=== PATIENT | male | born 1955 | race Caucasian/White ===

== ENCOUNTER 2018-04-10 13:08 | Inpatient (IN) | payer OTHER ==
[2018-04-10] MEDS ORDERED: ACETAMINOPHEN 500 MG TABLET (FP) PO ONE (13:11)
--- NOTE | 2018-04-10 13:11 | PDOC ---
Rapid Medical Evaluation Time Seen by Provider: 04/10/18 13:09 Medical Evaluation: Allergies Allergy/AdvReac Type Severity Reaction Status Date / Time No Known Allergies Allergy Verified 02/27/18 10:21 04/10/18 13:10 I have performed a brief in-person evaluation of this patient. The patient presents with a chief complaint of: sent by ID for fever Pertinent physical exam findings:NAD I have ordered the following:Septic w/u and tylenol The patient will proceed to the ED for further evaluation. 04/10/18 13:11 Discharge Disposition - Diagnosis Fever - Referrals - Patient Instructions - Post Discharge Activity
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
--- NOTE | 2018-04-10 13:46 | PDOC ---
Attending Attestation - Resident Resident Name: Aiyana Valdovinos - ED Attending Attestation I have performed the following: I have examined & evaluated the patient, The case was reviewed & discussed with the resident, I agree w/resident's findings & plan - HPI HPI: 04/10/18 15:25 The patient is a 62 year old male, with a significant past medical history of chronic blt LE ulcers and chronic venous HTN, who presents to the emergency department with, fever and chills. Patient was seen by Dr. Daniels and Dr. Alcantar prior to his arrival, who advised him to report to the ED for further evaluation. He denies any recent headache or dizziness. He denies any recent nausea, vomit, diarrhea or constipation. He denies any recent chest pain or shortness of breath. He denies any recent dysuria, frequency, urgency or hematuria. Allergies: NKDA Wound Care: Dr. Tra Alcantar ID: Dr. Daniels - Physicial Exam PE: 04/10/18 15:25 EXTREMITIES: RLE: 6x3cm chronic ulcerated wound with purulent discharge, erythema and dry, flaky skin extending upward 3x2cm LLE: 2.5x2.5 cm chronic ulcerated wound with purulent discharge to the foot 2.5x1 cm chronic ulcerated wound with purulent discharge to the left 3rd toe. <Evangelist Meza - Last Filed: 04/10/18 15:25> - Medical Decision Making 04/10/18 18:10 Pt presents to the ED complaining of worsening of his chronic lower extremity ulcers, fever and chills. Sent in by Dr. Daniels for concern for cellulitis. Labs demonstrate an elevated WBC count. Will start IV antibotics, check xrays to evaluate for osteomyelitis and admit to medicine. 04/10/18 18:13 04/10/18 18:19 <Miranda Marie - Last Filed: 04/10/18 18:19> Attestations - Attestations 04/10/18 15:29 Documentation prepared by Evangelist Meza, acting as medical staff assistant for Miranda Marie MD. <Evangelist Meza - Last Filed: 04/10/18 15:25>
[2018-04-10] MEDS ORDERED: BACITRACIN 15 GM TUBE TOPICAL OINTMENT TP ONE (14:30)
[2018-04-10] MEDS ORDERED: VANCOMYCIN 1,000 MG in DEXTROSE 5%-WATER - 250 ML IVPB ONE (14:34)
[2018-04-10] MEDS ORDERED: PIPERACILLIN/TAZOB 4.5 GM 4.5 GM in DEXTROSE 5%-WATER 100 ML IVPB ONE (14:34)
[2018-04-10] MEDS ORDERED: BACITRACIN 0.9 GM PACKET ONE (14:42)
[2018-04-10] MEDS ORDERED: PIPERACILLIN/TAZOB 4.5 GM 4.5 GM/100 ML BAG IVPB ONE (14:43)
[2018-04-10] MEDS ORDERED: VANCOMYCIN 1 GRAM (PRE-DOCKED) 1,000 MG/250 ML BAG IVPB ONE (14:43)
[2018-04-10] MEDS ORDERED: HYDROmorphone HCL 2 MG TABLET PO ONE (15:18)
[2018-04-10 15:34] LABS: BASO % 0.1 % (0-2.0); EOS % 0.7 % (0-4.5); HEMATOCRIT 39.1 % (35.4-49); HEMOGLOBIN 13.4 GM/dL (11.7-16.9); MCH 31.9 pg (25.7-33.7); MCHC 34.3 g/dl (32.0-35.9); MEAN CELL VOLUME 93.1 fl (80-96); MONO % 4.3 % (3.8-10.2); NEUT % 75.9 % (42.8-82.8); PLATELET COUNT 215 K/MM3 (134-434); RDW 13.3 % (11.9-15.9)
[2018-04-10 15:38] LABS: URINE APPEARANCE CLEAR; URINE BILIRUBIN NEGATIVE (<2.0 mg/dL); URINE COLOR STRAW; URINE GLUCOSE (UA) NEGATIVE (NEGATIVE); URINE KETONE NEGATIVE (NEGATIVE); URINE LEUK ESTERASE NEGATIVE (NEGATIVE); URINE NITRITE NEGATIVE (NEGATIVE); URINE PROTEIN NEGATIVE (NEGATIVE)
[2018-04-10 15:46] LABS: INR 1.11 (0.83-1.09); PROTHROMBIN TIME (PATIENT) 13.1 SEC (9.7-13.0)
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
[2018-04-10 15:48] LABS: ACTIVATED PTT 30.9 SECONDS (25.2-36.5)
[2018-04-10 16:01] LABS: ALBUMIN 3.2 g/dl (3.4-5.0); ALK PHOS 133 U/L (45-117); ANION GAP 6 MMOL/L (8-16); BILIRUBIN,TOTAL 0.5 mg/dL (0.2-1); BLOOD UREA NITROGEN 16 mg/dL (7-18); CALCIUM 9.2 mg/dL (8.5-10.1); CHLORIDE 102 mmol/L (98-107); CO2 30 mmol/L (21-32); CREATININE 1.1 mg/dL (0.55-1.3); GLUCOSE,RANDOM 105 mg/dL (74-106); POTASSIUM 4.3 mmol/L (3.5-5.1); SGOT/AST 29 U/L (15-37); SGPT/ALT 38 U/L (13-61); SODIUM 138 mmol/L (136-145); TOT PROT 7.6 g/dl (6.4-8.2)
[2018-04-10] MEDS ORDERED: HYDROmorphone HCL 2 MG TABLET ONE (16:13)
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
[2018-04-10 20:45] VITALS: BMI 27.3
[2018-04-10] MEDS: ZOLPIDEM TARTRATE 5 MG TABLET PO PRN (21:27)
[2018-04-10] MEDS: CARBIDOPA/LEVODOPA 25/100 TABLET (FP) PO SCH (21:27)
[2018-04-10] MEDS: PENTOXIFYLLINE 400 MG TABLET.ER PO SCH (21:27)
[2018-04-10] MEDS: GABAPENTIN 300 MG CAPSULE (FP) PO SCH (21:27)
[2018-04-10] MEDS: HEPARIN NA (PORCINE) 5,000 UNITS/ML 1ML VIAL SQ SCH (21:28)
[2018-04-10] MEDS: oxyCODONE HCL 5 MG TABLET PO PRN (23:36)
[2018-04-11] MEDS: oxyCODONE HCL 5 MG TABLET PO PRN ×3 (06:11→23:21)
[2018-04-11] MEDS: GABAPENTIN 300 MG CAPSULE (FP) PO SCH ×3 (06:13→22:11)
[2018-04-11] MEDS: PENTOXIFYLLINE 400 MG TABLET.ER PO SCH ×3 (06:13→22:12)
[2018-04-11] MEDS: CARBIDOPA/LEVODOPA 25/100 TABLET (FP) PO SCH ×3 (06:14→22:12)
[2018-04-11] MEDS: LEVOTHYROXINE NA 100 MCG TABLET (FP) PO SCH (06:14)
[2018-04-11] MEDS: clonazePAM 0.5 MG TABLET PO SCH (09:32)
[2018-04-11] MEDS: HEPARIN NA (PORCINE) 5,000 UNITS/ML 1ML VIAL SQ SCH ×2 (09:35→22:12)
[2018-04-11] MEDS: FERROUS SO4 325 MG TABLET (FP) PO SCH (09:35)
[2018-04-11] MEDS: ASPIRIN 81 MG CHEWABLE TABLETS PO SCH (09:35)
[2018-04-11 10:26] LABS: BASO % 0.2 % (0-2.0); EOS % 2.2 % (0-4.5); HEMATOCRIT 38.2 % (35.4-49); HEMOGLOBIN 13.1 GM/dL (11.7-16.9); LYMPH % 41.4 % (8-40); MCH 31.9 pg (25.7-33.7); MCHC 34.4 g/dl (32.0-35.9); MEAN CELL VOLUME 92.8 fl (80-96); MONO % 7.5 % (3.8-10.2); NEUT % 48.7 % (42.8-82.8); PLATELET COUNT 176 K/MM3 (134-434); RBC 4.12 M/mm3 (4.00-5.60); WHITE BLOOD COUNT 8.2 K/mm3 (4.0-10.0)
[2018-04-11 10:57] LABS: ALBUMIN 3.2 g/dl (3.4-5.0); ALK PHOS 128 U/L (45-117); ANION GAP 6 MMOL/L (8-16); BILIRUBIN,TOTAL 0.5 mg/dL (0.2-1); BLOOD UREA NITROGEN 16 mg/dL (7-18); CALCIUM 9.7 mg/dL (8.5-10.1); CHLORIDE 107 mmol/L (98-107); CO2 28 mmol/L (21-32); CREATININE 1.1 mg/dL (0.55-1.3); GLUCOSE,RANDOM 140 mg/dL (74-106); POTASSIUM 4.1 mmol/L (3.5-5.1); SGOT/AST 22 U/L (15-37); SGPT/ALT 12 U/L (13-61); SODIUM 142 mmol/L (136-145); TOT PROT 7.5 g/dl (6.4-8.2)
[2018-04-11] MEDS: ACETAMINOPHEN 325 MG TABLET (FP) PO PRN (12:56)
--- NOTE | 2018-04-11 15:02 | PN ---
Progress Note, Physician History of Present Illness: Pt seen and examined, results reviewed. Pt with chronic LE pain, afebrile today. No other specific complaints. - Current Medication List Current Medications: Active Medications Acetaminophen (Tylenol -) 650 mg PO Q6H PRN PRN Reason: FEVER Last Admin: 04/11/18 12:56 Dose: 650 mg Aspirin (Asa -) 81 mg PO DAILY [facility] Last Admin: 04/11/18 09:35 Dose: 81 mg Bupropion HCl (Wellbutrin Xl -) 150 mg PO BID [facility] Last Admin: 04/11/18 09:32 Dose: 150 mg Carbidopa/Levodopa (Sinemet 25/100 -) 1 each PO TID [facility] Last Admin: 04/11/18 14:53 Dose: 1 each Clonazepam (Klonopin -) 1.5 mg PO DAILY [facility] Last Admin: 04/11/18 09:32 Dose: 1.5 mg Ferrous Sulfate (Feosol -) 325 mg PO DAILY [facility] Last Admin: 04/11/18 09:35 Dose: 325 mg Gabapentin (Neurontin -) 600 mg PO TID [facility] Last Admin: 04/11/18 14:53 Dose: 600 mg Heparin Sodium (Porcine) (Heparin -) 5,000 unit SQ BID [facility] Last Admin: 04/11/18 09:35 Dose: 5,000 unit Piperacillin Sod/Tazobactam (Sod 3.375 gm/ Dextrose) 50 mls @ 100 mls/hr IVPB Q8H-IV BRENDA; Protocol Vancomycin HCl (Vancomycin (Pre-Docked)) 1,000 mg in 250 mls @ 166.667 mls/hr IVPB Q12H [facility]; Protocol Levothyroxine Sodium (Synthroid -) 200 mcg PO AM [facility] Last Admin: 04/11/18 06:14 Dose: 200 mcg Oxycodone HCl (Roxicodone -) 5 mg PO Q6H PRN PRN Reason: PAIN SCALE 1-5 Last Admin: 04/11/18 12:55 Dose: 5 mg Pentoxifylline (Trental -) 400 mg PO TID [facility] Last Admin: 04/11/18 14:53 Dose: 400 mg Zolpidem Tartrate (Ambien -) 10 mg PO HS PRN PRN Reason: INSOMNIA Last Admin: 04/10/18 21:27 Dose: 10 mg - Objective Vital Signs: Vital Signs Temperature 98.4 F 04/11/18 06:22 Pulse Rate 78 04/11/18 06:22 Respiratory Rate 18 04/11/18 06:22 Blood Pressure 128/76 04/11/18 06:22 O2 Sat by Pulse Oximetry (%) 94 L 04/10/18 20:50 Constitutional: Yes: No Distress, Calm Cardiovascular: Yes: Regular Rate and Rhythm Respiratory: Yes: Regular Gastrointestinal: Yes: Normal Bowel Sounds, Soft Wound/Incision: Yes: Other (RLE edema/warmth/mild erythema, LE ulcers with oozing) Neurological: Yes: Alert Labs: CBC, BMP 04/11/18 08:30 04/11/18 08:30 INR, PTT INR 1.11 (0.83-1.09) H 04/10/18 13:48 Microbiology 04/10/18 14:41 Wound Wound Culture - Preliminary 04/10/18 03:45 Urine - Urine Clean Catch Urine Culture - Final NO GROWTH OBTAINED Problem List - Problems (1) Cellulitis Code(s): L03.90 - CELLULITIS, UNSPECIFIED (2) Fever Code(s): R50.9 - FEVER, UNSPECIFIED (3) Idiopathic chronic venous hypertension of both lower extremities with ulcer and inflammation Code(s): I87.333 - CHRONIC VENOUS HTN W ULCER AND INFLAM OF BILATERAL LOW EXTRM ; L97.919 - NON-PRS CHRONIC ULC UNSP PRT OF R LOW LEG W UNSP SEVERITY; L97.929 - NON-PRS CHRONIC ULC UNSP PRT OF L LOW LEG W UNSP SEVERITY Assessment/Plan LE cellulitis/ulcers Leukocytosis - resolved Venous HTN -- continue antibiotics -- follow up wound and blood culture results -- continue wound care, monitor vitals -- Vancomycin trough prior to 4th dose
--- NOTE | 2018-04-11 15:31 | PN ---
Progress Note, Physician History of Present Illness: doing well - Current Medication List Current Medications: Active Medications Acetaminophen (Tylenol -) 650 mg PO Q6H PRN PRN Reason: FEVER Last Admin: 04/11/18 12:56 Dose: 650 mg Aspirin (Asa -) 81 mg PO DAILY [facility] Last Admin: 04/11/18 09:35 Dose: 81 mg Bupropion HCl (Wellbutrin Xl -) 150 mg PO BID [facility] Last Admin: 04/11/18 09:32 Dose: 150 mg Carbidopa/Levodopa (Sinemet 25/100 -) 1 each PO TID [facility] Last Admin: 04/11/18 14:53 Dose: 1 each Clonazepam (Klonopin -) 1.5 mg PO DAILY [facility] Last Admin: 04/11/18 09:32 Dose: 1.5 mg Ferrous Sulfate (Feosol -) 325 mg PO DAILY [facility] Last Admin: 04/11/18 09:35 Dose: 325 mg Gabapentin (Neurontin -) 600 mg PO TID [facility] Last Admin: 04/11/18 14:53 Dose: 600 mg Heparin Sodium (Porcine) (Heparin -) 5,000 unit SQ BID [facility] Last Admin: 04/11/18 09:35 Dose: 5,000 unit Piperacillin Sod/Tazobactam (Sod 3.375 gm/ Dextrose) 50 mls @ 100 mls/hr IVPB Q8H-IV [facility]; Protocol Vancomycin HCl (Vancomycin (Pre-Docked)) 1,000 mg in 250 mls @ 166.667 mls/hr IVPB Q12H [facility]; Protocol Levothyroxine Sodium (Synthroid -) 200 mcg PO AM [facility] Last Admin: 04/11/18 06:14 Dose: 200 mcg Oxycodone HCl (Roxicodone -) 10 mg PO Q6H PRN PRN Reason: PAIN LEVEL 4 - 6 Pentoxifylline (Trental -) 400 mg PO TID [facility] Last Admin: 04/11/18 14:53 Dose: 400 mg Zolpidem Tartrate (Ambien -) 10 mg PO HS PRN PRN Reason: INSOMNIA Last Admin: 04/10/18 21:27 Dose: 10 mg - Objective Vital Signs: Vital Signs Temperature 98.4 F 04/11/18 06:22 Pulse Rate 78 04/11/18 06:22 Respiratory Rate 18 04/11/18 06:22 Blood Pressure 128/76 03/02/19 06:22 O2 Sat by Pulse Oximetry (%) 94 L 04/10/18 20:50 Constitutional: Yes: No Distress HENT: Yes: Atraumatic Neck: Yes: Supple Cardiovascular: Yes: Regular Rate and Rhythm Respiratory: Yes: CTA Bilaterally Gastrointestinal: Yes: Normal Bowel Sounds Extremities: Yes: Other (cellulitis b/l rodrick) Edema: No Neurological: Yes: Alert, Oriented Labs: CBC, BMP 04/11/18 08:30 04/11/18 08:30 INR, PTT INR 1.11 (0.83-1.09) H 04/10/18 13:48 Problem List - Problems (1) Cellulitis Assessment/Plan: iv abx dressing change id on board Code(s): L03.90 - CELLULITIS, UNSPECIFIED (2) Fever Assessment/Plan: cxs negative to date on abx prn tylenol Code(s): R50.9 - FEVER, UNSPECIFIED (3) Idiopathic chronic venous hypertension of both lower extremities with ulcer and inflammation Code(s): I87.333 - CHRONIC VENOUS HTN W ULCER AND INFLAM OF BILATERAL LOW EXTRM ; L97.919 - NON-PRS CHRONIC ULC UNSP PRT OF R LOW LEG W UNSP SEVERITY; L97.929 - NON-PRS CHRONIC ULC UNSP PRT OF L LOW LEG W UNSP SEVERITY
[2018-04-11] MEDS ORDERED: DEXTROSE 5%-WATER - 50 ML IVPB ONE (15:40)
[2018-04-11] MEDS ORDERED: PIPERACILLIN/TAZOBACTAM 3.375 GM VIAL IVPB ONE (15:40)
[2018-04-11] MEDS: VANCOMYCIN 1 GRAM (PRE-DOCKED) 1,000 MG/250 ML BAG IVPB SCH (15:50)
[2018-04-11] MEDS: PIPERACILLIN/TAZOB 3.375 GM 3.375 GM in DEXTROSE 5%-WATER - 50 ML IVPB SCH ×2 (15:50→17:25)
[2018-04-11] MEDS: ZOLPIDEM TARTRATE 5 MG TABLET PO PRN (23:21)
[2018-04-12] MEDS ORDERED: PIPERACILLIN/TAZOBACTAM 3.375 GM VIAL IVPB ONE ×3 (01:16→17:02)
[2018-04-12] MEDS ORDERED: DEXTROSE 5%-WATER - 50 ML IVPB ONE ×3 (01:17→17:02)
[2018-04-12] MEDS: PIPERACILLIN/TAZOB 3.375 GM 3.375 GM in DEXTROSE 5%-WATER - 50 ML IVPB SCH ×3 (01:29→17:33)
[2018-04-12] MEDS: VANCOMYCIN 1 GRAM (PRE-DOCKED) 1,000 MG/250 ML BAG IVPB SCH ×2 (02:41→14:29)
[2018-04-12] MEDS: PENTOXIFYLLINE 400 MG TABLET.ER PO SCH ×3 (05:29→21:15)
[2018-04-12] MEDS: oxyCODONE HCL 5 MG TABLET PO PRN (05:29)
[2018-04-12] MEDS: GABAPENTIN 300 MG CAPSULE (FP) PO SCH ×3 (05:30→21:15)
[2018-04-12] MEDS: CARBIDOPA/LEVODOPA 25/100 TABLET (FP) PO SCH ×3 (05:30→21:15)
[2018-04-12] MEDS: LEVOTHYROXINE NA 100 MCG TABLET (FP) PO SCH (06:11)
[2018-04-12] MEDS: ASPIRIN 81 MG CHEWABLE TABLETS PO SCH (10:37)
[2018-04-12] MEDS: HEPARIN NA (PORCINE) 5,000 UNITS/ML 1ML VIAL SQ SCH ×2 (10:37→21:15)
[2018-04-12] MEDS: FERROUS SO4 325 MG TABLET (FP) PO SCH (10:37)
[2018-04-12] MEDS: clonazePAM 0.5 MG TABLET PO SCH (10:38)
--- NOTE | 2018-04-12 15:14 | PN ---
Progress Note, Physician History of Present Illness: Pt afebrile. States pain in LE is controlled but remains edematous. Tolerating antibiotics. - Current Medication List Current Medications: Active Medications Acetaminophen (Tylenol -) 650 mg PO Q6H PRN PRN Reason: FEVER Last Admin: 04/11/18 12:56 Dose: 650 mg Aspirin (Asa -) 81 mg PO DAILY [facility] Last Admin: 04/12/18 10:37 Dose: 81 mg Bupropion HCl (Wellbutrin Xl -) 150 mg PO BID [facility] Last Admin: 04/12/18 10:37 Dose: 150 mg Carbidopa/Levodopa (Sinemet 25/100 -) 1 each PO TID [facility] Last Admin: 04/12/18 14:29 Dose: 1 each Clonazepam (Klonopin -) 1.5 mg PO DAILY [facility] Last Admin: 04/12/18 10:38 Dose: 1.5 mg Ferrous Sulfate (Feosol -) 325 mg PO DAILY [facility] Last Admin: 04/12/18 10:37 Dose: 325 mg Gabapentin (Neurontin -) 600 mg PO TID [facility] Last Admin: 04/12/18 14:29 Dose: 600 mg Heparin Sodium (Porcine) (Heparin -) 5,000 unit SQ BID [facility] Last Admin: 04/12/18 10:37 Dose: 5,000 unit Hydromorphone HCl (Dilaudid -) 4 mg PO Q6H PRN PRN Reason: PAIN SCALE 7-10 Last Admin: 04/12/18 12:09 Dose: 4 mg Piperacillin Sod/Tazobactam (Sod 3.375 gm/ Dextrose) 50 mls @ 100 mls/hr IVPB Q8H-IV [facility]; Protocol Last Admin: 04/12/18 10:38 Dose: 100 mls/hr Vancomycin HCl (Vancomycin (Pre-Docked)) 1,000 mg in 250 mls @ 166.667 mls/hr IVPB Q12H [facility]; Protocol Last Admin: 04/12/18 14:29 Dose: 166.667 mls/hr Levothyroxine Sodium (Synthroid -) 200 mcg PO AM [facility] Last Admin: 04/12/18 06:11 Dose: 200 mcg Oxycodone HCl (Roxicodone -) 10 mg PO Q6H PRN PRN Reason: PAIN LEVEL 4 - 6 Last Admin: 04/12/18 05:29 Dose: 10 mg Pentoxifylline (Trental -) 400 mg PO TID [facility] Last Admin: 04/12/18 14:29 Dose: 400 mg Zolpidem Tartrate (Ambien -) 10 mg PO HS PRN PRN Reason: INSOMNIA Last Admin: 04/11/18 23:21 Dose: 10 mg - Objective Vital Signs: Vital Signs Temperature 98.1 F 04/12/18 06:00 Pulse Rate 64 04/12/18 06:00 Respiratory Rate 18 04/12/18 06:00 Blood Pressure 151/93 04/12/18 06:00 O2 Sat by Pulse Oximetry (%) 95 04/11/18 22:00 Constitutional: Yes: No Distress, Calm Cardiovascular: Yes: Regular Rate and Rhythm Respiratory: Yes: Regular Gastrointestinal: Yes: Normal Bowel Sounds, Soft Extremities: Yes: Erythema Wound/Incision: Yes: Other (RLE edema/erythema/warmth, nonpurulent oozing from ulcers) Psychiatric: Yes: Alert Labs: CBC, BMP 04/11/18 08:30 04/11/18 08:30 INR, PTT INR 1.11 (0.83-1.09) H 04/10/18 13:48 Microbiology 04/10/18 14:41 Wound Gram Stain - Final 04/10/18 14:41 Wound Wound Culture - Preliminary Non Lactose Fermenting Gnb Pending Organism Pending Organism#2 Staphylococcus Coagulase Neg Diphtheroid/Corynebacterium 04/10/18 15:25 Blood - Peripheral Venous Blood Culture - Preliminary NO GROWTH OBTAINED AFTER 24 HOURS, INCUBATION TO CONTINUE FOR 4 DAYS. 04/10/18 15:22 Blood - Peripheral Venous Blood Culture - Preliminary NO GROWTH OBTAINED AFTER 24 HOURS, INCUBATION TO CONTINUE FOR 4 DAYS. 04/10/18 03:45 Urine - Urine Clean Catch Urine Culture - Final NO GROWTH OBTAINED Problem List - Problems (1) Cellulitis Code(s): L03.90 - CELLULITIS, UNSPECIFIED (2) Fever Code(s): R50.9 - FEVER, UNSPECIFIED (3) Idiopathic chronic venous hypertension of both lower extremities with ulcer and inflammation Code(s): I87.333 - CHRONIC VENOUS HTN W ULCER AND INFLAM OF BILATERAL LOW EXTRM ; L97.919 - NON-PRS CHRONIC ULC UNSP PRT OF R LOW LEG W UNSP SEVERITY; L97.929 - NON-PRS CHRONIC ULC UNSP PRT OF L LOW LEG W UNSP SEVERITY Assessment/Plan RLE cellulitis/ulcers - leg remains warm and edematous Leukocytosis - resolved Venous HTN -- Blood cultures neg so far, wound cultures pending -- continue antibiotics -- continue wound care, monitor vitals -- check Vancomycin trough prior to 4th dose, monitor renal function
--- NOTE | 2018-04-12 17:35 | PN ---
Progress Note, Physician History of Present Illness: doing well - Current Medication List Current Medications: Active Medications Acetaminophen (Tylenol -) 650 mg PO Q6H PRN PRN Reason: FEVER Last Admin: 04/11/18 12:56 Dose: 650 mg Aspirin (Asa -) 81 mg PO DAILY [facility] Last Admin: 04/12/18 10:37 Dose: 81 mg Bupropion HCl (Wellbutrin Xl -) 150 mg PO BID [facility] Last Admin: 04/12/18 10:37 Dose: 150 mg Carbidopa/Levodopa (Sinemet 25/100 -) 1 each PO TID [facility] Last Admin: 04/12/18 14:29 Dose: 1 each Clonazepam (Klonopin -) 1.5 mg PO DAILY [facility] Last Admin: 04/12/18 10:38 Dose: 1.5 mg Ferrous Sulfate (Feosol -) 325 mg PO DAILY [facility] Last Admin: 04/12/18 10:37 Dose: 325 mg Gabapentin (Neurontin -) 600 mg PO TID [facility] Last Admin: 04/12/18 14:29 Dose: 600 mg Heparin Sodium (Porcine) (Heparin -) 5,000 unit SQ BID [facility] Last Admin: 04/12/18 10:37 Dose: 5,000 unit Hydromorphone HCl (Dilaudid -) 4 mg PO Q6H PRN PRN Reason: PAIN SCALE 7-10 Last Admin: 04/12/18 17:33 Dose: 4 mg Piperacillin Sod/Tazobactam (Sod 3.375 gm/ Dextrose) 50 mls @ 100 mls/hr IVPB Q8H-IV [facility]; Protocol Last Admin: 04/12/18 17:33 Dose: 100 mls/hr Vancomycin HCl (Vancomycin (Pre-Docked)) 1,000 mg in 250 mls @ 166.667 mls/hr IVPB Q12H [facility]; Protocol Last Admin: 04/12/18 14:29 Dose: 166.667 mls/hr Levothyroxine Sodium (Synthroid -) 200 mcg PO AM [facility] Last Admin: 04/12/18 06:11 Dose: 200 mcg Oxycodone HCl (Roxicodone -) 10 mg PO Q6H PRN PRN Reason: PAIN LEVEL 4 - 6 Last Admin: 04/12/18 05:29 Dose: 10 mg Pentoxifylline (Trental -) 400 mg PO TID [facility] Last Admin: 04/12/18 14:29 Dose: 400 mg Zolpidem Tartrate (Ambien -) 10 mg PO HS PRN PRN Reason: INSOMNIA Last Admin: 04/11/18 23:21 Dose: 10 mg - Objective Vital Signs: Vital Signs Temperature 98.1 F 04/12/18 06:00 Pulse Rate 64 04/12/18 06:00 Respiratory Rate 18 04/12/18 06:00 Blood Pressure 151/93 04/12/18 06:00 O2 Sat by Pulse Oximetry (%) 95 04/11/18 22:00 Constitutional: Yes: No Distress HENT: Yes: Atraumatic Neck: Yes: Supple Cardiovascular: Yes: Regular Rate and Rhythm Respiratory: Yes: CTA Bilaterally Gastrointestinal: Yes: Normal Bowel Sounds Extremities: Yes: Other (b/l rodrick cellulitis) Neurological: Yes: Alert, Oriented Labs: CBC, BMP 04/11/18 08:30 04/11/18 08:30 INR, PTT INR 1.11 (0.83-1.09) H 04/10/18 13:48 Problem List - Problems (1) Cellulitis Assessment/Plan: iv abx dressing change id on board Code(s): L03.90 - CELLULITIS, UNSPECIFIED (2) Fever Assessment/Plan: cxs negative to date on abx prn tylenol Code(s): R50.9 - FEVER, UNSPECIFIED (3) Idiopathic chronic venous hypertension of both lower extremities with ulcer and inflammation Code(s): I87.333 - CHRONIC VENOUS HTN W ULCER AND INFLAM OF BILATERAL LOW EXTRM ; L97.919 - NON-PRS CHRONIC ULC UNSP PRT OF R LOW LEG W UNSP SEVERITY; L97.929 - NON-PRS CHRONIC ULC UNSP PRT OF L LOW LEG W UNSP SEVERITY (4) Chronic pain Assessment/Plan: pt want sto have exact same pain meds as he is taking at home Code(s): G89.29 - OTHER CHRONIC PAIN
[2018-04-12] MEDS: LACTULOSE 20 GM/30 ML UDC (FOR ORAL USE ONLY) PO SCH (17:55)
[2018-04-12] MEDS: LITHIUM CARBONATE 300 MG CAPSULE (FP) PO SCH (21:15)
[2018-04-12] MEDS: oxyCODONE HCL 40 MG SUSTAINED ACTING TABLET PO SCH (21:15)
[2018-04-12] MEDS: BACLOFEN 10 MG TABLET (FP) PO SCH (21:15)
[2018-04-12] MEDS: SENNOSIDES 8.6MG TABLET (FP) PO SCH (21:15)
[2018-04-12] MEDS: COLLAGENASE CLOSTRIDIUM HIST. 30 GRAMS TUBE TP SCH ×2 (21:16→21:18)
[2018-04-12] MEDS: ZOLPIDEM TARTRATE 5 MG TABLET PO PRN (22:07)
[2018-04-13] MEDS ORDERED: DEXTROSE 5%-WATER - 50 ML IVPB ONE ×3 (00:43→17:04)
[2018-04-13] MEDS ORDERED: PIPERACILLIN/TAZOBACTAM 3.375 GM VIAL IVPB ONE ×3 (00:43→17:04)
[2018-04-13] MEDS: PIPERACILLIN/TAZOB 3.375 GM 3.375 GM in DEXTROSE 5%-WATER - 50 ML IVPB SCH ×3 (01:55→17:08)
[2018-04-13] MEDS: VANCOMYCIN 1 GRAM (PRE-DOCKED) 1,000 MG/250 ML BAG IVPB SCH (02:55)
[2018-04-13] MEDS: GABAPENTIN 300 MG CAPSULE (FP) PO SCH ×3 (05:24→22:46)
[2018-04-13] MEDS: PENTOXIFYLLINE 400 MG TABLET.ER PO SCH ×3 (05:24→22:47)
[2018-04-13] MEDS: CARBIDOPA/LEVODOPA 25/100 TABLET (FP) PO SCH ×3 (05:24→22:47)
[2018-04-13] MEDS: LEVOTHYROXINE NA 100 MCG TABLET (FP) PO SCH (06:05)
[2018-04-13 08:46] LABS: BASO % 0.3 % (0-2.0); EOS % 3.5 % (0-4.5); HEMATOCRIT 41.7 % (35.4-49); HEMOGLOBIN 14.3 GM/dL (11.7-16.9); MCH 31.7 pg (25.7-33.7); MCHC 34.3 g/dl (32.0-35.9); MEAN CELL VOLUME 92.6 fl (80-96); MONO % 7.5 % (3.8-10.2); NEUT % 48.7 % (42.8-82.8); PLATELET COUNT 187 K/MM3 (134-434); RDW 13.2 % (11.9-15.9); WHITE BLOOD COUNT 9.1 K/mm3 (4.0-10.0)
[2018-04-13 09:23] LABS: ALBUMIN 3.2 g/dl (3.4-5.0); ALK PHOS 117 U/L (45-117); ANION GAP 8 MMOL/L (8-16); BILIRUBIN,TOTAL 0.5 mg/dL (0.2-1); BLOOD UREA NITROGEN 18 mg/dL (7-18); CHLORIDE 104 mmol/L (98-107); CO2 28 mmol/L (21-32); GLUCOSE,RANDOM 87 mg/dL (74-106); POTASSIUM 4.4 mmol/L (3.5-5.1); SGOT/AST 20 U/L (15-37); SGPT/ALT 7 U/L (13-61); SODIUM 139 mmol/L (136-145); TOT PROT 7.6 g/dl (6.4-8.2)
[2018-04-13] MEDS ORDERED: PT OWN MED DRAWER 7, Y5N ONE ×2 (10:08→22:35)
[2018-04-13] MEDS: HEPARIN NA (PORCINE) 5,000 UNITS/ML 1ML VIAL SQ SCH ×2 (10:13→22:46)
[2018-04-13] MEDS: LACTULOSE 20 GM/30 ML UDC (FOR ORAL USE ONLY) PO SCH (10:13)
[2018-04-13] MEDS: ASPIRIN 81 MG CHEWABLE TABLETS PO SCH (10:14)
[2018-04-13] MEDS: BACLOFEN 10 MG TABLET (FP) PO SCH ×2 (10:14→22:46)
[2018-04-13] MEDS: clonazePAM 0.5 MG TABLET PO SCH (10:14)
[2018-04-13] MEDS: LITHIUM CARBONATE 300 MG CAPSULE (FP) PO SCH ×2 (10:14→22:46)
[2018-04-13] MEDS: PANTOPRAZOLE 40 MG TABLET (FP) PO SCH (10:14)
[2018-04-13] MEDS: FERROUS SO4 325 MG TABLET (FP) PO SCH (10:14)
[2018-04-13] MEDS: oxyCODONE HCL 40 MG SUSTAINED ACTING TABLET PO SCH ×2 (10:15→22:46)
--- NOTE | 2018-04-13 13:54 | PN ---
Progress Note, Physician History of Present Illness: patient feels better legs still not that good according to the patient wound cx result noted - Current Medication List Current Medications: Active Medications Acetaminophen (Tylenol -) 650 mg PO Q6H PRN PRN Reason: FEVER Last Admin: 04/11/18 12:56 Dose: 650 mg Aspirin (Asa -) 81 mg PO DAILY [facility] Last Admin: 04/13/18 10:14 Dose: 81 mg Baclofen (Lioresal -) 10 mg PO BID [facility] Last Admin: 04/13/18 10:14 Dose: 10 mg Bupropion HCl (Wellbutrin Xl -) 150 mg PO BID [facility] Last Admin: 04/13/18 10:14 Dose: 150 mg Carbidopa/Levodopa (Sinemet 25/100 -) 1 each PO TID [facility] Last Admin: 04/13/18 13:29 Dose: 1 each Clonazepam (Klonopin -) 1.5 mg PO DAILY [facility] Last Admin: 04/13/18 10:14 Dose: 1.5 mg Collagenase (Santyl -) 1 applic TP BID [facility]; Protocol Last Admin: 04/12/18 21:18 Dose: Not Given Ferrous Sulfate (Feosol -) 325 mg PO DAILY [facility] Last Admin: 04/13/18 10:14 Dose: 325 mg Gabapentin (Neurontin -) 600 mg PO TID [facility] Last Admin: 04/13/18 13:30 Dose: 600 mg Heparin Sodium (Porcine) (Heparin -) 5,000 unit SQ BID [facility] Last Admin: 04/13/18 10:13 Dose: 5,000 unit Hydromorphone HCl (Dilaudid -) 4 mg PO Q6H PRN PRN Reason: PAIN SCALE 7-10 Last Admin: 04/13/18 05:24 Dose: 4 mg Piperacillin Sod/Tazobactam (Sod 3.375 gm/ Dextrose) 50 mls @ 100 mls/hr IVPB Q8H-IV [facility]; Protocol Last Admin: 04/13/18 10:16 Dose: 100 mls/hr Lactulose (Cephulac (Oral Use)) 20 gm PO DAILY [facility] Last Admin: 04/13/18 10:13 Dose: 20 gm Levothyroxine Sodium (Synthroid -) 200 mcg PO AM [facility] Last Admin: 04/13/18 06:05 Dose: 200 mcg [place] Carbonate (Eskalith -) 300 mg PO BID [facility] Last Admin: 04/13/18 10:14 Dose: 300 mg Oxycodone HCl (Roxicodone -) 10 mg PO Q6H PRN PRN Reason: PAIN LEVEL 4 - 6 Last Admin: 04/12/18 05:29 Dose: 10 mg Oxycodone HCl (Oxycontin -) 80 mg PO BID [facility] Last Admin: 04/13/18 10:15 Dose: 80 mg Pantoprazole Sodium (Protonix -) 40 mg PO DAILY [facility] Last Admin: 04/13/18 10:14 Dose: 40 mg Pentoxifylline (Trental -) 400 mg PO TID [facility] Last Admin: 04/13/18 13:30 Dose: 400 mg Senna (Senna -) 1 tab PO HS [facility] Last Admin: 04/12/18 21:15 Dose: 1 tab Zolpidem Tartrate (Ambien -) 10 mg PO HS PRN PRN Reason: INSOMNIA Last Admin: 04/12/18 22:07 Dose: 10 mg - Objective Vital Signs: Vital Signs Temperature 97.8 F 04/13/18 09:00 Pulse Rate 99 H 04/13/18 09:00 Respiratory Rate 20 04/13/18 09:00 Blood Pressure 119/80 04/13/18 09:00 O2 Sat by Pulse Oximetry (%) 96 04/12/18 22:00 Constitutional: Yes: No Distress, Calm Cardiovascular: Yes: Regular Rate and Rhythm Respiratory: Yes: Regular, CTA Bilaterally Gastrointestinal: Yes: Normal Bowel Sounds, Soft Musculoskeletal: Yes: WNL Extremities: Yes: Other Wound/Incision: Yes: Dressing Dry and Intact Neurological: Yes: Alert, Oriented Psychiatric: Yes: Alert, Oriented Labs: CBC, BMP 04/13/18 08:00 04/13/18 08:00 INR, PTT INR 1.11 (0.83-1.09) H 04/10/18 13:48 Assessment/Plan Problem List - Problems (1) Cellulitis Code(s): L03.90 - CELLULITIS, UNSPECIFIED (2) Fever Code(s): R50.9 - FEVER, UNSPECIFIED (3) Idiopathic chronic venous hypertension of both lower extremities with ulcer and inflammation Code(s): I87.333 - CHRONIC VENOUS HTN W ULCER AND INFLAM OF BILATERAL LOW EXTRM ; L97.919 - NON-PRS CHRONIC ULC UNSP PRT OF R LOW LEG W UNSP SEVERITY; L97.929 - NON-PRS CHRONIC ULC UNSP PRT OF L LOW LEG W UNSP SEVERITY 4 non healing wound of the leg plan will stop vanco continue zosyn wound care rest as per the team
[2018-04-13] MEDS: COLLAGENASE CLOSTRIDIUM HIST. 30 GRAMS TUBE TP SCH ×2 (14:31→22:47)
--- NOTE | 2018-04-13 15:06 | PN ---
Progress Note, Physician History of Present Illness: pain in legs - Current Medication List Current Medications: Active Medications Acetaminophen (Tylenol -) 650 mg PO Q6H PRN PRN Reason: FEVER Last Admin: 04/11/18 12:56 Dose: 650 mg Aspirin (Asa -) 81 mg PO DAILY [facility] Last Admin: 04/13/18 10:14 Dose: 81 mg Baclofen (Lioresal -) 10 mg PO BID [facility] Last Admin: 04/13/18 10:14 Dose: 10 mg Bupropion HCl (Wellbutrin Xl -) 150 mg PO BID [facility] Last Admin: 04/13/18 10:14 Dose: 150 mg Carbidopa/Levodopa (Sinemet 25/100 -) 1 each PO TID [facility] Last Admin: 04/13/18 13:29 Dose: 1 each Clonazepam (Klonopin -) 1.5 mg PO DAILY [facility] Last Admin: 04/13/18 10:14 Dose: 1.5 mg Collagenase (Santyl -) 1 applic TP BID [facility]; Protocol Last Admin: 04/13/18 14:31 Dose: 1 applic Ferrous Sulfate (Feosol -) 325 mg PO DAILY [facility] Last Admin: 04/13/18 10:14 Dose: 325 mg Gabapentin (Neurontin -) 600 mg PO TID [facility] Last Admin: 04/13/18 13:30 Dose: 600 mg Heparin Sodium (Porcine) (Heparin -) 5,000 unit SQ BID [facility] Last Admin: 04/13/18 10:13 Dose: 5,000 unit Hydromorphone HCl (Dilaudid -) 4 mg PO Q6H PRN PRN Reason: PAIN SCALE 7-10 Last Admin: 04/13/18 14:31 Dose: 4 mg Piperacillin Sod/Tazobactam (Sod 3.375 gm/ Dextrose) 50 mls @ 100 mls/hr IVPB Q8H-IV [facility]; Protocol Last Admin: 04/13/18 10:16 Dose: 100 mls/hr Lactulose (Cephulac (Oral Use)) 20 gm PO DAILY [facility] Last Admin: 04/13/18 10:13 Dose: 20 gm Levothyroxine Sodium (Synthroid -) 200 mcg PO AM [facility] Last Admin: 04/13/18 06:05 Dose: 200 mcg [place] Carbonate (Eskalith -) 300 mg PO BID [facility] Last Admin: 04/13/18 10:14 Dose: 300 mg Oxycodone HCl (Roxicodone -) 10 mg PO Q6H PRN PRN Reason: PAIN LEVEL 4 - 6 Last Admin: 04/12/18 05:29 Dose: 10 mg Oxycodone HCl (Oxycontin -) 80 mg PO BID [facility] Last Admin: 04/13/18 10:15 Dose: 80 mg Pantoprazole Sodium (Protonix -) 40 mg PO DAILY [facility] Last Admin: 04/13/18 10:14 Dose: 40 mg Pentoxifylline (Trental -) 400 mg PO TID [facility] Last Admin: 04/13/18 13:30 Dose: 400 mg Senna (Senna -) 1 tab PO HS [facility] Last Admin: 04/12/18 21:15 Dose: 1 tab Zolpidem Tartrate (Ambien -) 10 mg PO HS PRN PRN Reason: INSOMNIA Last Admin: 04/12/18 22:07 Dose: 10 mg - Objective Vital Signs: Vital Signs Temperature 97.8 F 04/13/18 09:00 Pulse Rate 99 H 04/13/18 09:00 Respiratory Rate 20 04/13/18 09:00 Blood Pressure 119/80 04/13/18 09:00 O2 Sat by Pulse Oximetry (%) 96 04/12/18 22:00 Constitutional: Yes: No Distress HENT: Yes: Atraumatic Neck: Yes: Supple Cardiovascular: Yes: Regular Rate and Rhythm Respiratory: Yes: CTA Bilaterally Gastrointestinal: Yes: Normal Bowel Sounds Extremities: Yes: Other (cellulitis b/l rodrick) Neurological: Yes: Alert, Oriented Labs: CBC, BMP 04/13/18 08:00 04/13/18 08:00 INR, PTT INR 1.11 (0.83-1.09) H 04/10/18 13:48 Problem List - Problems (1) Cellulitis Assessment/Plan: iv abx dressing change id on board Code(s): L03.90 - CELLULITIS, UNSPECIFIED (2) Fever Assessment/Plan: cxs negative to date on abx prn tylenol Code(s): R50.9 - FEVER, UNSPECIFIED (3) Idiopathic chronic venous hypertension of both lower extremities with ulcer and inflammation Code(s): I87.333 - CHRONIC VENOUS HTN W ULCER AND INFLAM OF BILATERAL LOW EXTRM ; L97.919 - NON-PRS CHRONIC ULC UNSP PRT OF R LOW LEG W UNSP SEVERITY; L97.929 - NON-PRS CHRONIC ULC UNSP PRT OF L LOW LEG W UNSP SEVERITY (4) Chronic pain Assessment/Plan: pt want sto have exact same pain meds as he is taking at home Code(s): G89.29 - OTHER CHRONIC PAIN
[2018-04-13] MEDS: oxyCODONE HCL 5 MG TABLET PO PRN (17:01)
[2018-04-13] MEDS: ZOLPIDEM TARTRATE 5 MG TABLET PO PRN (22:47)
[2018-04-13] MEDS: SENNOSIDES 8.6MG TABLET (FP) PO SCH (22:47)
[2018-04-14] MEDS ORDERED: PIPERACILLIN/TAZOBACTAM 3.375 GM VIAL IVPB ONE ×2 (02:19→10:33)
[2018-04-14] MEDS ORDERED: DEXTROSE 5%-WATER - 50 ML IVPB ONE ×3 (02:19→13:15)
[2018-04-14] MEDS: PIPERACILLIN/TAZOB 3.375 GM 3.375 GM in DEXTROSE 5%-WATER - 50 ML IVPB SCH ×2 (02:37→10:39)
[2018-04-14] MEDS: oxyCODONE HCL 5 MG TABLET PO PRN ×2 (02:38→11:59)
[2018-04-14] MEDS: GABAPENTIN 300 MG CAPSULE (FP) PO SCH ×3 (06:23→22:00)
[2018-04-14] MEDS: CARBIDOPA/LEVODOPA 25/100 TABLET (FP) PO SCH ×3 (06:24→22:00)
[2018-04-14] MEDS: PENTOXIFYLLINE 400 MG TABLET.ER PO SCH ×3 (06:24→22:01)
[2018-04-14] MEDS: LEVOTHYROXINE NA 100 MCG TABLET (FP) PO SCH (06:24)
[2018-04-14] MEDS ORDERED: PT OWN MED DRAWER 7, Y5N ONE ×3 (10:32→21:26)
[2018-04-14] MEDS: HEPARIN NA (PORCINE) 5,000 UNITS/ML 1ML VIAL SQ SCH ×2 (10:38→22:00)
[2018-04-14] MEDS: LACTULOSE 20 GM/30 ML UDC (FOR ORAL USE ONLY) PO SCH (10:38)
[2018-04-14] MEDS: oxyCODONE HCL 40 MG SUSTAINED ACTING TABLET PO SCH ×2 (10:38→22:00)
[2018-04-14] MEDS: clonazePAM 0.5 MG TABLET PO SCH (10:38)
[2018-04-14] MEDS: FERROUS SO4 325 MG TABLET (FP) PO SCH (10:38)
[2018-04-14] MEDS: BACLOFEN 10 MG TABLET (FP) PO SCH ×2 (10:38→22:00)
[2018-04-14] MEDS: PANTOPRAZOLE 40 MG TABLET (FP) PO SCH (10:39)
[2018-04-14] MEDS: COLLAGENASE CLOSTRIDIUM HIST. 30 GRAMS TUBE TP SCH ×2 (10:39→22:00)
[2018-04-14] MEDS: ASPIRIN 81 MG CHEWABLE TABLETS PO SCH (10:39)
[2018-04-14] MEDS: LITHIUM CARBONATE 300 MG CAPSULE (FP) PO SCH ×2 (10:39→21:59)
--- NOTE | 2018-04-14 12:21 | PN ---
Progress Note, Physician History of Present Illness: c/o of severe pain in the legs patient has a high threshold for pain - Current Medication List Current Medications: Active Medications Acetaminophen (Tylenol -) 650 mg PO Q6H PRN PRN Reason: FEVER Last Admin: 04/11/18 12:56 Dose: 650 mg Aspirin (Asa -) 81 mg PO DAILY [facility] Last Admin: 04/14/18 10:39 Dose: 81 mg Baclofen (Lioresal -) 10 mg PO BID [facility] Last Admin: 04/14/18 10:38 Dose: 10 mg Bupropion HCl (Wellbutrin Xl -) 150 mg PO BID [facility] Last Admin: 04/14/18 10:39 Dose: 150 mg Carbidopa/Levodopa (Sinemet 25/100 -) 1 each PO TID [facility] Last Admin: 04/14/18 06:24 Dose: 1 each Clonazepam (Klonopin -) 1.5 mg PO DAILY [facility] Last Admin: 04/14/18 10:38 Dose: 1.5 mg Collagenase (Santyl -) 1 applic TP BID [facility]; Protocol Last Admin: 04/14/18 10:39 Dose: 1 applic Ferrous Sulfate (Feosol -) 325 mg PO DAILY [facility] Last Admin: 04/14/18 10:38 Dose: 325 mg Gabapentin (Neurontin -) 600 mg PO TID [facility] Last Admin: 04/14/18 06:23 Dose: 600 mg Heparin Sodium (Porcine) (Heparin -) 5,000 unit SQ BID [facility] Last Admin: 04/14/18 10:38 Dose: 5,000 unit Hydromorphone HCl (Dilaudid -) 4 mg PO Q6H PRN PRN Reason: PAIN SCALE 7-10 Last Admin: 04/14/18 07:32 Dose: 4 mg Piperacillin Sod/Tazobactam (Sod 3.375 gm/ Dextrose) 50 mls @ 100 mls/hr IVPB Q8H-IV [facility]; Protocol Last Admin: 04/14/18 10:39 Dose: 100 mls/hr Lactulose (Cephulac (Oral Use)) 20 gm PO DAILY [facility] Last Admin: 04/14/18 10:38 Dose: 20 gm Levothyroxine Sodium (Synthroid -) 200 mcg PO AM [facility] Last Admin: 04/14/18 06:24 Dose: 200 mcg [place] Carbonate (Eskalith -) 300 mg PO BID [facility] Last Admin: 04/14/18 10:39 Dose: 300 mg Oxycodone HCl (Roxicodone -) 10 mg PO Q6H PRN PRN Reason: PAIN LEVEL 4 - 6 Last Admin: 04/14/18 11:59 Dose: 10 mg Oxycodone HCl (Oxycontin -) 80 mg PO BID [facility] Last Admin: 04/14/18 10:38 Dose: 80 mg Pantoprazole Sodium (Protonix -) 40 mg PO DAILY [facility] Last Admin: 04/14/18 10:39 Dose: 40 mg Pentoxifylline (Trental -) 400 mg PO TID [facility] Last Admin: 04/14/18 06:24 Dose: 400 mg Senna (Senna -) 1 tab PO HS [facility] Last Admin: 04/13/18 22:47 Dose: 1 tab Zolpidem Tartrate (Ambien -) 10 mg PO HS PRN PRN Reason: INSOMNIA Last Admin: 04/13/18 22:47 Dose: 10 mg - Objective Vital Signs: Vital Signs Temperature 97.6 F 04/14/18 09:00 Pulse Rate 77 04/14/18 09:00 Respiratory Rate 20 04/14/18 09:00 Blood Pressure 114/79 04/14/18 09:00 O2 Sat by Pulse Oximetry (%) 96 04/12/18 22:00 Constitutional: Yes: Calm, Mild Distress Cardiovascular: Yes: S1, S2 Respiratory: Yes: Regular, CTA Bilaterally Gastrointestinal: Yes: Normal Bowel Sounds, Soft Musculoskeletal: Yes: WNL Extremities: Yes: Other Neurological: Yes: Alert, Oriented Psychiatric: Yes: Alert, Oriented Labs: CBC, BMP 04/13/18 08:00 04/13/18 08:00 INR, PTT INR 1.11 (0.83-1.09) H 04/10/18 13:48 Assessment/Plan Problem List - Problems (1) Cellulitis Code(s): L03.90 - CELLULITIS, UNSPECIFIED (2) Fever Code(s): R50.9 - FEVER, UNSPECIFIED (3) Idiopathic chronic venous hypertension of both lower extremities with ulcer and inflammation Code(s): I87.333 - CHRONIC VENOUS HTN W ULCER AND INFLAM OF BILATERAL LOW EXTRM ; L97.919 - NON-PRS CHRONIC ULC UNSP PRT OF R LOW LEG W UNSP SEVERITY; L97.929 - NON-PRS CHRONIC ULC UNSP PRT OF L LOW LEG W UNSP SEVERITY 4 non healing wound of the leg plan will change to ceftriaxone pain mgmt wound care rest as per the team
[2018-04-14] MEDS ORDERED: cefTRIAXone SODIUM 1 GM VIAL ONE (13:15)
[2018-04-14] MEDS: CEFTRIAXONE 1 GM in DEXTROSE 5%-WATER - 50 ML IVPB SCH (13:17)
--- NOTE | 2018-04-14 16:49 | PN ---
Progress Note, Physician History of Present Illness: pain in legs - Current Medication List Current Medications: Active Medications Acetaminophen (Tylenol -) 650 mg PO Q6H PRN PRN Reason: FEVER Last Admin: 04/11/18 12:56 Dose: 650 mg Aspirin (Asa -) 81 mg PO DAILY [facility] Last Admin: 04/14/18 10:39 Dose: 81 mg Baclofen (Lioresal -) 10 mg PO BID [facility] Last Admin: 04/14/18 10:38 Dose: 10 mg Bupropion HCl (Wellbutrin Xl -) 150 mg PO BID [facility] Last Admin: 04/14/18 10:39 Dose: 150 mg Carbidopa/Levodopa (Sinemet 25/100 -) 1 each PO TID [facility] Last Admin: 04/14/18 13:18 Dose: 1 each Clonazepam (Klonopin -) 1.5 mg PO DAILY [facility] Last Admin: 04/14/18 10:38 Dose: 1.5 mg Collagenase (Santyl -) 1 applic TP BID [facility]; Protocol Last Admin: 04/14/18 10:39 Dose: 1 applic Ferrous Sulfate (Feosol -) 325 mg PO DAILY [facility] Last Admin: 04/14/18 10:38 Dose: 325 mg Gabapentin (Neurontin -) 600 mg PO TID [facility] Last Admin: 04/14/18 13:18 Dose: 600 mg Heparin Sodium (Porcine) (Heparin -) 5,000 unit SQ BID [facility] Last Admin: 04/14/18 10:38 Dose: 5,000 unit Hydromorphone HCl (Dilaudid -) 4 mg PO Q6H PRN PRN Reason: PAIN SCALE 7-10 Last Admin: 04/14/18 15:36 Dose: 4 mg Ceftriaxone Sodium 1 gm/ (Dextrose) 50 mls @ 100 mls/hr IVPB DAILY [facility]; Protocol Last Admin: 04/14/18 13:17 Dose: 100 mls/hr Lactulose (Cephulac (Oral Use)) 20 gm PO DAILY [facility] Last Admin: 04/14/18 10:38 Dose: 20 gm Levothyroxine Sodium (Synthroid -) 200 mcg PO AM [facility] Last Admin: 04/14/18 06:24 Dose: 200 mcg [place] Carbonate (Eskalith -) 300 mg PO BID [facility] Last Admin: 04/14/18 10:39 Dose: 300 mg Oxycodone HCl (Oxycontin -) 80 mg PO BID [facility] Last Admin: 04/14/18 10:38 Dose: 80 mg Pantoprazole Sodium (Protonix -) 40 mg PO DAILY [facility] Last Admin: 04/14/18 10:39 Dose: 40 mg Pentoxifylline (Trental -) 400 mg PO TID [facility] Last Admin: 04/14/18 13:18 Dose: 400 mg Senna (Senna -) 1 tab PO HS [facility] Last Admin: 04/13/18 22:47 Dose: 1 tab Zolpidem Tartrate (Ambien -) 10 mg PO HS PRN PRN Reason: INSOMNIA Last Admin: 04/13/18 22:47 Dose: 10 mg - Objective Vital Signs: Vital Signs Temperature 97.3 F L 04/14/18 14:02 Pulse Rate 94 H 04/14/18 14:02 Respiratory Rate 20 04/14/18 09:00 Blood Pressure 133/89 04/14/18 14:02 O2 Sat by Pulse Oximetry (%) 96 04/12/18 22:00 Constitutional: Yes: No Distress HENT: Yes: Atraumatic Neck: Yes: Supple Cardiovascular: Yes: Regular Rate and Rhythm Respiratory: Yes: CTA Bilaterally Gastrointestinal: Yes: Normal Bowel Sounds Extremities: Yes: Other (cellulitis b/l rodrick) Neurological: Yes: Alert, Oriented Labs: CBC, BMP 04/13/18 08:00 04/13/18 08:00 INR, PTT INR 1.11 (0.83-1.09) H 04/10/18 13:48 Problem List - Problems (1) Cellulitis Assessment/Plan: iv abx dressing change id on board Code(s): L03.90 - CELLULITIS, UNSPECIFIED (2) Fever Assessment/Plan: cxs negative to date on abx prn tylenol Code(s): R50.9 - FEVER, UNSPECIFIED (3) Idiopathic chronic venous hypertension of both lower extremities with ulcer and inflammation Code(s): I87.333 - CHRONIC VENOUS HTN W ULCER AND INFLAM OF BILATERAL LOW EXTRM ; L97.919 - NON-PRS CHRONIC ULC UNSP PRT OF R LOW LEG W UNSP SEVERITY; L97.929 - NON-PRS CHRONIC ULC UNSP PRT OF L LOW LEG W UNSP SEVERITY (4) Chronic pain Assessment/Plan: pt want sto have exact same pain meds as he is taking at home Code(s): G89.29 - OTHER CHRONIC PAIN
--- NOTE | 2018-04-14 17:18 | DS ---
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 Current Active Problems Cellulitis (Acute) Chronic pain (Acute) Fever (Acute) Condition: Guarded - Instructions - Home Medications Comprehensive Discharge Medication List: Ambulatory Orders Acetaminophen [Tylenol] 1 tab PO QID 02/27/18 Aspirin [ASA -] 1 tab PO DAILY 02/27/18 Benzonatate 1 cap PO DAILY 02/27/18 Bupropion HCl [Bupropion HCl Sr] 1 tab PO BID 02/27/18 Carbidopa/Levodopa [Carbidopa-Levodopa 25-100 Tab] 1 tab PO TID 02/27/18 Clonazepam [Klonopin] 1.5 mg PO DAILY 02/27/18 Ferrous Sulfate 1 tab PO DAILY 02/27/18 Flonase Allergy Relief 1 spray IH DAILY 02/27/18 Gabapentin 1 cap PO TID 02/27/18 Guaifenesin [Mucinex] 1 tab PO BID 02/27/18 Hydroxyzine HCl 1 tab PO TID 02/27/18 Ipratropium/Albuterol Sulfate [Iprat-Albut 0.5-3(2.5) mg/3 ml] 3 ml IH BID 02/27 Lactulose 20 gm PO DAILY 02/27/18 Levothyroxine [Synthroid -] 1 tab PO DAILY 02/27/18 [place] Carbonate [Lithobid] 1 cap PO BID 02/27/18 Multivitamin [Multiple Vitamins] 1 tab PO DAILY 02/27/18 Pantoprazole Sodium [Protonix] 1 cap PO DAILY 02/27/18 Pentoxifylline [Trental -] 1 tab PO TID 02/27/18 Sennosides [Senna] 1 tab PO HS 02/27/18 Simethicone 1 tab PO QID PRN 02/27/18 Vancomycin/0.9 % Sod Chloride [Vanco 1 Gram/150 ml-0.9% NaCl] 1,000 mg IV BID Varenicline Tartrate [Chantix -] 1 tab PO BID 02/27/18 Zolpidem Tartrate 1 tab PO HS 02/27/18 Ceftriaxone [Rocephin -] 1 gm IVPB DAILY #7 vial 04/14/18 dc
[2018-04-14] MEDS: SENNOSIDES 8.6MG TABLET (FP) PO SCH (22:00)
[2018-04-14] MEDS: ZOLPIDEM TARTRATE 5 MG TABLET PO PRN (23:13)
[2018-04-15] MEDS: GABAPENTIN 300 MG CAPSULE (FP) PO SCH ×2 (06:29→15:10)
[2018-04-15] MEDS: CARBIDOPA/LEVODOPA 25/100 TABLET (FP) PO SCH ×2 (06:30→15:10)
[2018-04-15] MEDS: LEVOTHYROXINE NA 100 MCG TABLET (FP) PO SCH (06:30)
[2018-04-15] MEDS: PENTOXIFYLLINE 400 MG TABLET.ER PO SCH ×2 (06:30→15:10)
[2018-04-15] MEDS ORDERED: DEXTROSE 5%-WATER - 50 ML IVPB ONE (12:03)
[2018-04-15] MEDS ORDERED: cefTRIAXone SODIUM 1 GM VIAL ONE (12:03)
[2018-04-15] MEDS: oxyCODONE HCL 40 MG SUSTAINED ACTING TABLET PO SCH (12:31)
[2018-04-15] MEDS: FERROUS SO4 325 MG TABLET (FP) PO SCH (12:32)
[2018-04-15] MEDS: BACLOFEN 10 MG TABLET (FP) PO SCH (12:32)
[2018-04-15] MEDS: ASPIRIN 81 MG CHEWABLE TABLETS PO SCH (12:33)
[2018-04-15] MEDS: clonazePAM 0.5 MG TABLET PO SCH (12:33)
[2018-04-15] MEDS: PANTOPRAZOLE 40 MG TABLET (FP) PO SCH (12:33)
[2018-04-15] MEDS: CEFTRIAXONE 1 GM in DEXTROSE 5%-WATER - 50 ML IVPB SCH (12:34)
[2018-04-15] MEDS: LACTULOSE 20 GM/30 ML UDC (FOR ORAL USE ONLY) PO SCH (12:35)
[2018-04-15] MEDS: HEPARIN NA (PORCINE) 5,000 UNITS/ML 1ML VIAL SQ SCH (12:35)
[2018-04-15] MEDS: LITHIUM CARBONATE 300 MG CAPSULE (FP) PO SCH (12:35)
[2018-04-15] MEDS: COLLAGENASE CLOSTRIDIUM HIST. 30 GRAMS TUBE TP SCH (12:37)
--- NOTE | 2018-04-15 13:43 | PN ---
Progress Note, Physician History of Present Illness: patient stable no complaints except pain - Current Medication List Current Medications: Active Medications Acetaminophen (Tylenol -) 650 mg PO Q6H PRN PRN Reason: FEVER Last Admin: 04/11/18 12:56 Dose: 650 mg Aspirin (Asa -) 81 mg PO DAILY [facility] Last Admin: 04/15/18 12:33 Dose: 81 mg Baclofen (Lioresal -) 10 mg PO BID [facility] Last Admin: 04/15/18 12:32 Dose: 10 mg Bupropion HCl (Wellbutrin Xl -) 150 mg PO BID [facility] Last Admin: 04/15/18 12:33 Dose: 150 mg Carbidopa/Levodopa (Sinemet 25/100 -) 1 each PO TID [facility] Last Admin: 04/15/18 06:30 Dose: 1 each Clonazepam (Klonopin -) 1.5 mg PO DAILY [facility] Last Admin: 04/15/18 12:33 Dose: 1.5 mg Collagenase (Santyl -) 1 applic TP BID [facility]; Protocol Last Admin: 04/15/18 12:37 Dose: 1 applic Ferrous Sulfate (Feosol -) 325 mg PO DAILY [facility] Last Admin: 04/15/18 12:32 Dose: 325 mg Gabapentin (Neurontin -) 600 mg PO TID [facility] Last Admin: 04/15/18 06:29 Dose: 600 mg Heparin Sodium (Porcine) (Heparin -) 5,000 unit SQ BID [facility] Last Admin: 04/15/18 12:35 Dose: 5,000 unit Hydromorphone HCl (Dilaudid -) 4 mg PO Q6H PRN PRN Reason: PAIN SCALE 7-10 Last Admin: 04/15/18 08:41 Dose: 4 mg Ceftriaxone Sodium 1 gm/ (Dextrose) 50 mls @ 100 mls/hr IVPB DAILY [facility]; Protocol Last Admin: 04/15/18 12:34 Dose: 100 mls/hr Lactulose (Cephulac (Oral Use)) 20 gm PO DAILY [facility] Last Admin: 04/15/18 12:35 Dose: 20 gm Levothyroxine Sodium (Synthroid -) 200 mcg PO AM [facility] Last Admin: 04/15/18 06:30 Dose: 200 mcg [place] Carbonate (Eskalith -) 300 mg PO BID [facility] Last Admin: 04/15/18 12:35 Dose: 300 mg Oxycodone HCl (Oxycontin -) 80 mg PO BID [facility] Last Admin: 04/15/18 12:31 Dose: 80 mg Pantoprazole Sodium (Protonix -) 40 mg PO DAILY [facility] Last Admin: 04/15/18 12:33 Dose: 40 mg Pentoxifylline (Trental -) 400 mg PO TID [facility] Last Admin: 04/15/18 06:30 Dose: 400 mg Senna (Senna -) 1 tab PO HS [facility] Last Admin: 04/14/18 22:00 Dose: 1 tab Zolpidem Tartrate (Ambien -) 10 mg PO HS PRN PRN Reason: INSOMNIA Last Admin: 04/14/18 23:13 Dose: 10 mg - Objective Vital Signs: Vital Signs Temperature 98.0 F 04/15/18 06:06 Pulse Rate 74 04/15/18 06:06 Respiratory Rate 20 04/15/18 06:06 Blood Pressure 127/73 04/15/18 06:06 O2 Sat by Pulse Oximetry (%) 96 04/12/18 22:00 Constitutional: Yes: No Distress, Calm Cardiovascular: Yes: Regular Rate and Rhythm Respiratory: Yes: Regular, CTA Bilaterally Gastrointestinal: Yes: Normal Bowel Sounds, Soft Musculoskeletal: Yes: WNL Extremities: Yes: Other Neurological: Yes: Alert, Oriented Psychiatric: Yes: Alert, Oriented Labs: CBC, BMP 04/13/18 08:00 04/13/18 08:00 INR, PTT INR 1.11 (0.83-1.09) H 04/10/18 13:48 Assessment/Plan Problem List - Problems (1) Cellulitis Code(s): L03.90 - CELLULITIS, UNSPECIFIED (2) Fever Code(s): R50.9 - FEVER, UNSPECIFIED (3) Idiopathic chronic venous hypertension of both lower extremities with ulcer and inflammation Code(s): I87.333 - CHRONIC VENOUS HTN W ULCER AND INFLAM OF BILATERAL LOW EXTRM ; L97.919 - NON-PRS CHRONIC ULC UNSP PRT OF R LOW LEG W UNSP SEVERITY; L97.929 - NON-PRS CHRONIC ULC UNSP PRT OF L LOW LEG W UNSP SEVERITY 4 non healing wound of the leg plan continue ceftriaxone patient will need it for 12 more days pain mgmt wound care rest as per the team
[2018-04-15 15:31] VITALS: BP 121/83; PULSE 75; TEMP 98.6
--- NOTE | 2018-04-15 18:01 | DS ---
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 Current Active Problems Cellulitis (Acute) Chronic pain (Acute) Fever (Acute) Condition: Guarded - Instructions Disposition: LONG-TERM FACILITY - Home Medications Comprehensive Discharge Medication List: Ambulatory Orders Acetaminophen [Tylenol] 1 tab PO QID 02/27/18 Aspirin [ASA -] 1 tab PO DAILY 02/27/18 Benzonatate 1 cap PO DAILY 02/27/18 Bupropion HCl [Bupropion HCl Sr] 1 tab PO BID 02/27/18 Carbidopa/Levodopa [Carbidopa-Levodopa 25-100 Tab] 1 tab PO TID 02/27/18 Clonazepam [Klonopin] 1.5 mg PO DAILY 02/27/18 Ferrous Sulfate 1 tab PO DAILY 02/27/18 Flonase Allergy Relief 1 spray IH DAILY 02/27/18 Gabapentin 1 cap PO TID 02/27/18 Guaifenesin [Mucinex] 1 tab PO BID 02/27/18 Hydroxyzine HCl 1 tab PO TID 02/27/18 Ipratropium/Albuterol Sulfate [Iprat-Albut 0.5-3(2.5) mg/3 ml] 3 ml IH BID 02/27 Lactulose 20 gm PO DAILY 02/27/18 Levothyroxine [Synthroid -] 1 tab PO DAILY 02/27/18 [employer] Carbonate [Lithobid] 1 cap PO BID 02/27/18 Multivitamin [Multiple Vitamins] 1 tab PO DAILY 02/27/18 Pantoprazole Sodium [Protonix] 1 cap PO DAILY 02/27/18 Pentoxifylline [Trental -] 1 tab PO TID 02/27/18 Sennosides [Senna] 1 tab PO HS 02/27/18 Simethicone 1 tab PO QID PRN 02/27/18 Vancomycin/0.9 % Sod Chloride [Vanco 1 Gram/150 ml-0.9% NaCl] 1,000 mg IV BID Varenicline Tartrate [Chantix -] 1 tab PO BID 02/27/18 Zolpidem Tartrate 1 tab PO HS 02/27/18 Ceftriaxone [Rocephin -] 1 gm IVPB DAILY #7 vial 04/14/18 [facility]
[2018-04-15] MEDS: ACETAMINOPHEN 325 MG TABLET (FP) PO PRN (18:29)
--- NOTE | 2018-04-20 11:22 | EKG ---
Test Reason : Blood Pressure : / mmHG Vent. Rate : 088 BPM Atrial Rate : 088 BPM P-R Int : 178 ms QRS Dur : 102 ms QT Int : 358 ms P-R-T Axes : 032 031 038 degrees QTc Int : 433 ms NORMAL SINUS RHYTHM NORMAL ECG NO PREVIOUS ECGS AVAILABLE Confirmed by ROJELIO GARCIA MD ([id number]) on 04/20/2018 11:21:41 AM Referred By: Confirmed By:ROJELIO GARCIA MD
== END 2018-04-15 19:27 | DRG 383 ==
LOC: JER 13:08 → JERBED 17:14 → J6S 20:20
PROVIDERS: ADMIT Internal Medicine; ATTEND Internal Medicine
PROC: 02HV33Z Insertion of Infusion Device into Superior Vena Cava, Percutaneous Approach (ICD-10-PCS; principal; 2018-04-15)
DX: L03.115 Cellulitis of right lower limb (principal); I87.333 Chronic venous hypertension (idiopathic) with ulcer and inflammation of bilateral lower extremity; L97.919 Non-pressure chronic ulcer of unspecified part of right lower leg with unspecified severity; L97.929 Non-pressure chronic ulcer of unspecified part of left lower leg with unspecified severity; R50.9 Fever, unspecified; G89.29 Other chronic pain; D72.829 Elevated white blood cell count, unspecified
CPT/HCPCS: 11042; 11045; 36415; 36569; 71045-TC-FY; 73590-TC-LT-FY; 73590-TC-RT-FY; 73610-TC-LT-FY; 73610-TC-RT-FY; 73630-TC-LT; 73630-TC-RT-FY; 77001-TC-FY; 80053; 81003; 83605; 84484; 85025; 85610; 85730; 87040; 87070; 87077; 87086; 87186; 87205; 93005; 93010; 99283-25; A6196; C1751; J0475; J1644

== ENCOUNTER 2018-07-27 12:08 | Inpatient (IN) | payer OTHER ==
--- NOTE | 2018-07-27 14:52 | PDOC ---
*Physical Exam - Vital Signs Last Vital Signs Temp Pulse Resp BP Pulse Ox 97.6 F 77 17 149/94 95 07/27/18 12:25 07/27/18 12:25 07/27/18 12:25 07/27/18 12:25 07/27/18 12:25 ED Treatment Course - LABORATORY CBC & Chemistry Diagram: 07/27/18 15:45 07/27/18 15:45 Medical Decision Making - Medical Decision Making 07/27/18 14:52 62y M hx of PVD with choronic wounds being managed by wound care, was seen by sera, was sent to the ED for evaluation for worsening wound/and concern for osteomyelitis. will admit for further mangaement The patient was seen and evaluated in conjunction with KYM Maxwell under my direct supervision, ancillary studies were reviewed. I independently interviewed and evaluated the patient and I agree with the plan as outlined by KYM Maxwell. *DC/Admit/Observation/Transfer Diagnosis at time of Disposition: Idiopathic chronic venous hypertension of both lower extremities with ulcer and inflammation, Cellulitis - Discharge Dispostion Condition at time of disposition: Stable - Referrals - Patient Instructions - Post Discharge Activity
--- NOTE | 2018-07-27 15:05 | PDOC ---
History of Present Illness - General Chief Complaint: Wound Stated Complaint: SENT BY PCP/ IV ANTIBIOTICS Time Seen by Provider: 07/27/18 14:24 History Source: Patient Exam Limitations: Clinical Condition - History of Present Illness Initial Comments: 07/27/18 15:02 Patient with history of Parkinson, GERD and bilateral venous insufficiency with a venous stasis ulcers on the bilateral feet be followed up wound clinic sent in by EVERARDO Daniels for IV antibiotics due to cellulitis of left foot. Patient been seen by wound care clinic for osteomyelitis of left second toe and seen in wound care clinic 3 days ago and was advised to come in for admission for IV antibiotics due to severe cellulitis of left foot. Patient denies fever, chills. Denies any other symptoms Timing/Duration: getting worse Past History - Past Medical History Allergies/Adverse Reactions: Allergies Allergy/AdvReac Type Severity Reaction Status Date / Time No Known Allergies Allergy Verified 07/27/18 12:32 Home Medications: Ambulatory Orders Acetaminophen [Tylenol] 1 tab PO QID 02/27/18 Aspirin [ASA -] 1 tab PO DAILY 02/27/18 Benzonatate 1 cap PO DAILY 02/27/18 Bupropion HCl [Bupropion HCl Sr] 1 tab PO BID 02/27/18 Carbidopa/Levodopa [Carbidopa-Levodopa 25-100 Tab] 1 tab PO TID 02/27/18 Clonazepam [Klonopin] 1.5 mg PO DAILY 02/27/18 Ferrous Sulfate 1 tab PO DAILY 02/27/18 Flonase Allergy Relief 1 spray IH DAILY 02/27/18 Gabapentin 1 cap PO TID 02/27/18 Guaifenesin [Mucinex] 1 tab PO BID 02/27/18 Hydroxyzine HCl 1 tab PO TID 02/27/18 Ipratropium/Albuterol Sulfate [Iprat-Albut 0.5-3(2.5) mg/3 ml] 3 ml IH BID 02/27 Lactulose 20 gm PO DAILY 02/27/18 Levothyroxine [Synthroid -] 1 tab PO DAILY 02/27/18 [place] Carbonate [Lithobid] 1 cap PO BID 02/27/18 Multivitamin [Multiple Vitamins] 1 tab PO DAILY 02/27/18 Pantoprazole Sodium [Protonix] 1 cap PO DAILY 02/27/18 Pentoxifylline [Trental -] 1 tab PO TID 02/27/18 Sennosides [Senna] 1 tab PO HS 02/27/18 Simethicone 1 tab PO QID PRN 02/27/18 Varenicline Tartrate [Chantix -] 1 tab PO BID 02/27/18 Zolpidem Tartrate 1 tab PO HS 02/27/18 COPD: Yes GI Disorders: Yes (GERD) HTN: Yes Psychiatric Problems: Yes - Suicide/Smoking/Psychosocial Hx Smoking History: Former smoker Have you smoked in the past 12 months: No Information on smoking cessation initiated: No Hx Alcohol Use: No Drug/Substance Use Hx: No Substance Use Type: None Review of Systems - Review of Systems Able to Perform ROS?: Yes Is the patient limited Azeri proficient: No Constitutional: No: Chills, Fever, Malaise HEENTM: No: Symptoms Reported Respiratory: No: Symptoms reported Cardiac (ROS): No: Symptoms Reported ABD/GI: No: Symptoms Reported Musculoskeletal: Yes: Symptoms Reported, See HPI, Joint Swelling (b/l feet), Muscle Pain (left foot and toes) Integumentary: Yes: Symptoms Reported, See HPI, Erythema (let foot and toes) All Other Systems: Reviewed and Negative *Physical Exam - Vital Signs Last Vital Signs Temp Pulse Resp BP Pulse Ox 97.6 F 77 17 149/94 95 07/27/18 12:25 07/27/18 12:25 07/27/18 12:25 07/27/18 12:25 07/27/18 12:25 - Physical Exam Comments: 07/27/18 15:37 GENERAL: Well developed, well nourished. Awake and alert in mild acute distress. CARDIOVASCULAR: Regular rate and rhythm. No murmurs, rubs, or gallops. PULMONARY: No evidence of respiratory distress. Lungs clear to auscultation bilaterally. No wheezing, rales or rhonchi. ABDOMINAL: Soft. Non-tender. Non-distended. No rebound or guarding. No organomegaly. Normoactive bowel sounds MUSCULOSKELETAL : Diffuse erythema of left foot and toes with moderate tenderness to left foot and toes. Leg wrapped with stretch gauze in bilateral legs. No bony deformities SKIN: Warm and dry. Normal capillary refill. No rashes. No jaundice. NEUROLOGICAL: Alert, awake, appropriate. No motor deficits in the lower extremities. Gait is normal without ataxia. PSYCHIATRIC: Cooperative. Good eye contact. Appropriate mood and affect. General Appearance: Yes: Nourished, Appropriately Dressed, Mild Distress Medical Decision Making - Medical Decision Making 07/27/18 15:04 Patient with history of Parkinson, GERD and bilateral venous insufficiency with a venous stasis ulcers on the bilateral feet be followed up wound clinic sent in by EVERARDO Daniels for IV antibiotics due to cellulitis of left foot. Patient been seen by wound care clinic for osteomyelitis of left second toe and seen in wound care clinic 3 days ago and was advised to come in for admission for IV antibiotics due to severe cellulitis of left foot. Patient denies fever, chills. Denies any other symptoms Exam significant for diffuse erythema to left foot and hold toes with also to medial lateral toes. CBC, CMP and blood cultures ordered. microblog sent to internal medicine for admission for IV antibiotics 07/27/18 15:[address] Bedolla who agrees to admit patient to med/surg under her. Order sent for admission *DC/Admit/Observation/Transfer Diagnosis at time of Disposition: Idiopathic chronic venous hypertension of both lower extremities with ulcer and inflammation Cellulitis Qualifiers: Site of cellulitis: extremity Site of cellulitis of extremity: lower extremity Laterality: left Qualified Code(s): L03.116 - Cellulitis of left lower limb - Discharge Dispostion Condition at time of disposition: Stable Decision to Admit order: Yes - Referrals - Patient Instructions - Post Discharge Activity
[2018-07-27 15:59] LABS: BASO % 0.3 % (0-2.0); EOS % 2.1 % (0-4.5); HEMATOCRIT 39.6 % (35.4-49); HEMOGLOBIN 13.4 GM/dL (11.7-16.9); LYMPH % 45.7 % (8-40); MCH 31.3 pg (25.7-33.7); MCHC 33.9 g/dl (32.0-35.9); MEAN CELL VOLUME 92.3 fl (80-96); MEAN PLT VOLUME 7.7 fl (7.5-11.1); MONO % 7.4 % (3.8-10.2); NEUT % 44.5 % (42.8-82.8); PLATELET COUNT 181 K/MM3 (134-434); RBC 4.29 M/mm3 (4.00-5.60); RDW 13.5 % (11.9-15.9); WHITE BLOOD COUNT 8.9 K/mm3 (4.0-10.0)
[2018-07-27 16:25] LABS: ALBUMIN 3.5 g/dl (3.4-5.0); BILIRUBIN,TOTAL 0.3 mg/dL (0.2-1); BLOOD UREA NITROGEN 20.2 mg/dL (7-18); CALCIUM 9.1 mg/dL (8.5-10.1); POTASSIUM 3.7 mmol/L (3.5-5.1); TOT PROT 7.8 g/dl (6.4-8.2)
--- NOTE | 2018-07-27 18:19 | HP ---
Admitting History and Physical - Primary Care Physician PCP: Niranjan Bedolla - Admission History of Present Illness: Patient with history of Parkinson, GERD and bilateral venous insufficiency with a venous stasis ulcers on the bilateral feet be followed up wound clinic sent in by EVERARDO Daniels for IV antibiotics due to cellulitis of left foot. Patient been seen by wound care clinic for osteomyelitis of left second toe and seen in wound care clinic 3 days ago and was advised to come in for admission for IV antibiotics due to severe cellulitis of left foot. Patient denies fever, chills. Denies any other symptoms - Past Medical History [place] [employer] [employer]: Yes: Parkinson's Cardiovascular: Yes: HTN Gastrointestinal: Yes: GERD - Smoking History Smoking history: Former smoker Have you smoked in the past 12 months: No - Alcohol/Substance Use Hx Alcohol Use: No Home Medications - Allergies Allergies/Adverse Reactions: Allergies Allergy/AdvReac Type Severity Reaction Status Date / Time No Known Allergies Allergy Verified 07/27/18 12:32 - Home Medications Home Medications: Ambulatory Orders Acetaminophen [Tylenol] 650 mg PO QID PRN 02/27/18 Aspirin [ASA -] 81 mg PO DAILY 02/27/18 Benzonatate 1 cap PO DAILY 02/27/18 Bupropion HCl [Bupropion HCl Sr] 150 mg PO BID 02/27/18 Carbidopa/Levodopa [Carbidopa-Levodopa 25-100 Tab] 1 tab PO TID 02/27/18 Clonazepam [Klonopin] 1.5 mg PO DAILY 02/27/18 Ferrous Sulfate 1 tab PO DAILY 02/27/18 Flonase Allergy Relief 1 spray IH DAILY 02/27/18 Gabapentin 600 mg PO TID 02/27/18 Guaifenesin [Mucinex] 1 tab PO BID 02/27/18 Hydroxyzine HCl 1 tab PO TID 02/27/18 Ipratropium/Albuterol Sulfate [Iprat-Albut 0.5-3(2.5) mg/3 ml] 3 ml IH BID 02/27 Lactulose 30 ml PO DAILY 02/27/18 Levothyroxine [Synthroid -] 225 mcg PO DAILY 02/27/18 [place] Carbonate [Lithobid] 300 mg PO BID 02/27/18 Multivitamin [Multiple Vitamins] 1 tab PO DAILY 02/27/18 Pantoprazole Sodium [Protonix] 40 mg PO DAILY 02/27/18 Pentoxifylline [Trental -] 400 mg PO TID 02/27/18 Sennosides [Senna] 8.6 mg PO HS PRN 02/27/18 Simethicone 125 mg PO QID PRN 02/27/18 Varenicline Tartrate [Chantix -] 0.5 mg PO BID 02/27/18 Zolpidem Tartrate 10 mg PO HS 02/27/18 Physical Examination Vital Signs: Vital Signs Temperature 97.6 F 07/27/18 12:25 Pulse Rate 77 07/27/18 12:25 Respiratory Rate 17 07/27/18 12:25 Blood Pressure 149/94 07/27/18 12:25 O2 Sat by Pulse Oximetry (%) 95 07/27/18 12:25 HENT: Yes: Atraumatic Neck: Yes: Supple Cardiovascular: Yes: Regular Rate and Rhythm Respiratory: Yes: CTA Bilaterally Gastrointestinal: Yes: Normal Bowel Sounds Extremities: Yes: Other (b/l rodrick wounds) Neurological: Yes: Alert, Oriented Labs: CBC, BMP 07/27/18 15:45 07/27/18 15:45 Problem List - Problems (1) Cellulitis Assessment/Plan: iv abx wound cxs id on board Code(s): L03.90 - CELLULITIS, UNSPECIFIED Qualifiers: Site of cellulitis: extremity Site of cellulitis of extremity: lower extremity Laterality: left Qualified Code(s): L03.116 - Cellulitis of left lower limb (2) Idiopathic chronic venous hypertension of both lower extremities with ulcer and inflammation Code(s): I87.333 - CHRONIC VENOUS HTN W ULCER AND INFLAM OF BILATERAL LOW EXTRM ; L97.919 - NON-PRS CHRONIC ULC UNSP PRT OF R LOW LEG W UNSP SEVERITY; L97.929 - NON-PRS CHRONIC ULC UNSP PRT OF L LOW LEG W UNSP SEVERITY (3) Chronic pain Assessment/Plan: on pain meds Code(s): G89.29 - OTHER CHRONIC PAIN Assessment/Plan Laboratory Tests 07/27/18 07/27/18 15:45 15:45 WBC 8.9 RBC 4.29 Hgb 13.4 Hct 39.6 MCV 92.3 MCH 31.3 MCHC 33.9 RDW 13.5 Plt Count 181 MPV 7.7 Absolute Neuts (auto) 4.0 Neutrophils % 44.5 Lymphocytes % 45.7 H Monocytes % 7.4 Eosinophils % 2.1 Basophils % 0.3 Nucleated RBC % 0 Sodium 142 Potassium 3.7 Chloride 108 H Carbon Dioxide 30 Anion Gap 4 L BUN 20.2 H Creatinine 1.0 Est GFR (CKD-EPI)AfAm 94.39 Est GFR (CKD-EPI)NonAf 81.44 Random Glucose 91 Calcium 9.1 Total Bilirubin 0.3 AST 28 ALT 37 Alkaline Phosphatase 131 H Total Protein 7.8 Albumin 3.5 Active Medications Generic Name Dose Route Start Last Admin Trade Name Freq PRN Reason Stop Dose Admin Aspirin 81 mg 07/28/18 10:00 Asa - PO DAILY [facility] Carbidopa/Levodopa 1 each 07/27/18 22:00 Sinemet 25/100 - PO TID [facility] Guaifenesin 600 mg 07/27/18 22:00 Mucinex - PO BID [facility] Heparin Sodium (Porcine) 5,000 unit 07/27/18 22:00 Heparin - SQ BID [facility] Lactulose 20 gm 07/28/18 10:00 Cephulac (Oral Use) PO DAILY [facility] Levothyroxine Sodium 200 mcg 07/28/18 10:00 Synthroid - PO DAILY [facility] Multivitamins/Minerals/Vitamin C 1 tab 07/28/18 10:00 Tab-A-Vit - PO DAILY [facility] Non-Formulary Medication 1 tab 07/27/18 22:00 Bupropion Hcl [Bupropion Hcl Sr] PO BID [facility] Non-Formulary Medication 1.5 mg 07/28/18 10:00 Clonazepam [Klonopin] PO DAILY [facility] Non-Formulary Medication 1 tab 07/28/18 10:00 Ferrous Sulfate [Ferrous Sulfate] PO DAILY [facility] Non-Formulary Medication 1 cap 07/27/18 22:00 Gabapentin [Gabapentin] PO TID [facility] Non-Formulary Medication 1 tab 07/27/18 22:00 Hydroxyzine Hcl [Hydroxyzine Hcl] PO TID [facility] Non-Formulary Medication 1 cap 07/27/18 22:00 [place] Carbonate [Lithobid] PO BID [facility] Non-Formulary Medication 1 tab 07/27/18 22:00 Zolpidem Tartrate [Zolpidem Tartrate] PO HS [facility] Pantoprazole Sodium 40 mg 07/28/18 10:00 Protonix - PO DAILY [facility] Pentoxifylline 400 mg 06/17/19 22:00 Trental - PO TID [facility] Senna 1 tab 07/27/18 22:00 Senna - PO HS [facility]
[2018-07-27] MEDS ORDERED: hydrOXYzine HCL 25 MG TABLET (FP) PO PRN (20:35)
[2018-07-27] MEDS ORDERED: hydrOXYzine HCL 25 MG TABLET (FP) PO SCH (22:00)
[2018-07-27] MEDS: LITHIUM CARBONATE 300 MG CAPSULE (FP) PO SCH (22:57)
[2018-07-27] MEDS: PENTOXIFYLLINE 400 MG TABLET.ER PO SCH (22:57)
[2018-07-27] MEDS: ZOLPIDEM TARTRATE 5 MG TABLET PO PRN (22:58)
[2018-07-27] MEDS: guaiFENesin 600 MG TABLET.ER (FP) PO SCH (22:58)
[2018-07-27] MEDS: GABAPENTIN 300 MG CAPSULE (FP) PO SCH (22:58)
[2018-07-27] MEDS: SENNOSIDES 8.6MG TABLET (FP) PO SCH (22:58)
[2018-07-27] MEDS: oxyCODONE HCL 5 MG TABLET PO PRN (22:58)
[2018-07-27] MEDS: CARBIDOPA/LEVODOPA 25/100 TABLET (FP) PO SCH (22:58)
[2018-07-27] MEDS: HEPARIN NA (PORCINE) 5,000 UNITS/ML 1ML VIAL SQ SCH (22:59)
[2018-07-27] MEDS: MORPHINE SULFATE 2 MG/ML VIAL IVPUSH PRN (23:40)
[2018-07-28] MEDS ORDERED: MORPHINE SULFATE 2 MG/ML VIAL IVPUSH ONE (01:21)
[2018-07-28] MEDS: GABAPENTIN 300 MG CAPSULE (FP) PO SCH ×3 (06:21→22:25)
[2018-07-28] MEDS: CARBIDOPA/LEVODOPA 25/100 TABLET (FP) PO SCH ×3 (06:21→22:24)
[2018-07-28] MEDS: LEVOTHYROXINE NA 200 MCG TABLET PO SCH (06:22)
[2018-07-28] MEDS: PENTOXIFYLLINE 400 MG TABLET.ER PO SCH ×3 (06:22→22:24)
[2018-07-28] MEDS: MORPHINE SULFATE 2 MG/ML VIAL IVPUSH PRN ×3 (06:22→15:50)
[2018-07-28] MEDS: oxyCODONE HCL 5 MG TABLET PO PRN ×3 (06:22→22:35)
[2018-07-28] MEDS ORDERED: PT OWN MED DRAWER 7, Y5N ONE (09:36)
[2018-07-28] MEDS: PANTOPRAZOLE 40 MG TABLET (FP) PO SCH (09:49)
[2018-07-28] MEDS: MULTIVITAMINS (DAILY MVI) TABLET (FP) PO SCH (09:49)
[2018-07-28] MEDS: LACTULOSE 20 GM/30 ML UDC (FOR ORAL USE ONLY) PO SCH (09:49)
[2018-07-28] MEDS: ASPIRIN 81 MG CHEWABLE TABLETS PO SCH (09:49)
[2018-07-28] MEDS: guaiFENesin 600 MG TABLET.ER (FP) PO SCH ×2 (09:49→22:24)
[2018-07-28] MEDS: clonazePAM 0.5 MG TABLET PO SCH (09:49)
[2018-07-28] MEDS: LITHIUM CARBONATE 300 MG CAPSULE (FP) PO SCH ×2 (09:50→22:24)
[2018-07-28] MEDS: HEPARIN NA (PORCINE) 5,000 UNITS/ML 1ML VIAL SQ SCH ×2 (09:50→22:25)
[2018-07-28] MEDS: FERROUS SO4 325 MG TABLET (FP) PO SCH (10:47)
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
[2018-07-28] MEDS ORDERED: PIPERACILLIN/TAZOBACTAM 3.375 GM VIAL IVPB ONE ×2 (15:38→16:36)
[2018-07-28] MEDS ORDERED: DEXTROSE 5%-WATER - 50 ML IVPB ONE ×2 (15:39→16:36)
[2018-07-28] MEDS: PIPERACILLIN/TAZOB 3.375 GM 3.375 GM in DEXTROSE 5%-WATER - 50 ML IVPB SCH ×2 (15:51→17:12)
--- NOTE | 2018-07-28 17:32 | PN ---
Progress Note, Physician - Current Medication List Current Medications: Active Medications Aspirin (Asa -) 81 mg PO DAILY [facility] Last Admin: 07/28/18 09:49 Dose: 81 mg Bupropion HCl (Wellbutrin Xl -) 150 mg PO BID [facility] Last Admin: 07/28/18 09:49 Dose: 150 mg Carbidopa/Levodopa (Sinemet 25/100 -) 1 each PO TID [facility] Last Admin: 07/28/18 13:21 Dose: 1 each Clonazepam (Klonopin -) 1.5 mg PO DAILY [facility] Last Admin: 07/28/18 09:49 Dose: 1.5 mg Ferrous Sulfate (Feosol -) 325 mg PO DAILY [facility] Last Admin: 07/28/18 10:47 Dose: 325 mg Gabapentin (Neurontin -) 600 mg PO TID [facility] Last Admin: 07/28/18 13:21 Dose: 600 mg Guaifenesin (Mucinex -) 600 mg PO BID [facility] Last Admin: 07/28/18 09:49 Dose: 600 mg Heparin Sodium (Porcine) (Heparin -) 5,000 unit SQ BID [facility] Last Admin: 07/28/18 09:50 Dose: 5,000 unit Hydroxyzine HCl (Atarax -) 50 mg PO Q8H PRN PRN Reason: ALLERGIES Piperacillin Sod/Tazobactam (Sod 3.375 gm/ Dextrose) 50 mls @ 100 mls/hr IVPB Q8H-IV [facility]; Protocol Last Admin: 07/28/18 17:12 Dose: 100 mls/hr Lactulose (Cephulac (Oral Use)) 20 gm PO DAILY [facility] Last Admin: 07/28/18 09:49 Dose: 20 gm Levothyroxine Sodium (Synthroid -) 200 mcg PO AM [facility] Last Admin: 07/28/18 06:22 Dose: 200 mcg [place] Carbonate (Eskalith -) 300 mg PO BID [facility] Last Admin: 07/28/18 09:50 Dose: 300 mg Morphine Sulfate (Morphine Sulfate) 2 mg IVPUSH Q4H PRN PRN Reason: PAIN LEVEL 6-10 Last Admin: 07/28/18 15:50 Dose: 2 mg Multivitamins/Minerals/Vitamin C (Tab-A-Vit -) 1 tab PO DAILY [facility] Last Admin: 07/28/18 09:49 Dose: 1 tab Oxycodone HCl (Roxicodone -) 10 mg PO Q6H PRN PRN Reason: PAIN LEVEL 4 - 6 Last Admin: 07/28/18 06:22 Dose: 10 mg Pantoprazole Sodium (Protonix -) 40 mg PO DAILY [facility] Last Admin: 07/28/18 09:49 Dose: 40 mg Pentoxifylline (Trental -) 400 mg PO TID [facility] Last Admin: 07/28/18 13:21 Dose: 400 mg Senna (Senna -) 1 tab PO HS [facility] Last Admin: 07/27/18 22:58 Dose: 1 tab Zolpidem Tartrate (Ambien -) 10 mg PO HS PRN PRN Reason: INSOMNIA Last Admin: 07/27/18 22:58 Dose: 10 mg - Objective Vital Signs: Vital Signs Temperature 97.6 F 07/28/18 14:00 Pulse Rate 72 07/28/18 14:00 Respiratory Rate 18 07/28/18 14:00 Blood Pressure 141/82 07/28/18 14:00 O2 Sat by Pulse Oximetry (%) 94 L 07/28/18 09:00 Constitutional: Yes: No Distress HENT: Yes: Atraumatic Neck: Yes: Supple Cardiovascular: Yes: Regular Rate and Rhythm Respiratory: Yes: CTA Bilaterally Gastrointestinal: Yes: Normal Bowel Sounds Extremities: Yes: WNL Edema: No Peripheral Pulses WNL: Yes Neurological: Yes: Alert, Oriented Labs: CBC, BMP 07/27/18 15:45 07/27/18 15:45 Problem List - Problems (1) Cellulitis Assessment/Plan: iv abx wound cxs id on board Code(s): L03.90 - CELLULITIS, UNSPECIFIED Qualifiers: Site of cellulitis: extremity Site of cellulitis of extremity: lower extremity Laterality: left Qualified Code(s): L03.116 - Cellulitis of left lower limb (2) Idiopathic chronic venous hypertension of both lower extremities with ulcer and inflammation Code(s): I87.333 - CHRONIC VENOUS HTN W ULCER AND INFLAM OF BILATERAL LOW EXTRM ; L97.919 - NON-PRS CHRONIC ULC UNSP PRT OF R LOW LEG W UNSP SEVERITY; L97.929 - NON-PRS CHRONIC ULC UNSP PRT OF L LOW LEG W UNSP SEVERITY (3) Chronic pain Assessment/Plan: on pain meds Code(s): G89.29 - OTHER CHRONIC PAIN
[2018-07-28] MEDS: SENNOSIDES 8.6MG TABLET (FP) PO SCH (22:24)
[2018-07-29] MEDS: MORPHINE SULFATE 2 MG/ML VIAL IVPUSH PRN ×5 (00:10→21:34)
[2018-07-29] MEDS ORDERED: PIPERACILLIN/TAZOBACTAM 3.375 GM VIAL IVPB ONE ×3 (00:51→17:36)
[2018-07-29] MEDS ORDERED: DEXTROSE 5%-WATER - 50 ML IVPB ONE ×3 (00:51→17:36)
[2018-07-29] MEDS: ZOLPIDEM TARTRATE 5 MG TABLET PO PRN ×2 (01:09→21:30)
[2018-07-29] MEDS: PIPERACILLIN/TAZOB 3.375 GM 3.375 GM in DEXTROSE 5%-WATER - 50 ML IVPB SCH ×3 (01:54→17:58)
[2018-07-29] MEDS: CARBIDOPA/LEVODOPA 25/100 TABLET (FP) PO SCH ×3 (05:35→21:31)
[2018-07-29] MEDS: GABAPENTIN 300 MG CAPSULE (FP) PO SCH ×3 (05:35→21:31)
[2018-07-29] MEDS: oxyCODONE HCL 5 MG TABLET PO PRN ×3 (05:36→16:45)
[2018-07-29] MEDS: PENTOXIFYLLINE 400 MG TABLET.ER PO SCH ×3 (05:36→21:35)
[2018-07-29] MEDS: LEVOTHYROXINE NA 200 MCG TABLET PO SCH (06:15)
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
[2018-07-29] MEDS: guaiFENesin 600 MG TABLET.ER (FP) PO SCH ×2 (11:15→21:30)
[2018-07-29] MEDS: ASPIRIN 81 MG CHEWABLE TABLETS PO SCH (11:15)
[2018-07-29] MEDS: PANTOPRAZOLE 40 MG TABLET (FP) PO SCH (11:15)
[2018-07-29] MEDS: clonazePAM 0.5 MG TABLET PO SCH (11:15)
[2018-07-29] MEDS: MULTIVITAMINS (DAILY MVI) TABLET (FP) PO SCH (11:15)
[2018-07-29] MEDS: FERROUS SO4 325 MG TABLET (FP) PO SCH (11:15)
[2018-07-29] MEDS: HEPARIN NA (PORCINE) 5,000 UNITS/ML 1ML VIAL SQ SCH ×2 (11:16→21:33)
[2018-07-29] MEDS: LITHIUM CARBONATE 300 MG CAPSULE (FP) PO SCH ×2 (11:17→21:32)
[2018-07-29] MEDS: LACTULOSE 20 GM/30 ML UDC (FOR ORAL USE ONLY) PO SCH (11:28)
--- NOTE | 2018-07-29 12:50 | PN ---
Progress Note, Physician History of Present Illness: stable leg looks better - Current Medication List Current Medications: Active Medications Aspirin (Asa -) 81 mg PO DAILY [facility] Last Admin: 07/29/18 11:15 Dose: 81 mg Bupropion HCl (Wellbutrin Xl -) 150 mg PO BID [facility] Last Admin: 07/29/18 11:15 Dose: 150 mg Carbidopa/Levodopa (Sinemet 25/100 -) 1 each PO TID [facility] Last Admin: 07/29/18 05:35 Dose: 1 each Clonazepam (Klonopin -) 1.5 mg PO DAILY [facility] Last Admin: 07/29/18 11:15 Dose: 1.5 mg Collagenase (Santyl -) 1 applic TP DAILY [facility]; Protocol Ferrous Sulfate (Feosol -) 325 mg PO DAILY [facility] Last Admin: 07/29/18 11:15 Dose: 325 mg Gabapentin (Neurontin -) 600 mg PO TID [facility] Last Admin: 07/29/18 05:35 Dose: 600 mg Guaifenesin (Mucinex -) 600 mg PO BID [facility] Last Admin: 07/29/18 11:15 Dose: 600 mg Heparin Sodium (Porcine) (Heparin -) 5,000 unit SQ BID [facility] Last Admin: 07/29/18 11:16 Dose: 5,000 unit Hydroxyzine HCl (Atarax -) 50 mg PO Q8H PRN PRN Reason: ALLERGIES Piperacillin Sod/Tazobactam (Sod 3.375 gm/ Dextrose) 50 mls @ 100 mls/hr IVPB Q8H-IV [facility]; Protocol Last Admin: 07/29/18 11:18 Dose: 100 mls/hr Lactulose (Cephulac (Oral Use)) 20 gm PO DAILY [facility] Last Admin: 07/29/18 11:28 Dose: 20 gm Levothyroxine Sodium (Synthroid -) 200 mcg PO AM [facility] Last Admin: 07/29/18 06:15 Dose: 200 mcg [place] Carbonate (Eskalith -) 300 mg PO BID [facility] Last Admin: 07/29/18 11:17 Dose: 300 mg Morphine Sulfate (Morphine Sulfate) 2 mg IVPUSH Q3H PRN PRN Reason: PAIN LEVEL 6-10 Last Admin: 07/29/18 08:32 Dose: 2 mg Multivitamins/Minerals/Vitamin C (Tab-A-Vit -) 1 tab PO DAILY [facility] Last Admin: 07/29/18 11:15 Dose: 1 tab Oxycodone HCl (Roxicodone -) 10 mg PO Q4H PRN PRN Reason: PAIN LEVEL 4 - 6 Last Admin: 07/29/18 11:26 Dose: 10 mg Pantoprazole Sodium (Protonix -) 40 mg PO DAILY [facility] Last Admin: 07/29/18 11:15 Dose: 40 mg Pentoxifylline (Trental -) 400 mg PO TID [facility] Last Admin: 07/29/18 05:36 Dose: 400 mg Senna (Senna -) 1 tab PO HS [facility] Last Admin: 07/28/18 22:24 Dose: 1 tab Zolpidem Tartrate (Ambien -) 10 mg PO HS PRN PRN Reason: INSOMNIA Last Admin: 07/29/18 01:09 Dose: 10 mg - Objective Vital Signs: Vital Signs Temperature 97.5 F L 07/29/18 06:02 Pulse Rate 70 07/29/18 06:02 Respiratory Rate 20 07/29/18 06:02 Blood Pressure 149/90 07/29/18 06:02 O2 Sat by Pulse Oximetry (%) 94 L 07/28/18 21:00 Constitutional: Yes: No Distress, Calm Cardiovascular: Yes: S1, S2 Respiratory: Yes: Regular, CTA Bilaterally Musculoskeletal: Yes: WNL Extremities: Yes: Other Wound/Incision: Yes: Dressing Dry and Intact Neurological: Yes: Alert, Oriented Psychiatric: Yes: Alert, Oriented Labs: CBC, BMP 07/27/18 15:45 07/27/18 15:45 Assessment/Plan Problem List - Problems (1) Cellulitis Code(s): L03.90 - CELLULITIS, UNSPECIFIED Qualifiers: Site of cellulitis: extremity Site of cellulitis of extremity: lower extremity Laterality: left Qualified Code(s): L03.116 - Cellulitis of left lower limb (2) Idiopathic chronic venous hypertension of both lower extremities with ulcer and inflammation Code(s): I87.333 - CHRONIC VENOUS HTN W ULCER AND INFLAM OF BILATERAL LOW EXTRM ; L97.919 - NON-PRS CHRONIC ULC UNSP PRT OF R LOW LEG W UNSP SEVERITY; L97.929 - NON-PRS CHRONIC ULC UNSP PRT OF L LOW LEG W UNSP SEVERITY (3) Chronic pain Code(s): G89.29 - OTHER CHRONIC PAIN plan continue current abx rezt as per the team
[2018-07-29] MEDS: COLLAGENASE CLOSTRIDIUM HIST. 30 GRAMS TUBE TP SCH (17:57)
--- NOTE | 2018-07-29 18:06 | PN ---
Progress Note, Physician - Current Medication List Current Medications: Active Medications Aspirin (Asa -) 81 mg PO DAILY [facility] Last Admin: 07/29/18 11:15 Dose: 81 mg Bupropion HCl (Wellbutrin Xl -) 150 mg PO BID [facility] Last Admin: 07/29/18 11:15 Dose: 150 mg Carbidopa/Levodopa (Sinemet 25/100 -) 1 each PO TID [facility] Last Admin: 07/29/18 14:12 Dose: 1 each Clonazepam (Klonopin -) 1.5 mg PO DAILY [facility] Last Admin: 07/29/18 11:15 Dose: 1.5 mg Collagenase (Santyl -) 1 applic TP DAILY [facility]; Protocol Last Admin: 07/29/18 17:57 Dose: 1 units Ferrous Sulfate (Feosol -) 325 mg PO DAILY [facility] Last Admin: 07/29/18 11:15 Dose: 325 mg Gabapentin (Neurontin -) 600 mg PO TID [facility] Last Admin: 07/29/18 14:12 Dose: 600 mg Guaifenesin (Mucinex -) 600 mg PO BID [facility] Last Admin: 07/29/18 11:15 Dose: 600 mg Heparin Sodium (Porcine) (Heparin -) 5,000 unit SQ BID [facility] Last Admin: 07/29/18 11:16 Dose: 5,000 unit Hydroxyzine HCl (Atarax -) 50 mg PO Q8H PRN PRN Reason: ALLERGIES Piperacillin Sod/Tazobactam (Sod 3.375 gm/ Dextrose) 50 mls @ 100 mls/hr IVPB Q8H-IV [facility]; Protocol Last Admin: 07/29/18 17:58 Dose: 100 mls/hr Lactulose (Cephulac (Oral Use)) 20 gm PO DAILY [facility] Last Admin: 07/29/18 11:28 Dose: 20 gm Levothyroxine Sodium (Synthroid -) 200 mcg PO AM [facility] Last Admin: 07/29/18 06:15 Dose: 200 mcg [place] Carbonate (Eskalith -) 300 mg PO BID [facility] Last Admin: 07/29/18 11:17 Dose: 300 mg Morphine Sulfate (Morphine Sulfate) 2 mg IVPUSH Q3H PRN PRN Reason: PAIN LEVEL 6-10 Last Admin: 07/29/18 17:53 Dose: 2 mg Multivitamins/Minerals/Vitamin C (Tab-A-Vit -) 1 tab PO DAILY [facility] Last Admin: 07/29/18 11:15 Dose: 1 tab Oxycodone HCl (Roxicodone -) 10 mg PO Q4H PRN PRN Reason: PAIN LEVEL 4 - 6 Last Admin: 07/29/18 16:45 Dose: 10 mg Pantoprazole Sodium (Protonix -) 40 mg PO DAILY [facility] Last Admin: 07/29/18 11:15 Dose: 40 mg Pentoxifylline (Trental -) 400 mg PO TID [facility] Last Admin: 07/29/18 14:12 Dose: 400 mg Senna (Senna -) 1 tab PO HS [facility] Last Admin: 07/28/18 22:24 Dose: 1 tab Zolpidem Tartrate (Ambien -) 10 mg PO HS PRN PRN Reason: INSOMNIA Last Admin: 07/29/18 01:09 Dose: 10 mg - Objective Vital Signs: Vital Signs Temperature 97.4 F L 07/29/18 13:23 Pulse Rate 92 H 07/29/18 13:23 Respiratory Rate 20 07/29/18 13:23 Blood Pressure 132/94 07/29/18 13:23 O2 Sat by Pulse Oximetry (%) 94 L 07/29/18 09:00 Constitutional: Yes: No Distress HENT: Yes: Atraumatic Neck: Yes: Supple Cardiovascular: Yes: Regular Rate and Rhythm Respiratory: Yes: CTA Bilaterally Gastrointestinal: Yes: Normal Bowel Sounds Extremities: Yes: Other (cellulitis b/l rodrick) Neurological: Yes: Alert, Oriented Labs: CBC, BMP 07/27/18 15:45 07/27/18 15:45 Problem List - Problems (1) Cellulitis Assessment/Plan: iv abx wound cxs id on board Code(s): L03.90 - CELLULITIS, UNSPECIFIED Qualifiers: Site of cellulitis: extremity Site of cellulitis of extremity: lower extremity Laterality: left Qualified Code(s): L03.116 - Cellulitis of left lower limb (2) Idiopathic chronic venous hypertension of both lower extremities with ulcer and inflammation Code(s): I87.333 - CHRONIC VENOUS HTN W ULCER AND INFLAM OF BILATERAL LOW EXTRM ; L97.919 - NON-PRS CHRONIC ULC UNSP PRT OF R LOW LEG W UNSP SEVERITY; L97.929 - NON-PRS CHRONIC ULC UNSP PRT OF L LOW LEG W UNSP SEVERITY (3) Chronic pain Assessment/Plan: on pain meds Code(s): G89.29 - OTHER CHRONIC PAIN
[2018-07-29] MEDS: SENNOSIDES 8.6MG TABLET (FP) PO SCH (21:30)
[2018-07-30] MEDS: MORPHINE SULFATE 2 MG/ML VIAL IVPUSH PRN ×7 (00:32→23:23)
[2018-07-30] MEDS ORDERED: PIPERACILLIN/TAZOBACTAM 3.375 GM VIAL IVPB ONE ×3 (01:43→16:25)
[2018-07-30] MEDS ORDERED: DEXTROSE 5%-WATER - 50 ML IVPB ONE ×3 (01:43→16:25)
[2018-07-30] MEDS: PIPERACILLIN/TAZOB 3.375 GM 3.375 GM in DEXTROSE 5%-WATER - 50 ML IVPB SCH ×3 (01:50→17:06)
[2018-07-30] MEDS: oxyCODONE HCL 5 MG TABLET PO PRN ×5 (03:07→19:05)
[2018-07-30] MEDS: GABAPENTIN 300 MG CAPSULE (FP) PO SCH ×3 (05:53→22:03)
[2018-07-30] MEDS: CARBIDOPA/LEVODOPA 25/100 TABLET (FP) PO SCH ×3 (05:54→22:04)
[2018-07-30] MEDS: LEVOTHYROXINE NA 200 MCG TABLET PO SCH (06:01)
[2018-07-30] MEDS: PENTOXIFYLLINE 400 MG TABLET.ER PO SCH ×3 (06:01→22:05)
[2018-07-30] MEDS: LACTULOSE 20 GM/30 ML UDC (FOR ORAL USE ONLY) PO SCH (09:57)
[2018-07-30] MEDS: MULTIVITAMINS (DAILY MVI) TABLET (FP) PO SCH (09:58)
[2018-07-30] MEDS: clonazePAM 0.5 MG TABLET PO SCH (09:58)
[2018-07-30] MEDS: guaiFENesin 600 MG TABLET.ER (FP) PO SCH ×2 (09:58→22:03)
[2018-07-30] MEDS: FERROUS SO4 325 MG TABLET (FP) PO SCH (09:58)
[2018-07-30] MEDS: ASPIRIN 81 MG CHEWABLE TABLETS PO SCH (09:58)
[2018-07-30] MEDS: PANTOPRAZOLE 40 MG TABLET (FP) PO SCH (09:58)
[2018-07-30] MEDS: HEPARIN NA (PORCINE) 5,000 UNITS/ML 1ML VIAL SQ SCH ×2 (09:59→22:06)
[2018-07-30] MEDS: LITHIUM CARBONATE 300 MG CAPSULE (FP) PO SCH ×2 (10:00→22:05)
[2018-07-30] MEDS: COLLAGENASE CLOSTRIDIUM HIST. 30 GRAMS TUBE TP SCH (10:50)
--- NOTE | 2018-07-30 16:47 | PN ---
Progress Note, Physician - Current Medication List Current Medications: Active Medications Aspirin (Asa -) 81 mg PO DAILY [facility] Last Admin: 07/30/18 09:58 Dose: 81 mg Bupropion HCl (Wellbutrin Xl -) 150 mg PO BID [facility] Last Admin: 07/30/18 09:58 Dose: 150 mg Carbidopa/Levodopa (Sinemet 25/100 -) 1 each PO TID [facility] Last Admin: 07/30/18 15:00 Dose: 1 each Clonazepam (Klonopin -) 1.5 mg PO DAILY [facility] Last Admin: 07/30/18 09:58 Dose: 1.5 mg Collagenase (Santyl -) 1 applic TP DAILY [facility]; Protocol Last Admin: 07/30/18 10:50 Dose: 1 units Ferrous Sulfate (Feosol -) 325 mg PO DAILY [facility] Last Admin: 07/30/18 09:58 Dose: 325 mg Gabapentin (Neurontin -) 600 mg PO TID [facility] Last Admin: 07/30/18 15:00 Dose: 600 mg Guaifenesin (Mucinex -) 600 mg PO BID [facility] Last Admin: 07/30/18 09:58 Dose: 600 mg Heparin Sodium (Porcine) (Heparin -) 5,000 unit SQ BID [facility] Last Admin: 07/30/18 09:59 Dose: 5,000 unit Hydroxyzine HCl (Atarax -) 50 mg PO Q8H PRN PRN Reason: ALLERGIES Piperacillin Sod/Tazobactam (Sod 3.375 gm/ Dextrose) 50 mls @ 100 mls/hr IVPB Q8H-IV [facility]; Protocol Last Admin: 07/30/18 09:57 Dose: 100 mls/hr Lactulose (Cephulac (Oral Use)) 20 gm PO DAILY [facility] Last Admin: 07/30/18 09:57 Dose: 20 gm Levothyroxine Sodium (Synthroid -) 200 mcg PO AM [facility] Last Admin: 07/30/18 06:01 Dose: 200 mcg [place] Carbonate (Eskalith -) 300 mg PO BID [facility] Last Admin: 07/30/18 10:00 Dose: 300 mg Morphine Sulfate (Morphine Sulfate) 2 mg IVPUSH Q3H PRN PRN Reason: PAIN LEVEL 6-10 Last Admin: 07/30/18 13:47 Dose: 2 mg Multivitamins/Minerals/Vitamin C (Tab-A-Vit -) 1 tab PO DAILY [facility] Last Admin: 07/30/18 09:58 Dose: 1 tab Oxycodone HCl (Roxicodone -) 10 mg PO Q4H PRN PRN Reason: PAIN LEVEL 4 - 6 Last Admin: 07/30/18 15:09 Dose: 10 mg Pantoprazole Sodium (Protonix -) 40 mg PO DAILY [facility] Last Admin: 07/30/18 09:58 Dose: 40 mg Pentoxifylline (Trental -) 400 mg PO TID [facility] Last Admin: 07/30/18 14:55 Dose: 400 mg Senna (Senna -) 1 tab PO HS [facility] Last Admin: 07/29/18 21:30 Dose: 1 tab Zolpidem Tartrate (Ambien -) 10 mg PO HS PRN PRN Reason: INSOMNIA Last Admin: 07/29/18 21:30 Dose: 10 mg - Objective Vital Signs: Vital Signs Temperature 97.6 F 07/30/18 14:00 Pulse Rate 64 07/30/18 14:00 Respiratory Rate 18 07/30/18 14:00 Blood Pressure 118/74 07/30/18 14:00 O2 Sat by Pulse Oximetry (%) 98 07/30/18 09:00 Constitutional: Yes: No Distress HENT: Yes: Atraumatic Neck: Yes: Supple Cardiovascular: Yes: Regular Rate and Rhythm Respiratory: Yes: CTA Bilaterally Gastrointestinal: Yes: Normal Bowel Sounds Extremities: Yes: WNL Edema: No Peripheral Pulses WNL: Yes Neurological: Yes: Alert, Oriented Labs: CBC, BMP 07/27/18 15:45 07/27/18 15:45 Problem List - Problems (1) Cellulitis Assessment/Plan: iv abx wound cxs id on board Code(s): L03.90 - CELLULITIS, UNSPECIFIED Qualifiers: Site of cellulitis: extremity Site of cellulitis of extremity: lower extremity Laterality: left Qualified Code(s): L03.116 - Cellulitis of left lower limb (2) Idiopathic chronic venous hypertension of both lower extremities with ulcer and inflammation Code(s): I87.333 - CHRONIC VENOUS HTN W ULCER AND INFLAM OF BILATERAL LOW EXTRM ; L97.919 - NON-PRS CHRONIC ULC UNSP PRT OF R LOW LEG W UNSP SEVERITY; L97.929 - NON-PRS CHRONIC ULC UNSP PRT OF L LOW LEG W UNSP SEVERITY (3) Chronic pain Assessment/Plan: on pain meds Code(s): G89.29 - OTHER CHRONIC PAIN
[2018-07-30] MEDS: SENNOSIDES 8.6MG TABLET (FP) PO SCH (22:04)
[2018-07-30] MEDS: ZOLPIDEM TARTRATE 5 MG TABLET PO PRN (22:04)
[2018-07-31] MEDS: oxyCODONE HCL 5 MG TABLET PO PRN ×4 (00:05→22:57)
[2018-07-31] MEDS ORDERED: PIPERACILLIN/TAZOBACTAM 3.375 GM VIAL IVPB ONE ×3 (02:14→17:08)
[2018-07-31] MEDS ORDERED: DEXTROSE 5%-WATER - 50 ML IVPB ONE ×3 (02:14→17:09)
[2018-07-31] MEDS: PIPERACILLIN/TAZOB 3.375 GM 3.375 GM in DEXTROSE 5%-WATER - 50 ML IVPB SCH ×3 (03:45→18:17)
[2018-07-31] MEDS: MORPHINE SULFATE 2 MG/ML VIAL IVPUSH PRN ×6 (03:46→22:06)
[2018-07-31] MEDS: GABAPENTIN 300 MG CAPSULE (FP) PO SCH ×3 (06:48→22:57)
[2018-07-31] MEDS: CARBIDOPA/LEVODOPA 25/100 TABLET (FP) PO SCH ×3 (06:48→22:57)
[2018-07-31] MEDS: PENTOXIFYLLINE 400 MG TABLET.ER PO SCH ×3 (06:49→22:56)
[2018-07-31] MEDS: LEVOTHYROXINE NA 200 MCG TABLET PO SCH (06:49)
[2018-07-31] MEDS: guaiFENesin 600 MG TABLET.ER (FP) PO SCH ×2 (09:51→22:57)
[2018-07-31] MEDS: clonazePAM 0.5 MG TABLET PO SCH (09:51)
[2018-07-31] MEDS: LACTULOSE 20 GM/30 ML UDC (FOR ORAL USE ONLY) PO SCH (09:51)
[2018-07-31] MEDS: MULTIVITAMINS (DAILY MVI) TABLET (FP) PO SCH (09:51)
[2018-07-31] MEDS: ASPIRIN 81 MG CHEWABLE TABLETS PO SCH (09:51)
[2018-07-31] MEDS: PANTOPRAZOLE 40 MG TABLET (FP) PO SCH (09:52)
[2018-07-31] MEDS: HEPARIN NA (PORCINE) 5,000 UNITS/ML 1ML VIAL SQ SCH ×2 (09:56→22:58)
[2018-07-31] MEDS ORDERED: PT OWN MED DRAWER 7, Y5N ONE ×2 (10:31→13:30)
[2018-07-31] MEDS: LITHIUM CARBONATE 300 MG CAPSULE (FP) PO SCH ×2 (10:43→22:56)
[2018-07-31] MEDS: FERROUS SO4 325 MG TABLET (FP) PO SCH (10:45)
--- NOTE | 2018-07-31 15:03 | PN ---
Progress Note, Physician History of Present Illness: main issue is pain wants more pain medications - Current Medication List Current Medications: Active Medications Aspirin (Asa -) 81 mg PO DAILY [facility] Last Admin: 07/31/18 09:51 Dose: 81 mg Bupropion HCl (Wellbutrin Xl -) 150 mg PO BID [facility] Last Admin: 07/31/18 09:51 Dose: 150 mg Carbidopa/Levodopa (Sinemet 25/100 -) 1 each PO TID [facility] Last Admin: 07/31/18 13:34 Dose: 1 each Clonazepam (Klonopin -) 1.5 mg PO DAILY [facility] Last Admin: 07/31/18 09:51 Dose: 1.5 mg Collagenase (Santyl -) 1 applic TP DAILY [facility]; Protocol Last Admin: 07/30/18 10:50 Dose: 1 units Ferrous Sulfate (Feosol -) 325 mg PO DAILY [facility] Last Admin: 07/31/18 10:45 Dose: 325 mg Gabapentin (Neurontin -) 600 mg PO TID [facility] Last Admin: 07/31/18 13:34 Dose: 600 mg Guaifenesin (Mucinex -) 600 mg PO BID [facility] Last Admin: 07/31/18 09:51 Dose: 600 mg Heparin Sodium (Porcine) (Heparin -) 5,000 unit SQ BID [facility] Last Admin: 07/31/18 09:56 Dose: 5,000 unit Hydroxyzine HCl (Atarax -) 50 mg PO Q8H PRN PRN Reason: ALLERGIES Piperacillin Sod/Tazobactam (Sod 3.375 gm/ Dextrose) 50 mls @ 100 mls/hr IVPB Q8H-IV [facility]; Protocol Last Admin: 07/31/18 09:52 Dose: 100 mls/hr Lactulose (Cephulac (Oral Use)) 20 gm PO DAILY [facility] Last Admin: 07/31/18 09:51 Dose: 20 gm Levothyroxine Sodium (Synthroid -) 200 mcg PO AM [facility] Last Admin: 07/31/18 06:49 Dose: 200 mcg [place] Carbonate (Eskalith -) 300 mg PO BID [facility] Last Admin: 07/31/18 10:43 Dose: 300 mg Morphine Sulfate (Morphine Sulfate) 2 mg IVPUSH Q3H PRN PRN Reason: PAIN LEVEL 6-10 Last Admin: 07/31/18 13:41 Dose: 2 mg Multivitamins/Minerals/Vitamin C (Tab-A-Vit -) 1 tab PO DAILY [facility] Last Admin: 07/31/18 09:51 Dose: 1 tab Oxycodone HCl (Roxicodone -) 10 mg PO Q4H PRN PRN Reason: PAIN LEVEL 4 - 6 Last Admin: 07/31/18 08:18 Dose: 10 mg Pantoprazole Sodium (Protonix -) 40 mg PO DAILY [facility] Last Admin: 07/31/18 09:52 Dose: 40 mg Pentoxifylline (Trental -) 400 mg PO TID [facility] Last Admin: 07/31/18 13:35 Dose: 400 mg Senna (Senna -) 1 tab PO HS [facility] Last Admin: 07/30/18 22:04 Dose: 1 tab - Objective Vital Signs: Vital Signs Temperature 97.8 F 07/31/18 10:35 Pulse Rate 74 07/31/18 10:35 Respiratory Rate 20 07/31/18 10:35 Blood Pressure 134/90 07/31/18 10:35 O2 Sat by Pulse Oximetry (%) 98 07/30/18 21:00 Constitutional: Yes: Mild Distress Cardiovascular: Yes: Regular Rate and Rhythm Respiratory: Yes: Regular, CTA Bilaterally Gastrointestinal: Yes: Normal Bowel Sounds, Soft Musculoskeletal: Yes: WNL Extremities: Yes: Erythema, Other Wound/Incision: Yes: Dressing Dry and Intact Neurological: Yes: Alert, Oriented Psychiatric: Yes: Alert, Oriented Labs: CBC, BMP 07/27/18 15:45 07/27/18 15:45 Assessment/Plan Problem List - Problems (1) Cellulitis Code(s): L03.90 - CELLULITIS, UNSPECIFIED Qualifiers: Site of cellulitis: extremity Site of cellulitis of extremity: lower extremity Laterality: left Qualified Code(s): L03.116 - Cellulitis of left lower limb (2) Idiopathic chronic venous hypertension of both lower extremities with ulcer and inflammation Code(s): I87.333 - CHRONIC VENOUS HTN W ULCER AND INFLAM OF BILATERAL LOW EXTRM ; L97.919 - NON-PRS CHRONIC ULC UNSP PRT OF R LOW LEG W UNSP SEVERITY; L97.929 - NON-PRS CHRONIC ULC UNSP PRT OF L LOW LEG W UNSP SEVERITY (3) Chronic pain Code(s): G89.29 - OTHER CHRONIC PAIN plan abx wound care will deescalate by friday rest as per the team
[2018-07-31] MEDS: COLLAGENASE CLOSTRIDIUM HIST. 30 GRAMS TUBE TP SCH (16:55)
--- NOTE | 2018-07-31 17:19 | PN ---
Progress Note, Physician History of Present Illness: wants more pain meds - Current Medication List Current Medications: Active Medications Aspirin (Asa -) 81 mg PO DAILY [facility] Last Admin: 07/31/18 09:51 Dose: 81 mg Bupropion HCl (Wellbutrin Xl -) 150 mg PO BID [facility] Last Admin: 07/31/18 09:51 Dose: 150 mg Carbidopa/Levodopa (Sinemet 25/100 -) 1 each PO TID [facility] Last Admin: 07/31/18 13:34 Dose: 1 each Clonazepam (Klonopin -) 1.5 mg PO DAILY [facility] Last Admin: 07/31/18 09:51 Dose: 1.5 mg Collagenase (Santyl -) 1 applic TP DAILY [facility]; Protocol Last Admin: 07/31/18 16:55 Dose: 1 applic Ferrous Sulfate (Feosol -) 325 mg PO DAILY [facility] Last Admin: 07/31/18 10:45 Dose: 325 mg Gabapentin (Neurontin -) 600 mg PO TID [facility] Last Admin: 07/31/18 13:34 Dose: 600 mg Guaifenesin (Mucinex -) 600 mg PO BID [facility] Last Admin: 07/31/18 09:51 Dose: 600 mg Heparin Sodium (Porcine) (Heparin -) 5,000 unit SQ BID [facility] Last Admin: 07/31/18 09:56 Dose: 5,000 unit Hydroxyzine HCl (Atarax -) 50 mg PO Q8H PRN PRN Reason: ALLERGIES Piperacillin Sod/Tazobactam (Sod 3.375 gm/ Dextrose) 50 mls @ 100 mls/hr IVPB Q8H-IV [facility]; Protocol Last Admin: 07/31/18 09:52 Dose: 100 mls/hr Lactulose (Cephulac (Oral Use)) 20 gm PO DAILY [facility] Last Admin: 07/31/18 09:51 Dose: 20 gm Levothyroxine Sodium (Synthroid -) 200 mcg PO AM [facility] Last Admin: 07/31/18 06:49 Dose: 200 mcg [place] Carbonate (Eskalith -) 300 mg PO BID [facility] Last Admin: 07/31/18 10:43 Dose: 300 mg Morphine Sulfate (Morphine Sulfate) 2 mg IVPUSH Q3H PRN PRN Reason: PAIN LEVEL 6-10 Multivitamins/Minerals/Vitamin C (Tab-A-Vit -) 1 tab PO DAILY [facility] Last Admin: 07/31/18 09:51 Dose: 1 tab Oxycodone HCl (Roxicodone -) 10 mg PO Q4H PRN PRN Reason: PAIN LEVEL 4 - 6 Last Admin: 07/31/18 16:01 Dose: 10 mg Pantoprazole Sodium (Protonix -) 40 mg PO DAILY [facility] Last Admin: 07/31/18 09:52 Dose: 40 mg Pentoxifylline (Trental -) 400 mg PO TID [facility] Last Admin: 07/31/18 13:35 Dose: 400 mg Senna (Senna -) 1 tab PO HS [facility] Last Admin: 07/30/18 22:04 Dose: 1 tab - Objective Vital Signs: Vital Signs Temperature 97.8 F 07/31/18 15:52 Pulse Rate 62 07/31/18 15:52 Respiratory Rate 20 07/31/18 15:52 Blood Pressure 128/78 07/31/18 15:52 O2 Sat by Pulse Oximetry (%) 95 07/31/18 09:00 Constitutional: Yes: No Distress HENT: Yes: Atraumatic Neck: Yes: Supple Cardiovascular: Yes: Regular Rate and Rhythm Respiratory: Yes: CTA Bilaterally Gastrointestinal: Yes: Normal Bowel Sounds Extremities: Yes: Other (b/l rodrick cellulitis) Neurological: Yes: Alert, Oriented Labs: CBC, BMP 07/27/18 15:45 07/27/18 15:45 Problem List - Problems (1) Cellulitis Assessment/Plan: iv abx wound cxs id on board Code(s): L03.90 - CELLULITIS, UNSPECIFIED Qualifiers: Site of cellulitis: extremity Site of cellulitis of extremity: lower extremity Laterality: left Qualified Code(s): L03.116 - Cellulitis of left lower limb (2) 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
[2018-07-31] MEDS: SENNOSIDES 8.6MG TABLET (FP) PO SCH (22:57)
[2018-08-01] MEDS ORDERED: DEXTROSE 5%-WATER - 50 ML IVPB ONE ×3 (01:48→17:22)
[2018-08-01] MEDS ORDERED: PIPERACILLIN/TAZOBACTAM 3.375 GM VIAL IVPB ONE ×3 (01:48→17:22)
[2018-08-01] MEDS: PIPERACILLIN/TAZOB 3.375 GM 3.375 GM in DEXTROSE 5%-WATER - 50 ML IVPB SCH ×3 (01:59→17:31)
[2018-08-01] MEDS: MORPHINE SULFATE 2 MG/ML VIAL IVPUSH PRN ×6 (01:59→23:42)
[2018-08-01] MEDS: GABAPENTIN 300 MG CAPSULE (FP) PO SCH ×3 (05:36→22:16)
[2018-08-01] MEDS: oxyCODONE HCL 5 MG TABLET PO PRN ×4 (05:36→22:23)
[2018-08-01] MEDS: CARBIDOPA/LEVODOPA 25/100 TABLET (FP) PO SCH ×3 (05:36→22:15)
[2018-08-01] MEDS: PENTOXIFYLLINE 400 MG TABLET.ER PO SCH ×3 (05:37→22:16)
[2018-08-01] MEDS: LEVOTHYROXINE NA 200 MCG TABLET PO SCH (07:05)
[2018-08-01 09:10] LABS: BASO % 0.4 % (0-2.0); HEMATOCRIT 45.9 % (35.4-49); HEMOGLOBIN 15.5 GM/dL (11.7-16.9); MCH 31.3 pg (25.7-33.7); MCHC 33.9 g/dl (32.0-35.9); MEAN CELL VOLUME 92.3 fl (80-96); MEAN PLT VOLUME 8.4 fl (7.5-11.1); NEUT % 58.6 % (42.8-82.8); PLATELET COUNT 211 K/MM3 (134-434); RBC 4.97 M/mm3 (4.00-5.60); RDW 13.9 % (11.9-15.9); WHITE BLOOD COUNT 11.6 K/mm3 (4.0-10.0)
[2018-08-01 09:37] LABS: ALBUMIN 3.7 g/dl (3.4-5.0); BILIRUBIN,TOTAL 0.4 mg/dL (0.2-1); BLOOD UREA NITROGEN 17.6 mg/dL (7-18); CALCIUM 9.9 mg/dL (8.5-10.1); CREATININE 1.1 mg/dL (0.55-1.3); TOT PROT 8.2 g/dl (6.4-8.2)
[2018-08-01] MEDS ORDERED: PT OWN MED DRAWER 7, Y5N ONE ×2 (10:40→21:33)
[2018-08-01] MEDS: FERROUS SO4 325 MG TABLET (FP) PO SCH (10:46)
[2018-08-01] MEDS: ASPIRIN 81 MG CHEWABLE TABLETS PO SCH (10:46)
[2018-08-01] MEDS: PANTOPRAZOLE 40 MG TABLET (FP) PO SCH (10:47)
[2018-08-01] MEDS: clonazePAM 0.5 MG TABLET PO SCH (10:47)
[2018-08-01] MEDS: MULTIVITAMINS (DAILY MVI) TABLET (FP) PO SCH (10:47)
[2018-08-01] MEDS: HEPARIN NA (PORCINE) 5,000 UNITS/ML 1ML VIAL SQ SCH ×2 (10:47→22:14)
[2018-08-01] MEDS: guaiFENesin 600 MG TABLET.ER (FP) PO SCH ×2 (10:47→22:15)
[2018-08-01] MEDS: LITHIUM CARBONATE 300 MG CAPSULE (FP) PO SCH ×2 (10:48→22:14)
[2018-08-01] MEDS: LACTULOSE 20 GM/30 ML UDC (FOR ORAL USE ONLY) PO SCH (10:48)
[2018-08-01] MEDS: COLLAGENASE CLOSTRIDIUM HIST. 30 GRAMS TUBE TP SCH (10:49)
--- NOTE | 2018-08-01 18:59 | PN ---
Progress Note, Physician History of Present Illness: Pt states he feels the same. Pain was better controlled today. Tolerating antibiotics, remains afebrile. No other complaints. - Current Medication List Current Medications: Active Medications Aspirin (Asa -) 81 mg PO DAILY [facility] Last Admin: 08/01/18 10:46 Dose: 81 mg Bupropion HCl (Wellbutrin Xl -) 150 mg PO BID [facility] Last Admin: 08/01/18 10:47 Dose: 150 mg Carbidopa/Levodopa (Sinemet 25/100 -) 1 each PO TID [facility] Last Admin: 08/01/18 13:23 Dose: 1 each Clonazepam (Klonopin -) 1.5 mg PO DAILY [facility] Last Admin: 08/01/18 10:47 Dose: 1.5 mg Collagenase (Santyl -) 1 applic TP DAILY [facility]; Protocol Last Admin: 08/01/18 10:49 Dose: 1 applic Ferrous Sulfate (Feosol -) 325 mg PO DAILY [facility] Last Admin: 08/01/18 10:46 Dose: 325 mg Gabapentin (Neurontin -) 600 mg PO TID [facility] Last Admin: 08/01/18 13:23 Dose: 600 mg Guaifenesin (Mucinex -) 600 mg PO BID [facility] Last Admin: 08/01/18 10:47 Dose: 600 mg Heparin Sodium (Porcine) (Heparin -) 5,000 unit SQ BID [facility] Last Admin: 08/01/18 10:47 Dose: 5,000 unit Hydroxyzine HCl (Atarax -) 50 mg PO Q8H PRN PRN Reason: ALLERGIES Piperacillin Sod/Tazobactam (Sod 3.375 gm/ Dextrose) 50 mls @ 100 mls/hr IVPB Q8H-IV [facility]; Protocol Last Admin: 08/01/18 17:31 Dose: 100 mls/hr Lactulose (Cephulac (Oral Use)) 20 gm PO DAILY [facility] Last Admin: 08/01/18 10:48 Dose: 20 gm Levothyroxine Sodium (Synthroid -) 200 mcg PO AM [facility] Last Admin: 08/01/18 07:05 Dose: 200 mcg [place] Carbonate (Eskalith -) 300 mg PO BID [facility] Last Admin: 08/01/18 10:48 Dose: 300 mg Morphine Sulfate (Morphine Sulfate) 2 mg IVPUSH Q3H PRN PRN Reason: PAIN LEVEL 6-10 Last Admin: 08/01/18 16:05 Dose: 2 mg Multivitamins/Minerals/Vitamin C (Tab-A-Vit -) 1 tab PO DAILY [facility] Last Admin: 08/01/18 10:47 Dose: 1 tab Oxycodone HCl (Roxicodone -) 10 mg PO Q4H PRN PRN Reason: PAIN LEVEL 4 - 6 Last Admin: 08/01/18 17:30 Dose: 10 mg Pantoprazole Sodium (Protonix -) 40 mg PO DAILY [facility] Last Admin: 08/01/18 10:47 Dose: 40 mg Pentoxifylline (Trental -) 400 mg PO TID [facility] Last Admin: 08/01/18 16:05 Dose: 400 mg Senna (Senna -) 1 tab PO HS [facility] Last Admin: 07/31/18 22:57 Dose: 1 tab - Objective Vital Signs: Vital Signs Temperature 97.6 F 08/01/18 17:30 Pulse Rate 77 08/01/18 17:30 Respiratory Rate 20 08/01/18 17:30 Blood Pressure 120/76 08/01/18 17:30 O2 Sat by Pulse Oximetry (%) 95 08/01/18 09:00 Constitutional: Yes: No Distress, Calm Cardiovascular: Yes: Regular Rate and Rhythm Respiratory: Yes: Regular Gastrointestinal: Yes: Normal Bowel Sounds, Soft Wound/Incision: Yes: Other (b/l chronic skin changes, RLE ulcer with clear drainage Lt foot erythema/tenderness) Neurological: Yes: Alert Labs: CBC, BMP 08/01/18 08:20 08/01/18 08:20 Microbiology 07/27/18 15:45 Blood - Peripheral Venous Blood Culture - Final NO GROWTH AFTER 5 DAYS INCUBATION 07/27/18 15:42 Blood - Peripheral Venous Blood Culture - Final Staph Hominis Sub Sp Hominis Problem List - Problems (1) Cellulitis Code(s): L03.90 - CELLULITIS, UNSPECIFIED Qualifiers: Site of cellulitis: extremity Site of cellulitis of extremity: lower extremity Laterality: left Qualified Code(s): L03.116 - Cellulitis of left lower limb (2) Idiopathic chronic venous hypertension of both lower extremities with ulcer and inflammation Code(s): I87.333 - CHRONIC VENOUS HTN W ULCER AND INFLAM OF BILATERAL LOW EXTRM ; L97.919 - NON-PRS CHRONIC ULC UNSP PRT OF R LOW LEG W UNSP SEVERITY; L97.929 - NON-PRS CHRONIC ULC UNSP PRT OF L LOW LEG W UNSP SEVERITY (3) Chronic pain Code(s): G89.29 - OTHER CHRONIC PAIN Assessment/Plan -- continue antibiotics -- f/u with vascular -- continue wound care
[2018-08-01] MEDS: SENNOSIDES 8.6MG TABLET (FP) PO SCH (22:15)
--- NOTE | 2018-08-01 22:57 | PN ---
Progress Note, Physician History of Present Illness: Pt complains he is waiting to see pain management - Current Medication List Current Medications: Active Medications Aspirin (Asa -) 81 mg PO DAILY [facility] [place] Last Admin: 08/01/18 10:46 Dose: 81 mg Bupropion HCl (Wellbutrin Xl -) 150 mg PO BID [facility] [place] Last Admin: 08/01/18 22:16 Dose: 150 mg Carbidopa/Levodopa (Sinemet 25/100 -) 1 each PO TID [facility] Last Admin: 08/01/18 22:15 Dose: 1 each Clonazepam (Klonopin -) 1.5 mg PO DAILY [facility] Last Admin: 08/01/18 10:47 Dose: 1.5 mg Collagenase (Santyl -) 1 applic TP DAILY [facility] [place]; Protocol Last Admin: 08/01/18 10:49 Dose: 1 applic Ferrous Sulfate (Feosol -) 325 mg PO DAILY [facility] [place] Last Admin: 08/01/18 10:46 Dose: 325 mg Gabapentin (Neurontin -) 600 mg PO TID [facility] Last Admin: 08/01/18 22:16 Dose: 600 mg Guaifenesin (Mucinex -) 600 mg PO BID [facility] [place] Last Admin: 08/01/18 22:15 Dose: 600 mg Heparin Sodium (Porcine) (Heparin -) 5,000 unit SQ BID [facility] Last Admin: 08/01/18 22:14 Dose: 5,000 unit Hydroxyzine HCl (Atarax -) 50 mg PO Q8H PRN PRN Reason: ALLERGIES Piperacillin Sod/Tazobactam (Sod 3.375 gm/ Dextrose) 50 mls @ 100 mls/hr IVPB Q8H-IV [facility]; Protocol Last Admin: 08/01/18 17:31 Dose: 100 mls/hr Lactulose (Cephulac (Oral Use)) 20 gm PO DAILY [facility] [place] Last Admin: 08/01/18 10:48 Dose: 20 gm Levothyroxine Sodium (Synthroid -) 200 mcg PO AM [facility] Last Admin: 08/01/18 07:05 Dose: 200 mcg [place] Carbonate (Eskalith -) 300 mg PO BID [facility] [place] Last Admin: 08/01/18 22:14 Dose: 300 mg Morphine Sulfate (Morphine Sulfate) 2 mg IVPUSH Q3H PRN PRN Reason: PAIN LEVEL 6-10 Last Admin: 08/01/18 20:00 Dose: 2 mg Multivitamins/Minerals/Vitamin C (Tab-A-Vit -) 1 tab PO DAILY [facility] [place] Last Admin: 08/01/18 10:47 Dose: 1 tab Oxycodone HCl (Roxicodone -) 10 mg PO Q4H PRN PRN Reason: PAIN LEVEL 4 - 6 Last Admin: 08/01/18 22:23 Dose: 10 mg Pantoprazole Sodium (Protonix -) 40 mg PO DAILY [facility] [place] Last Admin: 08/01/18 10:47 Dose: 40 mg Pentoxifylline (Trental -) 400 mg PO TID [facility] [place] Last Admin: 08/01/18 22:16 Dose: 400 mg Senna (Senna -) 1 tab PO HS [facility] [place] Last Admin: 08/01/18 22:15 Dose: 1 tab - Objective Vital Signs: Vital Signs Temperature 97.6 F 08/01/18 17:30 Pulse Rate 77 08/01/18 17:30 Respiratory Rate 20 08/01/18 17:30 Blood Pressure 120/76 08/01/18 17:30 O2 Sat by Pulse Oximetry (%) 95 08/01/18 09:00 Neck: Yes: WNL, Supple Cardiovascular: Yes: WNL, Regular Rate and Rhythm Respiratory: Yes: WNL, Regular, CTA Bilaterally Gastrointestinal: Yes: WNL, Normal Bowel Sounds, Soft Extremities: Yes: Other (chronic venous stasis B/L feet in dressings) Labs: CBC, BMP 08/01/18 08:20 08/01/18 08:20 Problem List - Problems (1) Cellulitis Assessment/Plan: Chronic venous stasis Cont IV antibxs Cont wound care Code(s): L03.90 - CELLULITIS, UNSPECIFIED Qualifiers: Site of cellulitis: extremity Site of cellulitis of extremity: lower extremity Laterality: left Qualified Code(s): L03.116 - Cellulitis of left lower limb (2) Chronic pain Assessment/Plan: Pain management consult Code(s): G89.29 - OTHER CHRONIC PAIN
[2018-08-02] MEDS ORDERED: PIPERACILLIN/TAZOBACTAM 3.375 GM VIAL IVPB ONE ×3 (01:05→17:31)
[2018-08-02] MEDS ORDERED: DEXTROSE 5%-WATER - 50 ML IVPB ONE ×3 (01:05→17:31)
[2018-08-02] MEDS: PIPERACILLIN/TAZOB 3.375 GM 3.375 GM in DEXTROSE 5%-WATER - 50 ML IVPB SCH ×3 (01:37→18:06)
[2018-08-02] MEDS: MORPHINE SULFATE 2 MG/ML VIAL IVPUSH PRN ×6 (03:45→21:52)
[2018-08-02] MEDS: oxyCODONE HCL 5 MG TABLET PO PRN ×4 (05:25→19:59)
[2018-08-02] MEDS: GABAPENTIN 300 MG CAPSULE (FP) PO SCH ×3 (06:41→21:40)
[2018-08-02] MEDS: CARBIDOPA/LEVODOPA 25/100 TABLET (FP) PO SCH ×3 (06:42→21:40)
[2018-08-02] MEDS: PENTOXIFYLLINE 400 MG TABLET.ER PO SCH ×3 (06:42→21:40)
[2018-08-02] MEDS: LEVOTHYROXINE NA 200 MCG TABLET PO SCH (07:00)
[2018-08-02 09:15] LABS: BASO % 0.2 % (0-2.0); EOS % 3.9 % (0-4.5); HEMATOCRIT 41.7 % (35.4-49); HEMOGLOBIN 14.2 GM/dL (11.7-16.9); LYMPH % 41.3 % (8-40); MCH 31.3 pg (25.7-33.7); MEAN CELL VOLUME 92.1 fl (80-96); MEAN PLT VOLUME 8.4 fl (7.5-11.1); MONO % 8.4 % (3.8-10.2); NEUT % 46.2 % (42.8-82.8); PLATELET COUNT 180 K/MM3 (134-434); RBC 4.53 M/mm3 (4.00-5.60); RDW 13.7 % (11.9-15.9); WHITE BLOOD COUNT 8.8 K/mm3 (4.0-10.0)
[2018-08-02] MEDS ORDERED: PT OWN MED DRAWER 7, Y5N ONE (09:23)
[2018-08-02] MEDS: MULTIVITAMINS (DAILY MVI) TABLET (FP) PO SCH (10:04)
[2018-08-02] MEDS: FERROUS SO4 325 MG TABLET (FP) PO SCH (10:04)
[2018-08-02] MEDS: PANTOPRAZOLE 40 MG TABLET (FP) PO SCH (10:04)
[2018-08-02] MEDS: clonazePAM 0.5 MG TABLET PO SCH (10:04)
[2018-08-02] MEDS: ASPIRIN 81 MG CHEWABLE TABLETS PO SCH (10:04)
[2018-08-02] MEDS: guaiFENesin 600 MG TABLET.ER (FP) PO SCH ×2 (10:04→21:40)
[2018-08-02] MEDS: LITHIUM CARBONATE 300 MG CAPSULE (FP) PO SCH ×2 (10:05→21:40)
[2018-08-02] MEDS: LACTULOSE 20 GM/30 ML UDC (FOR ORAL USE ONLY) PO SCH (10:05)
[2018-08-02] MEDS: HEPARIN NA (PORCINE) 5,000 UNITS/ML 1ML VIAL SQ SCH ×2 (10:05→21:39)
[2018-08-02] MEDS: COLLAGENASE CLOSTRIDIUM HIST. 30 GRAMS TUBE TP SCH (10:06)
--- NOTE | 2018-08-02 14:37 | PN ---
Progress Note, Physician History of Present Illness: No new events. c/o LE pain b/l. Remains afebrile. - Current Medication List Current Medications: Active Medications Aspirin (Asa -) 81 mg PO DAILY [facility] Last Admin: 08/02/18 10:04 Dose: 81 mg Bupropion HCl (Wellbutrin Xl -) 150 mg PO BID [facility] Last Admin: 08/02/18 10:04 Dose: 150 mg Carbidopa/Levodopa (Sinemet 25/100 -) 1 each PO TID [facility] Last Admin: 08/02/18 06:42 Dose: 1 each Clonazepam (Klonopin -) 1.5 mg PO DAILY [facility] Last Admin: 08/02/18 10:04 Dose: 1.5 mg Collagenase (Santyl -) 1 applic TP DAILY [facility]; Protocol Last Admin: 08/02/18 10:06 Dose: 1 applic Ferrous Sulfate (Feosol -) 325 mg PO DAILY [facility] Last Admin: 08/02/18 10:04 Dose: 325 mg Gabapentin (Neurontin -) 600 mg PO TID [facility] Last Admin: 08/02/18 06:41 Dose: 600 mg Guaifenesin (Mucinex -) 600 mg PO BID [facility] Last Admin: 08/02/18 10:04 Dose: 600 mg Heparin Sodium (Porcine) (Heparin -) 5,000 unit SQ BID [facility] Last Admin: 08/02/18 10:05 Dose: 5,000 unit Hydroxyzine HCl (Atarax -) 50 mg PO Q8H PRN PRN Reason: ALLERGIES Piperacillin Sod/Tazobactam (Sod 3.375 gm/ Dextrose) 50 mls @ 100 mls/hr IVPB Q8H-IV [facility]; Protocol Last Admin: 08/02/18 10:04 Dose: 100 mls/hr Lactulose (Cephulac (Oral Use)) 20 gm PO DAILY [facility] Last Admin: 08/02/18 10:05 Dose: 20 gm Levothyroxine Sodium (Synthroid -) 200 mcg PO AM [facility] Last Admin: 08/02/18 07:00 Dose: 200 mcg [place] Carbonate (Eskalith -) 300 mg PO BID [facility] Last Admin: 08/02/18 10:05 Dose: 300 mg Morphine Sulfate (Morphine Sulfate) 2 mg IVPUSH Q3H PRN PRN Reason: PAIN LEVEL 6-10 Last Admin: 08/02/18 11:09 Dose: 2 mg Multivitamins/Minerals/Vitamin C (Tab-A-Vit -) 1 tab PO DAILY [facility] Last Admin: 08/02/18 10:04 Dose: 1 tab Oxycodone HCl (Roxicodone -) 10 mg PO Q4H PRN PRN Reason: PAIN LEVEL 4 - 6 Last Admin: 08/02/18 10:03 Dose: 10 mg Pantoprazole Sodium (Protonix -) 40 mg PO DAILY [facility] Last Admin: 08/02/18 10:04 Dose: 40 mg Pentoxifylline (Trental -) 400 mg PO TID [facility] Last Admin: 08/02/18 06:42 Dose: 400 mg Senna (Senna -) 1 tab PO HS [facility] Last Admin: 08/01/18 22:15 Dose: 1 tab - Objective Vital Signs: Vital Signs Temperature 98 F 08/02/18 10:05 Pulse Rate 65 08/02/18 10:05 Respiratory Rate 18 08/02/18 10:05 Blood Pressure 116/73 08/02/18 10:05 O2 Sat by Pulse Oximetry (%) 95 08/02/18 09:00 Constitutional: Yes: No Distress Cardiovascular: Yes: Regular Rate and Rhythm Respiratory: Yes: Regular Gastrointestinal: Yes: Normal Bowel Sounds, Soft Wound/Incision: Yes: Dressing Dry and Intact, Other (b/l LE) Neurological: Yes: Alert Labs: CBC, BMP 08/02/18 08:02 08/01/18 08:20 Problem List - Problems (1) Cellulitis Code(s): L03.90 - CELLULITIS, UNSPECIFIED Qualifiers: Site of cellulitis: extremity Site of cellulitis of extremity: lower extremity Laterality: left Qualified Code(s): L03.116 - Cellulitis of left lower limb (2) Idiopathic chronic venous hypertension of both lower extremities with ulcer and inflammation Code(s): I87.333 - CHRONIC VENOUS HTN W ULCER AND INFLAM OF BILATERAL LOW EXTRM ; L97.919 - NON-PRS CHRONIC ULC UNSP PRT OF R LOW LEG W UNSP SEVERITY; L97.929 - NON-PRS CHRONIC ULC UNSP PRT OF L LOW LEG W UNSP SEVERITY (3) Chronic pain Code(s): G89.29 - OTHER CHRONIC PAIN Assessment/Plan -- slowly improvng -- continue antibiotics -- vascular follow up -- continue wound care
--- NOTE | 2018-08-02 19:26 | PN ---
Progress Note, Physician History of Present Illness: No new complaints - Current Medication List Current Medications: Active Medications Aspirin (Asa -) 81 mg PO DAILY [facility] Last Admin: 08/02/18 10:04 Dose: 81 mg Bupropion HCl (Wellbutrin Xl -) 150 mg PO BID [facility] Last Admin: 08/02/18 10:04 Dose: 150 mg Carbidopa/Levodopa (Sinemet 25/100 -) 1 each PO TID [facility] Last Admin: 08/02/18 15:20 Dose: 1 each Clonazepam (Klonopin -) 1.5 mg PO DAILY [facility] Last Admin: 08/02/18 10:04 Dose: 1.5 mg Collagenase (Santyl -) 1 applic TP DAILY [facility]; Protocol Last Admin: 08/02/18 10:06 Dose: 1 applic Ferrous Sulfate (Feosol -) 325 mg PO DAILY [facility] Last Admin: 08/02/18 10:04 Dose: 325 mg Gabapentin (Neurontin -) 600 mg PO TID [facility] Last Admin: 08/02/18 15:20 Dose: 600 mg Guaifenesin (Mucinex -) 600 mg PO BID [facility] Last Admin: 08/02/18 10:04 Dose: 600 mg Heparin Sodium (Porcine) (Heparin -) 5,000 unit SQ BID [facility] Last Admin: 08/02/18 10:05 Dose: 5,000 unit Hydroxyzine HCl (Atarax -) 50 mg PO Q8H PRN PRN Reason: ALLERGIES Piperacillin Sod/Tazobactam (Sod 3.375 gm/ Dextrose) 50 mls @ 100 mls/hr IVPB Q8H-IV [facility]; Protocol Last Admin: 08/02/18 18:06 Dose: 100 mls/hr Lactulose (Cephulac (Oral Use)) 20 gm PO DAILY [facility] Last Admin: 08/02/18 10:05 Dose: 20 gm Levothyroxine Sodium (Synthroid -) 200 mcg PO AM [facility] Last Admin: 08/02/18 07:00 Dose: 200 mcg [place] Carbonate (Eskalith -) 300 mg PO BID [facility] Last Admin: 08/02/18 10:05 Dose: 300 mg Morphine Sulfate (Morphine Sulfate) 2 mg IVPUSH Q3H PRN PRN Reason: PAIN LEVEL 6-10 Last Admin: 08/02/18 18:39 Dose: 2 mg Multivitamins/Minerals/Vitamin C (Tab-A-Vit -) 1 tab PO DAILY [facility] Last Admin: 08/02/18 10:04 Dose: 1 tab Oxycodone HCl (Roxicodone -) 10 mg PO Q4H PRN PRN Reason: PAIN LEVEL 4 - 6 Last Admin: 08/02/18 15:22 Dose: 10 mg Pantoprazole Sodium (Protonix -) 40 mg PO DAILY [facility] Last Admin: 08/02/18 10:04 Dose: 40 mg Pentoxifylline (Trental -) 400 mg PO TID [facility] Last Admin: 08/02/18 15:20 Dose: 400 mg Senna (Senna -) 1 tab PO HS [facility] Last Admin: 08/01/18 22:15 Dose: 1 tab - Objective Vital Signs: Vital Signs Temperature 97.3 F L 08/02/18 18:00 Pulse Rate 116 H 08/02/18 18:00 Respiratory Rate 20 08/02/18 18:00 Blood Pressure 117/64 08/02/18 18:00 O2 Sat by Pulse Oximetry (%) 95 08/02/18 09:00 Neck: Yes: WNL, Supple Cardiovascular: Yes: WNL, Regular Rate and Rhythm Respiratory: Yes: WNL, Regular, CTA Bilaterally Gastrointestinal: Yes: WNL, Normal Bowel Sounds, Soft Extremities: Yes: Other (Chronic venous stasis B/L feet w/ dressings) Labs: CBC, BMP 08/02/18 08:02 08/01/18 08:20 Problem List - Problems (1) Cellulitis Assessment/Plan: Chronic venous stasis Cont IV antibxs Cont wound care Code(s): L03.90 - CELLULITIS, UNSPECIFIED Qualifiers: Site of cellulitis: extremity Site of cellulitis of extremity: lower extremity Laterality: left Qualified Code(s): L03.116 - Cellulitis of left lower limb (2) Chronic pain Assessment/Plan: Pain management consult Code(s): G89.29 - OTHER CHRONIC PAIN
[2018-08-02] MEDS: SENNOSIDES 8.6MG TABLET (FP) PO SCH (21:40)
[2018-08-03] MEDS ORDERED: PIPERACILLIN/TAZOBACTAM 3.375 GM VIAL IVPB ONE ×3 (00:38→18:27)
[2018-08-03] MEDS ORDERED: DEXTROSE 5%-WATER - 50 ML IVPB ONE ×3 (00:38→18:27)
[2018-08-03] MEDS: PIPERACILLIN/TAZOB 3.375 GM 3.375 GM in DEXTROSE 5%-WATER - 50 ML IVPB SCH ×3 (01:50→18:23)
[2018-08-03] MEDS: oxyCODONE HCL 5 MG TABLET PO PRN ×3 (03:10→15:15)
[2018-08-03] MEDS: MORPHINE SULFATE 2 MG/ML VIAL IVPUSH PRN ×4 (04:28→15:15)
[2018-08-03] MEDS: PENTOXIFYLLINE 400 MG TABLET.ER PO SCH ×3 (06:44→21:13)
[2018-08-03] MEDS: CARBIDOPA/LEVODOPA 25/100 TABLET (FP) PO SCH ×3 (06:44→21:07)
[2018-08-03] MEDS: GABAPENTIN 300 MG CAPSULE (FP) PO SCH ×3 (06:44→21:08)
[2018-08-03] MEDS: LEVOTHYROXINE NA 200 MCG TABLET PO SCH (06:44)
[2018-08-03] MEDS ORDERED: PT OWN MED DRAWER 7, Y5N ONE (09:16)
[2018-08-03] MEDS: clonazePAM 0.5 MG TABLET PO SCH (09:51)
[2018-08-03] MEDS: MULTIVITAMINS (DAILY MVI) TABLET (FP) PO SCH (09:53)
[2018-08-03] MEDS: guaiFENesin 600 MG TABLET.ER (FP) PO SCH ×2 (09:53→21:07)
[2018-08-03] MEDS: PANTOPRAZOLE 40 MG TABLET (FP) PO SCH (09:54)
[2018-08-03] MEDS: ASPIRIN 81 MG CHEWABLE TABLETS PO SCH (09:54)
[2018-08-03] MEDS: LITHIUM CARBONATE 300 MG CAPSULE (FP) PO SCH ×2 (09:55→21:13)
[2018-08-03] MEDS: LACTULOSE 20 GM/30 ML UDC (FOR ORAL USE ONLY) PO SCH (09:55)
[2018-08-03] MEDS: FERROUS SO4 325 MG TABLET (FP) PO SCH (09:56)
[2018-08-03] MEDS: COLLAGENASE CLOSTRIDIUM HIST. 30 GRAMS TUBE TP SCH (09:56)
[2018-08-03] MEDS: HEPARIN NA (PORCINE) 5,000 UNITS/ML 1ML VIAL SQ SCH ×2 (09:56→21:13)
--- NOTE | 2018-08-03 14:18 | PN ---
Progress Note, Physician History of Present Illness: stable pain main issue - Current Medication List Current Medications: Active Medications Aspirin (Asa -) 81 mg PO DAILY [facility] Last Admin: 08/03/18 09:54 Dose: 81 mg Bupropion HCl (Wellbutrin Xl -) 150 mg PO BID [facility] Last Admin: 08/03/18 09:53 Dose: 150 mg Carbidopa/Levodopa (Sinemet 25/100 -) 1 each PO TID [facility] Last Admin: 08/03/18 06:44 Dose: 1 each Clonazepam (Klonopin -) 1.5 mg PO DAILY [facility] Last Admin: 08/03/18 09:51 Dose: 1.5 mg Collagenase (Santyl -) 1 applic TP DAILY [facility]; Protocol Last Admin: 08/03/18 09:56 Dose: 1 applic Ferrous Sulfate (Feosol -) 325 mg PO DAILY [facility] Last Admin: 08/03/18 09:56 Dose: 325 mg Gabapentin (Neurontin -) 600 mg PO TID [facility] Last Admin: 08/03/18 06:44 Dose: 600 mg Guaifenesin (Mucinex -) 600 mg PO BID [facility] Last Admin: 08/03/18 09:53 Dose: 600 mg Heparin Sodium (Porcine) (Heparin -) 5,000 unit SQ BID [facility] Last Admin: 08/03/18 09:56 Dose: 5,000 unit Hydroxyzine HCl (Atarax -) 50 mg PO Q8H PRN PRN Reason: ALLERGIES Piperacillin Sod/Tazobactam (Sod 3.375 gm/ Dextrose) 50 mls @ 100 mls/hr IVPB Q8H-IV [facility]; Protocol Last Admin: 08/03/18 09:55 Dose: 100 mls/hr Lactulose (Cephulac (Oral Use)) 20 gm PO DAILY [facility] Last Admin: 08/03/18 09:55 Dose: 20 gm Levothyroxine Sodium (Synthroid -) 200 mcg PO AM [facility] Last Admin: 08/03/18 06:44 Dose: 200 mcg [place] Carbonate (Eskalith -) 300 mg PO BID [facility] Last Admin: 08/03/18 09:55 Dose: 300 mg Morphine Sulfate (Morphine Sulfate) 2 mg IVPUSH Q3H PRN PRN Reason: PAIN LEVEL 6-10 Last Admin: 08/03/18 11:22 Dose: 2 mg Multivitamins/Minerals/Vitamin C (Tab-A-Vit -) 1 tab PO DAILY [facility] Last Admin: 08/03/18 09:53 Dose: 1 tab Oxycodone HCl (Roxicodone -) 10 mg PO Q4H PRN PRN Reason: PAIN LEVEL 4 - 6 Last Admin: 08/03/18 09:53 Dose: 10 mg Pantoprazole Sodium (Protonix -) 40 mg PO DAILY [facility] Last Admin: 08/03/18 09:54 Dose: 40 mg Pentoxifylline (Trental -) 400 mg PO TID [facility] Last Admin: 08/03/18 06:44 Dose: 400 mg Senna (Senna -) 1 tab PO HS [facility] Last Admin: 08/02/18 21:40 Dose: 1 tab - Objective Vital Signs: Vital Signs Temperature 97.3 F L 08/03/18 08:10 Pulse Rate 67 08/03/18 08:10 Respiratory Rate 18 08/03/18 08:10 Blood Pressure 141/95 08/03/18 08:10 O2 Sat by Pulse Oximetry (%) 97 08/02/18 21:00 Constitutional: Yes: No Distress, Calm Cardiovascular: Yes: Regular Rate and Rhythm Respiratory: Yes: Regular, CTA Bilaterally Gastrointestinal: Yes: Normal Bowel Sounds, Soft Musculoskeletal: Yes: WNL Extremities: Yes: Other Wound/Incision: Yes: Dressing Dry and Intact Psychiatric: Yes: Alert, Oriented Labs: CBC, BMP 08/02/18 08:02 08/01/18 08:20 Assessment/Plan Problem List - Problems (1) Cellulitis Code(s): L03.90 - CELLULITIS, UNSPECIFIED Qualifiers: Site of cellulitis: extremity Site of cellulitis of extremity: lower extremity Laterality: left Qualified Code(s): L03.116 - Cellulitis of left lower limb (2) Idiopathic chronic venous hypertension of both lower extremities with ulcer and inflammation Code(s): I87.333 - CHRONIC VENOUS HTN W ULCER AND INFLAM OF BILATERAL LOW EXTRM ; L97.919 - NON-PRS CHRONIC ULC UNSP PRT OF R LOW LEG W UNSP SEVERITY; L97.929 - NON-PRS CHRONIC ULC UNSP PRT OF L LOW LEG W UNSP SEVERITY (3) Chronic pain Code(s): G89.29 - OTHER CHRONIC PAIN plan can change to levaquin 759 mg daily for 10 days wound care rest as per the team
--- NOTE | 2018-08-03 16:41 | PN ---
Progress Note, Physician - Current Medication List Current Medications: Active Medications Aspirin (Asa -) 81 mg PO DAILY [facility] Last Admin: 08/03/18 09:54 Dose: 81 mg Bupropion HCl (Wellbutrin Xl -) 150 mg PO BID [facility] Last Admin: 08/03/18 09:53 Dose: 150 mg Carbidopa/Levodopa (Sinemet 25/100 -) 1 each PO TID [facility] Last Admin: 08/03/18 15:16 Dose: 1 each Clonazepam (Klonopin -) 1.5 mg PO DAILY [facility] Last Admin: 08/03/18 09:51 Dose: 1.5 mg Collagenase (Santyl -) 1 applic TP DAILY [facility]; Protocol Last Admin: 08/03/18 09:56 Dose: 1 applic Ferrous Sulfate (Feosol -) 325 mg PO DAILY [facility] Last Admin: 08/03/18 09:56 Dose: 325 mg Gabapentin (Neurontin -) 600 mg PO TID [facility] Last Admin: 08/03/18 15:15 Dose: 600 mg Guaifenesin (Mucinex -) 600 mg PO BID [facility] Last Admin: 08/03/18 09:53 Dose: 600 mg Heparin Sodium (Porcine) (Heparin -) 5,000 unit SQ BID [facility] Last Admin: 08/03/18 09:56 Dose: 5,000 unit Hydroxyzine HCl (Atarax -) 50 mg PO Q8H PRN PRN Reason: ALLERGIES Piperacillin Sod/Tazobactam (Sod 3.375 gm/ Dextrose) 50 mls @ 100 mls/hr IVPB Q8H-IV [facility]; Protocol Last Admin: 08/03/18 09:55 Dose: 100 mls/hr Lactulose (Cephulac (Oral Use)) 20 gm PO DAILY [facility] Last Admin: 08/03/18 09:55 Dose: 20 gm Levothyroxine Sodium (Synthroid -) 200 mcg PO AM [facility] Last Admin: 08/03/18 06:44 Dose: 200 mcg [place] Carbonate (Eskalith -) 300 mg PO BID [facility] Last Admin: 08/03/18 09:55 Dose: 300 mg Multivitamins/Minerals/Vitamin C (Tab-A-Vit -) 1 tab PO DAILY [facility] Last Admin: 08/03/18 09:53 Dose: 1 tab Pantoprazole Sodium (Protonix -) 40 mg PO DAILY [facility] Last Admin: 08/03/18 09:54 Dose: 40 mg Pentoxifylline (Trental -) 400 mg PO TID [facility] Last Admin: 08/03/18 15:16 Dose: 400 mg Senna (Senna -) 1 tab PO HS [facility] Last Admin: 08/02/18 21:40 Dose: 1 tab - Objective Vital Signs: Vital Signs Temperature 97.8 F 08/03/18 14:05 Pulse Rate 91 H 08/03/18 14:05 Respiratory Rate 18 08/03/18 14:05 Blood Pressure 122/61 08/03/18 14:05 O2 Sat by Pulse Oximetry (%) 97 08/02/18 21:00 Constitutional: Yes: No Distress HENT: Yes: Atraumatic Neck: Yes: Supple Cardiovascular: Yes: Regular Rate and Rhythm Respiratory: Yes: CTA Bilaterally Gastrointestinal: Yes: Normal Bowel Sounds Extremities: Yes: Other (b/l rodrick cellulitis) Neurological: Yes: Alert, Oriented Labs: CBC, BMP 08/02/18 08:02 08/01/18 08:20 Problem List - Problems (1) Cellulitis Assessment/Plan: iv abx wound cxs id on board Code(s): L03.90 - CELLULITIS, UNSPECIFIED Qualifiers: Site of cellulitis: extremity Site of cellulitis of extremity: lower extremity Laterality: left Qualified Code(s): L03.116 - Cellulitis of left lower limb (2) 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
[2018-08-03] MEDS ORDERED: MORPHINE SULFATE 2 MG/ML VIAL IVPUSH PRN (18:14)
[2018-08-03] MEDS ORDERED: oxyCODONE HCL 5 MG TABLET PO PRN (18:15)
--- NOTE | 2018-08-03 19:50 | CONSULT ---
Consult Consult Specialty:: Pain Management - History of Present Illness Chief Complaint: Bilatewral leg pain and Back pain History of Present Illness: 62 yr old male with multiple medical co morbidities with cellulitis of both legs and spinal fusion with persistent pain 11/19. He is taking Dilaudid 4 mg q4 hourly in [facility] . He is getting Morphine IV 2 mg q3 and Oxycodone 10 mg q4 . - Past Medical History INFECTION CONTROL COORDINATOR: Yes: Parkinson's Cardio/Vascular: Yes: HTN Gastrointestinal: Yes: GERD - Alcohol/Substance Use Hx Alcohol Use: No - Smoking History Smoking history: Former smoker Have you smoked in the past 12 months: No Home Medications - Allergies Allergies/Adverse Reactions: Allergies Allergy/AdvReac Type Severity Reaction Status Date / Time No Known Allergies Allergy Verified 07/27/18 12:32 - Home Medications Home Medications: Ambulatory Orders Acetaminophen [Tylenol] 650 mg PO QID PRN 02/27/18 Aspirin [ASA -] 81 mg PO DAILY 02/27/18 Benzonatate 1 cap PO DAILY 02/27/18 Bupropion HCl [Bupropion HCl Sr] 150 mg PO BID 02/27/18 Carbidopa/Levodopa [Carbidopa-Levodopa 25-100 Tab] 1 tab PO TID 02/27/18 Clonazepam [Klonopin] 1.5 mg PO DAILY 02/27/18 Ferrous Sulfate 1 tab PO DAILY 02/27/18 Flonase Allergy Relief 1 spray IH DAILY 02/27/18 Gabapentin 600 mg PO TID 02/27/18 Guaifenesin [Mucinex] 1 tab PO BID 02/27/18 Hydroxyzine HCl 1 tab PO TID 02/27/18 Ipratropium/Albuterol Sulfate [Iprat-Albut 0.5-3(2.5) mg/3 ml] 3 ml IH BID 02/27 Lactulose 30 ml PO DAILY 02/27/18 Levothyroxine [Synthroid -] 225 mcg PO DAILY 02/27/18 [place] Carbonate [Lithobid] 300 mg PO BID 02/27/18 Multivitamin [Multiple Vitamins] 1 tab PO DAILY 02/27/18 Pantoprazole Sodium [Protonix] 40 mg PO DAILY 02/27/18 Pentoxifylline [Trental -] 400 mg PO TID 02/27/18 Sennosides [Senna] 8.6 mg PO HS PRN 02/27/18 Simethicone 125 mg PO QID PRN 02/27/18 Varenicline Tartrate [Chantix -] 0.5 mg PO BID 02/27/18 Zolpidem Tartrate 10 mg PO HS 02/27/18 Levofloxacin [Levaquin] 750 mg PO DAILY #10 tablet 08/03/18 Review of Systems - Review of Systems Constitutional: reports: No Symptoms Eyes: reports: No Symptoms HENT: reports: No Symptoms Neck: reports: No Symptoms Respiratory: reports: No Symptoms Gastrointestinal: reports: No Symptoms Genitourinary: reports: No Symptoms Musculoskeletal: reports: Back Pain Integumentary: reports: Other (cellulitis) Neurological: reports: No Symptoms Endocrine: reports: No Symptoms Psychiatric: reports: No Symptoms Pain Intensity: 10 Physical Exam Vital Signs: Vital Signs Temperature 97.6 F 08/03/18 18:00 Pulse Rate 73 08/03/18 18:00 Respiratory Rate 18 08/03/18 18:00 Blood Pressure 137/69 08/03/18 18:00 O2 Sat by Pulse Oximetry (%) 97 08/02/18 21:00 Constitutional: Yes: Well Nourished Eyes: Yes: WNL HENT: Yes: WNL Neck: Yes: WNL Musculoskeletal: Yes: Back Pain, Joint Stiffness Labs: CBC, BMP 08/02/18 08:02 08/01/18 08:20
[2018-08-03] MEDS: SENNOSIDES 8.6MG TABLET (FP) PO SCH (21:07)
[2018-08-03] MEDS: morphine SO4 SUSTAINED ACTING 30 MG TABLET.SA PO SCH (21:08)
[2018-08-03] MEDS: morphine SULFATE IMMEDIATE RELEASE 30 MG TAB PO PRN (22:47)
[2018-08-04] MEDS ORDERED: DEXTROSE 5%-WATER - 50 ML IVPB ONE ×3 (00:19→16:48)
[2018-08-04] MEDS ORDERED: PIPERACILLIN/TAZOBACTAM 3.375 GM VIAL IVPB ONE ×3 (00:19→16:48)
[2018-08-04] MEDS: PIPERACILLIN/TAZOB 3.375 GM 3.375 GM in DEXTROSE 5%-WATER - 50 ML IVPB SCH ×3 (01:34→16:59)
[2018-08-04] MEDS ORDERED: oxyCODONE HCL 5 MG TABLET PO ONE (03:30)
[2018-08-04] MEDS: PENTOXIFYLLINE 400 MG TABLET.ER PO SCH ×3 (06:22→21:01)
[2018-08-04] MEDS: LEVOTHYROXINE NA 200 MCG TABLET PO SCH (06:22)
[2018-08-04] MEDS: CARBIDOPA/LEVODOPA 25/100 TABLET (FP) PO SCH ×3 (06:22→21:01)
[2018-08-04] MEDS: GABAPENTIN 300 MG CAPSULE (FP) PO SCH ×3 (06:23→21:01)
[2018-08-04] MEDS: morphine SO4 SUSTAINED ACTING 30 MG TABLET.SA PO SCH ×2 (07:50→20:59)
[2018-08-04] MEDS: clonazePAM 0.5 MG TABLET PO SCH (10:53)
[2018-08-04] MEDS: LACTULOSE 20 GM/30 ML UDC (FOR ORAL USE ONLY) PO SCH (10:53)
[2018-08-04] MEDS: HEPARIN NA (PORCINE) 5,000 UNITS/ML 1ML VIAL SQ SCH ×2 (10:54→21:02)
[2018-08-04] MEDS: morphine SULFATE IMMEDIATE RELEASE 30 MG TAB PO PRN ×3 (10:54→23:07)
[2018-08-04] MEDS: LITHIUM CARBONATE 300 MG CAPSULE (FP) PO SCH ×2 (10:55→21:00)
[2018-08-04] MEDS: MULTIVITAMINS (DAILY MVI) TABLET (FP) PO SCH (10:55)
[2018-08-04] MEDS: guaiFENesin 600 MG TABLET.ER (FP) PO SCH ×2 (10:55→21:01)
[2018-08-04] MEDS: ASPIRIN 81 MG CHEWABLE TABLETS PO SCH (10:55)
[2018-08-04] MEDS: FERROUS SO4 325 MG TABLET (FP) PO SCH (10:55)
[2018-08-04] MEDS: PANTOPRAZOLE 40 MG TABLET (FP) PO SCH (10:55)
[2018-08-04] MEDS ORDERED: PT OWN MED DRAWER 7, Y5N ONE ×2 (11:22→14:48)
--- NOTE | 2018-08-04 13:01 | PN ---
Progress Note, Physician - Current Medication List Current Medications: Active Medications Aspirin (Asa -) 81 mg PO DAILY [facility] Last Admin: 08/04/18 10:55 Dose: 81 mg Bupropion HCl (Wellbutrin Xl -) 150 mg PO BID [facility] Last Admin: 08/04/18 10:55 Dose: 150 mg Carbidopa/Levodopa (Sinemet 25/100 -) 1 each PO TID [facility] Last Admin: 08/04/18 06:22 Dose: 1 each Clonazepam (Klonopin -) 1.5 mg PO DAILY [facility] Last Admin: 08/04/18 10:53 Dose: 1.5 mg Collagenase (Santyl -) 1 applic TP DAILY [facility]; Protocol Last Admin: 08/03/18 09:56 Dose: 1 applic Ferrous Sulfate (Feosol -) 325 mg PO DAILY [facility] Last Admin: 08/04/18 10:55 Dose: 325 mg Gabapentin (Neurontin -) 600 mg PO TID [facility] Last Admin: 08/04/18 06:23 Dose: 600 mg Guaifenesin (Mucinex -) 600 mg PO BID [facility] Last Admin: 08/04/18 10:55 Dose: 600 mg Heparin Sodium (Porcine) (Heparin -) 5,000 unit SQ BID [facility] Last Admin: 08/04/18 10:54 Dose: 5,000 unit Hydroxyzine HCl (Atarax -) 50 mg PO Q8H PRN PRN Reason: ALLERGIES Piperacillin Sod/Tazobactam (Sod 3.375 gm/ Dextrose) 50 mls @ 100 mls/hr IVPB Q8H-IV [facility]; Protocol Last Admin: 08/04/18 10:54 Dose: 100 mls/hr Lactulose (Cephulac (Oral Use)) 20 gm PO DAILY [facility] Last Admin: 08/04/18 10:53 Dose: 20 gm Levothyroxine Sodium (Synthroid -) 200 mcg PO AM [facility] Last Admin: 08/04/18 06:22 Dose: 200 mcg [place] Carbonate (Eskalith -) 300 mg PO BID [facility] Last Admin: 08/04/18 10:55 Dose: 300 mg Morphine Sulfate (Msir -) 15 mg PO Q6H PRN PRN Reason: PAIN Last Admin: 08/04/18 10:54 Dose: 15 mg Morphine Sulfate (Ms Contin -) 30 mg PO Q12H [facility] Last Admin: 08/04/18 07:50 Dose: 30 mg Multivitamins/Minerals/Vitamin C (Tab-A-Vit -) 1 tab PO DAILY [facility] Last Admin: 08/04/18 10:55 Dose: 1 tab Pantoprazole Sodium (Protonix -) 40 mg PO DAILY [facility] Last Admin: 08/04/18 10:55 Dose: 40 mg Pentoxifylline (Trental -) 400 mg PO TID [facility] Last Admin: 08/04/18 06:22 Dose: 400 mg Senna (Senna -) 1 tab PO HS [facility] Last Admin: 08/03/18 21:07 Dose: 1 tab - Objective Vital Signs: Vital Signs Temperature 97.7 F 08/04/18 09:00 Pulse Rate 70 08/04/18 09:00 Respiratory Rate 18 08/04/18 09:00 Blood Pressure 142/84 08/04/18 09:00 O2 Sat by Pulse Oximetry (%) 97 08/03/18 09:00 Labs: CBC, BMP 08/02/18 08:02 08/01/18 08:20
--- NOTE | 2018-08-04 15:40 | DS ---
Physical Examination Vital Signs: Vital Signs Temperature 97.7 F 08/04/18 09:00 Pulse Rate 70 08/04/18 09:00 Respiratory Rate 18 08/04/18 09:00 Blood Pressure 142/84 08/04/18 09:00 O2 Sat by Pulse Oximetry (%) 97 08/03/18 09:00 Labs: CBC, BMP 08/02/18 08:02 08/01/18 08:20 Discharge Summary Reason For Visit: CELLULITIS, IDIOPATHIC CHRONIC VENOUS HYPERTENSION Current Active Problems Cellulitis (Acute) HTN (hypertension) (Acute) Idiopathic chronic venous hypertension of both lower extremities with ulcer and inflammation (Acute) Condition: Stable - Instructions - Home Medications Comprehensive Discharge Medication List: Ambulatory Orders Acetaminophen [Tylenol] 650 mg PO QID PRN 02/27/18 Aspirin [ASA -] 81 mg PO DAILY 02/27/18 Benzonatate 1 cap PO DAILY 02/27/18 Bupropion HCl [Bupropion HCl Sr] 150 mg PO BID 02/27/18 Carbidopa/Levodopa [Carbidopa-Levodopa 25-100 Tab] 1 tab PO TID 02/27/18 Clonazepam [Klonopin] 1.5 mg PO DAILY 02/27/18 Ferrous Sulfate 1 tab PO DAILY 02/27/18 Flonase Allergy Relief 1 spray IH DAILY 02/27/18 Gabapentin 600 mg PO TID 02/27/18 Guaifenesin [Mucinex] 1 tab PO BID 02/27/18 Hydroxyzine HCl 1 tab PO TID 02/27/18 Ipratropium/Albuterol Sulfate [Iprat-Albut 0.5-3(2.5) mg/3 ml] 3 ml IH BID 02/27 Lactulose 30 ml PO DAILY 02/27/18 Levothyroxine [Synthroid -] 225 mcg PO DAILY 02/27/18 [place] Carbonate [Lithobid] 300 mg PO BID 02/27/18 Multivitamin [Multiple Vitamins] 1 tab PO DAILY 02/27/18 Pantoprazole Sodium [Protonix] 40 mg PO DAILY 02/27/18 Pentoxifylline [Trental -] 400 mg PO TID 02/27/18 Sennosides [Senna] 8.6 mg PO HS PRN 02/27/18 Simethicone 125 mg PO QID PRN 02/27/18 Varenicline Tartrate [Chantix -] 0.5 mg PO BID 02/27/18 Zolpidem Tartrate 10 mg PO HS 02/27/18 Levofloxacin [Levaquin] 750 mg PO DAILY #10 tablet 08/03/18 Morphine *Immediate Release* [Msir -] 15 mg PO Q6H PRN #10 tab MDD 3 08/04/18 Morphine *Sr* [MS Contin -] 30 mg PO Q12H #10 tablet.sa MDD 2 08/04/18
--- NOTE | 2018-08-04 15:40 | PN ---
Progress Note, Physician History of Present Illness: wants more pain meds - Current Medication List Current Medications: Active Medications Aspirin (Asa -) 81 mg PO DAILY [facility] Last Admin: 08/04/18 10:55 Dose: 81 mg Bupropion HCl (Wellbutrin Xl -) 150 mg PO BID [facility] Last Admin: 08/04/18 10:55 Dose: 150 mg Carbidopa/Levodopa (Sinemet 25/100 -) 1 each PO TID [facility] Last Admin: 08/04/18 15:17 Dose: 1 each Clonazepam (Klonopin -) 1.5 mg PO DAILY [facility] Last Admin: 08/04/18 10:53 Dose: 1.5 mg Collagenase (Santyl -) 1 applic TP DAILY [facility]; Protocol Last Admin: 08/03/18 09:56 Dose: 1 applic Ferrous Sulfate (Feosol -) 325 mg PO DAILY [facility] Last Admin: 08/04/18 10:55 Dose: 325 mg Gabapentin (Neurontin -) 600 mg PO TID [facility] Last Admin: 08/04/18 14:30 Dose: 600 mg Guaifenesin (Mucinex -) 600 mg PO BID [facility] Last Admin: 08/04/18 10:55 Dose: 600 mg Heparin Sodium (Porcine) (Heparin -) 5,000 unit SQ BID [facility] Last Admin: 08/04/18 10:54 Dose: 5,000 unit Hydroxyzine HCl (Atarax -) 50 mg PO Q8H PRN PRN Reason: ALLERGIES Piperacillin Sod/Tazobactam (Sod 3.375 gm/ Dextrose) 50 mls @ 100 mls/hr IVPB Q8H-IV [facility]; Protocol Last Admin: 08/04/18 10:54 Dose: 100 mls/hr Lactulose (Cephulac (Oral Use)) 20 gm PO DAILY [facility] Last Admin: 08/04/18 10:53 Dose: 20 gm Levothyroxine Sodium (Synthroid -) 200 mcg PO AM [facility] Last Admin: 08/04/18 06:22 Dose: 200 mcg [place] Carbonate (Eskalith -) 300 mg PO BID [facility] Last Admin: 08/04/18 10:55 Dose: 300 mg Morphine Sulfate (Msir -) 15 mg PO Q6H PRN PRN Reason: PAIN Last Admin: 08/04/18 10:54 Dose: 15 mg Morphine Sulfate (Ms Contin -) 30 mg PO Q12H [facility] Last Admin: 08/04/18 07:50 Dose: 30 mg Multivitamins/Minerals/Vitamin C (Tab-A-Vit -) 1 tab PO DAILY [facility] Last Admin: 08/04/18 10:55 Dose: 1 tab Pantoprazole Sodium (Protonix -) 40 mg PO DAILY [facility] Last Admin: 08/04/18 10:55 Dose: 40 mg Pentoxifylline (Trental -) 400 mg PO TID [facility] Last Admin: 08/04/18 15:17 Dose: 400 mg Senna (Senna -) 1 tab PO HS [facility] Last Admin: 08/03/18 21:07 Dose: 1 tab - Objective Vital Signs: Vital Signs Temperature 97.7 F 08/04/18 09:00 Pulse Rate 70 08/04/18 09:00 Respiratory Rate 18 08/04/18 09:00 Blood Pressure 142/84 08/04/18 09:00 O2 Sat by Pulse Oximetry (%) 97 08/03/18 09:00 Constitutional: Yes: No Distress HENT: Yes: Atraumatic Neck: Yes: Supple Cardiovascular: Yes: Regular Rate and Rhythm Respiratory: Yes: CTA Bilaterally Gastrointestinal: Yes: Normal Bowel Sounds Extremities: Yes: Other (cellulitis b/l rodrick) Edema: No Neurological: Yes: Alert, Oriented Labs: CBC, BMP 08/02/18 08:02 08/01/18 08:20 Problem List - Problems (1) Cellulitis Assessment/Plan: iv abx wound cxs id on board Code(s): L03.90 - CELLULITIS, UNSPECIFIED Qualifiers: Site of cellulitis: extremity Site of cellulitis of extremity: lower extremity Laterality: left Qualified Code(s): L03.116 - Cellulitis of left lower limb (2) 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
[2018-08-04] MEDS: COLLAGENASE CLOSTRIDIUM HIST. 30 GRAMS TUBE TP SCH (17:00)
[2018-08-04] MEDS ORDERED: KETOROLAC TROMETHAMINE 30 MG/1 ML VIAL IM PRN (19:43)
[2018-08-04] MEDS: SENNOSIDES 8.6MG TABLET (FP) PO SCH (21:00)
[2018-08-04] MEDS ORDERED: ZOLPIDEM TARTRATE 5 MG TABLET PO ONE (23:30)
[2018-08-05] MEDS ORDERED: PIPERACILLIN/TAZOBACTAM 3.375 GM VIAL IVPB ONE ×2 (00:30→08:04)
[2018-08-05] MEDS ORDERED: DEXTROSE 5%-WATER - 50 ML IVPB ONE ×2 (00:30→08:04)
[2018-08-05] MEDS: PIPERACILLIN/TAZOB 3.375 GM 3.375 GM in DEXTROSE 5%-WATER - 50 ML IVPB SCH ×2 (02:09→09:09)
[2018-08-05] MEDS: GABAPENTIN 300 MG CAPSULE (FP) PO SCH ×3 (05:09→21:01)
[2018-08-05] MEDS: CARBIDOPA/LEVODOPA 25/100 TABLET (FP) PO SCH ×3 (05:10→21:00)
[2018-08-05] MEDS: morphine SULFATE IMMEDIATE RELEASE 30 MG TAB PO PRN ×4 (05:11→23:14)
[2018-08-05] MEDS: PENTOXIFYLLINE 400 MG TABLET.ER PO SCH ×3 (05:11→21:12)
[2018-08-05] MEDS: LEVOTHYROXINE NA 200 MCG TABLET PO SCH (06:04)
[2018-08-05] MEDS: morphine SO4 SUSTAINED ACTING 30 MG TABLET.SA PO SCH ×2 (08:09→20:58)
[2018-08-05] MEDS ORDERED: PT OWN MED DRAWER 7, Y5N ONE ×2 (09:03→21:09)
[2018-08-05] MEDS: LACTULOSE 20 GM/30 ML UDC (FOR ORAL USE ONLY) PO SCH (09:07)
[2018-08-05] MEDS: ASPIRIN 81 MG CHEWABLE TABLETS PO SCH (09:08)
[2018-08-05] MEDS: guaiFENesin 600 MG TABLET.ER (FP) PO SCH ×2 (09:08→21:00)
[2018-08-05] MEDS: FERROUS SO4 325 MG TABLET (FP) PO SCH (09:08)
[2018-08-05] MEDS: PANTOPRAZOLE 40 MG TABLET (FP) PO SCH (09:08)
[2018-08-05] MEDS: clonazePAM 0.5 MG TABLET PO SCH (09:08)
[2018-08-05] MEDS: MULTIVITAMINS (DAILY MVI) TABLET (FP) PO SCH (09:08)
[2018-08-05] MEDS: LITHIUM CARBONATE 300 MG CAPSULE (FP) PO SCH ×2 (09:08→21:01)
[2018-08-05] MEDS: HEPARIN NA (PORCINE) 5,000 UNITS/ML 1ML VIAL SQ SCH ×2 (09:09→21:01)
[2018-08-05] MEDS: COLLAGENASE CLOSTRIDIUM HIST. 30 GRAMS TUBE TP SCH (09:10)
--- NOTE | 2018-08-05 13:08 | PN ---
Progress Note, Physician - Current Medication List Current Medications: Active Medications Aspirin (Asa -) 81 mg PO DAILY [facility] Last Admin: 08/05/18 09:08 Dose: 81 mg Bupropion HCl (Wellbutrin Xl -) 150 mg PO BID [facility] Last Admin: 08/05/18 09:08 Dose: 150 mg Carbidopa/Levodopa (Sinemet 25/100 -) 1 each PO TID [facility] Last Admin: 08/05/18 05:10 Dose: 1 each Clonazepam (Klonopin -) 1.5 mg PO DAILY [facility] Last Admin: 08/05/18 09:08 Dose: 1.5 mg Collagenase (Santyl -) 1 applic TP DAILY [facility]; Protocol Last Admin: 08/05/18 09:10 Dose: 1 applic Ferrous Sulfate (Feosol -) 325 mg PO DAILY [facility] Last Admin: 08/05/18 09:08 Dose: 325 mg Gabapentin (Neurontin -) 600 mg PO TID [facility] Last Admin: 08/05/18 05:09 Dose: 600 mg Guaifenesin (Mucinex -) 600 mg PO BID [facility] Last Admin: 08/05/18 09:08 Dose: 600 mg Heparin Sodium (Porcine) (Heparin -) 5,000 unit SQ BID [facility] Last Admin: 08/05/18 09:09 Dose: 5,000 unit Hydroxyzine HCl (Atarax -) 50 mg PO Q8H PRN PRN Reason: ALLERGIES Piperacillin Sod/Tazobactam (Sod 3.375 gm/ Dextrose) 50 mls @ 100 mls/hr IVPB Q8H-IV [facility]; Protocol Last Admin: 08/05/18 09:09 Dose: 100 mls/hr Ketorolac Tromethamine (Toradol Injection -) 30 mg IM BID PRN PRN Reason: PAIN LEVEL 5-10 Stop: 08/06/18 19:42 Last Admin: 08/05/18 03:48 Dose: 30 mg Lactulose (Cephulac (Oral Use)) 20 gm PO DAILY [facility] Last Admin: 08/05/18 09:07 Dose: 20 gm Levothyroxine Sodium (Synthroid -) 200 mcg PO AM [facility] Last Admin: 08/05/18 06:04 Dose: 200 mcg [place] Carbonate (Eskalith -) 300 mg PO BID [facility] Last Admin: 08/05/18 09:08 Dose: 300 mg Morphine Sulfate (Msir -) 15 mg PO Q6H PRN PRN Reason: PAIN Last Admin: 08/05/18 12:53 Dose: 15 mg Morphine Sulfate (Ms Contin -) 30 mg PO Q12H [facility] Last Admin: 08/05/18 08:09 Dose: 30 mg Multivitamins/Minerals/Vitamin C (Tab-A-Vit -) 1 tab PO DAILY [facility] Last Admin: 08/05/18 09:08 Dose: 1 tab Pantoprazole Sodium (Protonix -) 40 mg PO DAILY [facility] Last Admin: 08/05/18 09:08 Dose: 40 mg Pentoxifylline (Trental -) 400 mg PO TID [facility] Last Admin: 08/05/18 05:11 Dose: 400 mg Senna (Senna -) 1 tab PO [facility] Last Admin: 08/04/18 21:00 Dose: 1 tab - Objective Vital Signs: Vital Signs Temperature 97 F L 08/05/18 06:00 Pulse Rate 59 L 08/05/18 06:00 Respiratory Rate 18 08/05/18 06:00 Blood Pressure 128/88 08/05/18 06:00 O2 Sat by Pulse Oximetry (%) 99 08/05/18 10:00 Labs: CBC, BMP 08/02/18 08:02 08/01/18 08:20
[2018-08-05] MEDS ORDERED: levoFLOXacin 750 MG TABLET PO SCH (13:15)
[2018-08-05] MEDS: levoFLOXacin 500 MG, levoFLOXacin 250 MG PO SCH (13:59)
--- NOTE | 2018-08-05 18:41 | PN ---
Progress Note, Physician History of Present Illness: wants more pain meds - Current Medication List Current Medications: Active Medications Aspirin (Asa -) 81 mg PO DAILY [facility] Last Admin: 08/05/18 09:08 Dose: 81 mg Bupropion HCl (Wellbutrin Xl -) 150 mg PO BID [facility] Last Admin: 08/05/18 09:08 Dose: 150 mg Carbidopa/Levodopa (Sinemet 25/100 -) 1 each PO TID [facility] Last Admin: 08/05/18 14:00 Dose: 1 each Clonazepam (Klonopin -) 1.5 mg PO DAILY [facility] Last Admin: 08/05/18 09:08 Dose: 1.5 mg Collagenase (Santyl -) 1 applic TP DAILY [facility]; Protocol Last Admin: 08/05/18 09:10 Dose: 1 applic Ferrous Sulfate (Feosol -) 325 mg PO DAILY [facility] Last Admin: 08/05/18 09:08 Dose: 325 mg Gabapentin (Neurontin -) 600 mg PO TID [facility] Last Admin: 08/05/18 14:00 Dose: 600 mg Guaifenesin (Mucinex -) 600 mg PO BID [facility] Last Admin: 08/05/18 09:08 Dose: 600 mg Heparin Sodium (Porcine) (Heparin -) 5,000 unit SQ BID [facility] Last Admin: 08/05/18 09:09 Dose: 5,000 unit Hydroxyzine HCl (Atarax -) 50 mg PO Q8H PRN PRN Reason: ALLERGIES Ketorolac Tromethamine (Toradol Injection -) 30 mg IM BID PRN PRN Reason: PAIN LEVEL 5-10 Stop: 08/06/18 19:42 Last Admin: 08/05/18 03:48 Dose: 30 mg Lactulose (Cephulac (Oral Use)) 20 gm PO DAILY [facility] Last Admin: 08/05/18 09:07 Dose: 20 gm Levofloxacin 500 mg/ (Levofloxacin 250 mg) 750 mg PO DAILY@0600 [facility] Last Admin: 08/05/18 13:59 Dose: 750 mg Levothyroxine Sodium (Synthroid -) 200 mcg PO AM [facility] Last Admin: 08/05/18 06:04 Dose: 200 mcg [place] Carbonate (Eskalith -) 300 mg PO BID [facility] Last Admin: 08/05/18 09:08 Dose: 300 mg Morphine Sulfate (Ms Contin -) 30 mg PO Q12H [facility] Last Admin: 08/05/18 08:09 Dose: 30 mg Morphine Sulfate (Msir -) 15 mg PO Q4H PRN PRN Reason: PAIN LEVEL 6-10 Last Admin: 08/05/18 17:06 Dose: 15 mg Multivitamins/Minerals/Vitamin C (Tab-A-Vit -) 1 tab PO DAILY [facility] Last Admin: 08/05/18 09:08 Dose: 1 tab Pantoprazole Sodium (Protonix -) 40 mg PO DAILY [facility] Last Admin: 08/05/18 09:08 Dose: 40 mg Pentoxifylline (Trental -) 400 mg PO TID [facility] Last Admin: 08/05/18 14:05 Dose: 400 mg Senna (Senna -) 1 tab PO HS [facility] Last Admin: 08/04/18 21:00 Dose: 1 tab - Objective Vital Signs: Vital Signs Temperature 97.8 F 08/05/18 18:00 Pulse Rate 69 08/05/18 18:00 Respiratory Rate 18 08/05/18 18:00 Blood Pressure 128/80 08/05/18 18:00 O2 Sat by Pulse Oximetry (%) 99 08/05/18 10:00 Constitutional: Yes: No Distress HENT: Yes: Atraumatic Neck: Yes: Supple Cardiovascular: Yes: Regular Rate and Rhythm Respiratory: Yes: CTA Bilaterally Gastrointestinal: Yes: Normal Bowel Sounds Extremities: Yes: Other (b/l rodrick cellulitis) Neurological: Yes: Alert, Oriented Labs: CBC, BMP 08/02/18 08:02 08/01/18 08:20 Problem List - Problems (1) Cellulitis Assessment/Plan: iv abx wound cxs id on board Code(s): L03.90 - CELLULITIS, UNSPECIFIED Qualifiers: Site of cellulitis: extremity Site of cellulitis of extremity: lower extremity Laterality: left Qualified Code(s): L03.116 - Cellulitis of left lower limb (2) 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
[2018-08-05] MEDS: SENNOSIDES 8.6MG TABLET (FP) PO SCH (21:00)
[2018-08-06] MEDS: morphine SULFATE IMMEDIATE RELEASE 30 MG TAB PO PRN ×4 (03:01→16:14)
[2018-08-06] MEDS: levoFLOXacin 500 MG, levoFLOXacin 250 MG PO SCH (06:27)
[2018-08-06] MEDS: PENTOXIFYLLINE 400 MG TABLET.ER PO SCH ×3 (06:27→21:05)
[2018-08-06] MEDS: GABAPENTIN 300 MG CAPSULE (FP) PO SCH ×3 (06:28→21:04)
[2018-08-06] MEDS: LEVOTHYROXINE NA 200 MCG TABLET PO SCH (06:28)
[2018-08-06] MEDS: CARBIDOPA/LEVODOPA 25/100 TABLET (FP) PO SCH ×3 (06:30→21:05)
[2018-08-06] MEDS ORDERED: PT OWN MED DRAWER 7, Y5N ONE (08:30)
[2018-08-06] MEDS: morphine SO4 SUSTAINED ACTING 30 MG TABLET.SA PO SCH ×2 (08:40→21:02)
[2018-08-06] MEDS: LACTULOSE 20 GM/30 ML UDC (FOR ORAL USE ONLY) PO SCH (11:03)
[2018-08-06] MEDS: clonazePAM 0.5 MG TABLET PO SCH (11:04)
[2018-08-06] MEDS: PANTOPRAZOLE 40 MG TABLET (FP) PO SCH (11:05)
[2018-08-06] MEDS: FERROUS SO4 325 MG TABLET (FP) PO SCH (11:05)
[2018-08-06] MEDS: ASPIRIN 81 MG CHEWABLE TABLETS PO SCH (11:05)
[2018-08-06] MEDS: MULTIVITAMINS (DAILY MVI) TABLET (FP) PO SCH (11:06)
[2018-08-06] MEDS: guaiFENesin 600 MG TABLET.ER (FP) PO SCH ×2 (11:06→21:04)
[2018-08-06] MEDS: LITHIUM CARBONATE 300 MG CAPSULE (FP) PO SCH ×2 (11:06→21:04)
[2018-08-06] MEDS: HEPARIN NA (PORCINE) 5,000 UNITS/ML 1ML VIAL SQ SCH ×2 (11:06→21:05)
--- NOTE | 2018-08-06 11:25 | PN ---
Progress Note, Physician - Current Medication List Current Medications: Active Medications Aspirin (Asa -) 81 mg PO DAILY [facility] Last Admin: 08/06/18 11:05 Dose: 81 mg Bupropion HCl (Wellbutrin Xl -) 150 mg PO BID [facility] Last Admin: 08/06/18 11:05 Dose: 150 mg Carbidopa/Levodopa (Sinemet 25/100 -) 1 each PO TID [facility] Last Admin: 08/06/18 06:30 Dose: 1 each Clonazepam (Klonopin -) 1.5 mg PO DAILY [facility] Last Admin: 08/06/18 11:04 Dose: 1.5 mg Collagenase (Santyl -) 1 applic TP DAILY [facility]; Protocol Last Admin: 08/05/18 09:10 Dose: 1 applic Ferrous Sulfate (Feosol -) 325 mg PO DAILY [facility] Last Admin: 08/06/18 11:05 Dose: 325 mg Gabapentin (Neurontin -) 600 mg PO TID [facility] Last Admin: 08/06/18 06:28 Dose: 600 mg Guaifenesin (Mucinex -) 600 mg PO BID [facility] Last Admin: 08/06/18 11:06 Dose: 600 mg Heparin Sodium (Porcine) (Heparin -) 5,000 unit SQ BID [facility] Last Admin: 08/06/18 11:06 Dose: 5,000 unit Hydroxyzine HCl (Atarax -) 50 mg PO Q8H PRN PRN Reason: ALLERGIES Ketorolac Tromethamine (Toradol Injection -) 30 mg IM BID PRN PRN Reason: PAIN LEVEL 5-10 Stop: 08/06/18 19:42 Last Admin: 08/05/18 03:48 Dose: 30 mg Lactulose (Cephulac (Oral Use)) 20 gm PO DAILY [facility] Last Admin: 08/06/18 11:03 Dose: 20 gm Levofloxacin 500 mg/ (Levofloxacin 250 mg) 750 mg PO DAILY@0600 [facility] Last Admin: 08/06/18 06:27 Dose: 750 mg Levothyroxine Sodium (Synthroid -) 200 mcg PO AM [facility] Last Admin: 08/06/18 06:28 Dose: 200 mcg [place] Carbonate (Eskalith -) 300 mg PO BID [facility] Last Admin: 08/06/18 11:06 Dose: 300 mg Morphine Sulfate (Ms Contin -) 30 mg PO Q12H [facility] Last Admin: 08/06/18 08:40 Dose: 30 mg Morphine Sulfate (Msir -) 15 mg PO Q4H PRN PRN Reason: PAIN LEVEL 6-10 Last Admin: 08/06/18 07:23 Dose: 15 mg Multivitamins/Minerals/Vitamin C (Tab-A-Vit -) 1 tab PO DAILY [facility] Last Admin: 08/06/18 11:06 Dose: 1 tab Pantoprazole Sodium (Protonix -) 40 mg PO DAILY [facility] Last Admin: 08/06/18 11:05 Dose: 40 mg Pentoxifylline (Trental -) 400 mg PO TID [facility] Last Admin: 08/06/18 06:27 Dose: 400 mg Senna (Senna -) 1 tab PO HS [facility] Last Admin: 08/05/18 21:00 Dose: 1 tab - Objective Vital Signs: Vital Signs Temperature 97.8 F 08/06/18 06:00 Pulse Rate 63 08/06/18 06:00 Respiratory Rate 20 08/06/18 06:00 Blood Pressure 111/73 08/06/18 06:00 O2 Sat by Pulse Oximetry (%) 98 08/05/18 21:00 Labs: CBC, BMP 08/02/18 08:02 08/01/18 08:20
[2018-08-06] MEDS: COLLAGENASE CLOSTRIDIUM HIST. 30 GRAMS TUBE TP SCH (14:19)
--- NOTE | 2018-08-06 17:36 | PN ---
Progress Note, Physician History of Present Illness: wants more pain meds - Current Medication List Current Medications: Active Medications Aspirin (Asa -) 81 mg PO DAILY [facility] Last Admin: 08/06/18 11:05 Dose: 81 mg Bupropion HCl (Wellbutrin Xl -) 150 mg PO BID [facility] Last Admin: 08/06/18 11:05 Dose: 150 mg Carbidopa/Levodopa (Sinemet 25/100 -) 1 each PO TID [facility] Last Admin: 08/06/18 14:19 Dose: 1 each Clonazepam (Klonopin -) 1.5 mg PO DAILY [facility] Last Admin: 08/06/18 11:04 Dose: 1.5 mg Collagenase (Santyl -) 1 applic TP DAILY [facility]; Protocol Last Admin: 08/06/18 14:19 Dose: 1 applic Ferrous Sulfate (Feosol -) 325 mg PO DAILY [facility] Last Admin: 08/06/18 11:05 Dose: 325 mg Gabapentin (Neurontin -) 600 mg PO TID [facility] Last Admin: 08/06/18 14:19 Dose: 600 mg Guaifenesin (Mucinex -) 600 mg PO BID [facility] Last Admin: 08/06/18 11:06 Dose: 600 mg Heparin Sodium (Porcine) (Heparin -) 5,000 unit SQ BID [facility] Last Admin: 08/06/18 11:06 Dose: 5,000 unit Hydroxyzine HCl (Atarax -) 50 mg PO Q8H PRN PRN Reason: ALLERGIES Last Admin: 08/06/18 14:19 Dose: 50 mg Ketorolac Tromethamine (Toradol Injection -) 30 mg IM BID PRN PRN Reason: PAIN LEVEL 5-10 Stop: 08/06/18 19:42 Last Admin: 08/05/18 03:48 Dose: 30 mg Lactulose (Cephulac (Oral Use)) 20 gm PO DAILY [facility] Last Admin: 08/06/18 11:03 Dose: 20 gm Levofloxacin 500 mg/ (Levofloxacin 250 mg) 750 mg PO DAILY@0600 [facility] Last Admin: 08/06/18 06:27 Dose: 750 mg Levothyroxine Sodium (Synthroid -) 200 mcg PO AM [facility] Last Admin: 08/06/18 06:28 Dose: 200 mcg [place] Carbonate (Eskalith -) 300 mg PO BID [facility] Last Admin: 08/06/18 11:06 Dose: 300 mg Morphine Sulfate (Ms Contin -) 30 mg PO Q12H [facility] Last Admin: 08/06/18 08:40 Dose: 30 mg Morphine Sulfate (Msir -) 15 mg PO Q4H PRN PRN Reason: PAIN LEVEL 6-10 Last Admin: 08/06/18 16:14 Dose: 15 mg Multivitamins/Minerals/Vitamin C (Tab-A-Vit -) 1 tab PO DAILY [facility] Last Admin: 08/06/18 11:06 Dose: 1 tab Pantoprazole Sodium (Protonix -) 40 mg PO DAILY [facility] Last Admin: 08/06/18 11:05 Dose: 40 mg Pentoxifylline (Trental -) 400 mg PO TID [facility] Last Admin: 08/06/18 14:19 Dose: 400 mg Senna (Senna -) 1 tab PO HS [facility] Last Admin: 08/05/18 21:00 Dose: 1 tab - Objective Vital Signs: Vital Signs Temperature 98.3 F 08/06/18 14:00 Pulse Rate 71 08/06/18 14:00 Respiratory Rate 20 08/06/18 14:00 Blood Pressure 112/87 08/06/18 14:00 O2 Sat by Pulse Oximetry (%) 98 08/05/18 21:00 Constitutional: Yes: No Distress HENT: Yes: Atraumatic Neck: Yes: Supple Cardiovascular: Yes: Regular Rate and Rhythm Respiratory: Yes: CTA Bilaterally Gastrointestinal: Yes: Normal Bowel Sounds Extremities: Yes: Other (b/l rodrick cellilitis) Neurological: Yes: Alert, Oriented Labs: CBC, BMP 08/02/18 08:02 08/01/18 08:20 Problem List - Problems (1) Cellulitis Assessment/Plan: po abx wound care id on board Code(s): L03.90 - CELLULITIS, UNSPECIFIED Qualifiers: Site of cellulitis: extremity Site of cellulitis of extremity: lower extremity Laterality: left Qualified Code(s): L03.116 - Cellulitis of left lower limb (2) 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
[2018-08-06] MEDS: SENNOSIDES 8.6MG TABLET (FP) PO SCH (21:03)
[2018-08-07] MEDS: morphine SULFATE IMMEDIATE RELEASE 30 MG TAB PO PRN ×4 (00:39→14:39)
[2018-08-07] MEDS: levoFLOXacin 500 MG, levoFLOXacin 250 MG PO SCH (06:35)
[2018-08-07] MEDS: LEVOTHYROXINE NA 200 MCG TABLET PO SCH (06:36)
[2018-08-07] MEDS: CARBIDOPA/LEVODOPA 25/100 TABLET (FP) PO SCH ×2 (06:36→14:17)
[2018-08-07] MEDS: GABAPENTIN 300 MG CAPSULE (FP) PO SCH ×2 (06:36→14:17)
[2018-08-07] MEDS: PENTOXIFYLLINE 400 MG TABLET.ER PO SCH ×2 (06:37→14:17)
[2018-08-07 07:34] LABS: BASO % 0.4 % (0-2.0); EOS % 2.9 % (0-4.5); HEMATOCRIT 41.1 % (35.4-49); HEMOGLOBIN 14.1 GM/dL (11.7-16.9); MCH 31.9 pg (25.7-33.7); MCHC 34.2 g/dl (32.0-35.9); MEAN CELL VOLUME 93.3 fl (80-96); MEAN PLT VOLUME 9.5 fl (7.5-11.1); MONO % 8.6 % (3.8-10.2); NEUT % 46.1 % (42.8-82.8); PLATELET COUNT 171 K/MM3 (134-434); RBC 4.41 M/mm3 (4.00-5.60); RDW 13.7 % (11.9-15.9); WHITE BLOOD COUNT 11.3 K/mm3 (4.0-10.0)
[2018-08-07 07:41] LABS: ALBUMIN 3.2 g/dl (3.4-5.0); BILIRUBIN,TOTAL 0.3 mg/dL (0.2-1); BLOOD UREA NITROGEN 31.4 mg/dL (7-18); CALCIUM 9.4 mg/dL (8.5-10.1); POTASSIUM 4.4 mmol/L (3.5-5.1); TOT PROT 7.1 g/dl (6.4-8.2)
[2018-08-07] MEDS: morphine SO4 SUSTAINED ACTING 30 MG TABLET.SA PO SCH (08:10)
--- NOTE | 2018-08-07 09:09 | PN ---
Progress Note, Physician History of Present Illness: stable pain main issue - Current Medication List Current Medications: Active Medications Aspirin (Asa -) 81 mg PO DAILY [facility] Last Admin: 08/06/18 11:05 Dose: 81 mg Bupropion HCl (Wellbutrin Xl -) 150 mg PO BID [facility] Last Admin: 08/06/18 21:03 Dose: 150 mg Carbidopa/Levodopa (Sinemet 25/100 -) 1 each PO TID [facility] Last Admin: 08/07/18 06:36 Dose: 1 each Clonazepam (Klonopin -) 1.5 mg PO DAILY [facility] Last Admin: 08/06/18 11:04 Dose: 1.5 mg Collagenase (Santyl -) 1 applic TP DAILY [facility]; Protocol Last Admin: 08/06/18 14:19 Dose: 1 applic Ferrous Sulfate (Feosol -) 325 mg PO DAILY [facility] Last Admin: 08/06/18 11:05 Dose: 325 mg Gabapentin (Neurontin -) 600 mg PO TID [facility] Last Admin: 08/07/18 06:36 Dose: 600 mg Guaifenesin (Mucinex -) 600 mg PO BID [facility] Last Admin: 08/06/18 21:04 Dose: 600 mg Heparin Sodium (Porcine) (Heparin -) 5,000 unit SQ BID [facility] Last Admin: 08/06/18 21:05 Dose: 5,000 unit Hydroxyzine HCl (Atarax -) 50 mg PO Q8H PRN PRN Reason: ALLERGIES Last Admin: 08/06/18 14:19 Dose: 50 mg Lactulose (Cephulac (Oral Use)) 20 gm PO DAILY [facility] Last Admin: 08/06/18 11:03 Dose: 20 gm Levofloxacin 500 mg/ (Levofloxacin 250 mg) 750 mg PO DAILY@0600 [facility] Last Admin: 08/07/18 06:35 Dose: 750 mg Levothyroxine Sodium (Synthroid -) 200 mcg PO AM [facility] Last Admin: 08/07/18 06:36 Dose: 200 mcg [place] Carbonate (Eskalith -) 300 mg PO BID [facility] Last Admin: 08/06/18 21:04 Dose: 300 mg Morphine Sulfate (Ms Contin -) 30 mg PO Q12H [facility] Last Admin: 08/07/18 08:10 Dose: 30 mg Morphine Sulfate (Msir -) 15 mg PO Q4H PRN PRN Reason: PAIN LEVEL 6-10 Last Admin: 08/07/18 06:37 Dose: 15 mg Multivitamins/Minerals/Vitamin C (Tab-A-Vit -) 1 tab PO DAILY [facility] Last Admin: 08/06/18 11:06 Dose: 1 tab Pantoprazole Sodium (Protonix -) 40 mg PO DAILY [facility] Last Admin: 08/06/18 11:05 Dose: 40 mg Pentoxifylline (Trental -) 400 mg PO TID [facility] Last Admin: 08/07/18 06:37 Dose: 400 mg Senna (Senna -) 1 tab PO HS [facility] Last Admin: 08/06/18 21:03 Dose: 1 tab - Objective Vital Signs: Vital Signs Temperature 97.6 F 08/07/18 07:02 Pulse Rate 58 L 08/07/18 07:02 Respiratory Rate 20 08/07/18 07:02 Blood Pressure 109/67 08/07/18 07:02 O2 Sat by Pulse Oximetry (%) 94 L 08/06/18 21:00 Constitutional: Yes: No Distress, Calm Cardiovascular: Yes: Regular Rate and Rhythm Respiratory: Yes: Regular, CTA Bilaterally Gastrointestinal: Yes: Normal Bowel Sounds, Soft Musculoskeletal: Yes: WNL Extremities: Yes: Other Wound/Incision: Yes: Dressing Dry and Intact Neurological: Yes: Alert, Oriented Psychiatric: Yes: Alert, Oriented Labs: CBC, BMP 08/07/18 05:55 08/07/18 05:55 Assessment/Plan Problem List - Problems (1) Cellulitis Code(s): L03.90 - CELLULITIS, UNSPECIFIED Qualifiers: Site of cellulitis: extremity Site of cellulitis of extremity: lower extremity Laterality: left Qualified Code(s): L03.116 - Cellulitis of left lower limb (2) Idiopathic chronic venous hypertension of both lower extremities with ulcer and inflammation Code(s): I87.333 - CHRONIC VENOUS HTN W ULCER AND INFLAM OF BILATERAL LOW EXTRM ; L97.919 - NON-PRS CHRONIC ULC UNSP PRT OF R LOW LEG W UNSP SEVERITY; L97.929 - NON-PRS CHRONIC ULC UNSP PRT OF L LOW LEG W UNSP SEVERITY (3) Chronic pain Code(s): G89.29 - OTHER CHRONIC PAIN plan continue levaquin' rest as per the team
[2018-08-07 10:26] LABS: PLATELET ESTIMATE ADEQUATE
[2018-08-07] MEDS ORDERED: PT OWN MED DRAWER 7, Y5N ONE (10:40)
[2018-08-07] MEDS: PANTOPRAZOLE 40 MG TABLET (FP) PO SCH (10:43)
[2018-08-07] MEDS: LITHIUM CARBONATE 300 MG CAPSULE (FP) PO SCH (10:43)
[2018-08-07] MEDS: FERROUS SO4 325 MG TABLET (FP) PO SCH (10:43)
[2018-08-07] MEDS: clonazePAM 0.5 MG TABLET PO SCH (10:43)
[2018-08-07] MEDS: MULTIVITAMINS (DAILY MVI) TABLET (FP) PO SCH (10:43)
[2018-08-07] MEDS: LACTULOSE 20 GM/30 ML UDC (FOR ORAL USE ONLY) PO SCH (10:43)
[2018-08-07] MEDS: ASPIRIN 81 MG CHEWABLE TABLETS PO SCH (10:43)
[2018-08-07] MEDS: HEPARIN NA (PORCINE) 5,000 UNITS/ML 1ML VIAL SQ SCH (10:43)
[2018-08-07] MEDS: guaiFENesin 600 MG TABLET.ER (FP) PO SCH (10:43)
[2018-08-07] MEDS: COLLAGENASE CLOSTRIDIUM HIST. 30 GRAMS TUBE TP SCH (10:44)
--- NOTE | 2018-08-07 12:54 | DS ---
Physical Examination Vital Signs: Vital Signs Temperature 98.5 F 08/07/18 10:40 Pulse Rate 66 08/07/18 10:40 Respiratory Rate 18 08/07/18 10:40 Blood Pressure 120/75 08/07/18 10:40 O2 Sat by Pulse Oximetry (%) 94 L 08/06/18 21:00 Constitutional: Yes: No Distress HENT: Yes: Atraumatic Neck: Yes: Supple Cardiovascular: Yes: Regular Rate and Rhythm Respiratory: Yes: CTA Bilaterally Gastrointestinal: Yes: Normal Bowel Sounds Extremities: Yes: WNL Neurological: Yes: Alert, Oriented Labs: CBC, BMP 08/07/18 05:55 08/07/18 05:55 Discharge Summary Reason For Visit: CELLULITIS, IDIOPATHIC CHRONIC VENOUS HYPERTENSION Current Active Problems Cellulitis (Acute) HTN (hypertension) (Acute) Idiopathic chronic venous hypertension of both lower extremities with ulcer and inflammation (Acute) Condition: Stable - Instructions - Home Medications Comprehensive Discharge Medication List: Ambulatory Orders Acetaminophen [Tylenol] 650 mg PO QID PRN 02/27/18 Aspirin [ASA -] 81 mg PO DAILY 02/27/18 Benzonatate 1 cap PO DAILY 02/27/18 Bupropion HCl [Bupropion HCl Sr] 150 mg PO BID 02/27/18 Carbidopa/Levodopa [Carbidopa-Levodopa 25-100 Tab] 1 tab PO TID 02/27/18 Clonazepam [Klonopin] 1.5 mg PO DAILY 02/27/18 Ferrous Sulfate 1 tab PO DAILY 02/27/18 Flonase Allergy Relief 1 spray IH DAILY 02/27/18 Gabapentin 600 mg PO TID 02/27/18 Guaifenesin [Mucinex] 1 tab PO BID 02/27/18 Hydroxyzine HCl 1 tab PO TID 02/27/18 Ipratropium/Albuterol Sulfate [Iprat-Albut 0.5-3(2.5) mg/3 ml] 3 ml IH BID 02/27 Lactulose 30 ml PO DAILY 02/27/18 Levothyroxine [Synthroid -] 225 mcg PO DAILY 02/27/18 [place] Carbonate [Lithobid] 300 mg PO BID 02/27/18 Multivitamin [Multiple Vitamins] 1 tab PO DAILY 02/27/18 Pantoprazole Sodium [Protonix] 40 mg PO DAILY 02/27/18 Pentoxifylline [Trental -] 400 mg PO TID 02/27/18 Sennosides [Senna] 8.6 mg PO HS PRN 02/27/18 Simethicone 125 mg PO QID PRN 02/27/18 Varenicline Tartrate [Chantix -] 0.5 mg PO BID 02/27/18 Zolpidem Tartrate 10 mg PO HS 02/27/18 Levofloxacin [Levaquin] 750 mg PO DAILY #10 tablet 08/03/18 Morphine *Immediate Release* [Msir -] 15 mg PO Q6H PRN #10 tab MDD 3 08/04/18 Morphine *Sr* [MS Contin -] 30 mg PO Q12H #10 tablet.sa MDD 2 08/04/18 dc
[2018-08-07 15:07] VITALS: BP 122/82; PULSE 76; TEMP 97.6
== END 2018-08-07 15:33 | disposition home or self-care (01) | DRG 383 ==
LOC: JER 12:08 → JERBED 15:06 → J5S 21:31
PROVIDERS: ADMIT Internal Medicine; ATTEND Internal Medicine
DX: L03.116 Cellulitis of left lower limb (principal); I87.333 Chronic venous hypertension (idiopathic) with ulcer and inflammation of bilateral lower extremity; K21.9 Gastro-esophageal reflux disease without esophagitis; G20 Parkinson's disease; J44.9 Chronic obstructive pulmonary disease, unspecified; I10 Essential (primary) hypertension; G89.29 Other chronic pain; L97.919 Non-pressure chronic ulcer of unspecified part of right lower leg with unspecified severity; L97.929 Non-pressure chronic ulcer of unspecified part of left lower leg with unspecified severity; M86.8X7 Other osteomyelitis, ankle and foot
CPT/HCPCS: 36415; 80053; 85025; 87040; 87186; 99281-25; J1644

== ENCOUNTER 2018-10-27 12:53 | Inpatient (IN) | payer OTHER ==
--- NOTE | 2018-10-27 13:28 | PDOC ---
History of Present Illness - General Chief Complaint: Wound Stated Complaint: Wound - History of Present Illness Initial Comments: 10/27/18 15:25 63 y/o/m with B/L venous insufficiency with stasis ulcers sent here from the wound care clinic for cellulitis of the right lower extremity. He is followed by Dr. Alcantar at the wound care clinic. He states 5 days ago he bumped his knee on table and he has been having pain since then. His knee has also been swollen. He is currently staying at [facility]. He walks with a cane. He denies any fevers, chills, chest pain, abd pain, dysuria, or other symptoms. He took 30mg of morphine this morning at 8am and 15mg of morphine around 1030am. PMHx: B/L venous insufficiency with stasis ulcers, Parkinsons, GERD Social: denies alcohol and tobacco use Past History - Past Medical History Allergies/Adverse Reactions: Allergies Allergy/AdvReac Type Severity Reaction Status Date / Time No Known Allergies Allergy Verified 07/27/18 12:32 Home Medications: Ambulatory Orders Acetaminophen [Tylenol] 650 mg PO QID PRN 02/27/18 Aspirin [ASA -] 81 mg PO DAILY 02/27/18 Benzonatate 1 cap PO DAILY 02/27/18 Bupropion HCl [Bupropion HCl Sr] 150 mg PO BID 02/27/18 Carbidopa/Levodopa [Carbidopa-Levodopa 25-100 Tab] 1 tab PO TID 02/27/18 Clonazepam [Klonopin] 1.5 mg PO DAILY 02/27/18 Ferrous Sulfate 1 tab PO DAILY 02/27/18 Flonase Allergy Relief 1 spray IH DAILY 02/27/18 Gabapentin 600 mg PO TID 02/27/18 Hydroxyzine HCl 1 tab PO TID 02/27/18 Ipratropium/Albuterol Sulfate [Iprat-Albut 0.5-3(2.5) mg/3 ml] 3 ml IH BID 02/27 Lactulose 30 ml PO DAILY 02/27/18 Levothyroxine [Synthroid -] 225 mcg PO DAILY 02/27/18 Multivitamin [Multiple Vitamins] 1 tab PO DAILY 02/27/18 Pantoprazole Sodium [Protonix] 40 mg PO DAILY 02/27/18 Pentoxifylline [Trental -] 400 mg PO TID 02/27/18 Sennosides [Senna] 8.6 mg PO HS PRN 02/27/18 Simethicone 125 mg PO QID PRN 02/27/18 Varenicline Tartrate [Chantix -] 0.5 mg PO BID 02/27/18 Zolpidem Tartrate 10 mg PO HS 02/27/18 Morphine *Immediate Release* [Msir -] 15 mg PO Q6H PRN #10 tab MDD 3 08/04/18 Morphine *Sr* [MS Contin -] 30 mg PO Q12H #10 tablet.sa MDD 2 08/04/18 Ammonium Lactate Cream [Lac-Hydrin 12% Cream -] 1 applic TP BID 09/04/18 Collagenase Clostridium Hist. [Santyl -] 1 applic TP DAILY 09/04/18 Mylanta Oral Suspension - 30 ml PO Q8H PRN 09/04/18 Nitroglycerin 0.4 mg SL PRN PRN MDD 3 09/04/18 Vancomycin 1 Gram (Pre-Docked) [Vancomycin (Pre-Docked)] 1 gm IV Q12H 10/23/18 Nystatin Cream [Mycostatin Cream -] 1 applic TP BID 10/27/18 COPD: Yes GI Disorders: Yes (GERD) HTN: Yes Psychiatric Problems: Yes - Suicide/Smoking/Psychosocial Hx Smoking History: Former smoker Have you smoked in the past 12 months: No Hx Alcohol Use: No Drug/Substance Use Hx: No Substance Use Type: None Review of Systems - Review of Systems Constitutional: No: Chills, Fever HEENTM: No: Nose Congestion Respiratory: No: Cough, Shortness of Breath Cardiac (ROS): No: Chest Pain, Lightheadedness ABD/GI: No: Diarrhea, Nausea, Vomiting Musculoskeletal: Yes: Joint Pain (right knee ) Integumentary: Yes: Erythema Neurological: No: Headache, Numbness *Physical Exam - Physical Exam General Appearance: Yes: Mild Distress HEENT: positive: EOMI, Normal Voice, Symmetrical Neck: positive: Trachea midline, Supple Respiratory/Chest: positive: Lungs Clear, Normal Breath Sounds. negative: Accessory Muscle Use Cardiovascular: positive: Regular Rhythm, Regular Rate, S1, S2 Gastrointestinal/Abdominal: positive: Normal Bowel Sounds, Soft, Distended Musculoskeletal: negative: Vertebral Tenderness Extremity: positive: Swelling (swelling of right knee, right ankle, left ankle) , Erythema (diffuse erythema of the right knee. Bandages in place over both lower extermites. ), Other (Patient able to extend and flex right knee) ED Treatment Course - LABORATORY CBC & Chemistry Diagram: 10/27/18 15:16 10/27/18 15:16 Medical Decision Making - Medical Decision Making 10/27/18 15:47 -63 y/o/m with B/L venous insufficiency with stasis ulcers sent here from the wound care clinic for cellulitis of the right lower extremity. He is followed by Dr. Alcantar at the wound care clinic. -Workup with: CBC, CMP, Blood cultures, x-ray of right knee -Pain control with Tylenol and morphine -Patient started on Vancomycin -Patient admitted under Dr. Stafford to Med/Surg 10/27/18 18:53 -4mg of Morphine given for additional pain control. *DC/Admit/Observation/Transfer Diagnosis at time of Disposition: Cellulitis of knee, right - Discharge Dispostion Condition at time of disposition: Stable - Referrals - Patient Instructions - Post Discharge Activity
[2018-10-27] MEDS ORDERED: morphine CARPU-JECT 4 MG/1 ML DISP.SYRIN IVPUSH ONE ×2 (14:58→18:52)
[2018-10-27] MEDS ORDERED: ACETAMINOPHEN 1000 MG/100 ML VIAL (NON FORMULARY) IVPB ONE (14:58)
[2018-10-27] MEDS ORDERED: VANCOMYCIN 1 GM in D5W (PRE-DOCKED) 1,000 MG/250 ML IVPB ONE (15:00)
[2018-10-27] MEDS ORDERED: morphine SULFATE 4 MG/ML VIAL ONE ×2 (15:11→18:56)
[2018-10-27] MEDS ORDERED: MORPHINE SULFATE 2 MG/ML VIAL ONE ×2 (15:12→18:56)
[2018-10-27] MEDS ORDERED: ACETAMINOPHEN INJECTION 100 ML IVPB ONE (15:12)
[2018-10-27] MEDS ORDERED: VANCOMYCIN 1 GRAM (PRE-DOCKED) 1,000 MG/250 ML BAG IVPB ONE (15:13)
[2018-10-27 15:38] LABS: BASO % 0.4 % (0-2.0); EOS % 3.1 % (0-4.5); HEMATOCRIT 40.5 % (35.4-49); HEMOGLOBIN 13.9 GM/dL (11.7-16.9); LYMPH % 38.9 % (8-40); MCH 31.3 pg (25.7-33.7); MCHC 34.3 g/dl (32.0-35.9); MEAN CELL VOLUME 91.3 fl (80-96); MEAN PLT VOLUME 7.5 fl (7.5-11.1); MONO % 10.3 % (3.8-10.2); NEUT % 47.3 % (42.8-82.8); PLATELET COUNT 202 K/MM3 (134-434); RBC 4.43 M/mm3 (4.00-5.60); RDW 13.1 % (11.9-15.9); WHITE BLOOD COUNT 9.3 K/mm3 (4.0-10.0)
[2018-10-27 16:00] LABS: ALBUMIN 3.1 g/dl (3.4-5.0); BILIRUBIN,TOTAL 0.5 mg/dL (0.2-1); BLOOD UREA NITROGEN 15.3 mg/dL (7-18); CALCIUM 9.1 mg/dL (8.5-10.1); POTASSIUM 3.8 mmol/L (3.5-5.1); TOT PROT 7.2 g/dl (6.4-8.2)
--- NOTE | 2018-10-27 16:10 | PDOC ---
Attending Attestation - Resident Resident Name: Omid Lamfaragautam Roselia - HPI HPI: 10/27/18 16:12 Pt presents to the ED complaining of R knee pain. History of venous statis ulcers which are being treated by wound care. STates that he bumped his knee against a table and that since then, he has been experiencing worsening redness and pain in the knee since. Denies fever, nausea, vomiting or other systemic signs of infection. - Physicial Exam PE: 10/27/18 17:01 Agree with resident exam. patient is alert and oriented and in no acute distress. + erythema and tenderness of the R knee. Active ROM to 90 degrees. - Medical Decision Making 10/27/18 17:13 pt presents to the ED complaining of R knee pain. no concern for septic arthritis, given full active ROM. will check labs and xray and admit to medicine for cellulitis.
[2018-10-27 22:06] VITALS: BMI 32.2
[2018-10-28] MEDS ORDERED: NITROGLYCERIN SUBLINGUAL 1/150 0.4 MG TAB SL PRN (00:55)
[2018-10-28] MEDS ORDERED: SENNOSIDES 8.6MG TABLET (FP) PO PRN (00:55)
[2018-10-28] MEDS ORDERED: VANCOMYCIN 1 GRAM (PRE-DOCKED) 1,000 MG/250 ML BAG IVPB SCH (01:15)
[2018-10-28] MEDS ORDERED: PIPERACILLIN/TAZOBACTAM 3.375 GM VIAL IVPB ONE ×4 (01:25→17:48)
[2018-10-28] MEDS ORDERED: DEXTROSE 5%-WATER - 50 ML IVPB ONE ×4 (01:26→17:48)
[2018-10-28] MEDS: PIPERACILLIN/TAZOB 3.375 GM 3.375 GM in DEXTROSE 5%-WATER - 50 ML IVPB SCH ×3 (01:59→18:08)
[2018-10-28] MEDS ORDERED: PIPERACILLIN/TAZOB 3.375 GM 3.375 GM in DEXTROSE 5%-WATER - 50 ML IVPB SCH (02:00)
[2018-10-28] MEDS: morphine SULFATE 4 MG/ML VIAL IVPUSH PRN ×3 (02:00→13:31)
[2018-10-28] MEDS ORDERED: LEVOTHYROXINE NA 25 MCG TABLET (FP) ONE (05:28)
[2018-10-28] MEDS ORDERED: LEVOTHYROXINE NA 200 MCG TABLET ONE (05:28)
[2018-10-28] MEDS ORDERED: hydrOXYzine HCL 50 MG TABLET PO SCH (06:00)
[2018-10-28] MEDS: CARBIDOPA/LEVODOPA 25/100 TABLET (FP) PO SCH ×3 (06:09→23:02)
[2018-10-28] MEDS: LEVOTHYROXINE 200 MCG, LEVOTHYROXINE 25 MCG PO SCH (06:09)
[2018-10-28] MEDS: PENTOXIFYLLINE 400 MG TABLET.ER PO SCH ×3 (06:09→23:02)
[2018-10-28] MEDS: GABAPENTIN 300 MG CAPSULE (FP) PO SCH ×3 (06:10→23:00)
[2018-10-28] MEDS ORDERED: PT OWN MED DRAWER 7, Y5N ONE ×5 (06:24→22:54)
[2018-10-28 08:17] LABS: BASO % 0.5 % (0-2.0); EOS % 6.1 % (0-4.5); HEMATOCRIT 38.4 % (35.4-49); HEMOGLOBIN 13.2 GM/dL (11.7-16.9); LYMPH % 44.4 % (8-40); MCH 31.1 pg (25.7-33.7); MCHC 34.4 g/dl (32.0-35.9); MEAN CELL VOLUME 90.3 fl (80-96); MEAN PLT VOLUME 7.6 fl (7.5-11.1); MONO % 10.9 % (3.8-10.2); NEUT % 38.1 % (42.8-82.8); PLATELET COUNT 193 K/MM3 (134-434); RBC 4.25 M/mm3 (4.00-5.60); RDW 13.1 % (11.9-15.9); WHITE BLOOD COUNT 7.2 K/mm3 (4.0-10.0)
[2018-10-28] MEDS ORDERED: LEVOTHYROXINE NA 200 MCG TABLET PO SCH (10:00)
[2018-10-28] MEDS: FERROUS SO4 325 MG TABLET (FP) PO SCH (10:10)
[2018-10-28] MEDS: clonazePAM 0.5 MG TABLET PO SCH (10:10)
[2018-10-28] MEDS: ASPIRIN 81 MG CHEWABLE TABLETS PO SCH (10:10)
[2018-10-28] MEDS: LACTULOSE 20 GM/30 ML UDC (FOR ORAL USE ONLY) PO SCH (10:10)
[2018-10-28] MEDS: MULTIVITAMINS (DAILY MVI) TABLET (FP) PO SCH (10:11)
[2018-10-28] MEDS: PANTOPRAZOLE 40 MG TABLET (FP) PO SCH (10:11)
[2018-10-28] MEDS: HEPARIN NA (PORCINE) 5,000 UNITS/ML 1ML VIAL SQ SCH ×2 (10:13→23:03)
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
--- NOTE | 2018-10-28 11:24 | HP ---
Admitting History and Physical - Admission History of Present Illness: Pt is a 63 y/o male w/ PMH significant for HTN, Parkinson's dz, GERD, chronic venous stasis/ulcers, chronic cellulitis and chronic pain. Pt was sent from the wound care clinic for cellulitis of the right lower extremity. He is followed by Dr. Alcantar at the wound care clinic. He states 5 days ago he bumped his Rt knee on the table and since than he has been having pain w/ redness. His knee has also been swollen w/ a laceration. He is currently staying at [facility]. He walks with a cane. - Past Medical History [employer] PLAYER: Yes: Parkinson's Cardiovascular: Yes: HTN Gastrointestinal: Yes: GERD - Smoking History Smoking history: Former smoker Have you smoked in the past 12 months: No If you are a former smoker, when did you quit?: 3 years ago - Alcohol/Substance Use Hx Alcohol Use: No Home Medications - Allergies Allergies/Adverse Reactions: Allergies Allergy/AdvReac Type Severity Reaction Status Date / Time No Known Allergies Allergy Verified 07/27/18 12:32 - Home Medications Home Medications: Ambulatory Orders Aspirin [ASA -] 81 mg PO DAILY 02/27/18 Bupropion HCl [Bupropion HCl Sr] 150 mg PO BID 02/27/18 Carbidopa/Levodopa [Carbidopa-Levodopa 25-100 Tab] 1 tab PO TID 02/27/18 Clonazepam [Klonopin] 1.5 mg PO DAILY 02/27/18 Ferrous Sulfate 1 tab PO DAILY 02/27/18 Flonase Allergy Relief 1 spray IH DAILY 02/27/18 Gabapentin 600 mg PO TID 02/27/18 Hydroxyzine HCl 1 tab PO TID 02/27/18 Ipratropium/Albuterol Sulfate [Iprat-Albut 0.5-3(2.5) mg/3 ml] 3 ml IH BID 02/27 Lactulose 30 ml PO DAILY 02/27/18 Levothyroxine [Synthroid -] 225 mcg PO DAILY 02/27/18 Multivitamin [Multiple Vitamins] 1 tab PO DAILY 02/27/18 Pantoprazole Sodium [Protonix] 40 mg PO DAILY 02/27/18 Pentoxifylline [Trental -] 400 mg PO TID 02/27/18 Sennosides [Senna] 8.6 mg PO HS PRN 02/27/18 Simethicone 125 mg PO QID PRN 02/27/18 Zolpidem Tartrate 10 mg PO HS 02/27/18 Morphine *Immediate Release* [Msir -] 15 mg PO Q6H PRN #10 tab MDD 3 08/04/18 Morphine *Sr* [MS Contin -] 30 mg PO Q12H #10 tablet.sa MDD 2 08/04/18 Ammonium Lactate Cream [Lac-Hydrin 12% Cream -] 1 applic TP BID 09/04/18 Collagenase Clostridium Hist. [Santyl -] 1 applic TP DAILY 09/04/18 Mylanta Oral Suspension - 30 ml PO Q8H PRN 09/04/18 Nitroglycerin 0.4 mg SL PRN PRN MDD 3 09/04/18 Nystatin Cream [Mycostatin Cream -] 1 applic TP BID 10/27/18 Amoxicillin/Potassium Clav [Augmentin 875-125 Tablet] 1 each PO BID #14 tablet 11/03/18 Cyclobenzaprine HCl 5 mg PO TID tablet 11/03/18 Ibuprofen [Motrin -] 600 mg PO Q8H PRN tablet 11/03/18 Levothyroxine [Synthroid -] 225 mcg PO DAILY@0700 tablet 11/03/18 Levothyroxine [Synthroid -] 225 mcg PO DAILY@0700 tablet 11/03/18 Family Medical History Family History: Unremarkable Review of Systems - Review of Systems Constitutional: reports: No Symptoms Eyes: reports: No Symptoms HENT: reports: No Symptoms Neck: reports: No Symptoms Cardiovascular: reports: No Symptoms Respiratory: reports: No Symptoms Gastrointestinal: reports: No Symptoms Genitourinary: reports: No Symptoms Physical Examination Vital Signs: Vital Signs Temperature 98.2 F 10/28/18 06:00 Pulse Rate 69 10/28/18 06:00 Respiratory Rate 20 10/28/18 06:00 Blood Pressure 136/83 10/28/18 06:00 O2 Sat by Pulse Oximetry (%) 99 10/27/18 20:08 Constitutional: Yes: Well Nourished, Obese Eyes: Yes: WNL HENT: Yes: WNL Neck: Yes: WNL Cardiovascular: Yes: WNL, Regular Rate and Rhythm Respiratory: Yes: WNL, Regular, CTA Bilaterally Gastrointestinal: Yes: WNL, Normal Bowel Sounds, Soft, Abdomen, Obese Extremities: Yes: Other ((+) Rt knee w/ laceration and erythema (+) chronic venous stasis/ulcers) Labs: CBC, BMP 10/28/18 07:45 10/27/18 15:16 Problem List - Problems (1) Cellulitis of knee, right Assessment/Plan: Cont IV antibxs ID consult/ortho consult Monitor cultures Code(s): L03.115 - CELLULITIS OF RIGHT LOWER LIMB (2) Chronic pain Assessment/Plan: Cont morphine/gabapentin Code(s): G89.29 - OTHER CHRONIC PAIN (3) Chronic venous stasis Code(s): I87.8 - OTHER SPECIFIED DISORDERS OF VEINS (4) HTN (hypertension) Code(s): I10 - ESSENTIAL (PRIMARY) HYPERTENSION (5) Hypothyroidism Assessment/Plan: Cont levothyroxine Code(s): E03.9 - HYPOTHYROIDISM, UNSPECIFIED
[2018-10-28] MEDS: COLLAGENASE CLOSTRIDIUM HIST. 30 GRAMS TUBE TP SCH (14:45)
[2018-10-28] MEDS: hydrOXYzine HCL 25 MG TABLET (FP) PO SCH ×2 (16:12→23:02)
[2018-10-28] MEDS: morphine SO4 SUSTAINED ACTING 30 MG TABLET.SA PO SCH (18:48)
[2018-10-29] MEDS ORDERED: DEXTROSE 5%-WATER - 50 ML IVPB ONE ×3 (01:24→17:23)
[2018-10-29] MEDS ORDERED: PIPERACILLIN/TAZOBACTAM 3.375 GM VIAL IVPB ONE ×4 (01:24→17:27)
[2018-10-29] MEDS: morphine SULFATE IMMEDIATE RELEASE 30 MG TAB PO PRN ×4 (01:33→22:31)
[2018-10-29] MEDS: PIPERACILLIN/TAZOB 3.375 GM 3.375 GM in DEXTROSE 5%-WATER - 50 ML IVPB SCH ×3 (01:34→17:32)
[2018-10-29] MEDS ORDERED: LEVOTHYROXINE NA 25 MCG TABLET (FP) ONE (06:25)
[2018-10-29] MEDS ORDERED: LEVOTHYROXINE NA 200 MCG TABLET ONE (06:25)
[2018-10-29] MEDS ORDERED: PT OWN MED DRAWER 7, Y5N ONE ×4 (06:26→22:55)
[2018-10-29] MEDS: CARBIDOPA/LEVODOPA 25/100 TABLET (FP) PO SCH ×3 (06:28→22:32)
[2018-10-29] MEDS: GABAPENTIN 300 MG CAPSULE (FP) PO SCH ×3 (06:28→22:32)
[2018-10-29] MEDS: morphine SO4 SUSTAINED ACTING 30 MG TABLET.SA PO SCH ×2 (06:28→17:31)
[2018-10-29] MEDS: LEVOTHYROXINE 200 MCG, LEVOTHYROXINE 25 MCG PO SCH (06:28)
[2018-10-29] MEDS: hydrOXYzine HCL 25 MG TABLET (FP) PO SCH ×3 (06:28→22:33)
[2018-10-29] MEDS: PENTOXIFYLLINE 400 MG TABLET.ER PO SCH ×3 (06:29→22:33)
[2018-10-29 08:49] LABS: ALBUMIN 2.8 g/dl (3.4-5.0); BILIRUBIN,TOTAL 0.5 mg/dL (0.2-1); BLOOD UREA NITROGEN 15.7 mg/dL (7-18); CALCIUM 9.1 mg/dL (8.5-10.1); POTASSIUM 3.8 mmol/L (3.5-5.1); TOT PROT 6.9 g/dl (6.4-8.2)
--- NOTE | 2018-10-29 09:39 | PN ---
Progress Note, Physician History of Present Illness: feels better knee feeling better pain still present - Current Medication List Current Medications: Active Medications Aspirin (Asa -) 81 mg PO DAILY [facility] Last Admin: 10/28/18 10:10 Dose: 81 mg Bupropion HCl (Wellbutrin Xl -) 150 mg PO BID [facility] Last Admin: 10/28/18 23:02 Dose: 150 mg Carbidopa/Levodopa (Sinemet 25/100 -) 1 each PO TID [facility] Last Admin: 10/29/18 06:28 Dose: 1 each Clonazepam (Klonopin -) 1.5 mg PO DAILY [facility] Last Admin: 10/28/18 10:10 Dose: 1.5 mg Collagenase (Santyl -) 1 applic TP DAILY [facility]; Protocol Last Admin: 10/28/18 14:45 Dose: 1 applic Ferrous Sulfate (Feosol -) 325 mg PO DAILY [facility] Last Admin: 10/28/18 10:10 Dose: 325 mg Gabapentin (Neurontin -) 600 mg PO TID [facility] Last Admin: 10/29/18 06:28 Dose: 600 mg Heparin Sodium (Porcine) (Heparin -) 5,000 unit SQ BID [facility] Last Admin: 10/28/18 23:03 Dose: 5,000 unit Hydroxyzine HCl (Atarax -) 50 mg PO TID [facility] Last Admin: 10/29/18 06:28 Dose: 50 mg Piperacillin Sod/Tazobactam (Sod 3.375 gm/ Dextrose) 50 mls @ 100 mls/hr IVPB Q8H-IV [facility]; Protocol Last Admin: 10/29/18 01:34 Dose: 100 mls/hr Vancomycin HCl (Vancomycin 1 Gm Premix -) 1 gm in 200 mls @ 133.333 mls/hr IVPB Q12H [facility] Lactulose (Cephulac (Oral Use)) 20 gm PO DAILY [facility] Last Admin: 10/28/18 10:10 Dose: 20 gm Levothyroxine Sodium 200 mcg/ (Levothyroxine Sodium 25 mcg) 225 mcg PO DAILY@ 0700 [facility] Last Admin: 10/29/18 06:28 Dose: 225 mcg Morphine Sulfate (Msir -) 15 mg PO Q6H PRN PRN Reason: PAIN LEVEL 4-10 Last Admin: 10/29/18 01:33 Dose: 15 mg Morphine Sulfate (Ms Contin -) 30 mg PO BID@0600,1800 [facility] Last Admin: 10/29/18 06:28 Dose: 30 mg Multivitamins/Minerals/Vitamin C (Tab-A-Vit -) 1 tab PO DAILY [facility] Last Admin: 10/28/18 10:11 Dose: 1 tab Nitroglycerin (Nitrostat -) 0.4 mg SL PRN PRN PRN Reason: Chest pain Pantoprazole Sodium (Protonix -) 40 mg PO DAILY [facility] Last Admin: 10/28/18 10:11 Dose: 40 mg Pentoxifylline (Trental -) 400 mg PO TID [facility] Last Admin: 10/29/18 06:29 Dose: 400 mg Senna (Senna -) 1 tab PO HS PRN PRN Reason: CONSTIPATION - Objective Vital Signs: Vital Signs Temperature 98 F 10/29/18 06:22 Pulse Rate 63 10/29/18 06:22 Respiratory Rate 20 10/29/18 06:22 Blood Pressure 113/70 10/29/18 06:22 O2 Sat by Pulse Oximetry (%) 99 10/27/18 20:08 Constitutional: Yes: No Distress HENT: Yes: Atraumatic Neck: Yes: Supple Cardiovascular: Yes: S1, S2 Respiratory: Yes: Regular, CTA Bilaterally Musculoskeletal: Yes: WNL Extremities: Yes: Other Neurological: Yes: Alert, Oriented Labs: CBC, BMP 10/28/18 07:45 10/29/18 07:11 Assessment/Plan Problem List - Problems (1) Cellulitis Code(s): L03.90 - CELLULITIS, UNSPECIFIED Qualifiers: Site of cellulitis: extremity Site of cellulitis of extremity: lower extremity Laterality: left Qualified Code(s): L03.116 - Cellulitis of left lower limb (2) Idiopathic chronic venous hypertension of both lower extremities with ulcer and inflammation Code(s): I87.333 - CHRONIC VENOUS HTN W ULCER AND INFLAM OF BILATERAL LOW EXTRM ; L97.919 - NON-PRS CHRONIC ULC UNSP PRT OF R LOW LEG W UNSP SEVERITY; L97.929 - NON-PRS CHRONIC ULC UNSP PRT OF L LOW LEG W UNSP SEVERITY (3) Chronic pain Code(s): G89.29 - OTHER CHRONIC PAIN cellulitis of the knee joint patient refused mri plan continue abx await for ortho rest as per the team wound care
--- NOTE | 2018-10-29 09:49 | PN ---
Progress Note (short form) - Note Progress Note: Pt seen and examined. In short he is a 63 year old male with chronic vascular problems of the lower extremities, who developed right knee pain and swelling about 2 days ago. No recent history of any trauma. Since he has been in the hospital and on antibiotics over the past 24 hours, his right knee clinical picture has improved dramatically. He states the pain is 80-90% better, it is much less swollen, less red, less painful with motion. PE Right knee looks ok: minimal swelling, no joint effusion No erythema Not very tender Good ROM with minimal pain Clinically the right knee is quite benign X-rays Right knee show OA, no acute merrick pathology. Imp Right knee cellulitis, now much improved Rec No surgery needed Con't IV antibiotics Will follow PRN Encourage ROM exercises and weight bear as tolerated
[2018-10-29] MEDS: LACTULOSE 20 GM/30 ML UDC (FOR ORAL USE ONLY) PO SCH (10:03)
[2018-10-29] MEDS: PANTOPRAZOLE 40 MG TABLET (FP) PO SCH (10:03)
[2018-10-29] MEDS: clonazePAM 0.5 MG TABLET PO SCH (10:03)
[2018-10-29] MEDS: ASPIRIN 81 MG CHEWABLE TABLETS PO SCH (10:03)
[2018-10-29] MEDS: HEPARIN NA (PORCINE) 5,000 UNITS/ML 1ML VIAL SQ SCH ×2 (10:04→22:33)
[2018-10-29] MEDS: COLLAGENASE CLOSTRIDIUM HIST. 30 GRAMS TUBE TP SCH (10:04)
[2018-10-29] MEDS: FERROUS SO4 325 MG TABLET (FP) PO SCH (10:04)
[2018-10-29] MEDS: MULTIVITAMINS (DAILY MVI) TABLET (FP) PO SCH (10:04)
[2018-10-29] MEDS ORDERED: VANCOMYCIN 1 GRAM (PRE-DOCKED) 1,000 MG/250 ML BAG IVPB SCH (15:30)
--- NOTE | 2018-10-29 21:09 | PN ---
Progress Note, Physician History of Present Illness: No new complaints - Current Medication List Current Medications: Active Medications Aspirin (Asa -) 81 mg PO DAILY [facility] Last Admin: 10/29/18 10:03 Dose: 81 mg Bupropion HCl (Wellbutrin Xl -) 150 mg PO BID [facility] Last Admin: 10/29/18 10:03 Dose: 150 mg Carbidopa/Levodopa (Sinemet 25/100 -) 1 each PO TID [facility] Last Admin: 10/29/18 13:10 Dose: 1 each Clonazepam (Klonopin -) 1.5 mg PO DAILY [facility] Last Admin: 10/29/18 10:03 Dose: 1.5 mg Collagenase (Santyl -) 1 applic TP DAILY [facility]; Protocol Last Admin: 10/29/18 10:04 Dose: 1 applic Ferrous Sulfate (Feosol -) 325 mg PO DAILY [facility] Last Admin: 10/29/18 10:04 Dose: 325 mg Gabapentin (Neurontin -) 600 mg PO TID [facility] Last Admin: 10/29/18 13:10 Dose: 600 mg Heparin Sodium (Porcine) (Heparin -) 5,000 unit SQ BID [facility] Last Admin: 10/29/18 10:04 Dose: 5,000 unit Hydroxyzine HCl (Atarax -) 50 mg PO TID [facility] Last Admin: 10/29/18 15:09 Dose: 50 mg Piperacillin Sod/Tazobactam (Sod 3.375 gm/ Dextrose) 50 mls @ 100 mls/hr IVPB Q8H-IV [facility]; Protocol Last Admin: 10/29/18 17:32 Dose: 100 mls/hr Vancomycin HCl (Vancomycin (Pre-Docked)) 1,000 mg in 250 mls @ 166.667 mls/hr IVPB Q24H [facility] Last Admin: 10/29/18 16:14 Dose: 166.667 mls/hr Lactulose (Cephulac (Oral Use)) 20 gm PO DAILY [facility] Last Admin: 10/29/18 10:03 Dose: 20 gm Levothyroxine Sodium 200 mcg/ (Levothyroxine Sodium 25 mcg) 225 mcg PO DAILY@ 0700 [facility] Last Admin: 10/29/18 06:28 Dose: 225 mcg Morphine Sulfate (Msir -) 15 mg PO Q6H PRN PRN Reason: PAIN LEVEL 4-10 Last Admin: 10/29/18 16:13 Dose: 15 mg Morphine Sulfate (Ms Contin -) 30 mg PO BID@0600,1800 [facility] Last Admin: 10/29/18 17:31 Dose: 30 mg Multivitamins/Minerals/Vitamin C (Tab-A-Vit -) 1 tab PO DAILY [facility] Last Admin: 10/29/18 10:04 Dose: 1 tab Nitroglycerin (Nitrostat -) 0.4 mg SL PRN PRN PRN Reason: Chest pain Pantoprazole Sodium (Protonix -) 40 mg PO DAILY [facility] Last Admin: 10/29/18 10:03 Dose: 40 mg Pentoxifylline (Trental -) 400 mg PO TID [facility] Last Admin: 10/29/18 13:10 Dose: 400 mg Senna (Senna -) 1 tab PO HS PRN PRN Reason: CONSTIPATION - Objective Vital Signs: Vital Signs Temperature 97.3 F L 10/29/18 16:30 Pulse Rate 69 10/29/18 16:30 Respiratory Rate 20 10/29/18 16:30 Blood Pressure 148/79 10/29/18 16:30 O2 Sat by Pulse Oximetry (%) 99 10/29/18 09:00 Constitutional: Yes: Well Nourished Neck: Yes: WNL, Supple Cardiovascular: Yes: WNL, Regular Rate and Rhythm Respiratory: Yes: WNL, Regular, CTA Bilaterally Gastrointestinal: Yes: WNL, Normal Bowel Sounds, Soft, Abdomen, Obese Extremities: Yes: Other ((+) Rt knee erythema/laceration Chronic venous stasis/ ulcers) Labs: CBC, BMP 10/28/18 07:45 10/29/18 07:11 Problem List - Problems (1) Cellulitis of knee, right Assessment/Plan: Cont IV antibxs ID consult/ortho consult Monitor cultures Code(s): L03.115 - CELLULITIS OF RIGHT LOWER LIMB (2) Parkinsons disease Assessment/Plan: Cont sinemet Code(s): G20 - PARKINSON'S DISEASE (3) Chronic pain Assessment/Plan: Cont morphine/gabapentin Code(s): G89.29 - OTHER CHRONIC PAIN (4) Chronic venous stasis Code(s): I87.8 - OTHER SPECIFIED DISORDERS OF VEINS (5) HTN (hypertension) Code(s): I10 - ESSENTIAL (PRIMARY) HYPERTENSION (6) Hypothyroidism Assessment/Plan: Cont levothyroxine Code(s): E03.9 - HYPOTHYROIDISM, UNSPECIFIED
[2018-10-30] MEDS ORDERED: PIPERACILLIN/TAZOBACTAM 3.375 GM VIAL IVPB ONE ×3 (01:37→17:21)
[2018-10-30] MEDS ORDERED: DEXTROSE 5%-WATER - 50 ML IVPB ONE ×3 (01:38→17:22)
[2018-10-30] MEDS: PIPERACILLIN/TAZOB 3.375 GM 3.375 GM in DEXTROSE 5%-WATER - 50 ML IVPB SCH ×3 (01:49→17:29)
[2018-10-30] MEDS: morphine SULFATE IMMEDIATE RELEASE 30 MG TAB PO PRN ×3 (04:26→20:59)
[2018-10-30] MEDS ORDERED: LEVOTHYROXINE NA 200 MCG TABLET ONE (07:07)
[2018-10-30] MEDS ORDERED: LEVOTHYROXINE NA 25 MCG TABLET (FP) ONE (07:07)
[2018-10-30] MEDS ORDERED: PT OWN MED DRAWER 7, Y5N ONE ×5 (07:08→22:00)
[2018-10-30] MEDS: GABAPENTIN 300 MG CAPSULE (FP) PO SCH ×3 (07:11→22:08)
[2018-10-30] MEDS: CARBIDOPA/LEVODOPA 25/100 TABLET (FP) PO SCH ×3 (07:11→22:08)
[2018-10-30] MEDS: PENTOXIFYLLINE 400 MG TABLET.ER PO SCH ×3 (07:11→22:04)
[2018-10-30] MEDS: hydrOXYzine HCL 25 MG TABLET (FP) PO SCH ×3 (07:11→22:06)
[2018-10-30] MEDS: morphine SO4 SUSTAINED ACTING 30 MG TABLET.SA PO SCH ×2 (07:12→17:26)
[2018-10-30] MEDS: LEVOTHYROXINE 200 MCG, LEVOTHYROXINE 25 MCG PO SCH (07:12)
[2018-10-30] MEDS: HEPARIN NA (PORCINE) 5,000 UNITS/ML 1ML VIAL SQ SCH ×2 (09:56→22:09)
[2018-10-30] MEDS: FERROUS SO4 325 MG TABLET (FP) PO SCH (09:57)
[2018-10-30] MEDS: PANTOPRAZOLE 40 MG TABLET (FP) PO SCH (09:57)
[2018-10-30] MEDS: clonazePAM 0.5 MG TABLET PO SCH (09:57)
[2018-10-30] MEDS: ASPIRIN 81 MG CHEWABLE TABLETS PO SCH (09:57)
[2018-10-30] MEDS: COLLAGENASE CLOSTRIDIUM HIST. 30 GRAMS TUBE TP SCH (09:58)
[2018-10-30] MEDS: MULTIVITAMINS (DAILY MVI) TABLET (FP) PO SCH (09:58)
[2018-10-30] MEDS: LACTULOSE 20 GM/30 ML UDC (FOR ORAL USE ONLY) PO SCH (09:58)
--- NOTE | 2018-10-30 10:25 | PN ---
Progress Note, Physician History of Present Illness: improving still with knee pain rt leg oozing left leg better - Current Medication List Current Medications: Active Medications Aspirin (Asa -) 81 mg PO DAILY [facility] Last Admin: 10/30/18 09:57 Dose: 81 mg Bupropion HCl (Wellbutrin Xl -) 150 mg PO BID [facility] Last Admin: 10/30/18 09:57 Dose: 150 mg Carbidopa/Levodopa (Sinemet 25/100 -) 1 each PO TID [facility] Last Admin: 10/30/18 07:11 Dose: 1 each Clonazepam (Klonopin -) 1.5 mg PO DAILY [facility] Last Admin: 10/30/18 09:57 Dose: 1.5 mg Collagenase (Santyl -) 1 applic TP DAILY [facility]; Protocol Last Admin: 10/30/18 09:58 Dose: 1 applic Ferrous Sulfate (Feosol -) 325 mg PO DAILY [facility] Last Admin: 10/30/18 09:57 Dose: 325 mg Gabapentin (Neurontin -) 600 mg PO TID [facility] Last Admin: 10/30/18 07:11 Dose: 600 mg Heparin Sodium (Porcine) (Heparin -) 5,000 unit SQ BID [facility] Last Admin: 10/30/18 09:56 Dose: 5,000 unit Hydroxyzine HCl (Atarax -) 50 mg PO TID [facility] Last Admin: 10/30/18 07:11 Dose: 50 mg Piperacillin Sod/Tazobactam (Sod 3.375 gm/ Dextrose) 50 mls @ 100 mls/hr IVPB Q8H-IV [facility]; Protocol Last Admin: 10/30/18 09:58 Dose: 100 mls/hr Vancomycin HCl (Vancomycin (Pre-Docked)) 1,000 mg in 250 mls @ 166.667 mls/hr IVPB Q24H [facility] Last Admin: 10/29/18 16:14 Dose: 166.667 mls/hr Lactulose (Cephulac (Oral Use)) 20 gm PO DAILY [facility] Last Admin: 10/30/18 09:58 Dose: 20 gm Levothyroxine Sodium 200 mcg/ (Levothyroxine Sodium 25 mcg) 225 mcg PO DAILY@ 0700 [facility] Last Admin: 10/30/18 07:12 Dose: 225 mcg Morphine Sulfate (Msir -) 15 mg PO Q6H PRN PRN Reason: PAIN LEVEL 4-10 Last Admin: 10/30/18 04:26 Dose: 15 mg Morphine Sulfate (Ms Contin -) 30 mg PO BID@0600,1800 [facility] Last Admin: 10/30/18 07:12 Dose: 30 mg Multivitamins/Minerals/Vitamin C (Tab-A-Vit -) 1 tab PO DAILY [facility] Last Admin: 10/30/18 09:58 Dose: 1 tab Nitroglycerin (Nitrostat -) 0.4 mg SL PRN PRN PRN Reason: Chest pain Pantoprazole Sodium (Protonix -) 40 mg PO DAILY [facility] Last Admin: 10/30/18 09:57 Dose: 40 mg Pentoxifylline (Trental -) 400 mg PO TID [facility] Last Admin: 10/30/18 07:11 Dose: 400 mg Senna (Senna -) 1 tab PO HS PRN PRN Reason: CONSTIPATION - Objective Vital Signs: Vital Signs Temperature 98 F 10/30/18 06:00 Pulse Rate 69 10/30/18 06:00 Respiratory Rate 20 10/30/18 06:00 Blood Pressure 129/75 10/30/18 06:00 O2 Sat by Pulse Oximetry (%) 99 10/29/18 09:00 Constitutional: Yes: Calm, Mild Distress Cardiovascular: Yes: Regular Rate and Rhythm Respiratory: Yes: Regular, CTA Bilaterally Gastrointestinal: Yes: Normal Bowel Sounds, Soft Musculoskeletal: Yes: WNL Extremities: Yes: Other Integumentary: Yes: Erythema (rt knee) Wound/Incision: Yes: Dressing Dry and Intact, Dressing Removed Neurological: Yes: Alert, Oriented Psychiatric: Yes: Alert, Oriented Labs: CBC, BMP 10/28/18 07:45 10/29/18 07:11 Assessment/Plan Problem List - Problems (1) Cellulitis Code(s): L03.90 - CELLULITIS, UNSPECIFIED Qualifiers: Site of cellulitis: extremity Site of cellulitis of extremity: lower extremity Laterality: left Qualified Code(s): L03.116 - Cellulitis of left lower limb (2) Idiopathic chronic venous hypertension of both lower extremities with ulcer and inflammation Code(s): I87.333 - CHRONIC VENOUS HTN W ULCER AND INFLAM OF BILATERAL LOW EXTRM ; L97.919 - NON-PRS CHRONIC ULC UNSP PRT OF R LOW LEG W UNSP SEVERITY; L97.929 - NON-PRS CHRONIC ULC UNSP PRT OF L LOW LEG W UNSP SEVERITY (3) Chronic pain Code(s): G89.29 - OTHER CHRONIC PAIN cellulitis of the knee joint patient refused mri plan continue abx ortho note noted will stop vanco and see wound care rest as per the team
--- NOTE | 2018-10-30 23:23 | PN ---
Progress Note, Physician History of Present Illness: No new complaints - Current Medication List Current Medications: Active Medications Aspirin (Asa -) 81 mg PO DAILY [facility] Last Admin: 10/30/18 09:57 Dose: 81 mg Bupropion HCl (Wellbutrin Xl -) 150 mg PO BID [facility] Last Admin: 10/30/18 22:04 Dose: 150 mg Carbidopa/Levodopa (Sinemet 25/100 -) 1 each PO TID [facility] Last Admin: 10/30/18 22:08 Dose: 1 each Clonazepam (Klonopin -) 1.5 mg PO DAILY [facility] Last Admin: 10/30/18 09:57 Dose: 1.5 mg Collagenase (Santyl -) 1 applic TP DAILY [facility]; Protocol Last Admin: 10/30/18 09:58 Dose: 1 applic Ferrous Sulfate (Feosol -) 325 mg PO DAILY [facility] Last Admin: 10/30/18 09:57 Dose: 325 mg Gabapentin (Neurontin -) 600 mg PO TID [facility] Last Admin: 10/30/18 22:08 Dose: 600 mg Heparin Sodium (Porcine) (Heparin -) 5,000 unit SQ BID [facility] Last Admin: 10/30/18 22:09 Dose: 5,000 unit Hydroxyzine HCl (Atarax -) 50 mg PO TID [facility] Last Admin: 10/30/18 22:06 Dose: 50 mg Piperacillin Sod/Tazobactam (Sod 3.375 gm/ Dextrose) 50 mls @ 100 mls/hr IVPB Q8H-IV [facility]; Protocol Last Admin: 10/30/18 17:29 Dose: 100 mls/hr Lactulose (Cephulac (Oral Use)) 20 gm PO DAILY [facility] Last Admin: 10/30/18 09:58 Dose: 20 gm Levothyroxine Sodium 200 mcg/ (Levothyroxine Sodium 25 mcg) 225 mcg PO DAILY@ 0700 [facility] Last Admin: 10/30/18 07:12 Dose: 225 mcg Morphine Sulfate (Ms Contin -) 30 mg PO BID@0600,1800 [facility] Last Admin: 10/30/18 17:26 Dose: 30 mg Morphine Sulfate (Msir -) 15 mg PO Q6H PRN PRN Reason: PAIN LEVEL 4-10 Stop: 10/31/18 17:19 Last Admin: 10/30/18 20:59 Dose: 15 mg Multivitamins/Minerals/Vitamin C (Tab-A-Vit -) 1 tab PO DAILY [facility] Last Admin: 10/30/18 09:58 Dose: 1 tab Nitroglycerin (Nitrostat -) 0.4 mg SL PRN PRN PRN Reason: Chest pain Pantoprazole Sodium (Protonix -) 40 mg PO DAILY [facility] Last Admin: 10/30/18 09:57 Dose: 40 mg Pentoxifylline (Trental -) 400 mg PO TID [facility] Last Admin: 10/30/18 22:04 Dose: 400 mg Senna (Senna -) 1 tab PO HS PRN PRN Reason: CONSTIPATION - Objective Vital Signs: Vital Signs Temperature 98.0 F 10/30/18 18:53 Pulse Rate 68 10/30/18 18:53 Respiratory Rate 18 10/30/18 18:53 Blood Pressure 122/78 10/30/18 18:53 O2 Sat by Pulse Oximetry (%) 99 10/29/18 09:00 Constitutional: Yes: Well Nourished, Obese Respiratory: Yes: WNL, Regular, CTA Bilaterally Gastrointestinal: Yes: WNL, Normal Bowel Sounds, Soft, Abdomen, Obese Extremities: Yes: Other ((+) rt knee erythema) Labs: CBC, BMP 10/28/18 07:45 10/29/18 07:11 Problem List - Problems (1) Cellulitis of knee, right Assessment/Plan: Cont IV antibxs XRAY neg for osteo Ortho consult noted No surgicazl intervention Code(s): L03.115 - CELLULITIS OF RIGHT LOWER LIMB (2) Chronic pain Code(s): G89.29 - OTHER CHRONIC PAIN (3) Chronic venous stasis Code(s): I87.8 - OTHER SPECIFIED DISORDERS OF VEINS (4) HTN (hypertension) Code(s): I10 - ESSENTIAL (PRIMARY) HYPERTENSION (5) Hypothyroidism Assessment/Plan: Cont levothyroxine Code(s): E03.9 - HYPOTHYROIDISM, UNSPECIFIED (6) Parkinsons disease Assessment/Plan: Cont sinemet Code(s): G20 - PARKINSON'S DISEASE
[2018-10-31] MEDS ORDERED: PIPERACILLIN/TAZOBACTAM 3.375 GM VIAL IVPB ONE ×3 (01:02→17:31)
[2018-10-31] MEDS ORDERED: DEXTROSE 5%-WATER - 50 ML IVPB ONE ×3 (01:02→17:32)
[2018-10-31] MEDS: PIPERACILLIN/TAZOB 3.375 GM 3.375 GM in DEXTROSE 5%-WATER - 50 ML IVPB SCH ×3 (01:23→17:55)
[2018-10-31] MEDS: morphine SULFATE IMMEDIATE RELEASE 30 MG TAB PO PRN ×3 (03:02→15:45)
[2018-10-31] MEDS ORDERED: LEVOTHYROXINE NA 25 MCG TABLET (FP) ONE (05:56)
[2018-10-31] MEDS ORDERED: LEVOTHYROXINE NA 200 MCG TABLET ONE (05:56)
[2018-10-31] MEDS ORDERED: PT OWN MED DRAWER 7, Y5N ONE ×4 (05:57→21:15)
[2018-10-31] MEDS: CARBIDOPA/LEVODOPA 25/100 TABLET (FP) PO SCH ×3 (06:04→21:32)
[2018-10-31] MEDS: GABAPENTIN 300 MG CAPSULE (FP) PO SCH ×3 (06:04→21:31)
[2018-10-31] MEDS: LEVOTHYROXINE 200 MCG, LEVOTHYROXINE 25 MCG PO SCH (06:04)
[2018-10-31] MEDS: PENTOXIFYLLINE 400 MG TABLET.ER PO SCH ×3 (06:04→21:33)
[2018-10-31] MEDS: morphine SO4 SUSTAINED ACTING 30 MG TABLET.SA PO SCH ×2 (06:05→17:54)
[2018-10-31] MEDS: hydrOXYzine HCL 25 MG TABLET (FP) PO SCH ×3 (06:06→21:31)
[2018-10-31] MEDS: MULTIVITAMINS (DAILY MVI) TABLET (FP) PO SCH (09:20)
[2018-10-31] MEDS: clonazePAM 0.5 MG TABLET PO SCH (09:20)
[2018-10-31] MEDS: LACTULOSE 20 GM/30 ML UDC (FOR ORAL USE ONLY) PO SCH (09:20)
[2018-10-31] MEDS: FERROUS SO4 325 MG TABLET (FP) PO SCH (09:21)
[2018-10-31] MEDS: ASPIRIN 81 MG CHEWABLE TABLETS PO SCH (09:21)
[2018-10-31] MEDS: PANTOPRAZOLE 40 MG TABLET (FP) PO SCH (09:21)
[2018-10-31] MEDS: HEPARIN NA (PORCINE) 5,000 UNITS/ML 1ML VIAL SQ SCH ×2 (09:21→21:29)
--- NOTE | 2018-10-31 10:11 | PN ---
Progress Note, Physician History of Present Illness: stable no new issues - Current Medication List Current Medications: Active Medications Aspirin (Asa -) 81 mg PO DAILY [facility] Last Admin: 10/31/18 09:21 Dose: 81 mg Bupropion HCl (Wellbutrin Xl -) 150 mg PO BID [facility] Last Admin: 10/31/18 09:20 Dose: 150 mg Carbidopa/Levodopa (Sinemet 25/100 -) 1 each PO TID [facility] Last Admin: 10/31/18 06:04 Dose: 1 each Clonazepam (Klonopin -) 1.5 mg PO DAILY [facility] Last Admin: 10/31/18 09:20 Dose: 1.5 mg Collagenase (Santyl -) 1 applic TP DAILY [facility]; Protocol Last Admin: 10/30/18 09:58 Dose: 1 applic Ferrous Sulfate (Feosol -) 325 mg PO DAILY [facility] Last Admin: 10/31/18 09:21 Dose: 325 mg Gabapentin (Neurontin -) 600 mg PO TID [facility] Last Admin: 10/31/18 06:04 Dose: 600 mg Heparin Sodium (Porcine) (Heparin -) 5,000 unit SQ BID [facility] Last Admin: 10/31/18 09:21 Dose: 5,000 unit Hydroxyzine HCl (Atarax -) 50 mg PO TID [facility] Last Admin: 10/31/18 06:06 Dose: 50 mg Piperacillin Sod/Tazobactam (Sod 3.375 gm/ Dextrose) 50 mls @ 100 mls/hr IVPB Q8H-IV [facility]; Protocol Last Admin: 10/31/18 09:21 Dose: 100 mls/hr Lactulose (Cephulac (Oral Use)) 20 gm PO DAILY [facility] Last Admin: 10/31/18 09:20 Dose: 20 gm Levothyroxine Sodium 200 mcg/ (Levothyroxine Sodium 25 mcg) 225 mcg PO DAILY@ 0700 [facility] Last Admin: 10/31/18 06:04 Dose: 225 mcg Morphine Sulfate (Ms Contin -) 30 mg PO BID@0600,1800 [facility] Last Admin: 10/31/18 06:05 Dose: 30 mg Morphine Sulfate (Msir -) 15 mg PO Q6H PRN PRN Reason: PAIN LEVEL 4-10 Stop: 10/31/18 17:19 Last Admin: 10/31/18 09:21 Dose: 15 mg Multivitamins/Minerals/Vitamin C (Tab-A-Vit -) 1 tab PO DAILY [facility] Last Admin: 10/31/18 09:20 Dose: 1 tab Nitroglycerin (Nitrostat -) 0.4 mg SL PRN PRN PRN Reason: Chest pain Pantoprazole Sodium (Protonix -) 40 mg PO DAILY [facility] Last Admin: 10/31/18 09:21 Dose: 40 mg Pentoxifylline (Trental -) 400 mg PO TID [facility] Last Admin: 10/31/18 06:04 Dose: 400 mg Senna (Senna -) 1 tab PO HS PRN PRN Reason: CONSTIPATION - Objective Vital Signs: Vital Signs Temperature 97.8 F 10/31/18 06:00 Pulse Rate 60 10/31/18 06:00 Respiratory Rate 20 10/31/18 06:00 Blood Pressure 121/76 10/31/18 06:00 O2 Sat by Pulse Oximetry (%) 100 10/30/18 21:00 Constitutional: Yes: No Distress, Calm Cardiovascular: Yes: S1, S2 Respiratory: Yes: Regular, CTA Bilaterally Gastrointestinal: Yes: Normal Bowel Sounds, Soft Musculoskeletal: Yes: WNL Extremities: Yes: Other Neurological: Yes: Alert, Oriented Psychiatric: Yes: Alert, Oriented Labs: CBC, BMP 10/28/18 07:45 10/29/18 07:11 Assessment/Plan Problem List - Problems (1) Cellulitis Code(s): L03.90 - CELLULITIS, UNSPECIFIED Qualifiers: Site of cellulitis: extremity Site of cellulitis of extremity: lower extremity Laterality: left Qualified Code(s): L03.116 - Cellulitis of left lower limb (2) Idiopathic chronic venous hypertension of both lower extremities with ulcer and inflammation Code(s): I87.333 - CHRONIC VENOUS HTN W ULCER AND INFLAM OF BILATERAL LOW EXTRM ; L97.919 - NON-PRS CHRONIC ULC UNSP PRT OF R LOW LEG W UNSP SEVERITY; L97.929 - NON-PRS CHRONIC ULC UNSP PRT OF L LOW LEG W UNSP SEVERITY (3) Chronic pain Code(s): G89.29 - OTHER CHRONIC PAIN cellulitis of the knee joint patient refused mri plan continue abx rest as per the team
[2018-10-31] MEDS: COLLAGENASE CLOSTRIDIUM HIST. 30 GRAMS TUBE TP SCH (14:08)
--- NOTE | 2018-10-31 21:42 | PN ---
Progress Note, Physician History of Present Illness: No new complaints - Current Medication List Current Medications: Active Medications Aspirin (Asa -) 81 mg PO DAILY [facility] Last Admin: 10/31/18 09:21 Dose: 81 mg Bupropion HCl (Wellbutrin Xl -) 150 mg PO BID [facility] Last Admin: 10/31/18 21:31 Dose: 150 mg Carbidopa/Levodopa (Sinemet 25/100 -) 1 each PO TID [facility] Last Admin: 10/31/18 21:32 Dose: 1 each Clonazepam (Klonopin -) 1.5 mg PO DAILY [facility] Last Admin: 10/31/18 09:20 Dose: 1.5 mg Collagenase (Santyl -) 1 applic TP DAILY [facility]; Protocol Last Admin: 10/31/18 14:08 Dose: 1 applic Ferrous Sulfate (Feosol -) 325 mg PO DAILY [facility] Last Admin: 10/31/18 09:21 Dose: 325 mg Gabapentin (Neurontin -) 600 mg PO TID [facility] Last Admin: 10/31/18 21:31 Dose: 600 mg Heparin Sodium (Porcine) (Heparin -) 5,000 unit SQ BID [facility] Last Admin: 10/31/18 21:29 Dose: 5,000 unit Hydroxyzine HCl (Atarax -) 50 mg PO TID [facility] Last Admin: 10/31/18 21:31 Dose: 50 mg Piperacillin Sod/Tazobactam (Sod 3.375 gm/ Dextrose) 50 mls @ 100 mls/hr IVPB Q8H-IV [facility]; Protocol Last Admin: 10/31/18 17:55 Dose: 100 mls/hr Lactulose (Cephulac (Oral Use)) 20 gm PO DAILY [facility] Last Admin: 10/31/18 09:20 Dose: 20 gm Levothyroxine Sodium 200 mcg/ (Levothyroxine Sodium 25 mcg) 225 mcg PO DAILY@ 0700 [facility] Last Admin: 10/31/18 06:04 Dose: 225 mcg Morphine Sulfate (Ms Contin -) 30 mg PO BID@0600,1800 [facility] Last Admin: 10/31/18 17:54 Dose: 30 mg Morphine Sulfate (Msir -) 15 mg PO Q6H PRN PRN Reason: PAIN LEVEL 4-10 Multivitamins/Minerals/Vitamin C (Tab-A-Vit -) 1 tab PO DAILY [facility] Last Admin: 09/21/19 09:20 Dose: 1 tab Nitroglycerin (Nitrostat -) 0.4 mg SL PRN PRN PRN Reason: Chest pain Pantoprazole Sodium (Protonix -) 40 mg PO DAILY [facility] Last Admin: 10/31/18 09:21 Dose: 40 mg Pentoxifylline (Trental -) 400 mg PO TID [facility] Last Admin: 10/31/18 21:33 Dose: 400 mg Senna (Senna -) 1 tab PO HS PRN PRN Reason: CONSTIPATION - Objective Vital Signs: Vital Signs Temperature 97.5 F L 10/31/18 17:11 Pulse Rate 82 10/31/18 17:11 Respiratory Rate 20 10/31/18 17:11 Blood Pressure 130/80 10/31/18 17:11 O2 Sat by Pulse Oximetry (%) 100 10/31/18 09:00 Constitutional: Yes: Well Nourished, Obese Cardiovascular: Yes: WNL, Regular Rate and Rhythm Respiratory: Yes: WNL, Regular, CTA Bilaterally Gastrointestinal: Yes: WNL, Normal Bowel Sounds, Soft, Abdomen, Obese Extremities: Yes: Other (Diminshed erythema of Rt Knee) Labs: CBC, BMP 10/28/18 07:45 10/29/18 07:11 Problem List - Problems (1) Cellulitis of knee, right Assessment/Plan: Cont IV antibxs XRAY neg for osteo Ortho consult noted No surgicazl intervention Code(s): L03.115 - CELLULITIS OF RIGHT LOWER LIMB (2) Chronic pain Assessment/Plan: Cont morphine/gabapentin Code(s): G89.29 - OTHER CHRONIC PAIN (3) Chronic venous stasis Code(s): I87.8 - OTHER SPECIFIED DISORDERS OF VEINS (4) HTN (hypertension) Code(s): I10 - ESSENTIAL (PRIMARY) HYPERTENSION (5) Hypothyroidism Assessment/Plan: Cont levothyroxine Code(s): E03.9 - HYPOTHYROIDISM, UNSPECIFIED (6) Parkinsons disease Assessment/Plan: Cont sinemet Code(s): G20 - PARKINSON'S DISEASE
[2018-11-01] MEDS ORDERED: PIPERACILLIN/TAZOBACTAM 3.375 GM VIAL IVPB ONE ×3 (01:24→17:29)
[2018-11-01] MEDS ORDERED: DEXTROSE 5%-WATER - 50 ML IVPB ONE ×3 (01:24→17:30)
[2018-11-01] MEDS: PIPERACILLIN/TAZOB 3.375 GM 3.375 GM in DEXTROSE 5%-WATER - 50 ML IVPB SCH ×3 (01:46→17:45)
[2018-11-01] MEDS: morphine SULFATE IMMEDIATE RELEASE 30 MG TAB PO PRN ×4 (03:32→22:25)
[2018-11-01] MEDS ORDERED: LEVOTHYROXINE NA 200 MCG TABLET ONE (06:01)
[2018-11-01] MEDS ORDERED: LEVOTHYROXINE NA 25 MCG TABLET (FP) ONE (06:01)
[2018-11-01] MEDS: hydrOXYzine HCL 25 MG TABLET (FP) PO SCH ×3 (06:29→22:34)
[2018-11-01] MEDS: GABAPENTIN 300 MG CAPSULE (FP) PO SCH ×3 (06:30→22:33)
[2018-11-01] MEDS: PENTOXIFYLLINE 400 MG TABLET.ER PO SCH ×3 (06:30→22:35)
[2018-11-01] MEDS: morphine SO4 SUSTAINED ACTING 30 MG TABLET.SA PO SCH ×2 (06:31→17:45)
[2018-11-01] MEDS: LEVOTHYROXINE 200 MCG, LEVOTHYROXINE 25 MCG PO SCH (06:31)
[2018-11-01] MEDS: CARBIDOPA/LEVODOPA 25/100 TABLET (FP) PO SCH ×3 (06:32→22:33)
[2018-11-01] MEDS: ASPIRIN 81 MG CHEWABLE TABLETS PO SCH (10:34)
[2018-11-01] MEDS: LACTULOSE 20 GM/30 ML UDC (FOR ORAL USE ONLY) PO SCH (10:34)
[2018-11-01] MEDS: MULTIVITAMINS (DAILY MVI) TABLET (FP) PO SCH (10:34)
[2018-11-01] MEDS: HEPARIN NA (PORCINE) 5,000 UNITS/ML 1ML VIAL SQ SCH ×2 (10:35→22:34)
[2018-11-01] MEDS: clonazePAM 0.5 MG TABLET PO SCH (10:35)
[2018-11-01] MEDS: PANTOPRAZOLE 40 MG TABLET (FP) PO SCH (10:35)
[2018-11-01] MEDS: COLLAGENASE CLOSTRIDIUM HIST. 30 GRAMS TUBE TP SCH (10:39)
[2018-11-01] MEDS: FERROUS SO4 325 MG TABLET (FP) PO SCH (10:39)
--- NOTE | 2018-11-01 10:49 | PN ---
Progress Note, Physician History of Present Illness: stable doing well knee looks much ebtter legs improving - Current Medication List Current Medications: Active Medications Aspirin (Asa -) 81 mg PO DAILY [facility] Last Admin: 11/01/18 10:34 Dose: 81 mg Bupropion HCl (Wellbutrin Xl -) 150 mg PO BID [facility] Last Admin: 11/01/18 10:37 Dose: 150 mg Carbidopa/Levodopa (Sinemet 25/100 -) 1 each PO TID [facility] Last Admin: 11/01/18 06:32 Dose: 1 each Clonazepam (Klonopin -) 1.5 mg PO DAILY [facility] Last Admin: 11/01/18 10:35 Dose: 1.5 mg Collagenase (Santyl -) 1 applic TP DAILY [facility]; Protocol Last Admin: 11/01/18 10:39 Dose: 1 applic Ferrous Sulfate (Feosol -) 325 mg PO DAILY [facility] Last Admin: 11/01/18 10:39 Dose: 325 mg Gabapentin (Neurontin -) 600 mg PO TID [facility] Last Admin: 11/01/18 06:30 Dose: 600 mg Heparin Sodium (Porcine) (Heparin -) 5,000 unit SQ BID [facility] Last Admin: 11/01/18 10:35 Dose: 5,000 unit Hydroxyzine HCl (Atarax -) 50 mg PO TID [facility] Last Admin: 11/01/18 06:29 Dose: 50 mg Piperacillin Sod/Tazobactam (Sod 3.375 gm/ Dextrose) 50 mls @ 100 mls/hr IVPB Q8H-IV [facility]; Protocol Last Admin: 11/01/18 10:37 Dose: 100 mls/hr Lactulose (Cephulac (Oral Use)) 20 gm PO DAILY [facility] Last Admin: 11/01/18 10:34 Dose: 20 gm Levothyroxine Sodium 200 mcg/ (Levothyroxine Sodium 25 mcg) 225 mcg PO DAILY@ 0700 [facility] Last Admin: 11/01/18 06:31 Dose: 225 mcg Morphine Sulfate (Ms Contin -) 30 mg PO BID@0600,1800 [facility] Last Admin: 11/01/18 06:31 Dose: 30 mg Morphine Sulfate (Msir -) 15 mg PO Q6H PRN PRN Reason: PAIN LEVEL 4-10 Last Admin: 11/01/18 10:35 Dose: 15 mg Multivitamins/Minerals/Vitamin C (Tab-A-Vit -) 1 tab PO DAILY [facility] Last Admin: 11/01/18 10:34 Dose: 1 tab Nitroglycerin (Nitrostat -) 0.4 mg SL PRN PRN PRN Reason: Chest pain Pantoprazole Sodium (Protonix -) 40 mg PO DAILY [facility] Last Admin: 11/01/18 10:35 Dose: 40 mg Pentoxifylline (Trental -) 400 mg PO TID [facility] Last Admin: 11/01/18 06:30 Dose: 400 mg Senna (Senna -) 1 tab PO HS PRN PRN Reason: CONSTIPATION - Objective Vital Signs: Vital Signs Temperature 98.1 F 11/01/18 06:50 Pulse Rate 75 11/01/18 06:50 Respiratory Rate 20 11/01/18 06:50 Blood Pressure 117/71 11/01/18 06:50 O2 Sat by Pulse Oximetry (%) 100 10/31/18 09:00 Constitutional: Yes: No Distress, Calm Cardiovascular: Yes: S1, S2 Respiratory: Yes: Regular, CTA Bilaterally Gastrointestinal: Yes: Normal Bowel Sounds, Soft Musculoskeletal: Yes: WNL Extremities: Yes: Erythema (improved), Other Neurological: Yes: Alert, Oriented Psychiatric: Yes: Alert, Oriented Labs: CBC, BMP 10/28/18 07:45 10/29/18 07:11 Assessment/Plan Problem List - Problems (1) Cellulitis Code(s): L03.90 - CELLULITIS, UNSPECIFIED Qualifiers: Site of cellulitis: extremity Site of cellulitis of extremity: lower extremity Laterality: left Qualified Code(s): L03.116 - Cellulitis of left lower limb (2) Idiopathic chronic venous hypertension of both lower extremities with ulcer and inflammation Code(s): I87.333 - CHRONIC VENOUS HTN W ULCER AND INFLAM OF BILATERAL LOW EXTRM ; L97.919 - NON-PRS CHRONIC ULC UNSP PRT OF R LOW LEG W UNSP SEVERITY; L97.929 - NON-PRS CHRONIC ULC UNSP PRT OF L LOW LEG W UNSP SEVERITY (3) Chronic pain Code(s): G89.29 - OTHER CHRONIC PAIN cellulitis of the knee joint patient refused mri plan continue abx rest as per the team if knee looks better might switch him to oral abx tomorrow
--- NOTE | 2018-11-01 20:01 | PN ---
Progress Note, Physician History of Present Illness: Pt states that he is having pain in in his lower back and legs - Current Medication List Current Medications: Active Medications Aspirin (Asa -) 81 mg PO DAILY [facility] Last Admin: 11/01/18 10:34 Dose: 81 mg Bupropion HCl (Wellbutrin Xl -) 150 mg PO BID [facility] Last Admin: 11/01/18 10:37 Dose: 150 mg Carbidopa/Levodopa (Sinemet 25/100 -) 1 each PO TID [facility] Last Admin: 11/01/18 14:51 Dose: 1 each Clonazepam (Klonopin -) 1.5 mg PO DAILY [facility] Last Admin: 11/01/18 10:35 Dose: 1.5 mg Collagenase (Santyl -) 1 applic TP DAILY [facility]; Protocol Last Admin: 11/01/18 10:39 Dose: 1 applic Ferrous Sulfate (Feosol -) 325 mg PO DAILY [facility] Last Admin: 11/01/18 10:39 Dose: 325 mg Gabapentin (Neurontin -) 600 mg PO TID [facility] Last Admin: 11/01/18 14:51 Dose: 600 mg Heparin Sodium (Porcine) (Heparin -) 5,000 unit SQ BID [facility] Last Admin: 11/01/18 10:35 Dose: 5,000 unit Hydroxyzine HCl (Atarax -) 50 mg PO TID [facility] Last Admin: 11/01/18 14:52 Dose: 50 mg Piperacillin Sod/Tazobactam (Sod 3.375 gm/ Dextrose) 50 mls @ 100 mls/hr IVPB Q8H-IV [facility]; Protocol Last Admin: 11/01/18 17:45 Dose: 100 mls/hr Lactulose (Cephulac (Oral Use)) 20 gm PO DAILY [facility] Last Admin: 11/01/18 10:34 Dose: 20 gm Levothyroxine Sodium 200 mcg/ (Levothyroxine Sodium 25 mcg) 225 mcg PO DAILY@ 0700 [facility] Last Admin: 11/01/18 06:31 Dose: 225 mcg Morphine Sulfate (Ms Contin -) 30 mg PO BID@0600,1800 [facility] Last Admin: 11/01/18 17:45 Dose: 30 mg Morphine Sulfate (Msir -) 15 mg PO Q6H PRN PRN Reason: PAIN LEVEL 4-10 Last Admin: 11/01/18 16:29 Dose: 15 mg Multivitamins/Minerals/Vitamin C (Tab-A-Vit -) 1 tab PO DAILY [facility] Last Admin: 11/01/18 10:34 Dose: 1 tab Nitroglycerin (Nitrostat -) 0.4 mg SL PRN PRN PRN Reason: Chest pain Pantoprazole Sodium (Protonix -) 40 mg PO DAILY [facility] Last Admin: 11/01/18 10:35 Dose: 40 mg Pentoxifylline (Trental -) 400 mg PO TID [facility] Last Admin: 11/01/18 14:52 Dose: 400 mg Senna (Senna -) 1 tab PO HS PRN PRN Reason: CONSTIPATION - Objective Vital Signs: Vital Signs Temperature 97.5 F L 11/01/18 16:20 Pulse Rate 78 11/01/18 16:20 Respiratory Rate 20 11/01/18 16:20 Blood Pressure 130/80 11/01/18 16:20 O2 Sat by Pulse Oximetry (%) 100 11/01/18 09:00 Neck: Yes: WNL, Supple Cardiovascular: Yes: WNL, Regular Rate and Rhythm Respiratory: Yes: WNL, Regular, CTA Bilaterally Gastrointestinal: Yes: WNL, Normal Bowel Sounds, Soft Extremities: Yes: Other ((+) decreased erythem Rt knee w/ abrasion Chronic venous stasis B/L (+) leg wounds B/L) Edema: Yes Edema: LLE: 1+, RLE: 1+ Labs: CBC, BMP 10/28/18 07:45 10/29/18 07:11 Problem List - Problems (1) Cellulitis of knee, right Assessment/Plan: Cont IV zosyn Ortho consulted and no surgical intervention at this time Code(s): L03.115 - CELLULITIS OF RIGHT LOWER LIMB (2) Chronic venous stasis Code(s): I87.8 - OTHER SPECIFIED DISORDERS OF VEINS (3) Chronic pain Assessment/Plan: Cont morphine/gabapentin Will get pain management consult Code(s): G89.29 - OTHER CHRONIC PAIN (4) Hypothyroidism Assessment/Plan: Cont levothyroxine Code(s): E03.9 - HYPOTHYROIDISM, UNSPECIFIED (5) Depression with anxiety Code(s): F41.8 - OTHER SPECIFIED ANXIETY DISORDERS
[2018-11-01] MEDS ORDERED: PT OWN MED DRAWER 7, Y5N ONE (22:32)
[2018-11-02] MEDS ORDERED: PIPERACILLIN/TAZOBACTAM 3.375 GM VIAL IVPB ONE ×3 (01:47→17:22)
[2018-11-02] MEDS ORDERED: DEXTROSE 5%-WATER - 50 ML IVPB ONE ×3 (01:47→17:22)
[2018-11-02] MEDS: PIPERACILLIN/TAZOB 3.375 GM 3.375 GM in DEXTROSE 5%-WATER - 50 ML IVPB SCH ×3 (01:58→17:27)
[2018-11-02] MEDS: morphine SULFATE IMMEDIATE RELEASE 30 MG TAB PO PRN ×3 (04:28→21:49)
[2018-11-02] MEDS ORDERED: LEVOTHYROXINE NA 25 MCG TABLET (FP) ONE (05:25)
[2018-11-02] MEDS ORDERED: LEVOTHYROXINE NA 200 MCG TABLET ONE (05:25)
[2018-11-02] MEDS: GABAPENTIN 300 MG CAPSULE (FP) PO SCH ×3 (06:20→21:52)
[2018-11-02] MEDS: morphine SO4 SUSTAINED ACTING 30 MG TABLET.SA PO SCH ×2 (06:21→17:26)
[2018-11-02] MEDS: PENTOXIFYLLINE 400 MG TABLET.ER PO SCH ×3 (06:22→21:52)
[2018-11-02] MEDS: LEVOTHYROXINE 200 MCG, LEVOTHYROXINE 25 MCG PO SCH (06:22)
[2018-11-02] MEDS: CARBIDOPA/LEVODOPA 25/100 TABLET (FP) PO SCH ×3 (06:22→21:52)
[2018-11-02] MEDS: hydrOXYzine HCL 25 MG TABLET (FP) PO SCH ×3 (06:23→21:52)
--- NOTE | 2018-11-02 07:42 | PN ---
Progress Note, Physician History of Present Illness: stable improved - Current Medication List Current Medications: Active Medications Aspirin (Asa -) 81 mg PO DAILY [facility] Last Admin: 11/01/18 10:34 Dose: 81 mg Bupropion HCl (Wellbutrin Xl -) 150 mg PO BID [facility] Last Admin: 11/01/18 22:34 Dose: 150 mg Carbidopa/Levodopa (Sinemet 25/100 -) 1 each PO TID [facility] Last Admin: 11/02/18 06:22 Dose: 1 each Clonazepam (Klonopin -) 1.5 mg PO DAILY [facility] Last Admin: 11/01/18 10:35 Dose: 1.5 mg Collagenase (Santyl -) 1 applic TP DAILY [facility]; Protocol Last Admin: 11/01/18 10:39 Dose: 1 applic Ferrous Sulfate (Feosol -) 325 mg PO DAILY [facility] Last Admin: 11/01/18 10:39 Dose: 325 mg Gabapentin (Neurontin -) 600 mg PO TID [facility] Last Admin: 11/02/18 06:20 Dose: 600 mg Heparin Sodium (Porcine) (Heparin -) 5,000 unit SQ BID [facility] Last Admin: 11/01/18 22:34 Dose: 5,000 unit Hydroxyzine HCl (Atarax -) 50 mg PO TID [facility] Last Admin: 11/02/18 06:23 Dose: 50 mg Piperacillin Sod/Tazobactam (Sod 3.375 gm/ Dextrose) 50 mls @ 100 mls/hr IVPB Q8H-IV [facility]; Protocol Last Admin: 11/02/18 01:58 Dose: 100 mls/hr Lactulose (Cephulac (Oral Use)) 20 gm PO DAILY [facility] Last Admin: 11/01/18 10:34 Dose: 20 gm Levothyroxine Sodium 200 mcg/ (Levothyroxine Sodium 25 mcg) 225 mcg PO DAILY@ 0700 [facility] Last Admin: 11/02/18 06:22 Dose: 225 mcg Morphine Sulfate (Ms Contin -) 30 mg PO BID@0600,1800 [facility] Last Admin: 11/02/18 06:21 Dose: 30 mg Morphine Sulfate (Msir -) 15 mg PO Q6H PRN PRN Reason: PAIN LEVEL 4-10 Last Admin: 11/02/18 04:28 Dose: 15 mg Multivitamins/Minerals/Vitamin C (Tab-A-Vit -) 1 tab PO DAILY [facility] Last Admin: 11/01/18 10:34 Dose: 1 tab Nitroglycerin (Nitrostat -) 0.4 mg SL PRN PRN PRN Reason: Chest pain Pantoprazole Sodium (Protonix -) 40 mg PO DAILY [facility] Last Admin: 11/01/18 10:35 Dose: 40 mg Pentoxifylline (Trental -) 400 mg PO TID [facility] Last Admin: 11/02/18 06:22 Dose: 400 mg Senna (Senna -) 1 tab PO HS PRN PRN Reason: CONSTIPATION - Objective Vital Signs: Vital Signs Temperature 97.4 F L 11/02/18 06:24 Pulse Rate 64 11/02/18 06:24 Respiratory Rate 20 11/02/18 06:24 Blood Pressure 110/66 11/02/18 06:24 O2 Sat by Pulse Oximetry (%) 100 11/01/18 21:00 Constitutional: Yes: No Distress, Calm Cardiovascular: Yes: S1, S2 Respiratory: Yes: Regular, CTA Bilaterally Gastrointestinal: Yes: Normal Bowel Sounds, Soft Musculoskeletal: Yes: WNL Extremities: Yes: Other Integumentary: Yes: Erythema (improved) Neurological: Yes: Alert, Oriented Psychiatric: Yes: Alert, Oriented Labs: CBC, BMP 10/28/18 07:45 10/29/18 07:11 Assessment/Plan Problem List - Problems (1) Cellulitis Code(s): L03.90 - CELLULITIS, UNSPECIFIED Qualifiers: Site of cellulitis: extremity Site of cellulitis of extremity: lower extremity Laterality: left Qualified Code(s): L03.116 - Cellulitis of left lower limb (2) Idiopathic chronic venous hypertension of both lower extremities with ulcer and inflammation Code(s): I87.333 - CHRONIC VENOUS HTN W ULCER AND INFLAM OF BILATERAL LOW EXTRM ; L97.919 - NON-PRS CHRONIC ULC UNSP PRT OF R LOW LEG W UNSP SEVERITY; L97.929 - NON-PRS CHRONIC ULC UNSP PRT OF L LOW LEG W UNSP SEVERITY (3) Chronic pain Code(s): G89.29 - OTHER CHRONIC PAIN cellulitis of the knee joint patient refused mri plan can switch to oral abx augmentin 875 mg po bid for another 7 days
[2018-11-02] MEDS: LACTULOSE 20 GM/30 ML UDC (FOR ORAL USE ONLY) PO SCH (10:13)
[2018-11-02] MEDS: MULTIVITAMINS (DAILY MVI) TABLET (FP) PO SCH (10:13)
[2018-11-02] MEDS: FERROUS SO4 325 MG TABLET (FP) PO SCH (10:13)
[2018-11-02] MEDS: clonazePAM 0.5 MG TABLET PO SCH (10:13)
[2018-11-02] MEDS: PANTOPRAZOLE 40 MG TABLET (FP) PO SCH (10:13)
[2018-11-02] MEDS: HEPARIN NA (PORCINE) 5,000 UNITS/ML 1ML VIAL SQ SCH ×2 (10:13→21:49)
[2018-11-02] MEDS: ASPIRIN 81 MG CHEWABLE TABLETS PO SCH (10:13)
[2018-11-02] MEDS: COLLAGENASE CLOSTRIDIUM HIST. 30 GRAMS TUBE TP SCH (10:14)
--- NOTE | 2018-11-02 11:46 | CONSULT ---
Consult Consult Specialty:: Pain Management Reason for Consultation:: Bilateral leg pain - History of Present Illness Chief Complaint: Bilateral leg Pain History of Present Illness: 63 yr old male with bilateral leg pain with cellulitis , had Antibiotics and taking opioids for his chronic pain. - History Source History Provided By: Patient Limitations to Obtaining History: No Limitations - Past Medical History SECRETARY SPECIALIST: Yes: Parkinson's Cardio/Vascular: Yes: HTN Gastrointestinal: Yes: GERD - Alcohol/Substance Use Hx Alcohol Use: No - Smoking History Smoking history: Former smoker Have you smoked in the past 12 months: No If you are a former smoker, when did you quit?: 3 years ago Home Medications - Allergies Allergies/Adverse Reactions: Allergies Allergy/AdvReac Type Severity Reaction Status Date / Time No Known Allergies Allergy Verified 07/27/18 12:32 - Home Medications Home Medications: Ambulatory Orders Acetaminophen [Tylenol] 650 mg PO QID PRN 02/27/18 Aspirin [ASA -] 81 mg PO DAILY 02/27/18 Benzonatate 1 cap PO DAILY 02/27/18 Bupropion HCl [Bupropion HCl Sr] 150 mg PO BID 02/27/18 Carbidopa/Levodopa [Carbidopa-Levodopa 25-100 Tab] 1 tab PO TID 02/27/18 Clonazepam [Klonopin] 1.5 mg PO DAILY 02/27/18 Ferrous Sulfate 1 tab PO DAILY 02/27/18 Flonase Allergy Relief 1 spray IH DAILY 02/27/18 Gabapentin 600 mg PO TID 02/27/18 Hydroxyzine HCl 1 tab PO TID 02/27/18 Ipratropium/Albuterol Sulfate [Iprat-Albut 0.5-3(2.5) mg/3 ml] 3 ml IH BID 02/27 Lactulose 30 ml PO DAILY 02/27/18 Levothyroxine [Synthroid -] 225 mcg PO DAILY 02/27/18 Multivitamin [Multiple Vitamins] 1 tab PO DAILY 02/27/18 Pantoprazole Sodium [Protonix] 40 mg PO DAILY 02/27/18 Pentoxifylline [Trental -] 400 mg PO TID 02/27/18 Sennosides [Senna] 8.6 mg PO HS PRN 02/27/18 Simethicone 125 mg PO QID PRN 02/27/18 Varenicline Tartrate [Chantix -] 0.5 mg PO BID 02/27/18 Zolpidem Tartrate 10 mg PO HS 02/27/18 Morphine *Immediate Release* [Msir -] 15 mg PO Q6H PRN #10 tab MDD 3 08/04/18 Morphine *Sr* [MS Contin -] 30 mg PO Q12H #10 tablet.sa MDD 2 08/04/18 Ammonium Lactate Cream [Lac-Hydrin 12% Cream -] 1 applic TP BID 09/04/18 Collagenase Clostridium Hist. [Santyl -] 1 applic TP DAILY 09/04/18 Mylanta Oral Suspension - 30 ml PO Q8H PRN 09/04/18 Nitroglycerin 0.4 mg SL PRN PRN MDD 3 09/04/18 Vancomycin 1 Gram (Pre-Docked) [Vancomycin (Pre-Docked)] 1 gm IV Q12H 10/23/18 Nystatin Cream [Mycostatin Cream -] 1 applic TP BID 10/27/18 Review of Systems - Review of Systems Constitutional: reports: No Symptoms Eyes: reports: No Symptoms HENT: reports: No Symptoms Neck: reports: No Symptoms Cardiovascular: reports: No Symptoms Respiratory: reports: No Symptoms Gastrointestinal: reports: No Symptoms Genitourinary: reports: No Symptoms Musculoskeletal: reports: Other (Builateral leg cellulitis) Neurological: reports: No Symptoms Physical Exam Vital Signs: Vital Signs Temperature 98.8 F 11/02/18 11:08 Pulse Rate 72 11/02/18 11:08 Respiratory Rate 20 11/02/18 11:08 Blood Pressure 120/80 11/02/18 11:08 O2 Sat by Pulse Oximetry (%) 100 11/01/18 21:00 Constitutional: Yes: Well Nourished Eyes: Yes: WNL HENT: Yes: WNL Neck: Yes: WNL Musculoskeletal: Yes: Other (bilateral leg vacular rashes and cellulitis) Neurological: Yes: WNL Labs: CBC, BMP 10/28/18 07:45 10/29/18 07:11 Assessment/Plan Discuss in detail and answered all questions. 1. Continue current care 2. wound care 3. Physical therapy, bed mobility 4. gradual weaning opioids 5. Ibuprofen 600 mg po TID PRN 6. Flexeril 5 mg po BID Thank you very much for your kind referral.
[2018-11-02] MEDS: IBUPROFEN 600 MG TABLET (FP) PO PRN (13:51)
[2018-11-02] MEDS: CYCLOBENZAPRINE HCL 5 MG TABLET PO SCH ×2 (13:52→23:13)
[2018-11-02] MEDS ORDERED: PT OWN MED DRAWER 7, Y5N ONE (21:26)
[2018-11-03] MEDS: IBUPROFEN 600 MG TABLET (FP) PO PRN ×2 (00:26→23:45)
[2018-11-03] MEDS ORDERED: PIPERACILLIN/TAZOBACTAM 3.375 GM VIAL IVPB ONE ×2 (01:14→09:09)
[2018-11-03] MEDS ORDERED: DEXTROSE 5%-WATER - 50 ML IVPB ONE ×2 (01:14→09:09)
[2018-11-03] MEDS: CYCLOBENZAPRINE HCL 5 MG TABLET PO SCH ×3 (01:30→21:41)
[2018-11-03] MEDS: PENTOXIFYLLINE 400 MG TABLET.ER PO SCH ×3 (01:30→21:40)
[2018-11-03] MEDS: PIPERACILLIN/TAZOB 3.375 GM 3.375 GM in DEXTROSE 5%-WATER - 50 ML IVPB SCH ×2 (01:32→09:22)
[2018-11-03] MEDS: morphine SULFATE IMMEDIATE RELEASE 30 MG TAB PO PRN ×3 (03:44→16:15)
[2018-11-03] MEDS ORDERED: LEVOTHYROXINE NA 200 MCG TABLET ONE (05:43)
[2018-11-03] MEDS ORDERED: LEVOTHYROXINE NA 25 MCG TABLET (FP) ONE (05:43)
[2018-11-03] MEDS ORDERED: PT OWN MED DRAWER 7, Y5N ONE ×5 (05:45→20:27)
[2018-11-03] MEDS: hydrOXYzine HCL 25 MG TABLET (FP) PO SCH ×3 (06:22→21:40)
[2018-11-03] MEDS: LEVOTHYROXINE 200 MCG, LEVOTHYROXINE 25 MCG PO SCH (06:23)
[2018-11-03] MEDS: GABAPENTIN 300 MG CAPSULE (FP) PO SCH ×3 (06:23→21:41)
[2018-11-03] MEDS: morphine SO4 SUSTAINED ACTING 30 MG TABLET.SA PO SCH ×2 (06:23→18:07)
[2018-11-03] MEDS: CARBIDOPA/LEVODOPA 25/100 TABLET (FP) PO SCH ×3 (06:23→21:41)
--- NOTE | 2018-11-03 07:27 | PN ---
Progress Note, Physician History of Present Illness: Pt seen and examined 11/02/18 however note is being entered now - Current Medication List Current Medications: Active Medications Aspirin (Asa -) 81 mg PO DAILY [facility] Last Admin: 11/02/18 10:13 Dose: 81 mg Bupropion HCl (Wellbutrin Xl -) 150 mg PO BID [facility] Last Admin: 11/02/18 21:52 Dose: 150 mg Carbidopa/Levodopa (Sinemet 25/100 -) 1 each PO TID [facility] Last Admin: 11/03/18 06:23 Dose: 1 each Clonazepam (Klonopin -) 1.5 mg PO DAILY [facility] Last Admin: 11/02/18 10:13 Dose: 1.5 mg Collagenase (Santyl -) 1 applic TP DAILY [facility]; Protocol Last Admin: 11/02/18 10:14 Dose: 1 applic Cyclobenzaprine HCl (Cyclobenzaprine Hcl) 5 mg PO TID [facility] Last Admin: 11/03/18 06:22 Dose: 5 mg Ferrous Sulfate (Feosol -) 325 mg PO DAILY [facility] Last Admin: 11/02/18 10:13 Dose: 325 mg Gabapentin (Neurontin -) 600 mg PO TID [facility] Last Admin: 11/03/18 06:23 Dose: 600 mg Heparin Sodium (Porcine) (Heparin -) 5,000 unit SQ BID [facility] Last Admin: 11/02/18 21:49 Dose: 5,000 unit Hydroxyzine HCl (Atarax -) 50 mg PO TID [facility] Last Admin: 11/03/18 06:22 Dose: 50 mg Piperacillin Sod/Tazobactam (Sod 3.375 gm/ Dextrose) 50 mls @ 100 mls/hr IVPB Q8H-IV [facility]; Protocol Last Admin: 11/03/18 01:32 Dose: 100 mls/hr Ibuprofen (Motrin -) 600 mg PO Q8H PRN PRN Reason: PAIN Last Admin: 11/03/18 00:26 Dose: 600 mg Lactulose (Cephulac (Oral Use)) 20 gm PO DAILY [facility] Last Admin: 11/02/18 10:13 Dose: 20 gm Levothyroxine Sodium 200 mcg/ (Levothyroxine Sodium 25 mcg) 225 mcg PO DAILY@ 0700 [facility] Last Admin: 11/03/18 06:23 Dose: 225 mcg Morphine Sulfate (Ms Contin -) 30 mg PO BID@0600,1800 [facility] Last Admin: 11/03/18 06:23 Dose: 30 mg Morphine Sulfate (Msir -) 15 mg PO Q6H PRN PRN Reason: PAIN LEVEL 4-10 Last Admin: 11/03/18 03:44 Dose: 15 mg Multivitamins/Minerals/Vitamin C (Tab-A-Vit -) 1 tab PO DAILY [facility] Last Admin: 11/02/18 10:13 Dose: 1 tab Nitroglycerin (Nitrostat -) 0.4 mg SL PRN PRN PRN Reason: Chest pain Pantoprazole Sodium (Protonix -) 40 mg PO DAILY [facility] Last Admin: 11/02/18 10:13 Dose: 40 mg Pentoxifylline (Trental -) 400 mg PO TID [facility] Last Admin: 11/03/18 06:22 Dose: 400 mg Senna (Senna -) 1 tab PO HS PRN PRN Reason: CONSTIPATION - Objective Vital Signs: Vital Signs Temperature 97.4 F L 11/03/18 06:08 Pulse Rate 72 11/03/18 06:08 Respiratory Rate 20 11/03/18 06:08 Blood Pressure 106/76 11/03/18 06:08 O2 Sat by Pulse Oximetry (%) 94 L 11/02/18 21:00 Constitutional: Yes: Well Nourished, Obese Cardiovascular: Yes: WNL, Regular Rate and Rhythm Respiratory: Yes: WNL, Regular, CTA Bilaterally Gastrointestinal: Yes: WNL, Normal Bowel Sounds, Soft, Abdomen, Obese Extremities: Yes: Other ((+) Rt knee swelling) Labs: CBC, BMP 10/28/18 07:45 10/29/18 07:11 Problem List - Problems (1) Cellulitis of knee, right Assessment/Plan: Cont IV antibxs XRAY neg for osteo Ortho consult noted No surgicazl intervention Code(s): L03.115 - CELLULITIS OF RIGHT LOWER LIMB (2) Chronic venous stasis Code(s): I87.8 - OTHER SPECIFIED DISORDERS OF VEINS (3) Chronic pain Assessment/Plan: Cont morphine/gabapentin Code(s): G89.29 - OTHER CHRONIC PAIN (4) Hypothyroidism Assessment/Plan: Cont levothyroxine Code(s): E03.9 - HYPOTHYROIDISM, UNSPECIFIED (5) Depression with anxiety Code(s): F41.8 - OTHER SPECIFIED ANXIETY DISORDERS
[2018-11-03] MEDS: PANTOPRAZOLE 40 MG TABLET (FP) PO SCH (09:22)
[2018-11-03] MEDS: clonazePAM 0.5 MG TABLET PO SCH (09:22)
[2018-11-03] MEDS: ASPIRIN 81 MG CHEWABLE TABLETS PO SCH (09:22)
[2018-11-03] MEDS: FERROUS SO4 325 MG TABLET (FP) PO SCH (09:22)
[2018-11-03] MEDS: MULTIVITAMINS (DAILY MVI) TABLET (FP) PO SCH (09:22)
[2018-11-03] MEDS: HEPARIN NA (PORCINE) 5,000 UNITS/ML 1ML VIAL SQ SCH ×2 (09:23→21:41)
[2018-11-03] MEDS: LACTULOSE 20 GM/30 ML UDC (FOR ORAL USE ONLY) PO SCH (09:23)
[2018-11-03] MEDS: COLLAGENASE CLOSTRIDIUM HIST. 30 GRAMS TUBE TP SCH (09:23)
--- NOTE | 2018-11-03 11:48 | PN ---
Progress Note, Physician History of Present Illness: stable no new issues - Current Medication List Current Medications: Active Medications Aspirin (Asa -) 81 mg PO DAILY [facility] Last Admin: 11/03/18 09:22 Dose: 81 mg Bupropion HCl (Wellbutrin Xl -) 150 mg PO BID [facility] Last Admin: 11/03/18 09:22 Dose: 150 mg Carbidopa/Levodopa (Sinemet 25/100 -) 1 each PO TID [facility] Last Admin: 11/03/18 06:23 Dose: 1 each Clonazepam (Klonopin -) 1.5 mg PO DAILY [facility] Last Admin: 11/03/18 09:22 Dose: 1.5 mg Collagenase (Santyl -) 1 applic TP DAILY [facility]; Protocol Last Admin: 11/03/18 09:23 Dose: 1 applic Cyclobenzaprine HCl (Cyclobenzaprine Hcl) 5 mg PO TID [facility] Last Admin: 11/03/18 06:22 Dose: 5 mg Ferrous Sulfate (Feosol -) 325 mg PO DAILY [facility] Last Admin: 11/03/18 09:22 Dose: 325 mg Gabapentin (Neurontin -) 600 mg PO TID [facility] Last Admin: 11/03/18 06:23 Dose: 600 mg Heparin Sodium (Porcine) (Heparin -) 5,000 unit SQ BID [facility] Last Admin: 11/03/18 09:23 Dose: 5,000 unit Hydroxyzine HCl (Atarax -) 50 mg PO TID [facility] Last Admin: 11/03/18 06:22 Dose: 50 mg Piperacillin Sod/Tazobactam (Sod 3.375 gm/ Dextrose) 50 mls @ 100 mls/hr IVPB Q8H-IV [facility]; Protocol Last Admin: 11/03/18 09:22 Dose: 100 mls/hr Ibuprofen (Motrin -) 600 mg PO Q8H PRN PRN Reason: PAIN Last Admin: 11/03/18 00:26 Dose: 600 mg Lactulose (Cephulac (Oral Use)) 20 gm PO DAILY [facility] Last Admin: 11/03/18 09:23 Dose: 20 gm Levothyroxine Sodium 200 mcg/ (Levothyroxine Sodium 25 mcg) 225 mcg PO DAILY@ 0700 [facility] Last Admin: 11/03/18 06:23 Dose: 225 mcg Morphine Sulfate (Ms Contin -) 30 mg PO BID@0600,1800 [facility] Last Admin: 11/03/18 06:23 Dose: 30 mg Morphine Sulfate (Msir -) 15 mg PO Q6H PRN PRN Reason: PAIN LEVEL 4-10 Last Admin: 11/03/18 10:09 Dose: 15 mg Multivitamins/Minerals/Vitamin C (Tab-A-Vit -) 1 tab PO DAILY [facility] Last Admin: 11/03/18 09:22 Dose: 1 tab Nitroglycerin (Nitrostat -) 0.4 mg SL PRN PRN PRN Reason: Chest pain Pantoprazole Sodium (Protonix -) 40 mg PO DAILY [facility] Last Admin: 11/03/18 09:22 Dose: 40 mg Pentoxifylline (Trental -) 400 mg PO TID [facility] Last Admin: 11/03/18 06:22 Dose: 400 mg Senna (Senna -) 1 tab PO HS PRN PRN Reason: CONSTIPATION - Objective Vital Signs: Vital Signs Temperature 97.4 F L 11/03/18 06:08 Pulse Rate 72 11/03/18 06:08 Respiratory Rate 20 11/03/18 06:08 Blood Pressure 106/76 11/03/18 06:08 O2 Sat by Pulse Oximetry (%) 94 L 11/02/18 21:00 Constitutional: Yes: No Distress, Calm Respiratory: Yes: Regular Gastrointestinal: Yes: Normal Bowel Sounds, Soft Musculoskeletal: Yes: WNL Extremities: Yes: Other Neurological: Yes: Alert, Oriented Psychiatric: Yes: Alert, Oriented Labs: CBC, BMP 10/28/18 07:45 10/29/18 07:11 Assessment/Plan Problem List - Problems (1) Cellulitis Code(s): L03.90 - CELLULITIS, UNSPECIFIED Qualifiers: Site of cellulitis: extremity Site of cellulitis of extremity: lower extremity Laterality: left Qualified Code(s): L03.116 - Cellulitis of left lower limb (2) Idiopathic chronic venous hypertension of both lower extremities with ulcer and inflammation Code(s): I87.333 - CHRONIC VENOUS HTN W ULCER AND INFLAM OF BILATERAL LOW EXTRM ; L97.919 - NON-PRS CHRONIC ULC UNSP PRT OF R LOW LEG W UNSP SEVERITY; L97.929 - NON-PRS CHRONIC ULC UNSP PRT OF L LOW LEG W UNSP SEVERITY (3) Chronic pain Code(s): G89.29 - OTHER CHRONIC PAIN cellulitis of the knee joint patient refused mri plan can switch to oral abx augmentin 875 mg po bid for another 7 days
--- NOTE | 2018-11-03 16:47 | PROC ---
Procedure Note Procedure: PICC line removal. Pt without any abnormalities on CBC and without any AC on medication regiment. Identified patient by name and by wristband. Removed L arm picc line with tip intact noted by nursing staff who was at bedside. 4x4 gauze and overlying bandage placed on top without any bleeding visualized. Prem Vega, DO - IM PGY-3
[2018-11-03] MEDS: AMOX TR/POT CLAV 875MG/125MG TABLETS (FP) PO SCH (18:08)
--- NOTE | 2018-11-03 23:16 | PN ---
Progress Note, Physician History of Present Illness: No new complaints - Current Medication List Current Medications: Active Medications Amoxicillin/Clavulanate Potassium (Augmentin - 875mg Tablet) 1 tab PO BIDWM [facility] Last Admin: 11/03/18 18:08 Dose: 1 tab Aspirin (Asa -) 81 mg PO DAILY [facility] Last Admin: 11/03/18 09:22 Dose: 81 mg Bupropion HCl (Wellbutrin Xl -) 150 mg PO BID [facility] Last Admin: 11/03/18 21:41 Dose: 150 mg Carbidopa/Levodopa (Sinemet 25/100 -) 1 each PO TID [facility] Last Admin: 11/03/18 21:41 Dose: 1 each Clonazepam (Klonopin -) 1.5 mg PO DAILY [facility] Last Admin: 11/03/18 09:22 Dose: 1.5 mg Collagenase (Santyl -) 1 applic TP DAILY [facility]; Protocol Last Admin: 11/03/18 09:23 Dose: 1 applic Cyclobenzaprine HCl (Cyclobenzaprine Hcl) 5 mg PO TID [facility] Last Admin: 11/03/18 21:41 Dose: 5 mg Ferrous Sulfate (Feosol -) 325 mg PO DAILY [facility] Last Admin: 11/03/18 09:22 Dose: 325 mg Gabapentin (Neurontin -) 600 mg PO TID [facility] Last Admin: 11/03/18 21:41 Dose: 600 mg Heparin Sodium (Porcine) (Heparin -) 5,000 unit SQ BID [facility] Last Admin: 11/03/18 21:41 Dose: 5,000 unit Hydroxyzine HCl (Atarax -) 50 mg PO TID [facility] Last Admin: 11/03/18 21:40 Dose: 50 mg Ibuprofen (Motrin -) 600 mg PO Q8H PRN PRN Reason: PAIN Last Admin: 11/03/18 00:26 Dose: 600 mg Lactulose (Cephulac (Oral Use)) 20 gm PO DAILY [facility] Last Admin: 11/03/18 09:23 Dose: 20 gm Levothyroxine Sodium 200 mcg/ (Levothyroxine Sodium 25 mcg) 225 mcg PO DAILY@ 0700 [facility] Last Admin: 11/03/18 06:23 Dose: 225 mcg Morphine Sulfate (Ms Contin -) 30 mg PO BID@0600,1800 [facility] Last Admin: 11/03/18 18:07 Dose: 30 mg Multivitamins/Minerals/Vitamin C (Tab-A-Vit -) 1 tab PO DAILY [facility] Last Admin: 11/03/18 09:22 Dose: 1 tab Nitroglycerin (Nitrostat -) 0.4 mg SL PRN PRN PRN Reason: Chest pain Pantoprazole Sodium (Protonix -) 40 mg PO DAILY [facility] Last Admin: 11/03/18 09:22 Dose: 40 mg Pentoxifylline (Trental -) 400 mg PO TID [facility] Last Admin: 11/03/18 21:40 Dose: 400 mg Senna (Senna -) 1 tab PO HS PRN PRN Reason: CONSTIPATION - Objective Vital Signs: Vital Signs Temperature 97.8 F 11/03/18 14:00 Pulse Rate 61 11/03/18 14:00 Respiratory Rate 20 11/03/18 14:00 Blood Pressure 125/85 11/03/18 14:00 O2 Sat by Pulse Oximetry (%) 94 L 11/03/18 09:00 Neck: Yes: WNL, Supple Cardiovascular: Yes: WNL, Regular Rate and Rhythm Respiratory: Yes: WNL, Regular, CTA Bilaterally Gastrointestinal: Yes: WNL, Normal Bowel Sounds, Soft, Abdomen, Obese Extremities: Yes: Other (Chronic venous stasis b/l) Edema: Yes Edema: LLE: Trace, RLE: Trace Labs: CBC, BMP 10/28/18 07:45 10/29/18 07:11 Problem List - Problems (1) Cellulitis of knee, right Assessment/Plan: As per ID change to po augmentin DC planning Ortho consulted and no surgical intervention at this time Code(s): L03.115 - CELLULITIS OF RIGHT LOWER LIMB (2) Chronic venous stasis Code(s): I87.8 - OTHER SPECIFIED DISORDERS OF VEINS (3) Chronic pain Assessment/Plan: Cont morphine/gabapentin Will get pain management consult Code(s): G89.29 - OTHER CHRONIC PAIN (4) Hypothyroidism Assessment/Plan: Cont levothyroxine Code(s): E03.9 - HYPOTHYROIDISM, UNSPECIFIED (5) Depression with anxiety Code(s): F41.8 - OTHER SPECIFIED ANXIETY DISORDERS
[2018-11-04] MEDS ORDERED: LEVOTHYROXINE NA 25 MCG TABLET (FP) ONE (05:50)
[2018-11-04] MEDS ORDERED: LEVOTHYROXINE NA 200 MCG TABLET ONE (05:50)
[2018-11-04] MEDS ORDERED: PT OWN MED DRAWER 7, Y5N ONE ×5 (05:51→21:39)
[2018-11-04] MEDS: hydrOXYzine HCL 25 MG TABLET (FP) PO SCH ×3 (06:08→22:50)
[2018-11-04] MEDS: CYCLOBENZAPRINE HCL 5 MG TABLET PO SCH ×3 (06:08→22:50)
[2018-11-04] MEDS: morphine SO4 SUSTAINED ACTING 30 MG TABLET.SA PO SCH ×2 (06:08→18:25)
[2018-11-04] MEDS: PENTOXIFYLLINE 400 MG TABLET.ER PO SCH ×3 (06:09→22:50)
[2018-11-04] MEDS: GABAPENTIN 300 MG CAPSULE (FP) PO SCH ×3 (06:09→22:50)
[2018-11-04] MEDS: LEVOTHYROXINE 200 MCG, LEVOTHYROXINE 25 MCG PO SCH (06:09)
[2018-11-04] MEDS: CARBIDOPA/LEVODOPA 25/100 TABLET (FP) PO SCH ×3 (06:09→22:49)
[2018-11-04] MEDS: ASPIRIN 81 MG CHEWABLE TABLETS PO SCH (10:47)
[2018-11-04] MEDS: IBUPROFEN 600 MG TABLET (FP) PO PRN ×2 (10:47→18:27)
[2018-11-04] MEDS: FERROUS SO4 325 MG TABLET (FP) PO SCH (10:47)
[2018-11-04] MEDS: AMOX TR/POT CLAV 875MG/125MG TABLETS (FP) PO SCH ×2 (10:47→18:26)
[2018-11-04] MEDS: LACTULOSE 20 GM/30 ML UDC (FOR ORAL USE ONLY) PO SCH (10:47)
[2018-11-04] MEDS: PANTOPRAZOLE 40 MG TABLET (FP) PO SCH (10:47)
[2018-11-04] MEDS: MULTIVITAMINS (DAILY MVI) TABLET (FP) PO SCH (10:47)
[2018-11-04] MEDS: COLLAGENASE CLOSTRIDIUM HIST. 30 GRAMS TUBE TP SCH (10:48)
--- NOTE | 2018-11-04 11:22 | PN ---
Progress Note, Physician History of Present Illness: stable no new issues - Current Medication List Current Medications: Active Medications Amoxicillin/Clavulanate Potassium (Augmentin - 875mg Tablet) 1 tab PO BIDWM [facility] Last Admin: 11/04/18 10:47 Dose: 1 tab Aspirin (Asa -) 81 mg PO DAILY [facility] Last Admin: 11/04/18 10:47 Dose: 81 mg Bupropion HCl (Wellbutrin Xl -) 150 mg PO BID [facility] Last Admin: 11/04/18 10:47 Dose: 150 mg Carbidopa/Levodopa (Sinemet 25/100 -) 1 each PO TID [facility] Last Admin: 11/04/18 06:09 Dose: 1 each Clonazepam (Klonopin -) 1.5 mg PO DAILY [facility] Collagenase (Santyl -) 1 applic TP DAILY [facility]; Protocol Last Admin: 11/04/18 10:48 Dose: 1 applic Cyclobenzaprine HCl (Cyclobenzaprine Hcl) 5 mg PO TID [facility] Last Admin: 11/04/18 06:08 Dose: 5 mg Ferrous Sulfate (Feosol -) 325 mg PO DAILY [facility] Last Admin: 11/04/18 10:47 Dose: 325 mg Gabapentin (Neurontin -) 600 mg PO TID [facility] Last Admin: 11/04/18 06:09 Dose: 600 mg Heparin Sodium (Porcine) (Heparin -) 5,000 unit SQ BID [facility] Hydroxyzine HCl (Atarax -) 50 mg PO TID [facility] Last Admin: 11/04/18 06:08 Dose: 50 mg Ibuprofen (Motrin -) 600 mg PO Q8H PRN PRN Reason: PAIN Last Admin: 11/04/18 10:47 Dose: 600 mg Lactulose (Cephulac (Oral Use)) 20 gm PO DAILY [facility] Last Admin: 11/04/18 10:47 Dose: 20 gm Levothyroxine Sodium 200 mcg/ (Levothyroxine Sodium 25 mcg) 225 mcg PO DAILY@ 0700 [facility] Last Admin: 11/04/18 06:09 Dose: 225 mcg Morphine Sulfate (Ms Contin -) 30 mg PO BID@0600,1800 [facility] Last Admin: 11/04/18 06:08 Dose: 30 mg Multivitamins/Minerals/Vitamin C (Tab-A-Vit -) 1 tab PO DAILY [facility] Last Admin: 11/04/18 10:47 Dose: 1 tab Nitroglycerin (Nitrostat -) 0.4 mg SL PRN PRN PRN Reason: Chest pain Pantoprazole Sodium (Protonix -) 40 mg PO DAILY [facility] Last Admin: 11/04/18 10:47 Dose: 40 mg Pentoxifylline (Trental -) 400 mg PO TID [facility] Last Admin: 11/04/18 06:09 Dose: 400 mg Senna (Senna -) 1 tab PO HS PRN PRN Reason: CONSTIPATION - Objective Vital Signs: Vital Signs Temperature 97.8 F 11/04/18 07:42 Pulse Rate 78 11/04/18 07:42 Respiratory Rate 20 11/04/18 07:42 Blood Pressure 118/70 11/04/18 07:42 O2 Sat by Pulse Oximetry (%) 94 L 11/03/18 09:00 Constitutional: Yes: No Distress, Calm Cardiovascular: Yes: S1, S2 Respiratory: Yes: Regular, CTA Bilaterally Gastrointestinal: Yes: Normal Bowel Sounds, Soft Musculoskeletal: Yes: Other Extremities: Yes: Erythema (improving), Other Neurological: Yes: Alert, Oriented Psychiatric: Yes: Alert, Oriented Labs: CBC, BMP 10/28/18 07:45 10/29/18 07:11 Assessment/Plan Problem List - Problems (1) Cellulitis Code(s): L03.90 - CELLULITIS, UNSPECIFIED Qualifiers: Site of cellulitis: extremity Site of cellulitis of extremity: lower extremity Laterality: left Qualified Code(s): L03.116 - Cellulitis of left lower limb (2) Idiopathic chronic venous hypertension of both lower extremities with ulcer and inflammation Code(s): I87.333 - CHRONIC VENOUS HTN W ULCER AND INFLAM OF BILATERAL LOW EXTRM ; L97.919 - NON-PRS CHRONIC ULC UNSP PRT OF R LOW LEG W UNSP SEVERITY; L97.929 - NON-PRS CHRONIC ULC UNSP PRT OF L LOW LEG W UNSP SEVERITY (3) Chronic pain Code(s): G89.29 - OTHER CHRONIC PAIN cellulitis of the knee joint patient refused mri plan augmentin 875 mg po bid for another 7 days
[2018-11-04] MEDS: clonazePAM 0.5 MG TABLET PO SCH (11:54)
[2018-11-04] MEDS: HEPARIN NA (PORCINE) 5,000 UNITS/ML 1ML VIAL SQ SCH ×2 (11:54→22:49)
[2018-11-04] MEDS: morphine SULFATE IMMEDIATE RELEASE 30 MG TAB PO PRN ×2 (12:19→22:48)
[2018-11-04] MEDS: MINERAL OIL/PET HY-PHL TOPICAL OINTMENT 454 GM JAR TP SCH ×2 (14:49→22:50)
--- NOTE | 2018-11-04 22:05 | PN ---
Progress Note, Physician History of Present Illness: Pt seen and examined 11/02/18 however note is being entered now - Current Medication List Current Medications: Active Medications Amoxicillin/Clavulanate Potassium (Augmentin - 875mg Tablet) 1 tab PO BIDWM [facility] Last Admin: 11/04/18 18:26 Dose: 1 tab Aspirin (Asa -) 81 mg PO DAILY [facility] Last Admin: 11/04/18 10:47 Dose: 81 mg Bupropion HCl (Wellbutrin Xl -) 150 mg PO BID [facility] Last Admin: 11/04/18 10:47 Dose: 150 mg Carbidopa/Levodopa (Sinemet 25/100 -) 1 each PO TID [facility] Last Admin: 11/04/18 14:49 Dose: 1 each Clonazepam (Klonopin -) 1.5 mg PO DAILY [facility] Last Admin: 11/04/18 11:54 Dose: 1.5 mg Collagenase (Santyl -) 1 applic TP DAILY [facility]; Protocol Last Admin: 11/04/18 10:48 Dose: 1 applic Cyclobenzaprine HCl (Cyclobenzaprine Hcl) 5 mg PO TID [facility] Last Admin: 11/04/18 18:38 Dose: 5 mg Emollient Ointment (Aquaphor -) 1 applic TP BID [facility]; Protocol Last Admin: 11/04/18 14:49 Dose: 1 applic Ferrous Sulfate (Feosol -) 325 mg PO DAILY [facility] Last Admin: 11/04/18 10:47 Dose: 325 mg Gabapentin (Neurontin -) 600 mg PO TID [facility] Last Admin: 11/04/18 14:49 Dose: 600 mg Heparin Sodium (Porcine) (Heparin -) 5,000 unit SQ BID [facility] Last Admin: 11/04/18 11:54 Dose: 5,000 unit Hydroxyzine HCl (Atarax -) 50 mg PO TID [facility] Last Admin: 11/04/18 14:49 Dose: 50 mg Ibuprofen (Motrin -) 600 mg PO Q8H PRN PRN Reason: PAIN Last Admin: 11/04/18 18:27 Dose: 600 mg Lactulose (Cephulac (Oral Use)) 20 gm PO DAILY [facility] Last Admin: 11/04/18 10:47 Dose: 20 gm Levothyroxine Sodium 200 mcg/ (Levothyroxine Sodium 25 mcg) 225 mcg PO DAILY@ 0700 [facility] Last Admin: 11/04/18 06:09 Dose: 225 mcg Morphine Sulfate (Msir -) 15 mg PO BID PRN PRN Reason: BREAKTHROUGH PAIN 5-10 Last Admin: 11/04/18 12:19 Dose: 15 mg Morphine Sulfate (Ms Contin -) 30 mg PO BID@0600,1800 [facility] Last Admin: 11/04/18 18:25 Dose: 30 mg Multivitamins/Minerals/Vitamin C (Tab-A-Vit -) 1 tab PO DAILY [facility] Last Admin: 11/04/18 10:47 Dose: 1 tab Nitroglycerin (Nitrostat -) 0.4 mg SL PRN PRN PRN Reason: Chest pain Pantoprazole Sodium (Protonix -) 40 mg PO DAILY [facility] Last Admin: 11/04/18 10:47 Dose: 40 mg Pentoxifylline (Trental -) 400 mg PO TID [facility] Last Admin: 11/04/18 14:49 Dose: 400 mg Senna (Senna -) 1 tab PO HS PRN PRN Reason: CONSTIPATION - Objective Vital Signs: Vital Signs Temperature 97.7 F 11/04/18 15:00 Pulse Rate 81 11/04/18 15:00 Respiratory Rate 20 11/04/18 15:00 Blood Pressure 123/79 11/04/18 15:00 O2 Sat by Pulse Oximetry (%) 94 L 11/03/18 09:00 Constitutional: Yes: Well Nourished, Obese Neck: Yes: WNL, Supple Cardiovascular: Yes: WNL, Regular Rate and Rhythm Respiratory: Yes: WNL, Regular, CTA Bilaterally Gastrointestinal: Yes: WNL, Normal Bowel Sounds, Soft, Abdomen, Obese Labs: CBC, BMP 10/28/18 07:45 10/29/18 07:11 Problem List - Problems (1) Cellulitis of knee, right Assessment/Plan: Cont IV antibxs XRAY neg for osteo Ortho consult noted No surgicazl intervention Code(s): L03.115 - CELLULITIS OF RIGHT LOWER LIMB (2) Chronic venous stasis Code(s): I87.8 - OTHER SPECIFIED DISORDERS OF VEINS (3) Chronic pain Assessment/Plan: Cont morphine/gabapentin Code(s): G89.29 - OTHER CHRONIC PAIN (4) Hypothyroidism Assessment/Plan: Cont levothyroxine Code(s): E03.9 - HYPOTHYROIDISM, UNSPECIFIED (5) Depression with anxiety Code(s): F41.8 - OTHER SPECIFIED ANXIETY DISORDERS
[2018-11-05] MEDS: IBUPROFEN 600 MG TABLET (FP) PO PRN (03:56)
[2018-11-05] MEDS ORDERED: LEVOTHYROXINE NA 200 MCG TABLET ONE (05:57)
[2018-11-05] MEDS ORDERED: LEVOTHYROXINE NA 25 MCG TABLET (FP) ONE (05:58)
[2018-11-05] MEDS: morphine SO4 SUSTAINED ACTING 30 MG TABLET.SA PO SCH ×2 (06:33→17:35)
[2018-11-05] MEDS: LEVOTHYROXINE 200 MCG, LEVOTHYROXINE 25 MCG PO SCH (06:34)
[2018-11-05] MEDS: hydrOXYzine HCL 25 MG TABLET (FP) PO SCH ×3 (06:35→21:30)
[2018-11-05] MEDS: CYCLOBENZAPRINE HCL 5 MG TABLET PO SCH ×3 (06:35→21:30)
[2018-11-05] MEDS: PENTOXIFYLLINE 400 MG TABLET.ER PO SCH ×3 (06:35→21:30)
[2018-11-05] MEDS: CARBIDOPA/LEVODOPA 25/100 TABLET (FP) PO SCH ×3 (06:35→21:30)
[2018-11-05] MEDS: GABAPENTIN 300 MG CAPSULE (FP) PO SCH ×3 (07:00→21:30)
[2018-11-05] MEDS: MINERAL OIL/PET HY-PHL TOPICAL OINTMENT 454 GM JAR TP SCH ×2 (11:13→21:31)
[2018-11-05] MEDS: AMOX TR/POT CLAV 875MG/125MG TABLETS (FP) PO SCH ×2 (11:13→17:35)
[2018-11-05] MEDS: ASPIRIN 81 MG CHEWABLE TABLETS PO SCH (11:14)
[2018-11-05] MEDS: PANTOPRAZOLE 40 MG TABLET (FP) PO SCH (11:14)
[2018-11-05] MEDS: clonazePAM 0.5 MG TABLET PO SCH (11:15)
[2018-11-05] MEDS: LACTULOSE 20 GM/30 ML UDC (FOR ORAL USE ONLY) PO SCH (11:16)
[2018-11-05] MEDS: FERROUS SO4 325 MG TABLET (FP) PO SCH (11:16)
[2018-11-05] MEDS: HEPARIN NA (PORCINE) 5,000 UNITS/ML 1ML VIAL SQ SCH ×2 (11:17→21:31)
[2018-11-05] MEDS: MULTIVITAMINS (DAILY MVI) TABLET (FP) PO SCH (11:17)
[2018-11-05] MEDS: COLLAGENASE CLOSTRIDIUM HIST. 30 GRAMS TUBE TP SCH (11:21)
[2018-11-05] MEDS: morphine SULFATE IMMEDIATE RELEASE 30 MG TAB PO PRN ×2 (11:52→22:42)
[2018-11-05] MEDS ORDERED: PT OWN MED DRAWER 7, Y5N ONE (21:16)
--- NOTE | 2018-11-05 21:39 | PN ---
Progress Note, Physician History of Present Illness: Pt seen and examined. Has mild discomfort in LEs b/l , Rt knee still mildly swollen. Remains afebrile, without distress. - Current Medication List Current Medications: Active Medications Amoxicillin/Clavulanate Potassium (Augmentin - 875mg Tablet) 1 tab PO BIDWM [facility] Last Admin: 11/05/18 17:35 Dose: 1 tab Aspirin (Asa -) 81 mg PO DAILY [facility] Last Admin: 11/05/18 11:14 Dose: 81 mg Bupropion HCl (Wellbutrin Xl -) 150 mg PO BID [facility] Last Admin: 11/05/18 21:30 Dose: 150 mg Carbidopa/Levodopa (Sinemet 25/100 -) 1 each PO TID [facility] Last Admin: 11/05/18 21:30 Dose: 1 each Clonazepam (Klonopin -) 1.5 mg PO DAILY [facility] Last Admin: 11/05/18 11:15 Dose: 1.5 mg Collagenase (Santyl -) 1 applic TP DAILY [facility]; Protocol Last Admin: 11/05/18 11:21 Dose: 1 applic Cyclobenzaprine HCl (Cyclobenzaprine Hcl) 5 mg PO TID [facility] Last Admin: 11/05/18 21:30 Dose: 5 mg Emollient Ointment (Aquaphor -) 1 applic TP BID [facility]; Protocol Last Admin: 11/05/18 21:31 Dose: 1 applic Ferrous Sulfate (Feosol -) 325 mg PO DAILY [facility] Last Admin: 11/05/18 11:16 Dose: 325 mg Gabapentin (Neurontin -) 600 mg PO TID [facility] Last Admin: 11/05/18 21:30 Dose: 600 mg Heparin Sodium (Porcine) (Heparin -) 5,000 unit SQ BID [facility] Last Admin: 11/05/18 21:31 Dose: 5,000 unit Hydroxyzine HCl (Atarax -) 50 mg PO TID [facility] Last Admin: 11/05/18 21:30 Dose: 50 mg Ibuprofen (Motrin -) 600 mg PO Q8H PRN PRN Reason: PAIN Last Admin: 11/05/18 03:56 Dose: 600 mg Lactulose (Cephulac (Oral Use)) 20 gm PO DAILY [facility] Last Admin: 11/05/18 11:16 Dose: 20 gm Levothyroxine Sodium 200 mcg/ (Levothyroxine Sodium 25 mcg) 225 mcg PO DAILY@ 0700 [facility] Last Admin: 11/05/18 06:34 Dose: 225 mcg Morphine Sulfate (Msir -) 15 mg PO BID PRN PRN Reason: BREAKTHROUGH PAIN 5-10 Last Admin: 11/05/18 11:52 Dose: 15 mg Morphine Sulfate (Ms Contin -) 30 mg PO BID@0600,1800 [facility] Last Admin: 11/05/18 17:35 Dose: 30 mg Multivitamins/Minerals/Vitamin C (Tab-A-Vit -) 1 tab PO DAILY [facility] Last Admin: 11/05/18 11:17 Dose: 1 tab Nitroglycerin (Nitrostat -) 0.4 mg SL PRN PRN PRN Reason: Chest pain Pantoprazole Sodium (Protonix -) 40 mg PO DAILY [facility] Last Admin: 11/05/18 11:14 Dose: 40 mg Pentoxifylline (Trental -) 400 mg PO TID [facility] Last Admin: 11/05/18 21:30 Dose: 400 mg Senna (Senna -) 1 tab PO HS PRN PRN Reason: CONSTIPATION - Objective Vital Signs: Vital Signs Temperature 97.6 F 11/05/18 20:13 Pulse Rate 79 11/05/18 20:13 Respiratory Rate 20 11/05/18 20:13 Blood Pressure 126/80 11/05/18 20:13 O2 Sat by Pulse Oximetry (%) 94 L 11/03/18 09:00 Constitutional: Yes: No Distress, Calm Cardiovascular: Yes: Regular Rate and Rhythm Respiratory: Yes: Regular Gastrointestinal: Yes: Normal Bowel Sounds, Soft, Abdomen, Obese Musculoskeletal: Yes: Joint Swelling (Rt knee edema/mild tenderness with palpation) Extremities: Yes: Erythema (chronic b/l LE) Wound/Incision: Yes: Dressing Dry and Intact Labs: CBC, BMP 10/28/18 07:45 10/29/18 07:11 - ....Imaging X-ray: Report Reviewed Problem List - Problems (1) Chronic venous stasis Code(s): I87.8 - OTHER SPECIFIED DISORDERS OF VEINS (2) Hypothyroidism Code(s): E03.9 - HYPOTHYROIDISM, UNSPECIFIED (3) Cellulitis Code(s): L03.90 - CELLULITIS, UNSPECIFIED Qualifiers: Site of cellulitis: extremity Site of cellulitis of extremity: lower extremity Laterality: left Qualified Code(s): L03.116 - Cellulitis of left lower limb (4) HTN (hypertension) Code(s): I10 - ESSENTIAL (PRIMARY) HYPERTENSION (5) Idiopathic chronic venous hypertension of both lower extremities with ulcer and inflammation Code(s): I87.333 - CHRONIC VENOUS HTN W ULCER AND INFLAM OF BILATERAL LOW EXTRM ; L97.919 - NON-PRS CHRONIC ULC UNSP PRT OF R LOW LEG W UNSP SEVERITY; L97.929 - NON-PRS CHRONIC ULC UNSP PRT OF L LOW LEG W UNSP SEVERITY Assessment/Plan Rt knee edema LE cellulitis -- on Augmentin -- if swelling persists pt agrees to MRI -- afebrile, improving
--- NOTE | 2018-11-05 22:12 | PN ---
Progress Note, Physician History of Present Illness: No new complaints - Current Medication List Current Medications: Active Medications Amoxicillin/Clavulanate Potassium (Augmentin - 875mg Tablet) 1 tab PO BIDWM [facility] Last Admin: 11/05/18 17:35 Dose: 1 tab Aspirin (Asa -) 81 mg PO DAILY [facility] Last Admin: 11/05/18 11:14 Dose: 81 mg Bupropion HCl (Wellbutrin Xl -) 150 mg PO BID [facility] Last Admin: 11/05/18 21:30 Dose: 150 mg Carbidopa/Levodopa (Sinemet 25/100 -) 1 each PO TID [facility] Last Admin: 11/05/18 21:30 Dose: 1 each Clonazepam (Klonopin -) 1.5 mg PO DAILY [facility] Last Admin: 11/05/18 11:15 Dose: 1.5 mg Collagenase (Santyl -) 1 applic TP DAILY [facility]; Protocol Last Admin: 11/05/18 11:21 Dose: 1 applic Cyclobenzaprine HCl (Cyclobenzaprine Hcl) 5 mg PO TID [facility] Last Admin: 11/05/18 21:30 Dose: 5 mg Emollient Ointment (Aquaphor -) 1 applic TP BID [facility]; Protocol Last Admin: 11/05/18 21:31 Dose: 1 applic Ferrous Sulfate (Feosol -) 325 mg PO DAILY [facility] Last Admin: 11/05/18 11:16 Dose: 325 mg Gabapentin (Neurontin -) 600 mg PO TID [facility] Last Admin: 11/05/18 21:30 Dose: 600 mg Heparin Sodium (Porcine) (Heparin -) 5,000 unit SQ BID [facility] Last Admin: 11/05/18 21:31 Dose: 5,000 unit Hydroxyzine HCl (Atarax -) 50 mg PO TID [facility] Last Admin: 11/05/18 21:30 Dose: 50 mg Ibuprofen (Motrin -) 600 mg PO Q8H PRN PRN Reason: PAIN Last Admin: 11/05/18 03:56 Dose: 600 mg Lactulose (Cephulac (Oral Use)) 20 gm PO DAILY [facility] Last Admin: 11/05/18 11:16 Dose: 20 gm Levothyroxine Sodium 200 mcg/ (Levothyroxine Sodium 25 mcg) 225 mcg PO DAILY@ 0700 [facility] Last Admin: 11/05/18 06:34 Dose: 225 mcg Morphine Sulfate (Msir -) 15 mg PO BID PRN PRN Reason: BREAKTHROUGH PAIN 5-10 Last Admin: 11/05/18 11:52 Dose: 15 mg Morphine Sulfate (Ms Contin -) 30 mg PO BID@0600,1800 [facility] Last Admin: 11/05/18 17:35 Dose: 30 mg Multivitamins/Minerals/Vitamin C (Tab-A-Vit -) 1 tab PO DAILY [facility] Last Admin: 11/05/18 11:17 Dose: 1 tab Nitroglycerin (Nitrostat -) 0.4 mg SL PRN PRN PRN Reason: Chest pain Pantoprazole Sodium (Protonix -) 40 mg PO DAILY [facility] Last Admin: 11/05/18 11:14 Dose: 40 mg Pentoxifylline (Trental -) 400 mg PO TID [facility] Last Admin: 11/05/18 21:30 Dose: 400 mg Senna (Senna -) 1 tab PO HS PRN PRN Reason: CONSTIPATION - Objective Vital Signs: Vital Signs Temperature 97.6 F 11/05/18 20:13 Pulse Rate 79 11/05/18 20:13 Respiratory Rate 20 11/05/18 20:13 Blood Pressure 126/80 11/05/18 20:13 O2 Sat by Pulse Oximetry (%) 94 L 11/03/18 09:00 Cardiovascular: Yes: WNL, Regular Rate and Rhythm Respiratory: Yes: WNL, Regular, CTA Bilaterally Gastrointestinal: Yes: WNL, Normal Bowel Sounds, Soft Extremities: Yes: Other (Cnronic venous stasis) Edema: LLE: 1+, RLE: 1+ Labs: CBC, BMP 10/28/18 07:45 10/29/18 07:11 Problem List - Problems (1) Cellulitis of knee, right Assessment/Plan: Cont augmentin Awaiting placement Ortho consulted and no surgical intervention at this time Code(s): L03.115 - CELLULITIS OF RIGHT LOWER LIMB (2) Chronic venous stasis Code(s): I87.8 - OTHER SPECIFIED DISORDERS OF VEINS (3) Chronic pain Assessment/Plan: Cont morphine/gabapentin Will get pain management consult Code(s): G89.29 - OTHER CHRONIC PAIN (4) Hypothyroidism Assessment/Plan: Cont levothyroxine Code(s): E03.9 - HYPOTHYROIDISM, UNSPECIFIED (5) Depression with anxiety Code(s): F41.8 - OTHER SPECIFIED ANXIETY DISORDERS
[2018-11-06] MEDS ORDERED: PT OWN MED DRAWER 7, Y5N ONE ×3 (06:01→14:16)
[2018-11-06] MEDS: CYCLOBENZAPRINE HCL 5 MG TABLET PO SCH ×2 (06:04→14:44)
[2018-11-06] MEDS: CARBIDOPA/LEVODOPA 25/100 TABLET (FP) PO SCH ×2 (06:04→14:43)
[2018-11-06] MEDS: morphine SO4 SUSTAINED ACTING 30 MG TABLET.SA PO SCH (06:04)
[2018-11-06] MEDS: PENTOXIFYLLINE 400 MG TABLET.ER PO SCH ×2 (06:04→14:45)
[2018-11-06] MEDS: GABAPENTIN 300 MG CAPSULE (FP) PO SCH ×2 (06:04→14:44)
[2018-11-06] MEDS: hydrOXYzine HCL 25 MG TABLET (FP) PO SCH ×2 (06:04→14:43)
[2018-11-06] MEDS ORDERED: LEVOTHYROXINE NA 25 MCG TABLET (FP) ONE (06:22)
[2018-11-06] MEDS ORDERED: LEVOTHYROXINE NA 200 MCG TABLET ONE (06:22)
[2018-11-06] MEDS: LEVOTHYROXINE 200 MCG, LEVOTHYROXINE 25 MCG PO SCH (06:26)
--- NOTE | 2018-11-06 10:12 | PN ---
Progress Note, Physician History of Present Illness: patient stable no new issues - Current Medication List Current Medications: Active Medications Amoxicillin/Clavulanate Potassium (Augmentin - 875mg Tablet) 1 tab PO BIDWM [facility] Last Admin: 11/05/18 17:35 Dose: 1 tab Aspirin (Asa -) 81 mg PO DAILY [facility] Last Admin: 11/05/18 11:14 Dose: 81 mg Bupropion HCl (Wellbutrin Xl -) 150 mg PO BID [facility] Last Admin: 11/05/18 21:30 Dose: 150 mg Carbidopa/Levodopa (Sinemet 25/100 -) 1 each PO TID [facility] Last Admin: 11/06/18 06:04 Dose: 1 each Clonazepam (Klonopin -) 1.5 mg PO DAILY [facility] Last Admin: 11/05/18 11:15 Dose: 1.5 mg Collagenase (Santyl -) 1 applic TP DAILY [facility]; Protocol Last Admin: 11/05/18 11:21 Dose: 1 applic Cyclobenzaprine HCl (Cyclobenzaprine Hcl) 5 mg PO TID [facility] Last Admin: 11/06/18 06:04 Dose: 5 mg Emollient Ointment (Aquaphor -) 1 applic TP BID [facility]; Protocol Last Admin: 11/05/18 21:31 Dose: 1 applic Ferrous Sulfate (Feosol -) 325 mg PO DAILY [facility] Last Admin: 11/05/18 11:16 Dose: 325 mg Gabapentin (Neurontin -) 600 mg PO TID [facility] Last Admin: 11/06/18 06:04 Dose: 600 mg Heparin Sodium (Porcine) (Heparin -) 5,000 unit SQ BID [facility] Last Admin: 11/05/18 21:31 Dose: 5,000 unit Hydroxyzine HCl (Atarax -) 50 mg PO TID [facility] Last Admin: 11/06/18 06:04 Dose: 50 mg Ibuprofen (Motrin -) 600 mg PO Q8H PRN PRN Reason: PAIN Last Admin: 11/05/18 03:56 Dose: 600 mg Lactulose (Cephulac (Oral Use)) 20 gm PO DAILY [facility] Last Admin: 11/05/18 11:16 Dose: 20 gm Levothyroxine Sodium 200 mcg/ (Levothyroxine Sodium 25 mcg) 225 mcg PO DAILY@ 0700 [facility] Last Admin: 11/06/18 06:26 Dose: 225 mcg Morphine Sulfate (Msir -) 15 mg PO BID PRN PRN Reason: BREAKTHROUGH PAIN 5-10 Last Admin: 11/05/18 22:42 Dose: 15 mg Morphine Sulfate (Ms Contin -) 30 mg PO BID@0600,1800 [facility] Last Admin: 11/06/18 06:04 Dose: 30 mg Multivitamins/Minerals/Vitamin C (Tab-A-Vit -) 1 tab PO DAILY [facility] Last Admin: 11/05/18 11:17 Dose: 1 tab Nitroglycerin (Nitrostat -) 0.4 mg SL PRN PRN PRN Reason: Chest pain Pantoprazole Sodium (Protonix -) 40 mg PO DAILY [facility] Last Admin: 11/05/18 11:14 Dose: 40 mg Pentoxifylline (Trental -) 400 mg PO TID [facility] Last Admin: 11/06/18 06:04 Dose: 400 mg Senna (Senna -) 1 tab PO HS PRN PRN Reason: CONSTIPATION - Objective Vital Signs: Vital Signs Temperature 97.9 F 11/06/18 07:02 Pulse Rate 65 11/06/18 07:02 Respiratory Rate 20 11/06/18 07:02 Blood Pressure 113/66 11/06/18 07:02 O2 Sat by Pulse Oximetry (%) 94 L 11/03/18 09:00 Constitutional: Yes: No Distress, Calm Respiratory: Yes: Regular, CTA Bilaterally Gastrointestinal: Yes: Normal Bowel Sounds, Soft Musculoskeletal: Yes: WNL Extremities: Yes: Other Neurological: Yes: Alert, Oriented Psychiatric: Yes: Alert, Oriented Labs: CBC, BMP 10/28/18 07:45 10/29/18 07:11 Assessment/Plan Problem List - Problems (1) Cellulitis Code(s): L03.90 - CELLULITIS, UNSPECIFIED Qualifiers: Site of cellulitis: extremity Site of cellulitis of extremity: lower extremity Laterality: left Qualified Code(s): L03.116 - Cellulitis of left lower limb (2) Idiopathic chronic venous hypertension of both lower extremities with ulcer and inflammation Code(s): I87.333 - CHRONIC VENOUS HTN W ULCER AND INFLAM OF BILATERAL LOW EXTRM ; L97.919 - NON-PRS CHRONIC ULC UNSP PRT OF R LOW LEG W UNSP SEVERITY; L97.929 - NON-PRS CHRONIC ULC UNSP PRT OF L LOW LEG W UNSP SEVERITY (3) Chronic pain Code(s): G89.29 - OTHER CHRONIC PAIN cellulitis of the knee joint patient refused mri plan augmentin 875 mg po bid for another 7 days monitor swelling
[2018-11-06] MEDS: AMOX TR/POT CLAV 875MG/125MG TABLETS (FP) PO SCH (10:26)
[2018-11-06] MEDS: MULTIVITAMINS (DAILY MVI) TABLET (FP) PO SCH (10:26)
[2018-11-06] MEDS: FERROUS SO4 325 MG TABLET (FP) PO SCH (10:26)
[2018-11-06] MEDS: clonazePAM 0.5 MG TABLET PO SCH (10:26)
[2018-11-06] MEDS: PANTOPRAZOLE 40 MG TABLET (FP) PO SCH (10:26)
[2018-11-06] MEDS: ASPIRIN 81 MG CHEWABLE TABLETS PO SCH (10:27)
[2018-11-06] MEDS: MINERAL OIL/PET HY-PHL TOPICAL OINTMENT 454 GM JAR TP SCH (10:27)
[2018-11-06] MEDS: HEPARIN NA (PORCINE) 5,000 UNITS/ML 1ML VIAL SQ SCH (10:28)
[2018-11-06] MEDS: LACTULOSE 20 GM/30 ML UDC (FOR ORAL USE ONLY) PO SCH (10:28)
[2018-11-06] MEDS: COLLAGENASE CLOSTRIDIUM HIST. 30 GRAMS TUBE TP SCH (10:28)
[2018-11-06] MEDS: morphine SULFATE IMMEDIATE RELEASE 30 MG TAB PO PRN (14:42)
[2018-11-06 15:06] VITALS: BP 134/87; PULSE 80; TEMP 97.9
--- NOTE | 2018-11-16 00:07 | DS ---
Physical Examination Vital Signs: Vital Signs Temperature 97.9 F 11/06/18 14:00 Pulse Rate 80 11/06/18 14:00 Respiratory Rate 20 11/06/18 14:00 Blood Pressure 134/87 11/06/18 14:00 O2 Sat by Pulse Oximetry (%) 94 L 11/03/18 09:00 Constitutional: Yes: Well Nourished HENT: Yes: WNL Neck: Yes: WNL, Supple Cardiovascular: Yes: WNL, Regular Rate and Rhythm Respiratory: Yes: WNL, Regular, CTA Bilaterally Gastrointestinal: Yes: WNL, Normal Bowel Sounds, Soft Extremities: Yes: Other (B/L chronic venous stasis) Labs: CBC, BMP 10/28/18 07:45 10/29/18 07:11 Discharge Summary Reason For Visit: CELLULITIS Cellulitis Chronic venous stasis w/ ulcers HTN Chronic pain syndrome Hypothyroidism Anemia Parkinsons Dz Hospital Course: Pt is a 63 y/o male w/ PMH significant for HTN, Parkinson's dz, GERD, chronic venous stasis/ulcers, chronic cellulitis and chronic pain. Pt was sent from the wound care clinic for cellulitis of the right lower extremity. Pt was put on IV antibxs wc he responded to and cellulitis improved. Pt did have xray rt knee wc did not show osteo. Pt also seen by ID consult and ortho who did not recommend any surgical intervention Condition: Good - Instructions Diet, Activity, Other Instructions: Regular diet Take augmentin twice a day for another 7 days and then stop Referrals: Benigno Sadler [Primary Care Provider] - Disposition: [facility] F[facility] - Home Medications Comprehensive Discharge Medication List: Ambulatory Orders Aspirin [ASA -] 81 mg PO DAILY 02/27/18 Bupropion HCl [Bupropion HCl Sr] 150 mg PO BID 02/27/18 Carbidopa/Levodopa [Carbidopa-Levodopa 25-100 Tab] 1 tab PO TID 02/27/18 Clonazepam [Klonopin] 1.5 mg PO DAILY 02/27/18 Ferrous Sulfate 1 tab PO DAILY 02/27/18 Flonase Allergy Relief 1 spray IH DAILY 02/27/18 Gabapentin 600 mg PO TID 02/27/18 Hydroxyzine HCl 1 tab PO TID 02/27/18 Ipratropium/Albuterol Sulfate [Iprat-Albut 0.5-3(2.5) mg/3 ml] 3 ml IH BID 02/27 Lactulose 30 ml PO DAILY 02/27/18 Levothyroxine [Synthroid -] 225 mcg PO DAILY 02/27/18 Multivitamin [Multiple Vitamins] 1 tab PO DAILY 02/27/18 Pantoprazole Sodium [Protonix] 40 mg PO DAILY 02/27/18 Pentoxifylline [Trental -] 400 mg PO TID 02/27/18 Sennosides [Senna] 8.6 mg PO HS PRN 02/27/18 Simethicone 125 mg PO QID PRN 02/27/18 Zolpidem Tartrate 10 mg PO HS 02/27/18 Morphine *Immediate Release* [Msir -] 15 mg PO Q6H PRN #10 tab MDD 3 08/04/18 Morphine *Sr* [MS Contin -] 30 mg PO Q12H #10 tablet.sa MDD 2 08/04/18 Ammonium Lactate Cream [Lac-Hydrin 12% Cream -] 1 applic TP BID 09/04/18 Collagenase Clostridium Hist. [Santyl -] 1 applic TP DAILY 09/04/18 Mylanta Oral Suspension - 30 ml PO Q8H PRN 09/04/18 Nitroglycerin 0.4 mg SL PRN PRN MDD 3 09/04/18 Nystatin Cream [Mycostatin Cream -] 1 applic TP BID 10/27/18 Amoxicillin/Potassium Clav [Augmentin 875-125 Tablet] 1 each PO BID #14 tablet 11/03/18 Cyclobenzaprine HCl 5 mg PO TID tablet 11/03/18 Ibuprofen [Motrin -] 600 mg PO Q8H PRN tablet 11/03/18 Levothyroxine [Synthroid -] 225 mcg PO DAILY@0700 tablet 11/03/18 Levothyroxine [Synthroid -] 225 mcg PO DAILY@0700 tablet 11/03/18
== END 2018-11-06 16:59 | DRG 383 ==
LOC: JER 12:53 → JERBED 15:20 → J8W 21:00
PROVIDERS: ADMIT Internal Medicine; ATTEND Internal Medicine
DX: L03.115 Cellulitis of right lower limb (principal); I10 Essential (primary) hypertension; K21.9 Gastro-esophageal reflux disease without esophagitis; I87.2 Venous insufficiency (chronic) (peripheral); F41.8 Other specified anxiety disorders; G89.29 Other chronic pain; I83.003 Varicose veins of unspecified lower extremity with ulcer of ankle; I83.005 Varicose veins of unspecified lower extremity with ulcer other part of foot; G20 Parkinson's disease; E03.9 Hypothyroidism, unspecified; E66.9 Obesity, unspecified; Z68.31 Body mass index [BMI] 31.0-31.9, adult; M17.11 Unilateral primary osteoarthritis, right knee
CPT/HCPCS: 36415; 73562-TC-RT-FY; 80053; 85025; 85651; 86140; 87040; 99283-25; J0131; J1644

== ENCOUNTER 2018-11-17 14:15 | Inpatient (IN) | payer OTHER ==
--- NOTE | 2018-11-17 17:15 | PDOC ---
History of Present Illness - General History Source: Patient, [facility] Records Exam Limitations: No Limitations - History of Present Illness Initial Comments: 11/17/18 17:48 63YOM with h/o chronic venous stasis and venous HTN, chronic intermittently infected BLE ankle ulcers (sees Dr. 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 He was admitted here to [facility] for RLE cellulitis after minor skin trauma from 10/27-11/06/18, had IV antibiotics at that time. The patient notes that he was feeling better after that admission and he recently finished the course of PO Augmentin he was discharged on. He denies n/v/d/c, abdominal pain, chest pain , SOB, VALENCIA, dizziness, lightheadedness, or other symptoms. <Chen Mg - Last Filed: 11/17/18 19:06> <Stephanie Meraz - Last Filed: 11/17/18 19:38> - General Chief Complaint: Wound Stated Complaint: Wound Time Seen by Provider: 11/17/18 16:25 Past History - Past Medical History CVA: Yes (TBI) COPD: Yes GI Disorders: Yes (GERD) HTN: Yes Psychiatric Problems: Yes (anxiety) Thyroid Disease: Yes Other medical history: parkinson's, vertigo - Immunization History Immunization Up to Date: Yes - Psycho Social/Smoking Cessation Hx Smoking History: Unknown if ever smoked Have you smoked in the past 12 months: No If you are a former smoker, when did you quit?: 3 years ago Information on smoking cessation initiated: No Hx Alcohol Use: No Drug/Substance Use Hx: No Substance Use Type: None <Chen Mg - Last Filed: 11/17/18 19:06> <Stephanie Meraz - Last Filed: 11/17/18 19:38> - Past Medical History Allergies/Adverse Reactions: Allergies Allergy/AdvReac Type Severity Reaction Status Date / Time No Known Allergies Allergy Verified 07/27/18 12:32 Home Medications: Ambulatory Orders Aspirin [ASA -] 81 mg PO DAILY 02/27/18 Bupropion HCl [Bupropion HCl Sr] 150 mg PO BID 02/27/18 Clonazepam [Klonopin] 1.5 mg PO HS 02/27/18 Ferrous Sulfate 1 tab PO DAILY 02/27/18 Ipratropium/Albuterol Sulfate [Iprat-Albut 0.5-3(2.5) mg/3 ml] 3 ml IH BID 02/27 Levothyroxine [Synthroid -] 225 mcg PO DAILY 02/27/18 Sennosides [Senna] 8.6 mg PO HS PRN 02/27/18 Simethicone 125 mg PO QID PRN 02/27/18 Zolpidem Tartrate 10 mg PO HS 02/27/18 Morphine *Immediate Release* [Msir -] 15 mg PO Q6H PRN #10 tab MDD 3 08/04/18 Nitroglycerin 0.4 mg SL PRN PRN MDD 3 09/04/18 Nystatin Cream [Mycostatin Cream -] 1 applic TP BID 10/27/18 Cyclobenzaprine HCl 5 mg PO TID tablet 11/03/18 Ibuprofen [Motrin -] 600 mg PO Q8H PRN tablet 11/03/18 Carbidopa/Levodopa [Carbidopa-Levodopa 25-100 Tab] 1 tab PO TID 11/17/18 Methadone [Dolophine -] 7.5 mg PO Q8H 11/17/18 Multivitamins [Tab-A-Vit -] 1 tab PO DAILY 11/17/18 Pantoprazole Sodium 40 mg PO DAILY 11/17/18 Review of Systems - Review of Systems Able to Perform ROS?: Yes Comments:: 11/17/18 18:40 GEN: subjective fever, no chills, night sweats, generalized weakness, malaise, or unintentional weight change HEENT: no ear pain, congestion, sore throat, rhinorrhea, nosebleed, vision change, or eye pain CV: no chest pain, palpitations, lightheadedness, syncope, edema, or exercise intolerance RESP: no cough, wheezing, or SOB GI: no abdominal pain, nausea, vomiting, diarrhea, constipation, appetite change , or white/black/bloody stool : no dysuria, hematuria, frequency, incontinence, retention, pruritis, bleeding, or discharge MSK: ankle/foot pain and swelling, no new muscle weakness, no new muscle wasting NEURO: no headache, seizure, vertigo, imbalance, numbness, tingling, focal weakness, or difficulty walking/talking PSYCH: no insomnia, behavior change, SI, HI, or substance use SKIN: painful leg and ankle and foot ulcers, fluid drainage, no prutitis, excessive dryness, jaundice, or unexplained bruises ROS otherwise negative except as noted in HPI <Chen Mg - Last Filed: 11/17/18 19:06> *Physical Exam - Vital Signs Last Vital Signs Temp Pulse Resp BP Pulse Ox 97.4 F L 85 18 138/89 95 11/17/18 14:50 11/17/18 14:50 11/17/18 14:50 11/17/18 14:50 11/17/18 14:50 - Physical Exam Comments: 11/17/18 18:42 GENERAL: pleasant, very talkative adult male, A/Ox4, no distress, answers questions appropriately, bizarre affect, slightly pressured speech and speaking rapidly HEENT: PERRLA, EOMI, moist mucous membranes NECK/BACK: no midline ttp, no spinal stepoff or deformity, no hematoma, full ROM , neck supple CARDIOVASCULAR: regular rate/rhythm, normal S1S2, no MGR, strong peripheral pulses, capillary refill <2 seconds, extremities wwp, no edema LUNGS/RESPIRATORY: no respiratory distress, CTAB GI/ABDOMEN: protuberant but not tight, symmetric [id number], normoactive BS, soft, no ttp, no midline pulsatile masses : no CVA tenderness EXTREMITIES: BLE ankles with painful ROM and swelling, and redness to skin circumferentially along ankles SKIN: BLE with large venous stasis ulcers extending from distal 1/3 of calves on medial aspect and extending to medial aspect of superior foot, both extending along posterior calf about jail to the lateral aspect of the lower leg, slightly malodorous serous drainage, left deep fissure in the web space between the 1st and 2nd toe which appears deep and is bleeding slightly and with small amount of purulent drainage. NEUROLOGICAL: GCS 15, CN II-XII grossly intact, 5/5 strength proximally and distally, no facial droop <Chen Mg - Last Filed: 11/17/18 19:06> - Vital Signs Last Vital Signs Temp Pulse Resp BP Pulse Ox 98.4 F 85 18 141/74 97 11/17/18 19:33 11/17/18 19:33 11/17/18 19:33 11/17/18 19:33 11/17/18 19:33 <Stephanie Meraz - Last Filed: 11/17/18 19:38> ED Treatment Course - LABORATORY CBC & Chemistry Diagram: 11/17/18 17:30 11/17/18 17:30 - RADIOLOGY Radiology Studies Ordered: Category Date Time Status ANKLE & FOOT-LEFT* [RAD] Stat Radiology 11/17/18 17:10 Ordered ANKLE & FOOT-RIGHT* [RAD] Stat Radiology 11/17/18 17:10 Ordered <Chen Mg - Last Filed: 11/17/18 19:06> - LABORATORY CBC & Chemistry Diagram: 11/17/18 17:30 11/17/18 17:30 - ADDITIONAL ORDERS Additional order review: Laboratory Results 11/17/18 11/17/18 11/17/18 17:30 17:30 17:30 PT with INR 12.50 INR 1.06 PTT (Actin FS) Sodium 142 Potassium 4.2 Chloride 106 Carbon Dioxide 30 Anion Gap 6 L BUN 18.3 H Creatinine 0.9 Est GFR (CKD-EPI)AfAm 106.46 Est GFR (CKD-EPI)NonAf 91.86 Random Glucose 100 Calcium 9.3 Total Bilirubin 0.4 AST 31 ALT 35 Alkaline Phosphatase 110 Total Protein 7.2 Albumin 2.9 L Blood Type A POSITIVE Antibody Screen Negative 11/17/18 17:30 PT with INR INR PTT (Actin FS) 35.8 Sodium Potassium Chloride Carbon Dioxide Anion Gap BUN Creatinine Est GFR (CKD-EPI)AfAm Est GFR (CKD-EPI)NonAf Random Glucose Calcium Total Bilirubin AST ALT Alkaline Phosphatase Total Protein Albumin Blood Type Antibody Screen 11/17/18 17:30 RBC 4.37 MCV 91.8 MCHC 33.2 RDW 13.3 MPV 7.9 Neutrophils % 49.6 D Lymphocytes % 36.8 Monocytes % 11.3 H Eosinophils % 2.1 Basophils % 0.2 - Medications Given in the ED: ED Medications Discontinued Medications Generic Name Dose Route Start Last Admin Trade Name Freq PRN Reason Stop Dose Admin Morphine Sulfate 4 mg 11/17/18 17:47 11/17/18 17:56 Morphine Injection - IVPUSH 11/17/18 17:48 4 mg ONCE ONE Administration <Stephanie Merza - Last Filed: 11/17/18 19:38> Medical Decision Making - Medical Decision Making 11/17/18 18:56 Pt with PVD and venous HTN and chronic BLE ulcers/intermittent chronic cellulitis p/w non-healing foot ulcer now appearing infected. Initial Vital Signs Temp Pulse Resp BP Pulse Ox 97.4 F L 85 18 138/89 95 11/17/18 14:50 11/17/18 14:50 11/17/18 14:50 11/17/18 14:50 11/17/18 14:50 Exam: As noted in Physical Exam section. DDX IBNLT: infected ankle foot ulcer, cellulitis, osteomyelitis, necrotizing soft tissue infection, necrotizing myositis, septic arthritis, gangrene,sepsis, etc. W/U ordered: CBCD CMP Mg Phos Lactate BCx Coags T&S ESR CRP EKG CXR Wound Culture UA UCx and X-ray leg to r/o gas. TX ordered: Ofirmev, vancomycin, Zosyn EKG: Reviewed; results as noted in ECG Review section. XR ankle/foot/toes: Laboratory Tests 11/17/18 11/17/18 11/17/18 17:30 17:30 17:30 WBC 8.9 RBC 4.37 Hgb 13.3 Hct 40.1 MCV 91.8 MCH 30.5 MCHC 33.2 RDW 13.3 Plt Count 240 D MPV 7.9 Absolute Neuts (auto) 4.4 Neutrophils % 49.6 D Lymphocytes % 36.8 Monocytes % 11.3 H Eosinophils % 2.1 Basophils % 0.2 Nucleated RBC % 0 PT with INR INR PTT (Actin FS) 35.8 Sodium 142 Potassium 4.2 Chloride 106 Carbon Dioxide 30 Anion Gap 6 L BUN 18.3 H Creatinine 0.9 Est GFR (CKD-EPI)AfAm 106.46 Est GFR (CKD-EPI)NonAf 91.86 Random Glucose 100 Calcium 9.3 Total Bilirubin 0.4 AST 31 ALT 35 Alkaline Phosphatase 110 Total Protein 7.2 Albumin 2.9 L 11/17/18 17:30 WBC RBC Hgb Hct MCV MCH MCHC RDW Plt Count MPV Absolute Neuts (auto) Neutrophils % Lymphocytes % Monocytes % Eosinophils % Basophils % Nucleated RBC % PT with INR 12.50 INR 1.06 PTT (Actin FS) Sodium Potassium Chloride Carbon Dioxide Anion Gap BUN Creatinine Est GFR (CKD-EPI)AfAm Est GFR (CKD-EPI)NonAf Random Glucose Calcium Total Bilirubin AST ALT Alkaline Phosphatase Total Protein Albumin 11/17/18 19:04 Orders placed for vancomycin 1500 mg IVPB, consult to Dr. Daniels, and consult to Dr. Plaza (pain management). Patient's care endorsed to Dr. Meraz at the end of my shift pending XR results and admission to [facility]. <Chen Mg - Last Filed: 11/17/18 19:06> Discharge - Discharge Information Problems reviewed: Yes - Admission Yes <Chen Mg - Last Filed: 11/17/18 19:06> - Discharge Information Problems reviewed: Yes - Admission Yes <Stephanie Meraz - Last Filed: 11/17/18 19:38> - Discharge Information Clinical Impression/Diagnosis: Chronic venous stasis Ulcers of both lower extremities Qualifiers: Non-pressure ulcer stage: unspecified non-pressure ulcer stage Qualified Code(s ): L97.919 - Non-pressure chronic ulcer of unspecified part of right lower leg with unspecified severity Condition: Guarded - Follow up/Referral Referrals: Renan Paris [Primary Care Provider] - - Patient Discharge Instructions - Post Discharge Activity
--- NOTE | 2018-11-17 17:16 | PDOC ---
Attending Attestation - Resident Resident Name: Chen Mg - ED Attending Attestation I have performed the following: I have examined & evaluated the patient, The case was reviewed & discussed with the resident, I agree w/resident's findings & plan, Exceptions are as noted - HPI HPI: 11/17/18 17:15 63-year-old male brought in by ambulance from his snf for increasing pain in his bilateral extremities and nonhealing ulcers
[2018-11-17] MEDS ORDERED: morphine CARPU-JECT 4 MG/1 ML DISP.SYRIN IVPUSH ONE (17:47)
[2018-11-17] MEDS ORDERED: morphine SULFATE 4 MG/ML VIAL ONE ×2 (17:47→22:48)
[2018-11-17 18:08] LABS: BASO % 0.2 % (0-2.0); EOS % 2.1 % (0-4.5); HEMATOCRIT 40.1 % (35.4-49); HEMOGLOBIN 13.3 GM/dL (11.7-16.9); LYMPH % 36.8 % (8-40); MCH 30.5 pg (25.7-33.7); MCHC 33.2 g/dl (32.0-35.9); MEAN CELL VOLUME 91.8 fl (80-96); MEAN PLT VOLUME 7.9 fl (7.5-11.1); MONO % 11.3 % (3.8-10.2); NEUT % 49.6 % (42.8-82.8); PLATELET COUNT 240 K/MM3 (134-434); RBC 4.37 M/mm3 (4.00-5.60); RDW 13.3 % (11.9-15.9); WHITE BLOOD COUNT 8.9 K/mm3 (4.0-10.0)
[2018-11-17 18:29] LABS: INR 1.06 (0.83-1.09); PROTHROMBIN TIME (PATIENT) 12.5 SEC (9.7-13.0)
--- NOTE | 2018-11-17 18:31 | PDOC ---
Documentation entered by Payal Mercado SCRIBE, acting as scribe for Stephanie Meraz MD. Stephanie Meraz MD: This documentation has been prepared by the Jess johnston Adrianna, SCRIBE, under my direction and personally reviewed by me in its entirety. I confirm that the documentation accurately reflects all work, treatment, procedures, and medical decision making performed by me. Attending Attestation - Resident Resident Name: Chen Mg - ED Attending Attestation I have performed the following: I have examined & evaluated the patient, The case was reviewed & discussed with the resident, I agree w/resident's findings & plan, Exceptions are as noted - HPI HPI: The patient is a 63-year-old male, with a significant PMH of Parkinsons, chronic venous stasis ulcers of the bilateral lower extremities, HTN, and GERD, who presents to the ED BIBA from his care home for increasing pain in his bilateral extremities and chronic, progressively worsening, nonhealing ulcers of the bilateral lower extremities. Allergies: NKA, NKDA Surgical History: [facility] resident. Denies EtOH, tobacco, or illicit drug use. Social History: None reported - Physicial Exam PE: 11/17/18 19:[address] Chen Mg's physical exam - Medical Decision Making Patient is a 63 year old male, PMH of Parkinsons, chronic venous stasis ulcers of the bilateral lower extremities, HTN, and GERD, presenting with worsening of nonhealing ulcers. Patient had was admitted last month from 10/27 to 11/06 for a similar complaint. Dr. Daniels was treating him with Zosyn and Vancomycin. 11/17/18 17:26 11/17/18 18:30 cbc is wnl pt is afebrile 11/17/18 19:21 pt to be admitted for tx of cellulitis and further eval of possible osteomylitis
[2018-11-17 18:36] LABS: ALBUMIN 2.9 g/dl (3.4-5.0); BILIRUBIN,TOTAL 0.4 mg/dL (0.2-1); BLOOD UREA NITROGEN 18.3 mg/dL (7-18); CALCIUM 9.3 mg/dL (8.5-10.1); CREATININE 0.9 mg/dL (0.55-1.3); POTASSIUM 4.2 mmol/L (3.5-5.1); TOT PROT 7.2 g/dl (6.4-8.2)
[2018-11-17] MEDS ORDERED: VANCOMYCIN HCL 1,500 MG in DEXTROSE 5%-WATER - 500 ML IVPB ONE (19:03)
[2018-11-17] MEDS ORDERED: VANCOMYCIN 500 MG VIAL (RESTRICTED TO ID ONLY) ONE (19:25)
[2018-11-17] MEDS ORDERED: VANCOMYCIN 1 GRAM (PRE-DOCKED) 1,000 MG/250 ML BAG IVPB ONE (19:25)
[2018-11-17] MEDS ORDERED: SODIUM CHLORIDE 1,000 ML IV ONE (20:57)
[2018-11-17] MEDS: MORPHINE SULFATE 2 MG/ML VIAL IVPUSH PRN (21:00)
--- NOTE | 2018-11-17 21:17 | HP ---
CHIEF COMPLAINT: B/l LE pain PCP: Dr. Bermeo @ [facility] HISTORY OF PRESENT ILLNESS: 63 y.o. M PMH HTN, chronic b/l LE ulcers, chronic venous stasis, venous HTN, past TBI w/ mild MR, parkinsons disease, GERD, asthma, hypothyroidism and chronic pack & LE pain presenting from [facility] for increasing b/l LE pain and worsening cellulitis w/ nonhealing ulcerations. The patient had a recent admission d/c'd 11/06/18 for RLE cellulitis where he received IV Vanc & Zosyn and completed PO augmentin course on d/c. Now patient returns w/ cellulitis bilateral LE. Pt endorses 10/10 sharp, intermittent, electric- sensation and burning pains in his LEs that is amplified from his normal chronic pain. He is having difficulty with weight bearing. At baseline patient walks minimally with a cane. On ROS: + SOB, LE parasthesias. UE pruritis Denies CP/ abd pain/ nausea/ vomiting/ chills/ fevers/ diarrhea. ER course was notable for: (1) Vanc 1500mg IV (2) Morphine 4mg IV (3) Dr. Daniels & Dr. Plaza consulted Recent Travel: no PAST MEDICAL HISTORY: as per HPI PAST SURGICAL HISTORY: 4x laminectomies, 2 spinal fusions L4-L5 & C5-C6, R knee surgery Social History: Smoking: denies current use quit >5yrs ago Alcohol:denies Drugs: denies Allergies No Known Allergies Allergy (Verified 07/27/18 12:32) Family Hx: Mom passed from COPD, dad passed from colon CA, sister passed at age 27 from melanoma HOME MEDICATIONS: Home Medications Medication Instructions Recorded Aspirin [ASA -] 81 mg PO DAILY 02/27/18 Bupropion HCl [Bupropion HCl Sr] 150 mg PO BID 02/27/18 Clonazepam [Klonopin] 1.5 mg PO HS 02/27/18 Ferrous Sulfate 1 tab PO DAILY 02/27/18 Ipratropium/Albuterol Sulfate 3 ml IH BID 02/27/18 [Iprat-Albut 0.5-3(2.5) mg/3 ml] Levothyroxine [Synthroid -] 225 mcg PO DAILY 02/27/18 Sennosides [Senna] 8.6 mg PO HS PRN 02/27/18 Simethicone 125 mg PO QID PRN 02/27/18 Zolpidem Tartrate 10 mg PO HS 02/27/18 Morphine *Immediate Release* [Msir 15 mg PO Q6H PRN #10 tab MDD 3 08/04/18 -] Nitroglycerin 0.4 mg SL PRN PRN MDD 3 09/04/18 Nystatin Cream [Mycostatin Cream -] 1 applic TP BID 10/27/18 Cyclobenzaprine HCl 5 mg PO TID tablet 11/03/18 Ibuprofen [Motrin -] 600 mg PO Q8H PRN tablet 11/03/18 Carbidopa/Levodopa 1 tab PO TID 11/17/18 [Carbidopa-Levodopa 25-100 Tab] Methadone [Dolophine -] 7.5 mg PO Q8H 11/17/18 Multivitamins [Tab-A-Vit -] 1 tab PO DAILY 11/17/18 Pantoprazole Sodium 40 mg PO DAILY 11/17/18 PHYSICAL EXAMINATION Vital Signs - 24 hr 11/17/18 11/17/18 11/17/18 14:50 17:54 19:33 Temperature 97.4 F L 98.4 F Pulse Rate 85 Pulse Rate [ 85 Apical] Respiratory 18 18 Rate Blood Pressure 138/89 Blood Pressure 141/74 [Right Arm] O2 Sat by Pulse 95 100 97 Oximetry (%) GENERAL: AOx3. In NAD, talkative. HEENT: NCAT. Constricted pupils (pt on morphine). No scleral icterus. LUNGS: CTABL no incr work of breathing no crackles/ wheezing. HEART: Regular rate and rhythm, normal S1 and S2 without murmurs ABDOMEN: Obese, soft, nontender, normoactive bowel sounds, no guarding. MSK: LE decreased ROM b/l. Good ROM UE. UPPER EXTREMITIES: 2+ pulses palpated. LOWER EXTREMITIES: B/l LE cellulitis present, + weeping ulcerations surrounding LE below knee. 2+ pulses palpated b/l LE. Warm to touch. Onychomycosis changes of toenails. Yellow/ brown pus present interdigitally b/l. NEUROLOGICAL: Sensory intact b/l UE & LE. PSYCHIATRIC: Appropriate mood and affect. SKIN: UE excoriations present d/t pruritis 2/2 dermatitis Laboratory Results - last 24 hr 1011/17/18 11/17/18 17:30 17:30 17:30 WBC 8.9 RBC 4.37 Hgb 13.3 Hct 40.1 MCV 91.8 MCH 30.5 MCHC 33.2 RDW 13.3 Plt Count 240 D MPV 7.9 Absolute Neuts (auto) 4.4 Neutrophils % 49.6 D Lymphocytes % 36.8 Monocytes % 11.3 H Eosinophils % 2.1 Basophils % 0.2 Nucleated RBC % 0 PT with INR INR PTT (Actin FS) 35.8 Sodium 142 Potassium 4.2 Chloride 106 Carbon Dioxide 30 Anion Gap 6 L BUN 18.3 H Creatinine 0.9 Est GFR (CKD-EPI)AfAm 106.46 Est GFR (CKD-EPI)NonAf 91.86 Random Glucose 100 Calcium 9.3 Total Bilirubin 0.4 AST 31 ALT 35 Alkaline Phosphatase 110 Total Protein 7.2 Albumin 2.9 L Blood Type Antibody Screen 11/17/18 11/17/18 17:30 17:30 WBC RBC Hgb Hct MCV MCH MCHC RDW Plt Count MPV Absolute Neuts (auto) Neutrophils % Lymphocytes % Monocytes % Eosinophils % Basophils % Nucleated RBC % PT with INR 12.50 INR 1.06 PTT (Actin FS) Sodium Potassium Chloride Carbon Dioxide Anion Gap BUN Creatinine Est GFR (CKD-EPI)AfAm Est GFR (CKD-EPI)NonAf Random Glucose Calcium Total Bilirubin AST ALT Alkaline Phosphatase Total Protein Albumin Blood Type A POSITIVE Antibody Screen Negative ASSESSMENT/PLAN: 63 y.o. 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 #B/l LE cellulitis r/o osteomyelitis -s/p 1 dose vanc 1.5g in ED -Cx's from previous wound cx: poly microbial (pseudomonas, klebsiella, enterobacter, proteus, staph) s/p recent zosyn/ vanc course -ABX: Meropenem 2g q8h IV infused over 3 hrs & Vanc 1g BID - IVF 1L NS ordered -Dr. Daniels (ID) following -Dr. Alcantar (wound care) consulted -Dr. Graham Plaza pain med consulted -F/u foot/ankle XR -F/u blood cultures, repeat wound cultures, ESR, CRP -pain control morphine 4mg IV PRN -keep affected areas clean & dry, frequent dressing changes -Afebrile #Chronic pain -C/w home meds: methadone 7.5mg PO q8h, flexeril 5mg PO TID -Morphine PRN if severe pain #Parkinsons disease -C/w carbidopa/ levodopa 25-100mg PO TID #GERD -C/w protonix 40mg PO daily #Asthma -C/w duonebs prn #Depression -C/w home meds: bupropion, klonopin, zolpidem #Hypothyroidism -F/u TSH -C/w home dose synthroid 225mcg PO daily #FEN -1L NS -Lytes WNL -Sofium controlled diet #DVT PPX -Heparin SQ Visit type - Emergency Visit Emergency Visit: Yes Care time: The patient presented to the Emergency Department on the above date and was hospitalized for further evaluation of their emergent condition. - New Patient This patient is new to me today: Yes Date on this admission: 11/18/18 - Critical Care Critical Care patient: No ATTENDING PHYSICIAN STATEMENT I saw and evaluated the patient. I reviewed the resident's note and discussed the case with the resident. I agree with the resident's findings and plan as documented. SUBJECTIVE: OBJECTIVE: ASSESSMENT AND PLAN:
--- NOTE | 2018-11-17 21:24 | PN ---
Teaching Attending Note Name of Resident: Maria De Jesus Johnson ATTENDING PHYSICIAN STATEMENT I saw and evaluated the patient. Chart, data, imaging reviewed. I reviewed the resident's note and discussed the case with the resident. I agree with the resident's findings and plan as documented. SUBJECTIVE: 63 yo man w/ HTN, chronic b/l LE ulcers, PVD, chronic venous stasis, s/p skin debridment , hyperbaric oxygen therapy, follows with Dr Alcantar, Parkinsons disease, GERD, presents from [facility] for increasing LE pain and worsening lower extremity wounds. Recent admission for LE wound infections and discharged 11/06/18. At that time treated with IV Vanc & Zosyn and completed PO augmentin course on d/c. OBJECTIVE: Last Vital Signs Temp Pulse Resp BP Pulse Ox 98.4 F 85 18 141/74 97 11/17/18 19:33 11/17/18 19:33 11/17/18 19:33 11/17/18 19:33 11/17/18 19:33 gen- appears nontoxic heent -atraumatic neck supple cv-s+s2+rrr chest clear abdomen-obese, soft, nt, ns+ ext - b/l lower ext erythema, warm to touch, b/l medial ankle ulcers, yellow crusting in between toes b/l. Abnormal Lab Results 11/17/18 11/17/18 17:30 17:30 Monocytes % 11.3 H Anion Gap 6 L BUN 18.3 H Albumin 2.9 L Imaging reviewed ASSESSMENT AND PLAN: #B/l lower extremity cellulitis secondary to PVD. Should r/o underlying OM of feet given breaks in skin in between toes, especially right hallux and 2nd toe. Surrounding cellulitis. Concern for possible underlying ostemyelitis. Cultures from ulcers from prior admission reveal colonization with multiple species including Klebsiella sp, Peudomonasa Aereginosa, Proteus Sp. Pseumononas noted to have relatively high LAXMI to pip/adilene <16 , so perhaps meropenem would be a better option in this case, especially since patient seemed to have failed a recent course of pip/tazo. Pt s/p skin debridement to legs, would need vascular f/u for possible skin grafting. -med/surg -blood cultures x2 -crp, esr, lactate -lower ext duplex to r/o dvt -mri of feet b/l to r/o OM -meropenem 2mg ivpb infused over 3hrs for better coverage of possible Pseudomonas sp -vancomycin 1gIV q12hrs -id consult -vascular consult for wound care -heparin sc for dvt ppx #Chronic lower extremity pain -morphine if pushes prn -methadone home dose -pain management was consulted #Hypolbuminemia #Hypothyroidism - tsh wnl -c/w home dose synthroid #Parkinsonism -c/w home dose carbidpa/levodopa #HTN #DVT ppx -heparin sc
[2018-11-17] MEDS: METHADONE HCL 5 MG TABLET PO SCH (22:00)
[2018-11-17] MEDS ORDERED: SENNOSIDES 8.6MG TABLET (FP) PO PRN (22:16)
[2018-11-17] MEDS ORDERED: NITROGLYCERIN SUBLINGUAL 1/150 0.4 MG TAB SL PRN (22:16)
[2018-11-17] MEDS ORDERED: PATIENT'S OWN MEDICATION (NON-FORMULARY) (Simethicone [Simethicone] 125 MG) PO PRN (22:16)
[2018-11-17] MEDS ORDERED: MAG HYDROX/AL HYDROX/SIMETH 30 ML UNIT-DOSE CUP PO SCH (22:30)
[2018-11-17] MEDS ORDERED: ATORVASTATIN CA 40 MG TABLET (FP) ONE (22:33)
[2018-11-17] MEDS ORDERED: CEFEPIME 1 GM/100 ML BAG IVPB ONE (22:34)
[2018-11-17] MEDS ORDERED: MEROPENEM 1 GM VIAL (RESTRICTED TO ID) IVPB ONE (22:35)
[2018-11-17] MEDS ORDERED: SIMETHICONE 80 MG TAB.CHEW (FP) PO PRN (23:34)
[2018-11-18] MEDS: MEROPENEM 2 GM in DEXTROSE 5%-WATER - 100 ML IVPB SCH ×3 (01:00→10:50)
[2018-11-18] MEDS ORDERED: morphine SULFATE 4 MG/ML VIAL ONE (03:22)
[2018-11-18] MEDS: MORPHINE SULFATE 2 MG/ML VIAL IVPUSH PRN (03:25)
[2018-11-18] MEDS: VANCOMYCIN 1 GRAM (PRE-DOCKED) 1,000 MG/250 ML BAG IVPB SCH ×4 (04:47→21:48)
[2018-11-18] MEDS ORDERED: PENTOXIFYLLINE 400 MG TABLET.ER PO SCH (06:00)
[2018-11-18] MEDS ORDERED: PATIENT'S OWN MEDICATION (NON-FORMULARY) (Gabapentin [Gabapentin] 600 MG) PO SCH (06:00)
[2018-11-18] MEDS ORDERED: CYCLOBENZAPRINE HCL 10 MG TABLET (FP) ONE ×2 (06:17→21:23)
[2018-11-18] MEDS ORDERED: CARBIDOPA/LEVODOPA 25/100 TABLET (FP) ONE ×2 (06:17→21:26)
[2018-11-18] MEDS ORDERED: HEPARIN NA (PORCINE) 5,000 UNITS/ML 1ML VIAL ONE ×3 (06:17→21:27)
[2018-11-18] MEDS ORDERED: METHADONE HCL 5 MG TABLET ONE ×3 (06:20→21:26)
[2018-11-18] MEDS: CYCLOBENZAPRINE HCL 5 MG TABLET PO SCH ×3 (06:26→21:48)
[2018-11-18] MEDS: CARBIDOPA/LEVODOPA 25/100 TABLET (FP) PO SCH ×3 (06:26→21:48)
[2018-11-18] MEDS: HEPARIN NA (PORCINE) 5,000 UNITS/ML 1ML VIAL SQ SCH ×3 (06:26→21:48)
[2018-11-18] MEDS: METHADONE HCL 5 MG TABLET PO SCH ×3 (06:29→21:48)
[2018-11-18] MEDS: GABAPENTIN 300 MG CAPSULE (FP) PO SCH ×3 (06:44→21:48)
[2018-11-18] MEDS ORDERED: morphine SULFATE IMMEDIATE RELEASE 30 MG TAB PO PRN (06:55)
[2018-11-18] MEDS ORDERED: IBUPROFEN 600 MG TABLET (FP) PO PRN (06:55)
[2018-11-18] MEDS: LEVOTHYROXINE 125 MCG, LEVOTHYROXINE 100 MCG PO SCH (06:59)
[2018-11-18] MEDS: ACETAMINOPHEN 325 MG TABLET (FP) PO SCH ×3 (07:00→19:54)
[2018-11-18] MEDS: ALBUTEROL SO4 2.5/IPRATROPIUM 0.5 INH SOL 3 ML VIAL.NEB. NEB SCH ×2 (08:28→20:10)
[2018-11-18] MEDS ORDERED: VANCOMYCIN 1 GM in D5W (PRE-DOCKED) 1,000 MG/250 ML IVPB SCH (10:00)
[2018-11-18] MEDS ORDERED: PATIENT'S OWN MEDICATION (NON-FORMULARY) (Ferrous Sulfate [Ferrous Sulfate] 1 TAB) PO SCH (10:00)
[2018-11-18] MEDS ORDERED: ENOXAPARIN NA (PORCINE) 40 MG/0.4 ML DISP.SYRIN SQ SCH (10:00)
[2018-11-18] MEDS ORDERED: PATIENT'S OWN MEDICATION (NON-FORMULARY) (Bupropion Hcl [Bupropion Hcl Sr] 150 MG) PO SCH (10:00)
[2018-11-18] MEDS ORDERED: LEVOTHYROXINE NA 200 MCG TABLET PO SCH (10:00)
[2018-11-18] MEDS: PANTOPRAZOLE 40 MG TABLET (FP) PO SCH (10:50)
[2018-11-18] MEDS: MULTIVITAMINS (DAILY MVI) TABLET (FP) PO SCH (11:00)
[2018-11-18] MEDS: FLUTICASONE PROP 0.05% 16 GM NASAL SPRAY NS SCH (11:00)
[2018-11-18] MEDS: buPROPion HCL 75 MG TABLET PO SCH ×2 (11:00→21:48)
[2018-11-18] MEDS: ASPIRIN 81 MG CHEWABLE TABLETS PO SCH (11:00)
[2018-11-18] MEDS ORDERED: ASPIRIN 81 MG CHEWABLE TABLETS ONE (11:14)
[2018-11-18] MEDS ORDERED: PANTOPRAZOLE 40 MG TABLET (FP) ONE (11:14)
[2018-11-18] MEDS: FERROUS SO4 325 MG TABLET (FP) PO SCH (12:00)
--- NOTE | 2018-11-18 12:04 | EKG ---
Test Reason : Blood Pressure : / mmHG Vent. Rate : 078 BPM Atrial Rate : 078 BPM P-R Int : 172 ms QRS Dur : 096 ms QT Int : 376 ms P-R-T Axes : 049 040 030 degrees QTc Int : 428 ms NORMAL SINUS RHYTHM NORMAL ECG WHEN COMPARED WITH ECG OF 10-APR-2018 15:04, NO SIGNIFICANT CHANGE WAS FOUND Confirmed by HELENA GARCIA MD ([id number]) on 11/18/2018 12:03:47 PM Referred By: Confirmed By:HELENA GARCIA MD
[2018-11-18] MEDS ORDERED: FERROUS SO4 325 MG TABLET (FP) ONE (12:22)
[2018-11-18 12:55] LABS: ALBUMIN 2.8 g/dl (3.4-5.0); BILIRUBIN,TOTAL 0.6 mg/dL (0.2-1); BLOOD UREA NITROGEN 17.6 mg/dL (7-18); CALCIUM 8.8 mg/dL (8.5-10.1); CREATININE 0.9 mg/dL (0.55-1.3); MAGNESIUM 1.5 mg/dL (1.8-2.4); PHOSPHOROUS 2.3 mg/dL (2.5-4.9); POTASSIUM 4.1 mmol/L (3.5-5.1); TOT PROT 6.8 g/dl (6.4-8.2)
[2018-11-18] MEDS ORDERED: ACETAMINOPHEN 325 MG TABLET (FP) ONE ×2 (13:11→19:53)
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
[2018-11-18] MEDS ORDERED: MEROPENEM 2 GM in DEXTROSE 5%-WATER 100 ML IVPB SCH (18:00)
--- NOTE | 2018-11-18 19:23 | PN ---
Teaching Attending Note Name of Resident: José Luis Michaud ATTENDING PHYSICIAN STATEMENT I saw and evaluated the patient. I reviewed the resident's note and discussed the case with the resident. I agree with the resident's findings and plan as documented. SUBJECTIVE: Seen and examined at bedside, complaining of bilateral foot pain. No other complaints. OBJECTIVE: Vital Signs Period Temp Pulse Resp BP Sys/Freitas Pulse Ox Last 24 Hr 97.6 F-98.4 F 76-86 18-20 122-141/64-76 95-97 PHYSICAL EXAM: Gen: NAD CVS: s1s2, rrr Lungs: CTA b/l, no w/r/r Abd: soft, obese, NT/ND Ext: bilateral feet are wrapped, bilateral LE erythema and warmth, b/l medial ankle ulcers, crusting in between toes Current Medications Generic Name Dose Route Start Last Admin Trade Name Freq PRN Reason Stop Dose Admin Acetaminophen 650 mg 11/18/18 07:00 11/18/18 13:10 Tylenol - PO 650 mg Q6H BRENDA Administration Al Hydroxide/Mg Hydroxide 30 ml 11/17/18 22:30 Mylanta Oral Suspension - PO PRN BRENDA Albuterol/Ipratropium 1 amp 11/18/18 08:00 11/18/18 08:28 Duoneb - NEB 1 amp RBID BRENDA Administration Aspirin 81 mg 11/18/18 10:00 11/18/18 11:00 Asa - PO 81 mg DAILY BRENDA Administration Bupropion HCl 150 mg 11/18/18 10:00 11/18/18 11:00 Wellbutrin - PO 150 mg BID BRENDA Administration Carbidopa/Levodopa 1 each 11/18/18 06:00 11/18/18 14:28 Sinemet 25/100 - PO 1 each TID BRENDA Administration Clonazepam 1.5 mg 11/18/18 22:00 Klonopin - PO HS BRENDA Cyclobenzaprine HCl 5 mg 11/18/18 06:00 11/18/18 14:28 Cyclobenzaprine Hcl PO 5 mg TID BRENDA Administration Ferrous Sulfate 325 mg 11/18/18 10:00 11/18/18 12:00 Feosol - PO 325 mg DAILY BRENDA Administration Fluticasone Propionate 2 spray 11/18/18 10:00 11/18/18 11:00 Flonase - NS 2 sprays DAILY BRENDA Administration Gabapentin 600 mg 11/18/18 06:00 11/18/18 14:28 Neurontin - PO 600 mg TID BRENDA Administration Heparin Sodium (Porcine) 5,000 unit 11/18/18 06:00 11/18/18 14:28 Heparin - SQ 5,000 unit TID BRENDA Administration Sodium Chloride 1,000 mls @ 42 mls/hr 11/17/18 20:57 11/17/18 22:00 Normal Saline - IV 11/18/18 20:45 42 mls/hr ASDIR ONE Administration Meropenem 2 gm/ Dextrose 100 mls @ 200 mls/hr 11/18/18 18:00 IVPB Q8H-IV BRENDA Vancomycin HCl 1,000 mg in 250 mls @ 166.667 mls/hr 11/18/18 10:00 11/18/18 12:40 Vancomycin (Pre-Docked) IVPB 11/18/18 23:29 166.667 mls/hr Q12H BRENDA Administration Ibuprofen 600 mg 11/18/18 06:55 Motrin - PO Q8H PRN PAIN Levothyroxine Sodium 125 mcg/ 225 mcg 11/18/18 07:00 11/18/18 06:59 Levothyroxine Sodium 100 mcg PO 225 mcg DAILY@0700 BRENDA Administration Methadone HCl 7.5 mg 11/17/18 22:30 11/18/18 15:03 Dolophine - PO 7.5 mg Q8H BRENDA Administration Morphine Sulfate 15 mg 11/18/18 06:55 Msir - PO Q6H PRN PAIN Multivitamins/Minerals/Vitamin C 1 tab 11/18/18 10:00 11/18/18 11:00 Tab-A-Vit - PO 1 tab DAILY BRENDA Administration Nitroglycerin 0.4 mg 11/17/18 22:16 Nitrostat - SL PRN PRN Chest pain Pantoprazole Sodium 40 mg 11/18/18 10:00 11/18/18 10:50 Protonix - PO 40 mg DAILY BRENDA Administration Pentoxifylline 300 mg 11/18/18 14:00 Trental - PO TID BRENDA Senna 2 tab 11/17/18 22:16 Senna - PO HS PRN CONSTIPATION Simethicone 80 mg 11/17/18 23:34 Mylicon - PO QID PRN GAS Vancomycin HCl 1,000 mg 11/18/18 10:00 Vancomycin (Pre-Docked) IVPB BID BRENDA Protocol Zolpidem Tartrate 10 mg 11/17/18 23:34 Ambien - PO HS PRN INSOMNIA Laboratory Results - last 24 hr 11/17/18 11/18/18 11/18/18 17:30 02:12 02:12 ESR 32 H Sodium 142 141 Potassium 4.2 4.1 Chloride 106 105 Carbon Dioxide 30 29 Anion Gap 6 L 7 L BUN 18.3 H 17.6 Creatinine 0.9 0.9 Est GFR (CKD-EPI)AfAm 106.46 106.46 Est GFR (CKD-EPI)NonAf 91.86 91.86 Random Glucose 100 103 Lactic Acid Calcium 9.3 8.8 Phosphorus 2.3 L Magnesium 1.5 L Total Bilirubin 0.4 0.6 AST 31 29 ALT 35 43 Alkaline Phosphatase 110 104 C-Reactive Protein 5.4 H Total Protein 7.2 6.8 Albumin 2.9 L 2.8 L TSH 0.65 11/18/18 02:12 ESR Sodium Potassium Chloride Carbon Dioxide Anion Gap BUN Creatinine Est GFR (CKD-EPI)AfAm Est GFR (CKD-EPI)NonAf Random Glucose Lactic Acid 1.2 Calcium Phosphorus Magnesium Total Bilirubin AST ALT Alkaline Phosphatase C-Reactive Protein Total Protein Albumin TSH Microbiology 11/17/18 17:30 Blood Culture - Preliminary Blood - Peripheral Venous NO GROWTH OBTAINED AFTER 24 HOURS, INCUBATION TO CONTINUE FOR 4 DAYS. 11/17/18 17:30 Blood Culture - Preliminary Blood - Peripheral Venous NO GROWTH OBTAINED AFTER 24 HOURS, INCUBATION TO CONTINUE FOR 4 DAYS. ASSESSMENT: Bilateral LE cellulitis PVD Chronic Pain Hypothyroid Parkinsonism HTN PLAN: IV abx pancultured MRI pending r/o osteo ID/vascular/wound care consults pain control synthroid sinemet
[2018-11-18] MEDS ORDERED: morphine SULFATE IMMEDIATE RELEASE 30 MG TAB ONE (20:00)
[2018-11-18] MEDS: morphine SULFATE IMMEDIATE RELEASE 30 MG TAB PO PRN (20:08)
[2018-11-18] MEDS ORDERED: ALBUTEROL SO4 2.5/IPRATROPIUM 0.5 INH SOL 3 ML VIAL.NEB. NEB ONE (20:12)
[2018-11-18] MEDS ORDERED: clonazePAM 0.5 MG TABLET ONE (21:25)
[2018-11-18] MEDS ORDERED: GABAPENTIN 100 MG CAPSULE (FP) ONE (21:26)
[2018-11-18] MEDS ORDERED: buPROPion HCL 100 MG TABLET ONE (21:27)
[2018-11-18] MEDS ORDERED: VANCOMYCIN 1 GRAM (PRE-DOCKED) 1,000 MG/250 ML BAG IVPB ONE (21:27)
[2018-11-18] MEDS: clonazePAM 0.5 MG TABLET PO SCH (21:48)
[2018-11-18] MEDS ORDERED: CLONAZEPAM 1.5 MG PO SCH (22:00)
[2018-11-18] MEDS ORDERED: PATIENT'S OWN MEDICATION (NON-FORMULARY) (Zolpidem Tartrate [Zolpidem Tartrate] 10 MG) PO SCH (22:00)
[2018-11-19] MEDS: ACETAMINOPHEN 325 MG TABLET (FP) PO SCH ×2 (02:13→06:10)
[2018-11-19] MEDS: morphine SULFATE IMMEDIATE RELEASE 30 MG TAB PO PRN (02:14)
[2018-11-19] MEDS ORDERED: LEVOTHYROXINE NA 125 MCG TABLET (FP) ONE (05:28)
[2018-11-19] MEDS ORDERED: LEVOTHYROXINE NA 100 MCG TABLET (FP) ONE (05:28)
[2018-11-19] MEDS ORDERED: METHADONE HCL 10 MG TABLET ONE (05:34)
[2018-11-19] MEDS: HEPARIN NA (PORCINE) 5,000 UNITS/ML 1ML VIAL SQ SCH ×3 (06:07→21:25)
[2018-11-19] MEDS: METHADONE HCL 5 MG TABLET PO SCH (06:09)
[2018-11-19] MEDS: GABAPENTIN 300 MG CAPSULE (FP) PO SCH ×3 (06:10→21:24)
[2018-11-19] MEDS: LEVOTHYROXINE 125 MCG, LEVOTHYROXINE 100 MCG PO SCH (06:11)
[2018-11-19] MEDS: CYCLOBENZAPRINE HCL 5 MG TABLET PO SCH ×3 (06:12→21:26)
[2018-11-19] MEDS: PENTOXIFYLLINE 400 MG TABLET.ER PO SCH ×3 (06:12→21:26)
[2018-11-19] MEDS: CARBIDOPA/LEVODOPA 25/100 TABLET (FP) PO SCH ×3 (06:12→21:25)
[2018-11-19] MEDS: ALBUTEROL SO4 2.5/IPRATROPIUM 0.5 INH SOL 3 ML VIAL.NEB. NEB SCH ×2 (08:00→20:15)
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
[2018-11-19] MEDS ORDERED: PT OWN MED DRAWER 7, Y5N ONE (10:05)
[2018-11-19] MEDS: MULTIVITAMINS (DAILY MVI) TABLET (FP) PO SCH (10:22)
[2018-11-19] MEDS: ASPIRIN 81 MG CHEWABLE TABLETS PO SCH (10:22)
[2018-11-19] MEDS: FERROUS SO4 325 MG TABLET (FP) PO SCH (10:24)
[2018-11-19] MEDS: PANTOPRAZOLE 40 MG TABLET (FP) PO SCH (10:24)
[2018-11-19] MEDS: buPROPion HCL 75 MG TABLET PO SCH ×2 (10:24→21:26)
[2018-11-19] MEDS: ACETAMINOPHEN 325 MG TABLET (FP) PO PRN (10:27)
[2018-11-19] MEDS: KETOROLAC TROMETHAMINE 15 MG/ML VIAL IVPUSH PRN ×3 (10:28→23:54)
[2018-11-19] MEDS: COLLAGENASE CLOSTRIDIUM HIST. 30 GRAMS TUBE TP SCH (11:00)
[2018-11-19] MEDS: FLUTICASONE PROP 0.05% 16 GM NASAL SPRAY NS SCH (13:37)
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
--- NOTE | 2018-11-19 15:08 | PN ---
Teaching Attending Note Name of Resident: José Luis Michaud ATTENDING PHYSICIAN STATEMENT I saw and evaluated the patient. I reviewed the resident's note and discussed the case with the resident. I agree with the resident's findings and plan as documented with exceptions below. SUBJECTIVE: Patient seen and examined, Still with bilateral leg pain, no fevers, chills noted. OBJECTIVE: Vital Signs Period Temp Pulse Resp BP Sys/Freitas Pulse Ox Last 24 Hr 97.3 F-98.9 F 68-76 18-20 122-146/67-93 96-100 Intake & Output 11/16/18 11/17/18 11/18/18 11/19/18 23:59 23:59 23:59 23:59 Intake Total 10 Balance 10 Weight 251 lb 255 lb 6.4 oz General: sitting in bed, no acute distress Chest: no rales or wheezing Abdomen;Soft, obese, NT Extremities: B/l 1+ pitting edema to mid calf. Legs unkept with moderate amount of heaped up skin and foul odor. Approximately 2cm x 2cm superficial ulcer over left lateral ankle. Wound bed with mixed fibrogranular tissue, scant serous drainage, + erythema of foot. R foot with approx 3.5x3.5cm ulcer at medial ankle, superficial. Wound bed with mixed fibrogranular tissue and scant serous drainage. Elvia-wound erythema. TTP. Palable DP bilat. PT not appreciated due to hypertrophic tissue/scarring. Home Medications Medication Instructions Recorded Aspirin [ASA -] 81 mg PO DAILY 02/27/18 Bupropion HCl [Bupropion HCl Sr] 150 mg PO BID 02/27/18 Clonazepam [Klonopin] 1.5 mg PO HS 02/27/18 Ferrous Sulfate 1 tab PO DAILY 02/27/18 Ipratropium/Albuterol Sulfate 3 ml IH BID 02/27/18 [Iprat-Albut 0.5-3(2.5) mg/3 ml] Levothyroxine [Synthroid -] 225 mcg PO DAILY 02/27/18 Sennosides [Senna] 17.2 mg PO HS PRN 02/27/18 Simethicone 125 mg PO QID PRN 02/27/18 Zolpidem Tartrate 10 mg PO HS 02/27/18 Morphine *Immediate Release* [Msir 15 mg PO Q6H PRN #10 tab MDD 3 08/04/18 -] Nitroglycerin 0.4 mg SL PRN PRN MDD 3 09/04/18 Nystatin Cream [Mycostatin Cream -] 1 applic TP BID 10/27/18 Cyclobenzaprine HCl 5 mg PO TID tablet 11/03/18 Ibuprofen [Motrin -] 600 mg PO Q8H PRN tablet 11/03/18 Acetaminophen [Tylenol -] 650 mg PO Q6H 11/17/18 Carbidopa/Levodopa 1 tab PO TID 11/17/18 [Carbidopa-Levodopa 25-100 Tab] Collagenase Clostridium Hist. 1 applic TP DAILY 11/17/18 [Santyl] Fluticasone Prop 0.05% Nasal 1 spray NS DAILY 11/17/18 [Flonase -] Gabapentin 600 mg PO TID 11/17/18 Mag Hydrox/Al Hydrox/Simeth 30 ml PO PRN 11/17/18 [Mylanta Oral Suspension -] Methadone [Dolophine -] 7.5 mg PO Q8H 11/17/18 Multivitamins [Tab-A-Vit -] 1 tab PO DAILY 11/17/18 Pantoprazole Sodium 40 mg PO DAILY 11/17/18 Pentoxifylline [Trental -] 300 mg PO TID 11/17/18 Active Medications Acetaminophen (Tylenol -) 650 mg PO Q6H PRN PRN Reason: PAIN LEVEL 1-5 Last Admin: 11/19/18 10:27 Dose: 650 mg Al Hydroxide/Mg Hydroxide (Mylanta Oral Suspension -) 30 ml PO PRN [facility] Albuterol/Ipratropium (Duoneb -) 1 amp NEB RBID [facility] Last Admin: 11/19/18 08:00 Dose: 1 amp Aspirin (Asa -) 81 mg PO DAILY [facility] Last Admin: 11/19/18 10:22 Dose: 81 mg Bupropion HCl (Wellbutrin -) 150 mg PO BID [facility] Last Admin: 11/19/18 10:24 Dose: 150 mg Carbidopa/Levodopa (Sinemet 25/100 -) 1 each PO TID [facility] Last Admin: 11/19/18 13:32 Dose: 1 each Clonazepam (Klonopin -) 1.5 mg PO HS [facility] Last Admin: 11/18/18 21:48 Dose: 1.5 mg Collagenase (Santyl -) 1 applic TP DAILY [facility]; Protocol Last Admin: 11/19/18 11:00 Dose: 1 applic Cyclobenzaprine HCl (Cyclobenzaprine Hcl) 5 mg PO TID [facility] Last Admin: 11/19/18 13:32 Dose: 5 mg Ferrous Sulfate (Feosol -) 325 mg PO DAILY [facility] Last Admin: 11/19/18 10:24 Dose: 325 mg Fluticasone Propionate (Flonase -) 2 spray NS DAILY [facility] Last Admin: 11/19/18 13:37 Dose: 2 sprays Gabapentin (Neurontin -) 600 mg PO TID [facility] Last Admin: 11/19/18 13:32 Dose: 600 mg Heparin Sodium (Porcine) (Heparin -) 5,000 unit SQ TID [facility] Last Admin: 11/19/18 13:32 Dose: 5,000 unit Meropenem 2 gm/ Dextrose 100 mls @ 200 mls/hr IVPB Q8H-IV [facility] Piperacillin Sod/Tazobactam (Sod 2.25 gm/ Dextrose) 50 mls @ 100 mls/hr IVPB Q8H-IV [facility]; Protocol Ketorolac Tromethamine (Toradol Injection -) 15 mg IVPUSH Q6H PRN PRN Reason: PAIN LEVEL 6-10 Stop: 11/24/18 08:16 Last Admin: 11/19/18 10:28 Dose: 15 mg Levothyroxine Sodium 125 mcg/ (Levothyroxine Sodium 100 mcg) 225 mcg PO DAILY@ 0700 [facility] Last Admin: 11/19/18 06:11 Dose: 225 mcg Methadone HCl (Dolophine -) 7.5 mg PO Q8H [facility] Multivitamins/Minerals/Vitamin C (Tab-A-Vit -) 1 tab PO DAILY [facility] Last Admin: 11/19/18 10:22 Dose: 1 tab Nitroglycerin (Nitrostat -) 0.4 mg SL PRN PRN PRN Reason: Chest pain Pantoprazole Sodium (Protonix -) 40 mg PO DAILY [facility] Last Admin: 11/19/18 10:24 Dose: 40 mg Pentoxifylline (Trental -) 400 mg PO TID [facility] Last Admin: 11/19/18 13:32 Dose: 400 mg Senna (Senna -) 2 tab PO HS PRN PRN Reason: CONSTIPATION Simethicone (Mylicon -) 80 mg PO QID PRN PRN Reason: GAS Vancomycin HCl (Vancomycin (Pre-Docked)) 1,000 mg IVPB BID [facility]; Protocol Zolpidem Tartrate (Ambien -) 10 mg PO HS PRN PRN Reason: INSOMNIA ASSESSMENT AND PLAN: 63 yom with HTN, chronic b/l LE ulcers, chronic venous stasis, venous HTN, 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 MRI bilateral LE. ESR/CRP. pain control, tylenol/toradol/methadone. Additional meds based on response. Wound care instructions noted. DVTPPX heparin Dispo pending clinical improvement.
[2018-11-19] MEDS: METHADONE HCL 5 MG TABLET (FOR PAIN ONLY) PO SCH ×2 (15:39→21:25)
[2018-11-19] MEDS ORDERED: MAGNESIUM SULF 50% (8.12 MEQ/2 ML-1 GM VIAL) IVPB ONE (16:55)
[2018-11-19] MEDS ORDERED: NAPH,MB-DB/K PH,MBDB POWDER PACKET PO ONE (16:55)
[2018-11-19] MEDS ORDERED: DEXTROSE 5%-WATER - 50 ML IVPB ONE (17:06)
[2018-11-19] MEDS ORDERED: PIPERACILLIN/TAZOBACTAM 2.25 GM VIAL IVPB ONE (17:06)
[2018-11-19] MEDS: PIPERACILLIN/TAZOB 2.25 GM 2.25 GM in DEXTROSE 5%-WATER - 50 ML IVPB SCH (17:20)
--- NOTE | 2018-11-19 20:04 | PN ---
Physical Exam: SUBJECTIVE: Patient seen and examined. Endorses BLE pain, improved from yesterday OBJECTIVE: Vital Signs Period Temp Pulse Resp BP Sys/Freitas Pulse Ox Last 24 Hr 97.3 F-98.9 F 68-76 18-20 125-146/67-93 98-100 GENERAL: AOx3. In NAD. HEENT: NCAT. Constricted pupils (pt received morphine). No scleral icterus. LUNGS: CTABL no incr work of breathing no crackles/ wheezing. HEART: Regular rate and rhythm, normal S1 and S2 without murmurs ABDOMEN: Obese, soft, nontender, normoactive bowel sounds, no guarding. MSK: LE decreased ROM b/l. Good ROM UE. UPPER EXTREMITIES: 2+ pulses palpated. LOWER EXTREMITIES: B/l LE erythema present, + weeping serous ulcerations surrounding LE below knee. No warmath to touch. Onychomycotic changes of toenails. Yellow/ brown drainage present interdigitally b/l. Medial malleolar wounds w/ thick serous drainage NEUROLOGICAL: Sensory intact b/l UE. Decreased sensation of BLE, dull sensation with decreased discrimination of fine touch PSYCHIATRIC: Appropriate mood and affect. SKIN: UE excoriations w/ dry flaky skin Active Medications Generic Name Dose Route Start Last Admin Trade Name Freq PRN Reason Stop Dose Admin Acetaminophen 650 mg 11/19/18 08:17 11/19/18 10:27 Tylenol - PO 650 mg Q6H PRN Administration PAIN LEVEL 1-5 Al Hydroxide/Mg Hydroxide 30 ml 11/17/18 22:30 Mylanta Oral Suspension - PO PRN [facility] Albuterol/Ipratropium 1 amp 11/18/18 08:00 11/19/18 08:00 Duoneb - NEB 1 amp RBID [facility] Administration Aspirin 81 mg 11/18/18 10:00 11/19/18 10:22 Asa - PO 81 mg DAILY [facility] Administration Bupropion HCl 150 mg 11/18/18 10:00 11/19/18 10:24 Wellbutrin - PO 150 mg BID [facility] Administration Carbidopa/Levodopa 1 each 11/18/18 06:00 11/19/18 13:32 Sinemet 25/100 - PO 1 each TID [facility] Administration Clonazepam 1.5 mg 11/18/18 22:00 11/18/18 21:48 Klonopin - PO 1.5 mg HS [facility] Administration Collagenase 1 applic 11/19/18 10:00 11/19/18 11:00 Santyl - TP 1 applic DAILY [facility] Administration Protocol Cyclobenzaprine HCl 5 mg 11/18/18 06:00 11/19/18 13:32 Cyclobenzaprine Hcl PO 5 mg TID [facility] Administration Ferrous Sulfate 325 mg 11/18/18 10:00 11/19/18 10:24 Feosol - PO 325 mg DAILY [facility] Administration Fluticasone Propionate 2 spray 11/18/18 10:00 11/19/18 13:37 Flonase - NS 2 sprays DAILY [facility] Administration Gabapentin 600 mg 11/18/18 06:00 11/19/18 13:32 Neurontin - PO 600 mg TID [facility] Administration Heparin Sodium (Porcine) 5,000 unit 11/18/18 06:00 11/19/18 13:32 Heparin - SQ 5,000 unit TID [facility] Administration Piperacillin Sod/Tazobactam 50 mls @ 100 mls/hr 11/19/18 18:00 11/19/18 17:20 Sod 2.25 gm/ Dextrose IVPB 100 mls/hr Q8H-IV [facility] Administration Protocol Ketorolac Tromethamine 15 mg 11/19/18 08:17 11/19/18 17:21 Toradol Injection - IVPUSH 11/24/18 08:16 15 mg Q6H PRN Administration PAIN LEVEL 6-10 Levothyroxine Sodium 125 mcg/ 225 mcg 11/18/18 07:00 11/19/18 06:11 Levothyroxine Sodium 100 mcg PO 225 mcg DAILY@0700 [facility] Administration Methadone HCl 7.5 mg 11/19/18 14:00 11/19/18 15:39 Dolophine - PO 7.5 mg Q8H [facility] Administration Multivitamins/Minerals/Vitamin C 1 tab 11/18/18 10:00 11/19/18 10:22 Tab-A-Vit - PO 1 tab DAILY [facility] Administration Nitroglycerin 0.4 mg 11/17/18 22:16 Nitrostat - SL PRN PRN Chest pain Pantoprazole Sodium 40 mg 11/18/18 10:00 11/19/18 10:24 Protonix - PO 40 mg DAILY [facility] Administration Pentoxifylline 400 mg 11/18/18 14:00 11/19/18 13:32 Trental - PO 400 mg TID [facility] Administration Senna 2 tab 11/17/18 22:16 Senna - PO HS PRN CONSTIPATION Simethicone 80 mg 11/17/18 23:34 Mylicon - PO QID PRN GAS Zolpidem Tartrate 10 mg 11/17/18 23:34 Ambien - PO HS PRN INSOMNIA ASSESSMENT/PLAN: 63 y.o. 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 #B/l LE cellulitis r/o osteomyelitis >ESR 32 --elevated >CRP 5.4 --elevated >foot/ankle XR(11/17/18) --Right: soft tissue ulceration/air concerning for OM --Left: chronic wound, possible OM >blood cultures, repeat wound cultures --NGTD -s/p 1 dose vanc 1.5g in ED -Cx's from previous wound cx: poly microbial (pseudomonas, klebsiella, enterobacter, proteus, staph) s/p recent zosyn/ vanc course -ABX: Meropenem + vancomycin - IVF 1L NS ordered -Dr. Daniels (ID) following --lexus -Dr. Alcantar (wound care) consulted --Recommend washing b/l le's daily with NS and 4x4s to remove heaped up skin --Keep gauze between toes, change daily --Xeroform to superficial ulcers --Apply santyl to venous stasis ulcers and cover with damp to dry and kerlix --LE elevation at all times while at rest --Offloading to areas of pressure at all times while at rest -Dr. [place] pain med consulted #Chronic pain -C/w home meds: methadone 7.5mg PO q8h, flexeril 5mg PO TID -ketorlac PRN if severe pain #Parkinsons disease -C/w carbidopa/ levodopa 25-100mg PO TID #GERD -C/w protonix 40mg PO daily #Asthma -C/w duonebs prn #Depression -C/w home meds: bupropion, klonopin, zolpidem #Hypothyroidism -F/u TSH -C/w home dose synthroid 225mcg PO daily #FEN -Sodium controlled diet #DVT PPX -Heparin SQ Visit type - Emergency Visit Emergency Visit: No - New Patient This patient is new to me today: No - Critical Care Critical Care patient: No ATTENDING PHYSICIAN STATEMENT I saw and evaluated the patient. I reviewed the resident's note and discussed the case with the resident. I agree with the resident's findings and plan as documented. SUBJECTIVE: OBJECTIVE: ASSESSMENT AND PLAN:
[2018-11-19] MEDS: clonazePAM 0.5 MG TABLET PO SCH (21:24)
[2018-11-20] MEDS ORDERED: DEXTROSE 5%-WATER - 50 ML IVPB ONE ×3 (00:59→17:10)
[2018-11-20] MEDS ORDERED: PIPERACILLIN/TAZOBACTAM 2.25 GM VIAL IVPB ONE ×3 (00:59→17:10)
[2018-11-20] MEDS: PIPERACILLIN/TAZOB 2.25 GM 2.25 GM in DEXTROSE 5%-WATER - 50 ML IVPB SCH ×3 (01:15→17:22)
[2018-11-20] MEDS ORDERED: PT OWN MED DRAWER 7, Y5N ONE ×5 (05:47→21:06)
[2018-11-20] MEDS ORDERED: LEVOTHYROXINE NA 100 MCG TABLET (FP) ONE (06:21)
[2018-11-20] MEDS ORDERED: LEVOTHYROXINE NA 125 MCG TABLET (FP) ONE (06:21)
[2018-11-20] MEDS: LEVOTHYROXINE 125 MCG, LEVOTHYROXINE 100 MCG PO SCH (06:25)
[2018-11-20] MEDS: CARBIDOPA/LEVODOPA 25/100 TABLET (FP) PO SCH ×3 (06:26→21:27)
[2018-11-20] MEDS: GABAPENTIN 300 MG CAPSULE (FP) PO SCH ×3 (06:26→21:25)
[2018-11-20] MEDS: HEPARIN NA (PORCINE) 5,000 UNITS/ML 1ML VIAL SQ SCH ×3 (06:26→21:26)
[2018-11-20] MEDS: CYCLOBENZAPRINE HCL 5 MG TABLET PO SCH ×3 (06:26→21:28)
[2018-11-20] MEDS: KETOROLAC TROMETHAMINE 15 MG/ML VIAL IVPUSH PRN ×2 (06:49→17:57)
[2018-11-20] MEDS: ALBUTEROL SO4 2.5/IPRATROPIUM 0.5 INH SOL 3 ML VIAL.NEB. NEB SCH ×2 (07:47→20:12)
[2018-11-20] MEDS: METHADONE HCL 5 MG TABLET PO SCH ×3 (08:01→22:18)
--- NOTE | 2018-11-20 08:04 | CONSULT ---
Consult - text type - Consultation Consultation Note: 63 y/o male with long history of non healing wound being seen by Dr. vaughn in wound care. Seen today for onychomycotic nails. States nails are very thick and painful. Also complain of callosities. O: nails elongated thickened x 10 painful to touch, discolored A: onychomycosis P: Evaluated and reviewed Will plan for nail care tomorrow Wound care per Dr. vaughn
[2018-11-20 09:41] LABS: BASO % 0.4 % (0-2.0); EOS % 5.6 % (0-4.5); HEMATOCRIT 39.3 % (35.4-49); HEMOGLOBIN 13.5 GM/dL (11.7-16.9); LYMPH % 36.6 % (8-40); MCH 31.3 pg (25.7-33.7); MCHC 34.2 g/dl (32.0-35.9); MEAN CELL VOLUME 91.3 fl (80-96); MEAN PLT VOLUME 7.3 fl (7.5-11.1); NEUT % 46.4 % (42.8-82.8); PLATELET COUNT 227 K/MM3 (134-434); RBC 4.31 M/mm3 (4.00-5.60); RDW 13.3 % (11.9-15.9)
[2018-11-20 10:18] LABS: ALBUMIN 2.7 g/dl (3.4-5.0); BILIRUBIN,TOTAL 0.4 mg/dL (0.2-1); CALCIUM 9.3 mg/dL (8.5-10.1); CREATININE 1.1 mg/dL (0.55-1.3); MAGNESIUM 1.8 mg/dL (1.8-2.4); PHOSPHOROUS 3.2 mg/dL (2.5-4.9); TOT PROT 7.2 g/dl (6.4-8.2)
[2018-11-20] MEDS: FLUTICASONE PROP 0.05% 16 GM NASAL SPRAY NS SCH (10:49)
[2018-11-20] MEDS: FERROUS SO4 325 MG TABLET (FP) PO SCH (10:49)
[2018-11-20] MEDS: PANTOPRAZOLE 40 MG TABLET (FP) PO SCH (10:49)
[2018-11-20] MEDS: ASPIRIN 81 MG CHEWABLE TABLETS PO SCH (10:49)
[2018-11-20] MEDS: COLLAGENASE CLOSTRIDIUM HIST. 30 GRAMS TUBE TP SCH (10:49)
[2018-11-20] MEDS: MULTIVITAMINS (DAILY MVI) TABLET (FP) PO SCH (10:49)
[2018-11-20] MEDS: buPROPion HCL 75 MG TABLET PO SCH ×2 (10:52→21:23)
--- NOTE | 2018-11-20 12:36 | PN ---
Progress Note, Physician History of Present Illness: c/o of pain in the legs podiatry on board - Current Medication List Current Medications: Active Medications Acetaminophen (Tylenol -) 650 mg PO Q6H PRN PRN Reason: PAIN LEVEL 1-5 Last Admin: 11/19/18 10:27 Dose: 650 mg Al Hydroxide/Mg Hydroxide (Mylanta Oral Suspension -) 30 ml PO PRN [facility] Albuterol/Ipratropium (Duoneb -) 1 amp NEB RBID [facility] Last Admin: 11/20/18 07:47 Dose: 1 amp Aspirin (Asa -) 81 mg PO DAILY [facility] Last Admin: 11/20/18 10:49 Dose: 81 mg Bupropion HCl (Wellbutrin -) 150 mg PO BID [facility] Last Admin: 11/20/18 10:52 Dose: 150 mg Carbidopa/Levodopa (Sinemet 25/100 -) 1 each PO TID [facility] Last Admin: 11/20/18 06:26 Dose: 1 each Clonazepam (Klonopin -) 1.5 mg PO HS [facility] Last Admin: 11/19/18 21:24 Dose: 1.5 mg Collagenase (Santyl -) 1 applic TP DAILY [facility]; Protocol Last Admin: 11/20/18 10:49 Dose: 1 applic Cyclobenzaprine HCl (Cyclobenzaprine Hcl) 5 mg PO TID [facility] Last Admin: 11/20/18 06:26 Dose: 5 mg Ferrous Sulfate (Feosol -) 325 mg PO DAILY [facility] Last Admin: 11/20/18 10:49 Dose: 325 mg Fluticasone Propionate (Flonase -) 2 spray NS DAILY [facility] Last Admin: 11/20/18 10:49 Dose: 2 sprays Gabapentin (Neurontin -) 600 mg PO TID [facility] Last Admin: 11/20/18 06:26 Dose: 600 mg Heparin Sodium (Porcine) (Heparin -) 5,000 unit SQ TID [facility] Last Admin: 11/20/18 06:26 Dose: 5,000 unit Piperacillin Sod/Tazobactam (Sod 2.25 gm/ Dextrose) 50 mls @ 100 mls/hr IVPB Q8H-IV [facility]; Protocol Last Admin: 11/20/18 10:49 Dose: 100 mls/hr Ketorolac Tromethamine (Toradol Injection -) 15 mg IVPUSH Q6H PRN PRN Reason: PAIN LEVEL 6-10 Stop: 11/24/18 08:16 Last Admin: 11/20/18 06:49 Dose: 15 mg Levothyroxine Sodium 125 mcg/ (Levothyroxine Sodium 100 mcg) 225 mcg PO DAILY@ 0700 [facility] Last Admin: 11/20/18 06:25 Dose: 225 mcg Methadone HCl (Dolophine -) 7.5 mg PO Q8H [facility] Last Admin: 11/20/18 08:01 Dose: 7.5 mg Multivitamins/Minerals/Vitamin C (Tab-A-Vit -) 1 tab PO DAILY [facility] Last Admin: 11/20/18 10:49 Dose: 1 tab Nitroglycerin (Nitrostat -) 0.4 mg SL PRN PRN PRN Reason: Chest pain Pantoprazole Sodium (Protonix -) 40 mg PO DAILY [facility] Last Admin: 11/20/18 10:49 Dose: 40 mg Pentoxifylline (Trental -) 400 mg PO TID [facility] Last Admin: 11/19/18 21:26 Dose: 400 mg Senna (Senna -) 2 tab PO HS PRN PRN Reason: CONSTIPATION Simethicone (Mylicon -) 80 mg PO QID PRN PRN Reason: GAS Zolpidem Tartrate (Ambien -) 10 mg PO HS PRN PRN Reason: INSOMNIA - Objective Vital Signs: Vital Signs Temperature 97.5 F L 11/20/18 06:00 Pulse Rate 72 11/20/18 06:00 Respiratory Rate 20 11/20/18 06:00 Blood Pressure 128/80 11/20/18 06:00 O2 Sat by Pulse Oximetry (%) 100 11/19/18 21:00 Constitutional: Yes: Calm, Mild Distress Cardiovascular: Yes: S1, S2 Respiratory: Yes: Regular, CTA Bilaterally Gastrointestinal: Yes: Normal Bowel Sounds, Soft Musculoskeletal: Yes: WNL Extremities: Yes: Erythema, Other Wound/Incision: Yes: Dressing Dry and Intact Psychiatric: Yes: Alert, Oriented Labs: CBC, BMP 11/20/18 09:15 11/20/18 09:15 INR, PTT INR 1.06 (0.83-1.09) 11/17/18 17:30 Assessment/Plan Problem List - Problems (1) Cellulitis Code(s): L03.90 - CELLULITIS, UNSPECIFIED Qualifiers: Site of cellulitis: extremity Site of cellulitis of extremity: lower extremity Laterality: left Qualified Code(s): L03.116 - Cellulitis of left lower limb (2) Idiopathic chronic venous hypertension of both lower extremities with ulcer and inflammation Code(s): I87.333 - CHRONIC VENOUS HTN W ULCER AND INFLAM OF BILATERAL LOW EXTRM ; L97.919 - NON-PRS CHRONIC ULC UNSP PRT OF R LOW LEG W UNSP SEVERITY; L97.929 - NON-PRS CHRONIC ULC UNSP PRT OF L LOW LEG W UNSP SEVERITY (3) Chronic pain Code(s): G89.29 - OTHER CHRONIC PAIN 4 onchomycosis plan continue abx wound care nystatin local application rest as per the team
[2018-11-20] MEDS: PENTOXIFYLLINE 400 MG TABLET.ER PO SCH ×2 (14:05→21:24)
--- NOTE | 2018-11-20 14:06 | PN ---
Teaching Attending Note Name of Resident: José Luis Michaud ATTENDING PHYSICIAN STATEMENT I saw and evaluated the patient. I reviewed the resident's note and discussed the case with the resident. I agree with the resident's findings and plan as documented with exceptions below. SUBJECTIVE: Patient seen and examined. No new complaints, requests if his pain meds can be more often. OBJECTIVE: Vital Signs Period Temp Pulse Resp BP Sys/Freitas Pulse Ox Last 24 Hr 97.5 F-97.7 F 70-80 20-20 120-128/79-80 100-100 Intake & Output 11/17/18 11/18/18 11/19/18 11/20/18 23:59 23:59 23:59 23:59 Intake Total 1060 450 Balance 1060 450 Weight 251 lb 255 lb 6.4 oz 252 lb 2 oz General: sitting in bed no acute distress Chest: no rales or wheezing Abdomen:Soft, NT, ND Extremities: bilateral 1+ pitting edema, some improvement in erythema, Superficial ulceration with denuded skin, wound bed with fibrogranular tissue and scant serous drainage, skin scarring, hypertrophy noted, onychomycosis Home Medications Medication Instructions Recorded Aspirin [ASA -] 81 mg PO DAILY 02/27/18 Bupropion HCl [Bupropion HCl Sr] 150 mg PO BID 02/27/18 Clonazepam [Klonopin] 1.5 mg PO HS 02/27/18 Ferrous Sulfate 1 tab PO DAILY 02/27/18 Ipratropium/Albuterol Sulfate 3 ml IH BID 02/27/18 [Iprat-Albut 0.5-3(2.5) mg/3 ml] Levothyroxine [Synthroid -] 225 mcg PO DAILY 02/27/18 Sennosides [Senna] 17.2 mg PO HS PRN 02/27/18 Simethicone 125 mg PO QID PRN 02/27/18 Zolpidem Tartrate 10 mg PO HS 02/27/18 Morphine *Immediate Release* [Msir 15 mg PO Q6H PRN #10 tab MDD 3 08/04/18 -] Nitroglycerin 0.4 mg SL PRN PRN MDD 3 09/04/18 Nystatin Cream [Mycostatin Cream -] 1 applic TP BID 10/27/18 Cyclobenzaprine HCl 5 mg PO TID tablet 11/03/18 Ibuprofen [Motrin -] 600 mg PO Q8H PRN tablet 11/03/18 Acetaminophen [Tylenol -] 650 mg PO Q6H 11/17/18 Carbidopa/Levodopa 1 tab PO TID 11/17/18 [Carbidopa-Levodopa 25-100 Tab] Collagenase Clostridium Hist. 1 applic TP DAILY 11/17/18 [Santyl] Fluticasone Prop 0.05% Nasal 1 spray NS DAILY 11/17/18 [Flonase -] Gabapentin 600 mg PO TID 11/17/18 Mag Hydrox/Al Hydrox/Simeth 30 ml PO PRN 11/17/18 [Mylanta Oral Suspension -] Methadone [Dolophine -] 7.5 mg PO Q8H 11/17/18 Multivitamins [Tab-A-Vit -] 1 tab PO DAILY 11/17/18 Pantoprazole Sodium 40 mg PO DAILY 11/17/18 Pentoxifylline [Trental -] 300 mg PO TID 11/17/18 Active Medications Acetaminophen (Tylenol -) 650 mg PO Q6H PRN PRN Reason: PAIN LEVEL 1-5 Last Admin: 11/19/18 10:27 Dose: 650 mg Al Hydroxide/Mg Hydroxide (Mylanta Oral Suspension -) 30 ml PO PRN [facility] Albuterol/Ipratropium (Duoneb -) 1 amp NEB RBID [facility] Last Admin: 11/20/18 07:47 Dose: 1 amp Aspirin (Asa -) 81 mg PO DAILY [facility] Last Admin: 11/20/18 10:49 Dose: 81 mg Bupropion HCl (Wellbutrin -) 150 mg PO BID [facility] Last Admin: 11/20/18 10:52 Dose: 150 mg Carbidopa/Levodopa (Sinemet 25/100 -) 1 each PO TID [facility] Last Admin: 11/20/18 14:05 Dose: 1 each Clonazepam (Klonopin -) 1.5 mg PO HS [facility] Last Admin: 11/19/18 21:24 Dose: 1.5 mg Collagenase (Santyl -) 1 applic TP DAILY [facility]; Protocol Last Admin: 11/20/18 10:49 Dose: 1 applic Cyclobenzaprine HCl (Cyclobenzaprine Hcl) 5 mg PO TID [facility] Last Admin: 11/20/18 14:05 Dose: 5 mg Ferrous Sulfate (Feosol -) 325 mg PO DAILY [facility] Last Admin: 11/20/18 10:49 Dose: 325 mg Fluticasone Propionate (Flonase -) 2 spray NS DAILY [facility] Last Admin: 11/20/18 10:49 Dose: 2 sprays Gabapentin (Neurontin -) 600 mg PO TID [facility] Last Admin: 11/20/18 14:05 Dose: 600 mg Heparin Sodium (Porcine) (Heparin -) 5,000 unit SQ TID [facility] Last Admin: 11/20/18 14:05 Dose: 5,000 unit Piperacillin Sod/Tazobactam (Sod 2.25 gm/ Dextrose) 50 mls @ 100 mls/hr IVPB Q8H-IV [facility]; Protocol Last Admin: 11/20/18 10:49 Dose: 100 mls/hr Ketorolac Tromethamine (Toradol Injection -) 15 mg IVPUSH Q6H PRN PRN Reason: PAIN LEVEL 6-10 Stop: 11/24/18 08:16 Last Admin: 11/20/18 06:49 Dose: 15 mg Levothyroxine Sodium 125 mcg/ (Levothyroxine Sodium 100 mcg) 225 mcg PO DAILY@ 0700 [facility] Last Admin: 11/20/18 06:25 Dose: 225 mcg Methadone HCl (Dolophine -) 7.5 mg PO Q8H [facility] Last Admin: 11/20/18 08:01 Dose: 7.5 mg Multivitamins/Minerals/Vitamin C (Tab-A-Vit -) 1 tab PO DAILY [facility] Last Admin: 11/20/18 10:49 Dose: 1 tab Nitroglycerin (Nitrostat -) 0.4 mg SL PRN PRN PRN Reason: Chest pain Pantoprazole Sodium (Protonix -) 40 mg PO DAILY [facility] Last Admin: 11/20/18 10:49 Dose: 40 mg Pentoxifylline (Trental -) 400 mg PO TID [facility] Last Admin: 11/20/18 14:05 Dose: 400 mg Senna (Senna -) 2 tab PO HS PRN PRN Reason: CONSTIPATION Simethicone (Mylicon -) 80 mg PO QID PRN PRN Reason: GAS Zolpidem Tartrate (Ambien -) 10 mg PO HS PRN PRN Reason: INSOMNIA Laboratory Results - last 24 hr 11/19/18 11/20/18 11/20/18 21:30 09:15 09:15 WBC 7.0 RBC 4.31 Hgb 13.5 Hct 39.3 MCV 91.3 MCH 31.3 MCHC 34.2 RDW 13.3 Plt Count 227 MPV 7.3 L Absolute Neuts (auto) 3.3 Neutrophils % 46.4 Lymphocytes % 36.6 Monocytes % 11.0 H Eosinophils % 5.6 H D Basophils % 0.4 Nucleated RBC % 0 ESR Sodium 138 Potassium 4.0 Chloride 103 Carbon Dioxide 30 Anion Gap 5 L BUN 22.0 H Creatinine 1.1 Est GFR (CKD-EPI)AfAm 83.53 Est GFR (CKD-EPI)NonAf 72.07 Random Glucose 123 H Calcium 9.3 Phosphorus 3.2 Magnesium 1.8 Total Bilirubin 0.4 AST 34 ALT 12 L Alkaline Phosphatase 107 C-Reactive Protein Total Protein 7.2 Albumin 2.7 L Vancomycin Pre-Dose 6.0 L 11/20/18 11/20/18 09:15 09:15 WBC RBC Hgb Hct MCV MCH MCHC RDW Plt Count MPV Absolute Neuts (auto) Neutrophils % Lymphocytes % Monocytes % Eosinophils % Basophils % Nucleated RBC % ESR 60 H Sodium Potassium Chloride Carbon Dioxide Anion Gap BUN Creatinine Est GFR (CKD-EPI)AfAm Est GFR (CKD-EPI)NonAf Random Glucose Calcium Phosphorus Magnesium Total Bilirubin AST ALT Alkaline Phosphatase C-Reactive Protein 5.1 H Total Protein Albumin Vancomycin Pre-Dose Microbiology 11/17/18 17:30 Blood - Peripheral Venous Blood Culture - Preliminary NO GROWTH OBTAINED AFTER 48 HOURS, INCUBATION TO CONTINUE FOR 3 DAYS. 11/17/18 17:30 Blood - Peripheral Venous Blood Culture - Preliminary NO GROWTH OBTAINED AFTER 48 HOURS, INCUBATION TO CONTINUE FOR 3 DAYS. ASSESSMENT AND PLAN: 63 yom with HTN, chronic b/l LE ulcers, chronic venous stasis, venous HTN, past TBI w/ mild MR, parkinsons disease, GERD, asthma, hypothyroidism and chronic pack & LE pain, admitted to [facility] 10/2018 with LE cellulitis, readmitted with worsening LE pain and cellulitis -Lower Extremity cellulitis -Chronic venous insufficiency -Bilateral lower extremity ulcers -Onychomycosis -HTN -TBI with mild MR -Parkinson's disease -GERD -Asthma -Hypothyroidism Plan: Vascular surgery/ID/Podiatry input noted. Zosyn per ID, follow up wound cultures. Wound care. MRI bilateral Lower extremity neg for osteomyelitis, pos cellulitis. ESR/CRP. pain control, tylenol/Toradol/methadone. DVTPPX heparin Dispo pending clinical improvement.
[2018-11-20 14:46] VITALS: BMI 31.5
--- NOTE | 2018-11-20 18:38 | PN ---
Physical Exam: SUBJECTIVE: Patient seen and examined. NAEON. Endorse BLE pain. Tolerating meals w/o issues OBJECTIVE: Vital Signs Period Temp Pulse Resp BP Sys/Freitas Pulse Ox Last 24 Hr 97.5 F-97.7 F 70-80 20-20 120-128/79-80 100-100 GENERAL: AOx3. In NAD. HEENT: NCAT. Constricted pupils (pt received morphine). No scleral icterus. LUNGS: CTABL no incr work of breathing no crackles/ wheezing. HEART: Regular rate and rhythm, normal S1 and S2 without murmurs ABDOMEN: Obese, soft, nontender, normoactive bowel sounds, no guarding. MSK: LE decreased ROM b/l. Good ROM UE. UPPER EXTREMITIES: 2+ pulses palpated. LOWER EXTREMITIES: B/l LE erythema present, + weeping serous ulcerations surrounding LE below knee. No warmath to touch. Onychomycotic changes of toenails. Yellow/ brown drainage present interdigitally b/l, greater on RLE. Medial malleolar wounds w/ thick serous drainage, no foul smell NEUROLOGICAL: Sensory intact b/l UE. Decreased sensation of BLE, dull sensation with decreased discrimination of fine touch PSYCHIATRIC: Appropriate mood and affect. SKIN: UE excoriations w/ dry flaky skin Laboratory Results - last 24 hr 11/19/18 11/20/18 11/20/18 21:30 09:15 09:15 WBC 7.0 RBC 4.31 Hgb 13.5 Hct 39.3 MCV 91.3 MCH 31.3 MCHC 34.2 RDW 13.3 Plt Count 227 MPV 7.3 L Absolute Neuts (auto) 3.3 Neutrophils % 46.4 Lymphocytes % 36.6 Monocytes % 11.0 H Eosinophils % 5.6 H D Basophils % 0.4 Nucleated RBC % 0 ESR Sodium 138 Potassium 4.0 Chloride 103 Carbon Dioxide 30 Anion Gap 5 L BUN 22.0 H Creatinine 1.1 Est GFR (CKD-EPI)AfAm 83.53 Est GFR (CKD-EPI)NonAf 72.07 Random Glucose 123 H Calcium 9.3 Phosphorus 3.2 Magnesium 1.8 Total Bilirubin 0.4 AST 34 ALT 12 L Alkaline Phosphatase 107 C-Reactive Protein Total Protein 7.2 Albumin 2.7 L Vancomycin Pre-Dose 6.0 L 11/20/18 11/20/18 09:15 09:15 WBC RBC Hgb Hct MCV MCH MCHC RDW Plt Count MPV Absolute Neuts (auto) Neutrophils % Lymphocytes % Monocytes % Eosinophils % Basophils % Nucleated RBC % ESR 60 H Sodium Potassium Chloride Carbon Dioxide Anion Gap BUN Creatinine Est GFR (CKD-EPI)AfAm Est GFR (CKD-EPI)NonAf Random Glucose Calcium Phosphorus Magnesium Total Bilirubin AST ALT Alkaline Phosphatase C-Reactive Protein 5.1 H Total Protein Albumin Vancomycin Pre-Dose Active Medications Generic Name Dose Route Start Last Admin Trade Name Freq PRN Reason Stop Dose Admin Acetaminophen 650 mg 11/19/18 08:17 11/19/18 10:27 Tylenol - PO 650 mg Q6H PRN Administration PAIN LEVEL 1-5 Al Hydroxide/Mg Hydroxide 30 ml 11/17/18 22:30 Mylanta Oral Suspension - PO PRN BRENDA Albuterol/Ipratropium 1 amp 11/18/18 08:00 11/20/18 07:47 Duoneb - NEB 1 amp RBID BRENDA Administration Aspirin 81 mg 11/18/18 10:00 11/20/18 10:49 Asa - PO 81 mg DAILY BRENDA Administration Bupropion HCl 150 mg 11/18/18 10:00 11/20/18 10:52 Wellbutrin - PO 150 mg BID BRENDA Administration Carbidopa/Levodopa 1 each 11/18/18 06:00 11/20/18 14:05 Sinemet 25/100 - PO 1 each TID BRENDA Administration Clonazepam 1.5 mg 11/18/18 22:00 11/19/18 21:24 Klonopin - PO 1.5 mg HS BRENDA Administration Collagenase 1 applic 11/19/18 10:00 11/20/18 10:49 Santyl - TP 1 applic DAILY BRENDA Administration Protocol Cyclobenzaprine HCl 5 mg 11/18/18 06:00 11/20/18 14:05 Cyclobenzaprine Hcl PO 5 mg TID BRENDA Administration Ferrous Sulfate 325 mg 11/18/18 10:00 11/20/18 10:49 Feosol - PO 325 mg DAILY BRENDA Administration Fluticasone Propionate 2 spray 11/18/18 10:00 11/20/18 10:49 Flonase - NS 2 sprays DAILY BRENDA Administration Gabapentin 600 mg 11/18/18 06:00 11/20/18 14:05 Neurontin - PO 600 mg TID BRENDA Administration Heparin Sodium (Porcine) 5,000 unit 11/18/18 06:00 11/20/18 14:05 Heparin - SQ 5,000 unit TID BRENDA Administration Piperacillin Sod/Tazobactam 50 mls @ 100 mls/hr 11/19/18 18:00 11/20/18 17:22 Sod 2.25 gm/ Dextrose IVPB 100 mls/hr Q8H-IV BRENDA Administration Protocol Ketorolac Tromethamine 15 mg 11/19/18 08:17 11/20/18 17:57 Toradol Injection - IVPUSH 11/24/18 08:16 15 mg Q6H PRN Administration PAIN LEVEL 6-10 Levothyroxine Sodium 125 mcg/ 225 mcg 11/18/18 07:00 11/20/18 06:25 Levothyroxine Sodium 100 mcg PO 225 mcg DAILY@0700 BRENDA Administration Methadone HCl 7.5 mg 11/20/18 07:06 11/20/18 15:23 Dolophine - PO 7.5 mg Q8H BRENDA Administration Multivitamins/Minerals/Vitamin C 1 tab 11/18/18 10:00 11/20/18 10:49 Tab-A-Vit - PO 1 tab DAILY BRENDA Administration Nitroglycerin 0.4 mg 11/17/18 22:16 Nitrostat - SL PRN PRN Chest pain Pantoprazole Sodium 40 mg 11/18/18 10:00 11/20/18 10:49 Protonix - PO 40 mg DAILY BRENDA Administration Pentoxifylline 400 mg 11/18/18 14:00 11/20/18 14:05 Trental - PO 400 mg TID BRENDA Administration Senna 2 tab 11/17/18 22:16 Senna - PO HS PRN CONSTIPATION Simethicone 80 mg 11/17/18 23:34 Mylicon - PO QID PRN GAS Zolpidem Tartrate 10 mg 11/17/18 23:34 Ambien - PO HS PRN INSOMNIA Vital Signs Temp 97.5 F L 11/20/18 12:00 Pulse 70 11/20/18 12:00 Resp 20 11/20/18 12:00 BP 120/80 11/20/18 12:00 Pulse Ox 100 11/20/18 09:00 Intake & Output 11/19/18 11/20/18 11/20/18 23:59 11:59 23:59 Intake Total 1050 450 50 Balance 1050 450 50 Weight 114.362 kg 114.305 kg Intake: IVPB 150 50 50 Oral 900 400 Other: Voiding Method Urinal Urinal # Unmeasured Voids Void 2 2 2 Bowel Movement No No Height 6 ft 3 in Body Mass Index (BMI) 31.5 Weight Measurement Method [facility] ASSESSMENT/PLAN: 63 y.o. 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 #B/l LE cellulitis r/o osteomyelitis >MRI(11/19/18): --RLE: mild cellulitis, NO soft tissue abscess, NO osteomyelitis --LLE: mild cellulitis, NO soft tissue abscess, NO osteomyelitis. 2.8cm possible ?enchondroma >ESR 32 --elevated >CRP 5.4 --elevated >foot/ankle XR(11/17/18) --Right: soft tissue ulceration/air concerning for OM --Left: chronic wound, possible OM >blood cultures, repeat wound cultures --NGTD -s/p 1 dose vanc 1.5g in ED -Cx's from previous wound cx: poly microbial (pseudomonas, klebsiella, enterobacter, proteus, staph) s/p recent zosyn/ vanc course -ABX: Meropenem + vancomycin - IVF 1L NS ordered -Dr. Daniels (ID) following --alicesymadi -Dr. Alcantar (wound care) consulted --Recommend washing b/l le's daily with NS and 4x4s to remove heaped up skin --Keep gauze between toes, change daily --Xeroform to superficial ulcers --Apply santyl to venous stasis ulcers and cover with damp to dry and kerlix --LE elevation at all times while at rest --Offloading to areas of pressure at all times while at rest -Dr. [place] pain med consulted #fungal toenails -ID: --nystatin local application #Chronic pain -C/w home meds: methadone 7.5mg PO q8h, flexeril 5mg PO TID -ketorlac PRN if severe pain #Parkinsons disease -C/w carbidopa/ levodopa 25-100mg PO TID #GERD -C/w protonix 40mg PO daily #Asthma -C/w duonebs prn #Depression -C/w home meds: bupropion, klonopin, zolpidem #Hypothyroidism -F/u TSH -C/w home dose synthroid 225mcg PO daily #FEN -Sodium controlled diet #DVT PPX -Heparin SQ Visit type - Emergency Visit Emergency Visit: No - New Patient This patient is new to me today: No - Critical Care Critical Care patient: No ATTENDING PHYSICIAN STATEMENT I saw and evaluated the patient. I reviewed the resident's note and discussed the case with the resident. I agree with the resident's findings and plan as documented. SUBJECTIVE: OBJECTIVE: ASSESSMENT AND PLAN:
[2018-11-20] MEDS: ZOLPIDEM TARTRATE 5 MG TABLET PO PRN (21:23)
[2018-11-20] MEDS: NYSTATIN 100,000 UNIT/GM TOPICAL CREAM 15 GM TUBE TP SCH (21:25)
[2018-11-20] MEDS: clonazePAM 0.5 MG TABLET PO SCH (21:27)
[2018-11-20] MEDS: ACETAMINOPHEN 325 MG TABLET (FP) PO PRN (21:28)
[2018-11-21] MEDS: KETOROLAC TROMETHAMINE 15 MG/ML VIAL IVPUSH PRN ×3 (00:57→19:59)
[2018-11-21] MEDS ORDERED: DEXTROSE 5%-WATER - 50 ML IVPB ONE ×3 (01:08→16:50)
[2018-11-21] MEDS ORDERED: PIPERACILLIN/TAZOBACTAM 2.25 GM VIAL IVPB ONE ×3 (01:08→16:50)
[2018-11-21] MEDS: PIPERACILLIN/TAZOB 2.25 GM 2.25 GM in DEXTROSE 5%-WATER - 50 ML IVPB SCH ×3 (01:10→17:49)
[2018-11-21] MEDS: ACETAMINOPHEN 325 MG TABLET (FP) PO PRN (04:07)
[2018-11-21] MEDS ORDERED: LEVOTHYROXINE NA 100 MCG TABLET (FP) ONE (06:13)
[2018-11-21] MEDS ORDERED: LEVOTHYROXINE NA 125 MCG TABLET (FP) ONE (06:14)
[2018-11-21] MEDS: METHADONE HCL 5 MG TABLET PO SCH ×3 (06:14→22:46)
[2018-11-21] MEDS: LEVOTHYROXINE 125 MCG, LEVOTHYROXINE 100 MCG PO SCH (06:14)
[2018-11-21] MEDS: CYCLOBENZAPRINE HCL 5 MG TABLET PO SCH ×3 (06:15→22:32)
[2018-11-21] MEDS: GABAPENTIN 300 MG CAPSULE (FP) PO SCH ×3 (06:15→22:31)
[2018-11-21] MEDS: CARBIDOPA/LEVODOPA 25/100 TABLET (FP) PO SCH ×3 (06:15→22:32)
[2018-11-21] MEDS: HEPARIN NA (PORCINE) 5,000 UNITS/ML 1ML VIAL SQ SCH ×3 (06:16→22:32)
[2018-11-21] MEDS: PENTOXIFYLLINE 400 MG TABLET.ER PO SCH ×4 (06:16→22:33)
[2018-11-21] MEDS: ALBUTEROL SO4 2.5/IPRATROPIUM 0.5 INH SOL 3 ML VIAL.NEB. NEB SCH ×2 (09:04→21:20)
[2018-11-21] MEDS ORDERED: PT OWN MED DRAWER 7, Y5N ONE ×4 (09:27→21:43)
[2018-11-21] MEDS: FERROUS SO4 325 MG TABLET (FP) PO SCH (09:35)
[2018-11-21] MEDS: PANTOPRAZOLE 40 MG TABLET (FP) PO SCH (09:35)
[2018-11-21] MEDS: MULTIVITAMINS (DAILY MVI) TABLET (FP) PO SCH (09:35)
[2018-11-21] MEDS: ASPIRIN 81 MG CHEWABLE TABLETS PO SCH (09:35)
[2018-11-21] MEDS: buPROPion HCL 75 MG TABLET PO SCH ×2 (09:37→22:33)
[2018-11-21] MEDS: NYSTATIN 100,000 UNIT/GM TOPICAL CREAM 15 GM TUBE TP SCH ×2 (09:38→22:33)
[2018-11-21] MEDS: FLUTICASONE PROP 0.05% 16 GM NASAL SPRAY NS SCH (09:39)
[2018-11-21] MEDS: COLLAGENASE CLOSTRIDIUM HIST. 30 GRAMS TUBE TP SCH (10:01)
--- NOTE | 2018-11-21 14:22 | PN ---
Physical Exam: SUBJECTIVE: Patient seen and examined, leg pain, asking for additional pain meds. OBJECTIVE: Vital Signs Period Temp Pulse Resp BP Sys/Freitas Pulse Ox Last 24 Hr 97.8 F-98.7 F 66-81 20-20 110-132/72-79 100 Intake & Output 11/18/18 11/19/18 11/20/18 11/21/18 23:59 23:59 23:59 23:59 Intake Total 1060 1050 350 Balance 1060 1050 350 Weight 255 lb 6.4 oz 252 lb 250 lb General: sitting in bed no acute distress Chest: no rales or wheezing Abdomen:Soft, NT, ND Extremities: bilateral 1+ pitting edema, some improvement in erythema, Superficial ulceration with denuded skin, wound bed with fibrogranular tissue and scant serous drainage, skin scarring, hypertrophy noted, onychomycosis Active Medications Generic Name Dose Route Start Last Admin Trade Name Freq PRN Reason Stop Dose Admin Acetaminophen 650 mg 11/19/18 08:17 11/21/18 04:07 Tylenol - PO 650 mg Q6H PRN Administration PAIN LEVEL 1-5 Al Hydroxide/Mg Hydroxide 30 ml 11/17/18 22:30 Mylanta Oral Suspension - PO PRN BRENDA Albuterol/Ipratropium 1 amp 11/18/18 08:00 11/21/18 09:04 Duoneb - NEB 1 amp RBID BRENDA Administration Aspirin 81 mg 11/18/18 10:00 11/21/18 09:35 Asa - PO 81 mg DAILY BRENDA Administration Bupropion HCl 150 mg 11/18/18 10:00 11/21/18 09:37 Wellbutrin - PO 150 mg BID BRENDA Administration Carbidopa/Levodopa 1 each 11/18/18 06:00 11/21/18 06:15 Sinemet 25/100 - PO 1 each TID BRENDA Administration Clonazepam 1.5 mg 11/18/18 22:00 11/20/18 21:27 Klonopin - PO 1.5 mg HS BRENDA Administration Collagenase 1 applic 11/19/18 10:00 11/21/18 10:01 Santyl - TP 1 applic DAILY BRENDA Administration Protocol Cyclobenzaprine HCl 5 mg 11/18/18 06:00 11/21/18 06:15 Cyclobenzaprine Hcl PO 5 mg TID BRENDA Administration Ferrous Sulfate 325 mg 11/18/18 10:00 11/21/18 09:35 Feosol - PO 325 mg DAILY BRENDA Administration Fluticasone Propionate 2 spray 11/18/18 10:00 11/21/18 09:39 Flonase - NS 2 sprays DAILY BRENDA Administration Gabapentin 600 mg 11/18/18 06:00 11/21/18 06:15 Neurontin - PO 600 mg TID BRENDA Administration Heparin Sodium (Porcine) 5,000 unit 11/18/18 06:00 11/21/18 06:16 Heparin - SQ 5,000 unit TID BRENDA Administration Piperacillin Sod/Tazobactam 50 mls @ 100 mls/hr 11/19/18 18:00 11/21/18 09:36 Sod 2.25 gm/ Dextrose IVPB 100 mls/hr Q8H-IV BRENDA Administration Protocol Ketorolac Tromethamine 15 mg 11/19/18 08:17 11/21/18 09:58 Toradol Injection - IVPUSH 11/24/18 08:16 15 mg Q6H PRN Administration PAIN LEVEL 6-10 Levothyroxine Sodium 125 mcg/ 225 mcg 11/18/18 07:00 11/21/18 06:14 Levothyroxine Sodium 100 mcg PO 225 mcg DAILY@0700 BRENDA Administration Methadone HCl 7.5 mg 11/20/18 07:06 11/21/18 06:14 Dolophine - PO 7.5 mg Q8H BRENDA Administration Morphine Sulfate 15 mg 11/21/18 13:18 Msir - PO Q6H PRN PAIN LEVEL 6-10 Multivitamins/Minerals/Vitamin C 1 tab 11/18/18 10:00 11/21/18 09:35 Tab-A-Vit - PO 1 tab DAILY BRENDA Administration Nitroglycerin 0.4 mg 11/17/18 22:16 Nitrostat - SL PRN PRN Chest pain Nystatin 1 applic 11/20/18 22:00 11/21/18 09:38 Mycostatin Cream - TP 1 applic BID BRENDA Administration Pantoprazole Sodium 40 mg 11/18/18 10:00 11/21/18 09:35 Protonix - PO 40 mg DAILY BRENDA Administration Pentoxifylline 400 mg 11/18/18 14:00 11/21/18 06:16 Trental - PO 400 mg TID BRENDA Administration Senna 2 tab 11/17/18 22:16 Senna - PO HS PRN CONSTIPATION Simethicone 80 mg 11/17/18 23:34 Mylicon - PO QID PRN GAS Zolpidem Tartrate 10 mg 11/17/18 23:34 11/20/18 21:23 Ambien - PO 10 mg HS PRN Administration INSOMNIA Microbiology 11/17/18 17:30 Blood - Peripheral Venous Blood Culture - Preliminary NO GROWTH OBTAINED AFTER 72 HOURS, INCUBATION TO CONTINUE FOR 2 DAYS. 11/17/18 17:30 Blood - Peripheral Venous Blood Culture - Preliminary NO GROWTH OBTAINED AFTER 72 HOURS, INCUBATION TO CONTINUE FOR 2 DAYS. 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 Zosyn per ID, follow up wound cultures. Wound care. MRI bilateral Lower extremity neg for osteomyelitis, pos cellulitis. ESR/CRP. pain control, tylenol/Toradol/methadone. Resume home morphine sulphate 15 mg q6n prn. DVTPPX heparin Dispo pending clinical improvement. Discussed with patient and nursing. Visit type - Emergency Visit Emergency Visit: Yes ED Registration Date: 11/19/18 Care time: The patient presented to the Emergency Department on the above date and was hospitalized for further evaluation of their emergent condition. - New Patient This patient is new to me today: No - Critical Care Critical Care patient: No - Discharge Referral Referred to [facility] Med P.C.: No
--- NOTE | 2018-11-21 15:04 | PN ---
Physical Exam: SUBJECTIVE: Patient seen and examined. He reports intense pain with tightness in the legs and ankles and has "not been able to assess the type of pain" he has. He denies fever, chills, chest pain, nausea, or vomiting. OBJECTIVE: Vital Signs Period Temp Pulse Resp BP Sys/Freitas Pulse Ox Last 24 Hr 97.8 F-98.7 F 66-81 20-20 110-132/72-79 100 GENERAL: The patient is awake, alert, and fully oriented, in mild distress. HEAD: Normal with no signs of trauma. EYES: PERRL, extraocular movements intact ENT: Ears normal, nares patent, moist mucous membranes. NECK: Trachea midline, full range of motion LUNGS: CTAB, no accessory muscle use. HEART: Regular rate and rhythm, no murmur ABDOMEN: Soft, nondistended, normoactive bowel sounds EXTREMITIES: Bilateral lower extremity erythema below knee with flaking skin on knee and upper shins. Oozing ulcers on medial surface proximal to ankles. Oncomycotic nails. PSYCH: Talking to himself before interview, tearful SKIN: above Active Medications Generic Name Dose Route Start Last Admin Trade Name Freq PRN Reason Stop Dose Admin Acetaminophen 650 mg 11/19/18 08:17 11/21/18 04:07 Tylenol - PO 650 mg Q6H PRN Administration PAIN LEVEL 1-5 Al Hydroxide/Mg Hydroxide 30 ml 11/17/18 22:30 Mylanta Oral Suspension - PO PRN BRENDA Albuterol/Ipratropium 1 amp 11/18/18 08:00 11/21/18 09:04 Duoneb - NEB 1 amp RBID BRENDA Administration Aspirin 81 mg 11/18/18 10:00 11/21/18 09:35 Asa - PO 81 mg DAILY BRENDA Administration Bupropion HCl 150 mg 11/18/18 10:00 11/21/18 09:37 Wellbutrin - PO 150 mg BID BRENDA Administration Carbidopa/Levodopa 1 each 11/18/18 06:00 11/21/18 06:15 Sinemet 25/100 - PO 1 each TID BRENDA Administration Clonazepam 1.5 mg 11/18/18 22:00 11/20/18 21:27 Klonopin - PO 1.5 mg HS BRENDA Administration Collagenase 1 applic 11/19/18 10:00 11/21/18 10:01 Santyl - TP 1 applic DAILY BRENDA Administration Protocol Cyclobenzaprine HCl 5 mg 11/18/18 06:00 11/21/18 06:15 Cyclobenzaprine Hcl PO 5 mg TID BRENDA Administration Ferrous Sulfate 325 mg 11/18/18 10:00 11/21/18 09:35 Feosol - PO 325 mg DAILY BRENDA Administration Fluticasone Propionate 2 spray 11/18/18 10:00 11/21/18 09:39 Flonase - NS 2 sprays DAILY BRENDA Administration Gabapentin 600 mg 11/18/18 06:00 11/21/18 06:15 Neurontin - PO 600 mg TID BRENDA Administration Heparin Sodium (Porcine) 5,000 unit 11/18/18 06:00 11/21/18 06:16 Heparin - SQ 5,000 unit TID BRENDA Administration Piperacillin Sod/Tazobactam 50 mls @ 100 mls/hr 11/19/18 18:00 11/21/18 09:36 Sod 2.25 gm/ Dextrose IVPB 100 mls/hr Q8H-IV BRENDA Administration Protocol Ketorolac Tromethamine 15 mg 11/19/18 08:17 11/21/18 09:58 Toradol Injection - IVPUSH 11/24/18 08:16 15 mg Q6H PRN Administration PAIN LEVEL 6-10 Levothyroxine Sodium 125 mcg/ 225 mcg 11/18/18 07:00 11/21/18 06:14 Levothyroxine Sodium 100 mcg PO 225 mcg DAILY@0700 BRENDA Administration Methadone HCl 7.5 mg 11/20/18 07:06 11/21/18 06:14 Dolophine - PO 7.5 mg Q8H BRENDA Administration Morphine Sulfate 15 mg 11/21/18 13:18 Msir - PO Q6H PRN PAIN LEVEL 6-10 Multivitamins/Minerals/Vitamin C 1 tab 11/18/18 10:00 11/21/18 09:35 Tab-A-Vit - PO 1 tab DAILY BRENDA Administration Nitroglycerin 0.4 mg 11/17/18 22:16 Nitrostat - SL PRN PRN Chest pain Nystatin 1 applic 11/20/18 22:00 11/21/18 09:38 Mycostatin Cream - TP 1 applic BID BRENDA Administration Pantoprazole Sodium 40 mg 11/18/18 10:00 11/21/18 09:35 Protonix - PO 40 mg DAILY BRENDA Administration Pentoxifylline 400 mg 11/18/18 14:00 11/21/18 06:16 Trental - PO 400 mg TID BRENDA Administration Senna 2 tab 11/17/18 22:16 Senna - PO HS PRN CONSTIPATION Simethicone 80 mg 11/17/18 23:34 Mylicon - PO QID PRN GAS Zolpidem Tartrate 10 mg 11/17/18 23:34 11/20/18 21:23 Ambien - PO 10 mg HS PRN Administration INSOMNIA ASSESSMENT/PLAN: Mr. 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 #bilateral LE cellulitis MRI negative for osteo. ESR/CRP elevation. Blood cultures negative. Prior wound cx: pseudomonas, klebsiella, enterobacter, proteus, staph s/p recent zosyn and vanc. oncomycosis present. -Zosyn day 3 -Nystatin -follow ESR/CRP -wound care -ID following -Podiatry following #chronic pain -continue home methadone 7.5mg PO q8h, flexeril 5mg PO TID -morphine IR PRN #Parkinson's disease -continue home carbidopa/ levodopa 25-100mg PO TID #GERD -continue protonix 40mg PO daily #ssthma -duonebs prn #depression -continue home bupropion #anxiety -continue home klonopin #insomnia -continue home zolpidem #hypothyroidism TSH 0.65 -continue Synthroid 225mcg PO daily FEN Sodium controlled diet DVT PPX Heparin SQ Dispo: possibly back to [place] upon clinical improvement Visit type - Emergency Visit Emergency Visit: Yes ED Registration Date: 11/19/18 Care time: The patient presented to the Emergency Department on the above date and was hospitalized for further evaluation of their emergent condition. - New Patient This patient is new to me today: Yes Date on this admission: 11/21/18 - Critical Care Critical Care patient: No - Discharge Referral Referred to [facility] Med P.C.: No ATTENDING PHYSICIAN STATEMENT I saw and evaluated the patient. I reviewed the resident's note and discussed the case with the resident. I agree with the resident's findings and plan as documented. SUBJECTIVE: OBJECTIVE: ASSESSMENT AND PLAN:
--- NOTE | 2018-11-21 20:21 | PN ---
Progress Note, Physician History of Present Illness: Pt is alert, afebrile. c/o LE pain b/l. No other specific complaints. - Current Medication List Current Medications: Active Medications Acetaminophen (Tylenol -) 650 mg PO Q6H PRN PRN Reason: PAIN LEVEL 1-5 Last Admin: 11/21/18 04:07 Dose: 650 mg Al Hydroxide/Mg Hydroxide (Mylanta Oral Suspension -) 30 ml PO PRN BRENDA Albuterol/Ipratropium (Duoneb -) 1 amp NEB RBID [facility] Last Admin: 11/21/18 09:04 Dose: 1 amp Aspirin (Asa -) 81 mg PO DAILY [facility] Last Admin: 11/21/18 09:35 Dose: 81 mg Bupropion HCl (Wellbutrin -) 150 mg PO BID [facility] Last Admin: 11/21/18 09:37 Dose: 150 mg Carbidopa/Levodopa (Sinemet 25/100 -) 1 each PO TID BRENDA Last Admin: 11/21/18 14:45 Dose: 1 each Clonazepam (Klonopin -) 1.5 mg PO HS [facility] Last Admin: 11/20/18 21:27 Dose: 1.5 mg Collagenase (Santyl -) 1 applic TP DAILY [facility]; Protocol Last Admin: 11/21/18 10:01 Dose: 1 applic Cyclobenzaprine HCl (Cyclobenzaprine Hcl) 5 mg PO TID [facility] Last Admin: 11/21/18 14:45 Dose: 5 mg Ferrous Sulfate (Feosol -) 325 mg PO DAILY BRENDA Last Admin: 11/21/18 09:35 Dose: 325 mg Fluticasone Propionate (Flonase -) 2 spray NS DAILY [facility] Last Admin: 11/21/18 09:39 Dose: 2 sprays Gabapentin (Neurontin -) 600 mg PO TID BRENDA Last Admin: 11/21/18 14:44 Dose: 600 mg Heparin Sodium (Porcine) (Heparin -) 5,000 unit SQ TID BRENDA Last Admin: 11/21/18 14:45 Dose: 5,000 unit Piperacillin Sod/Tazobactam (Sod 2.25 gm/ Dextrose) 50 mls @ 100 mls/hr IVPB Q8H-IV BRENDA; Protocol Last Admin: 11/21/18 17:49 Dose: 100 mls/hr Ketorolac Tromethamine (Toradol Injection -) 15 mg IVPUSH Q6H PRN PRN Reason: PAIN LEVEL 6-10 Stop: 11/24/18 08:16 Last Admin: 11/21/18 19:59 Dose: 15 mg Levothyroxine Sodium 125 mcg/ (Levothyroxine Sodium 100 mcg) 225 mcg PO DAILY@ 0700 [facility] Last Admin: 11/21/18 06:14 Dose: 225 mcg Methadone HCl (Dolophine -) 7.5 mg PO Q8H [facility] Last Admin: 11/21/18 15:44 Dose: 7.5 mg Morphine Sulfate (Msir -) 15 mg PO Q6H PRN PRN Reason: PAIN LEVEL 6-10 Multivitamins/Minerals/Vitamin C (Tab-A-Vit -) 1 tab PO DAILY [facility] Last Admin: 11/21/18 09:35 Dose: 1 tab Nitroglycerin (Nitrostat -) 0.4 mg SL PRN PRN PRN Reason: Chest pain Nystatin (Mycostatin Cream -) 1 applic TP BID [facility] Last Admin: 11/21/18 09:38 Dose: 1 applic Pantoprazole Sodium (Protonix -) 40 mg PO DAILY [facility] Last Admin: 11/21/18 09:35 Dose: 40 mg Pentoxifylline (Trental -) 400 mg PO TID [facility] Last Admin: 11/21/18 15:47 Dose: 400 mg Senna (Senna -) 2 tab PO HS PRN PRN Reason: CONSTIPATION Simethicone (Mylicon -) 80 mg PO QID PRN PRN Reason: GAS Zolpidem Tartrate (Ambien -) 10 mg PO HS PRN PRN Reason: INSOMNIA Last Admin: 11/20/18 21:23 Dose: 10 mg - Objective Vital Signs: Vital Signs Temperature 97.6 F 11/21/18 11:00 Pulse Rate 75 11/21/18 11:00 Respiratory Rate 18 11/21/18 11:00 Blood Pressure 130/79 11/21/18 11:00 O2 Sat by Pulse Oximetry (%) 100 11/21/18 08:02 Constitutional: Yes: No Distress, Calm Cardiovascular: Yes: Regular Rate and Rhythm Respiratory: Yes: Regular Gastrointestinal: Yes: Normal Bowel Sounds, Soft Genitourinary: Yes: WNL Extremities: Yes: Erythema Integumentary: Yes: WNL Wound/Incision: Yes: Other (b/l LE erythema/warmth, venous stasis ulcers with serous drainage, +tender) Neurological: Yes: Alert, Oriented Labs: CBC, BMP 11/20/18 09:15 11/20/18 09:15 INR, PTT INR 1.06 (0.83-1.09) 11/17/18 17:30 Microbiology 11/17/18 17:30 Blood - Peripheral Venous Blood Culture - Preliminary NO GROWTH OBTAINED AFTER 96 HOURS, INCUBATION TO CONTINUE FOR 1 DAYS. 11/17/18 17:30 Blood - Peripheral Venous Blood Culture - Preliminary NO GROWTH OBTAINED AFTER 96 HOURS, INCUBATION TO CONTINUE FOR 1 DAYS. - ....Imaging MRI: Report Reviewed Problem List - Problems (1) Chronic venous stasis Code(s): I87.8 - OTHER SPECIFIED DISORDERS OF VEINS (2) Ulcers of both lower extremities Code(s): L97.919 - NON-PRS CHRONIC ULC UNSP PRT OF R LOW LEG W UNSP SEVERITY; L97.929 - NON-PRS CHRONIC ULC UNSP PRT OF L LOW LEG W UNSP SEVERITY Qualifiers: Non-pressure ulcer stage: unspecified non-pressure ulcer stage Qualified Code(s): L97.919 - Non-pressure chronic ulcer of unspecified part of right lower leg with unspecified severity; L97.929 - Non-pressure chronic ulcer of unspecified part of left lower leg with unspecified severity (3) Cellulitis Code(s): L03.90 - CELLULITIS, UNSPECIFIED Qualifiers: Site of cellulitis: extremity Site of cellulitis of extremity: lower extremity Laterality: left Qualified Code(s): L03.116 - Cellulitis of left lower limb (4) HTN (hypertension) Code(s): I10 - ESSENTIAL (PRIMARY) HYPERTENSION (5) Idiopathic chronic venous hypertension of both lower extremities with ulcer and inflammation Code(s): I87.333 - CHRONIC VENOUS HTN W ULCER AND INFLAM OF BILATERAL LOW EXTRM ; L97.919 - NON-PRS CHRONIC ULC UNSP PRT OF R LOW LEG W UNSP SEVERITY; L97.929 - NON-PRS CHRONIC ULC UNSP PRT OF L LOW LEG W UNSP SEVERITY (6) Parkinsons disease Code(s): G20 - PARKINSON'S DISEASE Assessment/Plan LE cellulitis Chronic venous stasis -- MRI results noted, no obvious evidence of OM -- still with pain, mild warmth -- continue antibiotics -- continue wound care
[2018-11-21] MEDS: clonazePAM 0.5 MG TABLET PO SCH (22:31)
[2018-11-21] MEDS: morphine SULFATE IMMEDIATE RELEASE 30 MG TAB PO PRN (22:32)
[2018-11-22] MEDS ORDERED: DEXTROSE 5%-WATER - 50 ML IVPB ONE ×2 (02:33→09:51)
[2018-11-22] MEDS ORDERED: PIPERACILLIN/TAZOBACTAM 2.25 GM VIAL IVPB ONE ×2 (02:33→09:51)
[2018-11-22] MEDS: ACETAMINOPHEN 325 MG TABLET (FP) PO PRN ×2 (02:51→21:44)
[2018-11-22] MEDS: PIPERACILLIN/TAZOB 2.25 GM 2.25 GM in DEXTROSE 5%-WATER - 50 ML IVPB SCH ×2 (02:52→09:59)
[2018-11-22] MEDS: KETOROLAC TROMETHAMINE 15 MG/ML VIAL IVPUSH PRN ×2 (03:50→04:21)
[2018-11-22] MEDS ORDERED: diphenhydrAMINE HCL 25 MG CAPSULE (FP) PO ONE ×2 (04:22→20:07)
[2018-11-22] MEDS ORDERED: LEVOTHYROXINE NA 100 MCG TABLET (FP) ONE (06:21)
[2018-11-22] MEDS ORDERED: LEVOTHYROXINE NA 125 MCG TABLET (FP) ONE (06:22)
[2018-11-22] MEDS: METHADONE HCL 5 MG TABLET PO SCH ×3 (06:30→22:06)
[2018-11-22] MEDS: CYCLOBENZAPRINE HCL 5 MG TABLET PO SCH ×3 (06:31→21:46)
[2018-11-22] MEDS: LEVOTHYROXINE 125 MCG, LEVOTHYROXINE 100 MCG PO SCH (06:32)
[2018-11-22] MEDS: PENTOXIFYLLINE 400 MG TABLET.ER PO SCH ×3 (06:32→21:47)
[2018-11-22] MEDS: GABAPENTIN 300 MG CAPSULE (FP) PO SCH ×3 (06:32→21:46)
[2018-11-22] MEDS: HEPARIN NA (PORCINE) 5,000 UNITS/ML 1ML VIAL SQ SCH ×3 (06:33→21:43)
[2018-11-22] MEDS: CARBIDOPA/LEVODOPA 25/100 TABLET (FP) PO SCH ×3 (06:33→21:43)
[2018-11-22] MEDS: ALBUTEROL SO4 2.5/IPRATROPIUM 0.5 INH SOL 3 ML VIAL.NEB. NEB SCH ×2 (08:49→21:06)
[2018-11-22] MEDS: morphine SULFATE IMMEDIATE RELEASE 30 MG TAB PO PRN ×2 (09:58→16:56)
[2018-11-22] MEDS: MULTIVITAMINS (DAILY MVI) TABLET (FP) PO SCH (09:58)
[2018-11-22] MEDS: FERROUS SO4 325 MG TABLET (FP) PO SCH (09:58)
[2018-11-22] MEDS: PANTOPRAZOLE 40 MG TABLET (FP) PO SCH (09:58)
[2018-11-22] MEDS: ASPIRIN 81 MG CHEWABLE TABLETS PO SCH (09:58)
[2018-11-22] MEDS: buPROPion HCL 75 MG TABLET PO SCH ×2 (10:02→21:47)
[2018-11-22] MEDS: FLUTICASONE PROP 0.05% 16 GM NASAL SPRAY NS SCH (10:03)
[2018-11-22] MEDS: COLLAGENASE CLOSTRIDIUM HIST. 30 GRAMS TUBE TP SCH (10:03)
[2018-11-22] MEDS: NYSTATIN 100,000 UNIT/GM TOPICAL CREAM 15 GM TUBE TP SCH ×2 (10:03→21:46)
--- NOTE | 2018-11-22 13:13 | PN ---
Physical Exam: SUBJECTIVE: Patient seen and examined, leg pain better, no new complaints. OBJECTIVE: Vital Signs Period Temp Pulse Resp BP Sys/Freitas Pulse Ox Last 24 Hr 98.1 F-98.2 F 68-77 19-20 107-120/70-75 Intake & Output 11/19/18 11/20/18 11/21/18 11/22/18 23:59 23:59 23:59 23:59 Intake Total 1060 1050 820 930 Output Total 300 200 Balance 1060 1050 520 730 Weight 255 lb 6.4 oz 252 lb 250 lb 250 lb General: sitting in bed no acute distress neck: soft, supple HEENT; PERRL CVS:S1S2 regular Chest: no rales or wheezing Abdomen:Soft, NT, ND Extremities: bilateral 1+ pitting edema, some improvement in erythema, Superficial ulceration with denuded skin, wound bed with fibrogranular tissue and scant serous drainage, skin scarring, hypertrophy noted, onychomycosis Active Medications Generic Name Dose Route Start Last Admin Trade Name Freq PRN Reason Stop Dose Admin Acetaminophen 650 mg 11/19/18 08:17 11/22/18 02:51 Tylenol - PO 650 mg Q6H PRN Administration PAIN LEVEL 1-5 Al Hydroxide/Mg Hydroxide 30 ml 11/17/18 22:30 Mylanta Oral Suspension - PO PRN BRENDA Albuterol/Ipratropium 1 amp 11/18/18 08:00 11/22/18 08:49 Duoneb - NEB 1 amp RBID BRENDA Administration Aspirin 81 mg 11/18/18 10:00 11/22/18 09:58 Asa - PO 81 mg DAILY BRENDA Administration Bupropion HCl 150 mg 11/18/18 10:00 11/22/18 10:02 Wellbutrin - PO 150 mg BID BRENDA Administration Carbidopa/Levodopa 1 each 11/18/18 06:00 11/22/18 06:33 Sinemet 25/100 - PO 1 each TID BRENDA Administration Clonazepam 1.5 mg 11/18/18 22:00 11/21/18 22:31 Klonopin - PO 1.5 mg HS BRENDA Administration Collagenase 1 applic 11/19/18 10:00 11/22/18 10:03 Santyl - TP 1 applic DAILY BRENDA Administration Protocol Cyclobenzaprine HCl 5 mg 11/18/18 06:00 11/22/18 06:31 Cyclobenzaprine Hcl PO 5 mg TID BRENDA Administration Ferrous Sulfate 325 mg 11/18/18 10:00 11/22/18 09:58 Feosol - PO 325 mg DAILY BRENDA Administration Fluticasone Propionate 2 spray 11/18/18 10:00 11/22/18 10:03 Flonase - NS 2 sprays DAILY BRENDA Administration Gabapentin 600 mg 11/18/18 06:00 11/22/18 06:32 Neurontin - PO 600 mg TID BRENDA Administration Heparin Sodium (Porcine) 5,000 unit 11/18/18 06:00 11/22/18 06:33 Heparin - SQ 5,000 unit TID BRENDA Administration Piperacillin Sod/Tazobactam 50 mls @ 100 mls/hr 11/19/18 18:00 11/22/18 09:59 Sod 2.25 gm/ Dextrose IVPB 100 mls/hr Q8H-IV BRENDA Administration Protocol Ketorolac Tromethamine 15 mg 11/19/18 08:17 11/22/18 04:21 Toradol Injection - IVPUSH 11/24/18 08:16 15 mg Q6H PRN Administration PAIN LEVEL 6-10 Levothyroxine Sodium 125 mcg/ 225 mcg 11/18/18 07:00 11/22/18 06:32 Levothyroxine Sodium 100 mcg PO 225 mcg DAILY@0700 BRENDA Administration Methadone HCl 7.5 mg 11/20/18 07:06 11/22/18 06:30 Dolophine - PO 7.5 mg Q8H BRENDA Administration Morphine Sulfate 15 mg 11/21/18 13:18 11/22/18 09:58 Msir - PO 15 mg Q6H PRN Administration PAIN LEVEL 6-10 Multivitamins/Minerals/Vitamin C 1 tab 11/18/18 10:00 11/22/18 09:58 Tab-A-Vit - PO 1 tab DAILY BRENDA Administration Nitroglycerin 0.4 mg 11/17/18 22:16 Nitrostat - SL PRN PRN Chest pain Nystatin 1 applic 11/20/18 22:00 11/22/18 10:03 Mycostatin Cream - TP 1 applic BID BRENDA Administration Pantoprazole Sodium 40 mg 11/18/18 10:00 11/22/18 09:58 Protonix - PO 40 mg DAILY BRENDA Administration Pentoxifylline 400 mg 11/18/18 14:00 11/22/18 06:32 Trental - PO 400 mg TID BRENDA Administration Senna 2 tab 11/17/18 22:16 Senna - PO HS PRN CONSTIPATION Simethicone 80 mg 11/17/18 23:34 Mylicon - PO QID PRN GAS Zolpidem Tartrate 10 mg 11/17/18 23:34 11/20/18 21:23 Ambien - PO 10 mg HS PRN Administration INSOMNIA Microbiology 11/17/18 17:30 Blood - Peripheral Venous Blood Culture - Preliminary NO GROWTH OBTAINED AFTER 96 HOURS, INCUBATION TO CONTINUE FOR 1 DAYS. 11/17/18 17:30 Blood - Peripheral Venous Blood Culture - Preliminary NO GROWTH OBTAINED AFTER 96 HOURS, INCUBATION TO CONTINUE FOR 1 DAYS. 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 Zosyn per ID, follow up wound cultures. Wound care. MRI bilateral Lower extremity neg for osteomyelitis, pos cellulitis. ESR/CRP. pain control, tylenol/Toradol/methadone/home morphine sulphate 15 mg q6n prn. DVTPPX heparin Dispo transition to PO abx in 24-48 hours if improved, pending ID input. Discussed with patient and nursing. Visit type - Emergency Visit Emergency Visit: Yes ED Registration Date: 11/19/18 Care time: The patient presented to the Emergency Department on the above date and was hospitalized for further evaluation of their emergent condition. - New Patient This patient is new to me today: No - Critical Care Critical Care patient: No - Discharge Referral Referred to [facility] Med P.C[facility] No
--- NOTE | 2018-11-22 15:49 | PN ---
Progress Note, Physician History of Present Illness: No new complaints. - Current Medication List Current Medications: Active Medications Acetaminophen (Tylenol -) 650 mg PO Q6H PRN PRN Reason: PAIN LEVEL 1-5 Last Admin: 11/22/18 02:51 Dose: 650 mg Al Hydroxide/Mg Hydroxide (Mylanta Oral Suspension -) 30 ml PO PRN [facility] Albuterol/Ipratropium (Duoneb -) 1 amp NEB RBID [facility] Last Admin: 11/22/18 08:49 Dose: 1 amp Aspirin (Asa -) 81 mg PO DAILY [facility] Last Admin: 11/22/18 09:58 Dose: 81 mg Bupropion HCl (Wellbutrin -) 150 mg PO BID [facility] Last Admin: 11/22/18 10:02 Dose: 150 mg Carbidopa/Levodopa (Sinemet 25/100 -) 1 each PO TID [facility] Last Admin: 11/22/18 13:42 Dose: 1 each Clonazepam (Klonopin -) 1.5 mg PO HS [facility] Last Admin: 11/21/18 22:31 Dose: 1.5 mg Collagenase (Santyl -) 1 applic TP DAILY [facility]; Protocol Last Admin: 11/22/18 10:03 Dose: 1 applic Cyclobenzaprine HCl (Cyclobenzaprine Hcl) 5 mg PO TID [facility] Last Admin: 11/22/18 13:40 Dose: 5 mg Ferrous Sulfate (Feosol -) 325 mg PO DAILY [facility] Last Admin: 11/22/18 09:58 Dose: 325 mg Fluticasone Propionate (Flonase -) 2 spray NS DAILY [facility] Last Admin: 11/22/18 10:03 Dose: 2 sprays Gabapentin (Neurontin -) 600 mg PO TID [facility] Last Admin: 11/22/18 13:42 Dose: 600 mg Heparin Sodium (Porcine) (Heparin -) 5,000 unit SQ TID [facility] Last Admin: 11/22/18 13:41 Dose: 5,000 unit Ketorolac Tromethamine (Toradol Injection -) 15 mg IVPUSH Q6H PRN PRN Reason: PAIN LEVEL 6-10 Stop: 11/24/18 08:16 Last Admin: 11/22/18 04:21 Dose: 15 mg Lactulose (Cephulac (Oral Use)) 20 gm PO Q8H PRN PRN Reason: CONSTIPATION Levothyroxine Sodium 125 mcg/ (Levothyroxine Sodium 100 mcg) 225 mcg PO DAILY@ 0700 [facility] Last Admin: 11/22/18 06:32 Dose: 225 mcg Methadone HCl (Dolophine -) 7.5 mg PO Q8H [facility] Last Admin: 11/22/18 15:14 Dose: 7.5 mg Morphine Sulfate (Msir -) 15 mg PO Q6H PRN PRN Reason: PAIN LEVEL 6-10 Last Admin: 11/22/18 09:58 Dose: 15 mg Multivitamins/Minerals/Vitamin C (Tab-A-Vit -) 1 tab PO DAILY [facility] Last Admin: 11/22/18 09:58 Dose: 1 tab Nitroglycerin (Nitrostat -) 0.4 mg SL PRN PRN PRN Reason: Chest pain Nystatin (Mycostatin Cream -) 1 applic TP BID [facility] Last Admin: 11/22/18 10:03 Dose: 1 applic Pantoprazole Sodium (Protonix -) 40 mg PO DAILY [facility] Last Admin: 11/22/18 09:58 Dose: 40 mg Pentoxifylline (Trental -) 400 mg PO TID [facility] Last Admin: 11/22/18 13:40 Dose: 400 mg Senna (Senna -) 2 tab PO HS PRN PRN Reason: CONSTIPATION Simethicone (Mylicon -) 80 mg PO QID PRN PRN Reason: GAS Zolpidem Tartrate (Ambien -) 10 mg PO HS PRN PRN Reason: INSOMNIA Last Admin: 11/20/18 21:23 Dose: 10 mg - Objective Vital Signs: Vital Signs Temperature 98.2 F 11/22/18 05:28 Pulse Rate 76 11/22/18 11:00 Respiratory Rate 20 11/22/18 11:00 Blood Pressure 120/70 11/22/18 11:00 O2 Sat by Pulse Oximetry (%) 100 11/21/18 08:02 Constitutional: Yes: No Distress, Moderate Distress Cardiovascular: Yes: Regular Rate and Rhythm Respiratory: Yes: Regular Gastrointestinal: Yes: Normal Bowel Sounds, Soft, Abdomen, Obese Wound/Incision: Yes: Other (b/l LE edema/erythema/ mild warmth, +serous drainage ) Labs: CBC, BMP 11/20/18 09:15 11/20/18 09:15 INR, PTT INR 1.06 (0.83-1.09) 11/17/18 17:30 Problem List - Problems (1) Chronic venous stasis Code(s): I87.8 - OTHER SPECIFIED DISORDERS OF VEINS (2) Ulcers of both lower extremities Code(s): L97.919 - NON-PRS CHRONIC ULC UNSP PRT OF R LOW LEG W UNSP SEVERITY; L97.929 - NON-PRS CHRONIC ULC UNSP PRT OF L LOW LEG W UNSP SEVERITY Qualifiers: Non-pressure ulcer stage: unspecified non-pressure ulcer stage Qualified Code(s): L97.919 - Non-pressure chronic ulcer of unspecified part of right lower leg with unspecified severity; L97.929 - Non-pressure chronic ulcer of unspecified part of left lower leg with unspecified severity (3) Cellulitis Code(s): L03.90 - CELLULITIS, UNSPECIFIED Qualifiers: Site of cellulitis: extremity Site of cellulitis of extremity: lower extremity Laterality: left Qualified Code(s): L03.116 - Cellulitis of left lower limb (4) HTN (hypertension) Code(s): I10 - ESSENTIAL (PRIMARY) HYPERTENSION (5) Idiopathic chronic venous hypertension of both lower extremities with ulcer and inflammation Code(s): I87.333 - CHRONIC VENOUS HTN W ULCER AND INFLAM OF BILATERAL LOW EXTRM ; L97.919 - NON-PRS CHRONIC ULC UNSP PRT OF R LOW LEG W UNSP SEVERITY; L97.929 - NON-PRS CHRONIC ULC UNSP PRT OF L LOW LEG W UNSP SEVERITY (6) Parkinsons disease Code(s): G20 - PARKINSON'S DISEASE Assessment/Plan LE cellulitis Chronic venous stasis -- Zosyn dose adjusted -- still with pain, mild warmth - improving -- continue wound care
[2018-11-22] MEDS: LACTULOSE 20 GM/30 ML UDC (FOR ORAL USE ONLY) PO PRN (16:57)
[2018-11-22] MEDS: PIPERACILLIN/TAZOB 3.375 GM 3.375 GM in DEXTROSE 5%-WATER - 50 ML IVPB SCH (17:52)
[2018-11-22] MEDS: clonazePAM 0.5 MG TABLET PO SCH (21:44)
[2018-11-22] MEDS: ZOLPIDEM TARTRATE 5 MG TABLET PO PRN (21:45)
[2018-11-23] MEDS: KETOROLAC TROMETHAMINE 15 MG/ML VIAL IVPUSH PRN ×2 (00:40→22:13)
[2018-11-23] MEDS ORDERED: PIPERACILLIN/TAZOBACTAM 3.375 GM VIAL IVPB ONE ×3 (02:37→18:11)
[2018-11-23] MEDS: morphine SULFATE IMMEDIATE RELEASE 30 MG TAB PO PRN ×3 (02:38→17:17)
[2018-11-23] MEDS: PIPERACILLIN/TAZOB 3.375 GM 3.375 GM in DEXTROSE 5%-WATER - 50 ML IVPB SCH ×3 (02:39→18:00)
[2018-11-23] MEDS ORDERED: LEVOTHYROXINE NA 100 MCG TABLET (FP) ONE (06:08)
[2018-11-23] MEDS ORDERED: LEVOTHYROXINE NA 125 MCG TABLET (FP) ONE (06:08)
[2018-11-23] MEDS: HEPARIN NA (PORCINE) 5,000 UNITS/ML 1ML VIAL SQ SCH ×3 (06:14→21:50)
[2018-11-23] MEDS: PENTOXIFYLLINE 400 MG TABLET.ER PO SCH ×3 (06:15→21:53)
[2018-11-23] MEDS: ACETAMINOPHEN 325 MG TABLET (FP) PO PRN (06:15)
[2018-11-23] MEDS: METHADONE HCL 5 MG TABLET PO SCH ×3 (06:16→22:12)
[2018-11-23] MEDS: GABAPENTIN 300 MG CAPSULE (FP) PO SCH ×3 (06:17→21:50)
[2018-11-23] MEDS: LEVOTHYROXINE 125 MCG, LEVOTHYROXINE 100 MCG PO SCH (06:17)
[2018-11-23] MEDS: CARBIDOPA/LEVODOPA 25/100 TABLET (FP) PO SCH ×3 (06:17→21:50)
[2018-11-23] MEDS: CYCLOBENZAPRINE HCL 5 MG TABLET PO SCH ×3 (06:25→21:49)
[2018-11-23] MEDS: ALBUTEROL SO4 2.5/IPRATROPIUM 0.5 INH SOL 3 ML VIAL.NEB. NEB SCH ×2 (07:10→20:35)
[2018-11-23 08:24] LABS: BASO % 0.3 % (0-2.0); EOS % 3.3 % (0-4.5); HEMOGLOBIN 12.1 GM/dL (11.7-16.9); LYMPH % 43.6 % (8-40); MCH 31.2 pg (25.7-33.7); MCHC 33.7 g/dl (32.0-35.9); MEAN CELL VOLUME 92.7 fl (80-96); MEAN PLT VOLUME 7.6 fl (7.5-11.1); NEUT % 43.8 % (42.8-82.8); PLATELET COUNT 199 K/MM3 (134-434); RBC 3.88 M/mm3 (4.00-5.60); RDW 13.6 % (11.9-15.9); WHITE BLOOD COUNT 8.5 K/mm3 (4.0-10.0)
[2018-11-23 08:48] LABS: BLOOD UREA NITROGEN 26.4 mg/dL (7-18); CALCIUM 8.9 mg/dL (8.5-10.1); CREATININE 1.2 mg/dL (0.55-1.3); POTASSIUM 4.4 mmol/L (3.5-5.1)
[2018-11-23] MEDS ORDERED: PT OWN MED DRAWER 7, Y5N ONE ×4 (09:51→16:34)
[2018-11-23] MEDS: ASPIRIN 81 MG CHEWABLE TABLETS PO SCH (10:01)
[2018-11-23] MEDS: PANTOPRAZOLE 40 MG TABLET (FP) PO SCH (10:01)
[2018-11-23] MEDS: FERROUS SO4 325 MG TABLET (FP) PO SCH (10:01)
[2018-11-23] MEDS: MULTIVITAMINS (DAILY MVI) TABLET (FP) PO SCH (10:01)
[2018-11-23] MEDS: buPROPion HCL 75 MG TABLET PO SCH ×2 (10:03→21:52)
[2018-11-23] MEDS: FLUTICASONE PROP 0.05% 16 GM NASAL SPRAY NS SCH (10:09)
[2018-11-23] MEDS: NYSTATIN 100,000 UNIT/GM TOPICAL CREAM 15 GM TUBE TP SCH ×2 (10:09→22:12)
[2018-11-23] MEDS: COLLAGENASE CLOSTRIDIUM HIST. 30 GRAMS TUBE TP SCH (10:09)
--- NOTE | 2018-11-23 11:09 | PN ---
Progress Note, Physician History of Present Illness: stable no new issues improving - Current Medication List Current Medications: Active Medications Acetaminophen (Tylenol -) 650 mg PO Q6H PRN PRN Reason: PAIN LEVEL 1-5 Last Admin: 11/23/18 06:15 Dose: 650 mg Al Hydroxide/Mg Hydroxide (Mylanta Oral Suspension -) 30 ml PO PRN [facility]ENDA Albuterol/Ipratropium (Duoneb -) 1 amp NEB RBID [facility] Last Admin: 11/23/18 07:10 Dose: 1 amp Aspirin (Asa -) 81 mg PO DAILY [facility] Last Admin: 11/23/18 10:01 Dose: 81 mg Bupropion HCl (Wellbutrin -) 150 mg PO BID [facility] Last Admin: 11/23/18 10:03 Dose: 150 mg Carbidopa/Levodopa (Sinemet 25/100 -) 1 each PO TID [facility] Last Admin: 11/23/18 06:17 Dose: 1 each Clonazepam (Klonopin -) 1.5 mg PO HS [facility] Last Admin: 11/22/18 21:44 Dose: 1.5 mg Collagenase (Santyl -) 1 applic TP DAILY [facility]; Protocol Last Admin: 11/23/18 10:09 Dose: 1 applic Cyclobenzaprine HCl (Cyclobenzaprine Hcl) 5 mg PO TID [facility] Last Admin: 11/23/18 06:25 Dose: 5 mg Ferrous Sulfate (Feosol -) 325 mg PO DAILY [facility] Last Admin: 11/23/18 10:01 Dose: 325 mg Fluticasone Propionate (Flonase -) 2 spray NS DAILY [facility] Last Admin: 11/23/18 10:09 Dose: 2 sprays Gabapentin (Neurontin -) 600 mg PO TID [facility] Last Admin: 11/23/18 06:17 Dose: 600 mg Heparin Sodium (Porcine) (Heparin -) 5,000 unit SQ TID [facility] Last Admin: 11/23/18 06:14 Dose: 5,000 unit Piperacillin Sod/Tazobactam (Sod 3.375 gm/ Dextrose) 50 mls @ 100 mls/hr IVPB Q8H-IV [facility]; Protocol Last Admin: 11/23/18 02:39 Dose: 100 mls/hr Ketorolac Tromethamine (Toradol Injection -) 15 mg IVPUSH Q6H PRN PRN Reason: PAIN LEVEL 6-10 Stop: 11/24/18 08:16 Last Admin: 11/23/18 00:40 Dose: 15 mg Lactulose (Cephulac (Oral Use)) 20 gm PO Q8H PRN PRN Reason: CONSTIPATION Last Admin: 11/22/18 16:57 Dose: 20 gm Levothyroxine Sodium 125 mcg/ (Levothyroxine Sodium 100 mcg) 225 mcg PO DAILY@ 0700 [facility] Last Admin: 11/23/18 06:17 Dose: 225 mcg Methadone HCl (Dolophine -) 7.5 mg PO Q8H [facility] Last Admin: 11/23/18 06:16 Dose: 7.5 mg Morphine Sulfate (Msir -) 15 mg PO Q6H PRN PRN Reason: PAIN LEVEL 6-10 Last Admin: 11/23/18 10:00 Dose: 15 mg Multivitamins/Minerals/Vitamin C (Tab-A-Vit -) 1 tab PO DAILY [facility] Last Admin: 11/23/18 10:01 Dose: 1 tab Nitroglycerin (Nitrostat -) 0.4 mg SL PRN PRN PRN Reason: Chest pain Nystatin (Mycostatin Cream -) 1 applic TP BID [facility] Last Admin: 11/23/18 10:09 Dose: 1 applic Pantoprazole Sodium (Protonix -) 40 mg PO DAILY [facility] Last Admin: 11/23/18 10:01 Dose: 40 mg Pentoxifylline (Trental -) 400 mg PO TID [facility] Last Admin: 11/23/18 06:15 Dose: 400 mg Senna (Senna -) 2 tab PO HS PRN PRN Reason: CONSTIPATION Simethicone (Mylicon -) 80 mg PO QID PRN PRN Reason: GAS Zolpidem Tartrate (Ambien -) 10 mg PO HS PRN PRN Reason: INSOMNIA Last Admin: 11/22/18 21:45 Dose: 10 mg - Objective Vital Signs: Vital Signs Temperature 98.1 F 11/22/18 20:47 Pulse Rate 80 11/22/18 20:47 Respiratory Rate 20 11/22/18 20:47 Blood Pressure 114/60 11/22/18 20:47 O2 Sat by Pulse Oximetry (%) 100 11/21/18 08:02 Constitutional: Yes: No Distress, Calm Cardiovascular: Yes: S1, S2 Respiratory: Yes: Regular, CTA Bilaterally Gastrointestinal: Yes: Normal Bowel Sounds, Soft Musculoskeletal: Yes: WNL Extremities: Yes: Other Integumentary: Yes: Erythema, Other Wound/Incision: Yes: Dressing Dry and Intact Neurological: Yes: Alert, Oriented Psychiatric: Yes: Alert, Oriented Labs: CBC, BMP 11/23/18 07:35 11/23/18 07:35 INR, PTT INR 1.06 (0.83-1.09) 11/17/18 17:30 Assessment/Plan Problem List - Problems (1) Chronic venous stasis Code(s): I87.8 - OTHER SPECIFIED DISORDERS OF VEINS (2) Ulcers of both lower extremities Code(s): L97.919 - NON-PRS CHRONIC ULC UNSP PRT OF R LOW LEG W UNSP SEVERITY; L97.929 - NON-PRS CHRONIC ULC UNSP PRT OF L LOW LEG W UNSP SEVERITY Qualifiers: Non-pressure ulcer stage: unspecified non-pressure ulcer stage Qualified Code(s): L97.919 - Non-pressure chronic ulcer of unspecified part of right lower leg with unspecified severity; L97.929 - Non-pressure chronic ulcer of unspecified part of left lower leg with unspecified severity (3) Cellulitis Code(s): L03.90 - CELLULITIS, UNSPECIFIED Qualifiers: Site of cellulitis: extremity Site of cellulitis of extremity: lower extremity Laterality: left Qualified Code(s): L03.116 - Cellulitis of left lower limb (4) HTN (hypertension) Code(s): I10 - ESSENTIAL (PRIMARY) HYPERTENSION (5) Idiopathic chronic venous hypertension of both lower extremities with ulcer and inflammation Code(s): I87.333 - CHRONIC VENOUS HTN W ULCER AND INFLAM OF BILATERAL LOW EXTRM ; L97.919 - NON-PRS CHRONIC ULC UNSP PRT OF R LOW LEG W UNSP SEVERITY; L97.929 - NON-PRS CHRONIC ULC UNSP PRT OF L LOW LEG W UNSP SEVERITY (6) Parkinsons disease Code(s): G20 - PARKINSON'S DISEASE Assessment/Plan LE cellulitis Chronic venous stasis 4 onchomycosis plan continue abx wound care nystatin local application rest as per the team
[2018-11-23] MEDS ORDERED: DEXTROSE 5%-WATER - 50 ML IVPB ONE ×2 (12:07→18:11)
--- NOTE | 2018-11-23 12:55 | PN ---
Teaching Attending Note Name of Resident: José Luis Michaud ATTENDING PHYSICIAN STATEMENT I saw and evaluated the patient. I reviewed the resident's note and discussed the case with the resident. I agree with the resident's findings and plan as documented with exceptions below. SUBJECTIVE: Patient seen and examined, some improvement in leg findings, no fevers, chills or concerns. OBJECTIVE: Vital Signs Period Temp Pulse Resp BP Sys/Freitas Pulse Ox Last 24 Hr 98.1 F-98.6 F 76-80 16-20 114-118/60-70 Intake & Output 11/20/18 11/21/18 11/22/18 11/23/18 23:59 23:59 23:59 23:59 Intake Total 2166 373 6769 1170 Output Total 300 600 400 Balance 3765 319 7587 770 Weight 252 lb 250 lb 250 lb 250 lb 9.6 oz General: sitting in bed no acute distress neck: soft, supple HEENT; PERRL CVS:S1S2 regular Chest: no rales or wheezing Abdomen:Soft, NT, ND Extremities: bilateral 1+ pitting edema, some improvement in blanching erythema , Superficial ulceration with denuded skin, wound bed with fibrogranular tissue and scant serous drainage, skin scarring, hypertrophy noted, onychomycosis Home Medications Medication Instructions Recorded Aspirin [ASA -] 81 mg PO DAILY 02/27/18 Bupropion HCl [Bupropion HCl Sr] 150 mg PO BID 02/27/18 Clonazepam [Klonopin] 1.5 mg PO HS 02/27/18 Ferrous Sulfate 1 tab PO DAILY 02/27/18 Ipratropium/Albuterol Sulfate 3 ml IH BID 02/27/18 [Iprat-Albut 0.5-3(2.5) mg/3 ml] Levothyroxine [Synthroid -] 225 mcg PO DAILY 02/27/18 Sennosides [Senna] 17.2 mg PO HS PRN 02/27/18 Simethicone 125 mg PO QID PRN 02/27/18 Zolpidem Tartrate 10 mg PO HS 02/27/18 Morphine *Immediate Release* [Msir 15 mg PO Q6H PRN #10 tab MDD 3 08/04/18 -] Nitroglycerin 0.4 mg SL PRN PRN MDD 3 09/04/18 Nystatin Cream [Mycostatin Cream -] 1 applic TP BID 10/27/18 Cyclobenzaprine HCl 5 mg PO TID tablet 11/03/18 Ibuprofen [Motrin -] 600 mg PO Q8H PRN tablet 11/03/18 Acetaminophen [Tylenol -] 650 mg PO Q6H 11/17/18 Carbidopa/Levodopa 1 tab PO TID 11/17/18 [Carbidopa-Levodopa 25-100 Tab] Collagenase Clostridium Hist. 1 applic TP DAILY 11/17/18 [Santyl] Fluticasone Prop 0.05% Nasal 1 spray NS DAILY 11/17/18 [Flonase -] Gabapentin 600 mg PO TID 11/17/18 Mag Hydrox/Al Hydrox/Simeth 30 ml PO PRN 11/17/18 [Mylanta Oral Suspension -] Methadone [Dolophine -] 7.5 mg PO Q8H 11/17/18 Multivitamins [Tab-A-Vit -] 1 tab PO DAILY 11/17/18 Pantoprazole Sodium 40 mg PO DAILY 11/17/18 Pentoxifylline [Trental -] 300 mg PO TID 11/17/18 Active Medications Acetaminophen (Tylenol -) 650 mg PO Q6H PRN PRN Reason: PAIN LEVEL 1-5 Last Admin: 11/23/18 06:15 Dose: 650 mg Al Hydroxide/Mg Hydroxide (Mylanta Oral Suspension -) 30 ml PO PRN [facility] Albuterol/Ipratropium (Duoneb -) 1 amp NEB RBID [facility] Last Admin: 11/23/18 07:10 Dose: 1 amp Aspirin (Asa -) 81 mg PO DAILY [facility] Last Admin: 11/23/18 10:01 Dose: 81 mg Bupropion HCl (Wellbutrin -) 150 mg PO BID [facility] Last Admin: 11/23/18 10:03 Dose: 150 mg Carbidopa/Levodopa (Sinemet 25/100 -) 1 each PO TID [facility] Last Admin: 11/23/18 06:17 Dose: 1 each Clonazepam (Klonopin -) 1.5 mg PO HS [facility] Last Admin: 11/22/18 21:44 Dose: 1.5 mg Collagenase (Santyl -) 1 applic TP DAILY [facility]; Protocol Last Admin: 11/23/18 10:09 Dose: 1 applic Cyclobenzaprine HCl (Cyclobenzaprine Hcl) 5 mg PO TID [facility] Last Admin: 11/23/18 06:25 Dose: 5 mg Ferrous Sulfate (Feosol -) 325 mg PO DAILY [facility] Last Admin: 11/23/18 10:01 Dose: 325 mg Fluticasone Propionate (Flonase -) 2 spray NS DAILY [facility] Last Admin: 11/23/18 10:09 Dose: 2 sprays Gabapentin (Neurontin -) 600 mg PO TID [facility] Last Admin: 11/23/18 06:17 Dose: 600 mg Heparin Sodium (Porcine) (Heparin -) 5,000 unit SQ TID [facility] Last Admin: 11/23/18 06:14 Dose: 5,000 unit Piperacillin Sod/Tazobactam (Sod 3.375 gm/ Dextrose) 50 mls @ 100 mls/hr IVPB Q8H-IV [facility]; Protocol Last Admin: 11/23/18 12:00 Dose: 100 mls/hr Ketorolac Tromethamine (Toradol Injection -) 15 mg IVPUSH Q6H PRN PRN Reason: PAIN LEVEL 6-10 Stop: 11/24/18 08:16 Last Admin: 11/23/18 00:40 Dose: 15 mg Lactulose (Cephulac (Oral Use)) 20 gm PO Q8H PRN PRN Reason: CONSTIPATION Last Admin: 11/22/18 16:57 Dose: 20 gm Levothyroxine Sodium 125 mcg/ (Levothyroxine Sodium 100 mcg) 225 mcg PO DAILY@ 0700 [facility] Last Admin: 11/23/18 06:17 Dose: 225 mcg Methadone HCl (Dolophine -) 7.5 mg PO Q8H [facility] Last Admin: 11/23/18 06:16 Dose: 7.5 mg Morphine Sulfate (Msir -) 15 mg PO Q6H PRN PRN Reason: PAIN LEVEL 6-10 Last Admin: 11/23/18 10:00 Dose: 15 mg Multivitamins/Minerals/Vitamin C (Tab-A-Vit -) 1 tab PO DAILY [facility] Last Admin: 11/23/18 10:01 Dose: 1 tab Nitroglycerin (Nitrostat -) 0.4 mg SL PRN PRN PRN Reason: Chest pain Nystatin (Mycostatin Cream -) 1 applic TP BID [facility] Last Admin: 11/23/18 10:09 Dose: 1 applic Pantoprazole Sodium (Protonix -) 40 mg PO DAILY [facility] Last Admin: 11/23/18 10:01 Dose: 40 mg Pentoxifylline (Trental -) 400 mg PO TID [facility] Last Admin: 11/23/18 06:15 Dose: 400 mg Senna (Senna -) 2 tab PO HS PRN PRN Reason: CONSTIPATION Simethicone (Mylicon -) 80 mg PO QID PRN PRN Reason: GAS Zolpidem Tartrate (Ambien -) 10 mg PO HS PRN PRN Reason: INSOMNIA Last Admin: 11/22/18 21:45 Dose: 10 mg Laboratory Results - last 24 hr 11/23/18 11/23/18 07:35 07:35 WBC 8.5 RBC 3.88 L Hgb 12.1 Hct 36.0 MCV 92.7 MCH 31.2 MCHC 33.7 RDW 13.6 Plt Count 199 MPV 7.6 Absolute Neuts (auto) 3.7 Neutrophils % 43.8 Lymphocytes % 43.6 H Monocytes % 9.0 Eosinophils % 3.3 Basophils % 0.3 Nucleated RBC % 0 Sodium 142 Potassium 4.4 Chloride 106 Carbon Dioxide 31 Anion Gap 6 L BUN 26.4 H Creatinine 1.2 Est GFR (CKD-EPI)AfAm 75.19 Est GFR (CKD-EPI)NonAf 64.87 Random Glucose 83 Calcium 8.9 Microbiology 11/17/18 17:30 Blood - Peripheral Venous Blood Culture - Final NO GROWTH AFTER 5 DAYS INCUBATION 11/17/18 17:30 Blood - Peripheral Venous Blood Culture - Final NO GROWTH AFTER 5 DAYS INCUBATION ASSESSMENT AND PLAN: 63 yom with HTN, chronic b/l LE ulcers, chronic venous stasis, venous HTN, 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 Zosyn per ID, follow up wound cultures. Wound care. MRI bilateral Lower extremity neg for osteomyelitis, pos cellulitis. ESR/CRP. pain control, tylenol/Toradol/methadone/home morphine sulphate 15 mg q6n prn. DVTPPX heparin Dispo transition to PO abx vs dc with PICC/IV abx in 24-48 hours if improved, pending ID input. Discussed with patient and nursing.
[2018-11-23] MEDS: LACTULOSE 20 GM/30 ML UDC (FOR ORAL USE ONLY) PO PRN (13:50)
--- NOTE | 2018-11-23 17:43 | PN ---
Physical Exam: SUBJECTIVE: Patient seen and examined. NAEON. Endorses pain to the distal LLE OBJECTIVE: Vital Signs Period Temp Pulse Resp BP Sys/Freitas Pulse Ox Last 24 Hr 97.5 F-98.6 F 75-80 16-20 114-132/60-79 GENERAL: In NAD. Pleasant HEENT: NC/AT. No scleral icterus. LUNGS: CTABL, no accessory muscle use, no crackles/ wheezing. HEART: Regular rate and rhythm, normal S1 and S2 without murmurs ABDOMEN: Obese, soft, nontender, normoactive bowel sounds, no guarding. MSK: LE decreased ROM b/l. Good ROM UE. UPPER EXTREMITIES: 2+ pulses palpated. LOWER EXTREMITIES: B/l LE erythema present, + weeping serous ulcerations surrounding LE below knee. Blanching erythema. No warmth to touch. Weeping Onychomycotic changes of toenails. Yellow/ brown drainage present interdigitally b/l, greater on RLE. Medial malleolar wounds w/ thick serous drainage, no foul smell NEUROLOGICAL: Sensory intact b/l UE. Decreased sensation of BLE, intact dull sensation with decreased discrimination of fine touch PSYCHIATRIC: Appropriate mood and affect. SKIN: UE excoriations w/ dry flaky skin Laboratory Results - last 24 hr 11/23/18 11/23/18 07:35 07:35 WBC 8.5 RBC 3.88 L Hgb 12.1 Hct 36.0 MCV 92.7 MCH 31.2 MCHC 33.7 RDW 13.6 Plt Count 199 MPV 7.6 Absolute Neuts (auto) 3.7 Neutrophils % 43.8 Lymphocytes % 43.6 H Monocytes % 9.0 Eosinophils % 3.3 Basophils % 0.3 Nucleated RBC % 0 Sodium 142 Potassium 4.4 Chloride 106 Carbon Dioxide 31 Anion Gap 6 L BUN 26.4 H Creatinine 1.2 Est GFR (CKD-EPI)AfAm 75.19 Est GFR (CKD-EPI)NonAf 64.87 Random Glucose 83 Calcium 8.9 Active Medications Generic Name Dose Route Start Last Admin Trade Name Freq PRN Reason Stop Dose Admin Acetaminophen 650 mg 11/19/18 08:17 11/23/18 06:15 Tylenol - PO 650 mg Q6H PRN Administration PAIN LEVEL 1-5 Al Hydroxide/Mg Hydroxide 30 ml 11/17/18 22:30 Mylanta Oral Suspension - PO PRN BRENDA Albuterol/Ipratropium 1 amp 11/18/18 08:00 11/23/18 07:10 Duoneb - NEB 1 amp RBID BRENDA Administration Aspirin 81 mg 11/18/18 10:00 11/23/18 10:01 Asa - PO 81 mg DAILY BRENDA Administration Bupropion HCl 150 mg 11/18/18 10:00 11/23/18 10:03 Wellbutrin - PO 150 mg BID BRENDA Administration Carbidopa/Levodopa 1 each 11/18/18 06:00 11/23/18 13:43 Sinemet 25/100 - PO 1 each TID BRENDA Administration Clonazepam 1.5 mg 11/18/18 22:00 11/22/18 21:44 Klonopin - PO 1.5 mg HS BRENDA Administration Collagenase 1 applic 11/19/18 10:00 11/23/18 10:09 Santyl - TP 1 applic DAILY BRENDA Administration Protocol Cyclobenzaprine HCl 5 mg 11/18/18 06:00 11/23/18 15:18 Cyclobenzaprine Hcl PO 5 mg TID BRENDA Administration Ferrous Sulfate 325 mg 11/18/18 10:00 11/23/18 10:01 Feosol - PO 325 mg DAILY BRENDA Administration Fluticasone Propionate 2 spray 11/18/18 10:00 11/23/18 10:09 Flonase - NS 2 sprays DAILY BRENDA Administration Gabapentin 600 mg 11/18/18 06:00 11/23/18 13:43 Neurontin - PO 600 mg TID BRENDA Administration Heparin Sodium (Porcine) 5,000 unit 11/18/18 06:00 11/23/18 13:42 Heparin - SQ 5,000 unit TID BRENDA Administration Piperacillin Sod/Tazobactam 50 mls @ 100 mls/hr 11/22/18 18:00 11/23/18 12:00 Sod 3.375 gm/ Dextrose IVPB 100 mls/hr Q8H-IV BRENDA Administration Protocol Ketorolac Tromethamine 15 mg 11/19/18 08:17 11/23/18 00:40 Toradol Injection - IVPUSH 11/24/18 08:16 15 mg Q6H PRN Administration PAIN LEVEL 6-10 Lactulose 20 gm 11/22/18 15:02 11/23/18 13:50 Cephulac (Oral Use) PO 20 gm Q8H PRN Administration CONSTIPATION Levothyroxine Sodium 125 mcg/ 225 mcg 11/18/18 07:00 11/23/18 06:17 Levothyroxine Sodium 100 mcg PO 225 mcg DAILY@0700 BRENDA Administration Methadone HCl 7.5 mg 11/20/18 07:06 11/23/18 15:18 Dolophine - PO 7.5 mg Q8H BRENDA Administration Morphine Sulfate 15 mg 11/21/18 13:18 11/23/18 10:00 Msir - PO 15 mg Q6H PRN Administration PAIN LEVEL 6-10 Multivitamins/Minerals/Vitamin C 1 tab 11/18/18 10:00 11/23/18 10:01 Tab-A-Vit - PO 1 tab DAILY BRENDA Administration Nitroglycerin 0.4 mg 11/17/18 22:16 Nitrostat - SL PRN PRN Chest pain Nystatin 1 applic 11/20/18 22:00 11/23/18 10:09 Mycostatin Cream - TP 1 applic BID BRENDA Administration Pantoprazole Sodium 40 mg 11/18/18 10:00 11/23/18 10:01 Protonix - PO 40 mg DAILY BRENDA Administration Pentoxifylline 400 mg 11/18/18 14:00 11/23/18 15:18 Trental - PO 400 mg TID BRENDA Administration Senna 2 tab 11/17/18 22:16 Senna - PO HS PRN CONSTIPATION Simethicone 80 mg 11/17/18 23:34 Mylicon - PO QID PRN GAS Zolpidem Tartrate 10 mg 11/17/18 23:34 11/22/18 21:45 Ambien - PO 10 mg HS PRN Administration INSOMNIA ASSESSMENT/PLAN: 63 y.o. 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 #B/l LE cellulitis r/o osteomyelitis -- vs acute excerbation of chronic venous disease >MRI(11/19/18): --RLE: mild cellulitis, NO soft tissue abscess, NO osteomyelitis --LLE: mild cellulitis, NO soft tissue abscess, NO osteomyelitis. 2.8cm possible ?enchondroma >foot/ankle XR(11/17/18) --Right: soft tissue ulceration/air concerning for OM --Left: chronic wound, possible OM >blood cultures --NGTD x5d -Cx's from previous wound cx: poly microbial (pseudomonas, klebsiella, enterobacter, proteus, staph) s/p recent zosyn/ vanc course >ESR 32 --> 60 >CRP 5.4 --> 5.1 -s/p 1 dose vanc 1.5g in ED - Meropenem + vancomycin -- dc'd -Dr. Daniels (ID) following --zosyn -Dr. Alcantar (wound care) consulted --Recommend washing b/l le's daily with NS and 4x4s to remove heaped up skin --Keep gauze between toes, change daily --Xeroform to superficial ulcers --Apply santyl to venous stasis ulcers and cover with damp to dry and kerlix --LE elevation at all times while at rest --Offloading to areas of pressure at all times while at rest -Dr. [place] pain med consulted #fungal toenails -ID: --nystatin local application #Chronic pain -C/w home meds: methadone 7.5mg PO q8h, flexeril 5mg PO TID -ketorlac PRN if severe pain #Parkinsons disease -C/w carbidopa/ levodopa 25-100mg PO TID #GERD -C/w protonix 40mg PO daily #Asthma -C/w duonebs prn #Depression -C/w home meds: bupropion, klonopin, zolpidem #Hypothyroidism -TSH -- 0.65 -C/w home dose synthroid 225mcg PO daily #FEN -Sodium controlled diet #DVT PPX -Heparin SQ Visit type - Emergency Visit Emergency Visit: No - New Patient This patient is new to me today: No - Critical Care Critical Care patient: No ATTENDING PHYSICIAN STATEMENT I saw and evaluated the patient. I reviewed the resident's note and discussed the case with the resident. I agree with the resident's findings and plan as documented. SUBJECTIVE: OBJECTIVE: ASSESSMENT AND PLAN:
[2018-11-23] MEDS: clonazePAM 0.5 MG TABLET PO SCH (21:50)
[2018-11-23] MEDS: ZOLPIDEM TARTRATE 5 MG TABLET PO PRN (21:51)
[2018-11-24] MEDS ORDERED: PIPERACILLIN/TAZOBACTAM 3.375 GM VIAL IVPB ONE ×2 (01:04→08:09)
[2018-11-24] MEDS ORDERED: DEXTROSE 5%-WATER - 50 ML IVPB ONE ×2 (01:05→08:09)
[2018-11-24] MEDS: PIPERACILLIN/TAZOB 3.375 GM 3.375 GM in DEXTROSE 5%-WATER - 50 ML IVPB SCH ×2 (01:06→09:14)
[2018-11-24 01:56] VITALS: PULSE 81
[2018-11-24] MEDS: morphine SULFATE IMMEDIATE RELEASE 30 MG TAB PO PRN ×2 (04:51→12:33)
[2018-11-24] MEDS ORDERED: LEVOTHYROXINE NA 100 MCG TABLET (FP) ONE (06:09)
[2018-11-24] MEDS ORDERED: LEVOTHYROXINE NA 125 MCG TABLET (FP) ONE (06:09)
[2018-11-24] MEDS: CYCLOBENZAPRINE HCL 5 MG TABLET PO SCH ×2 (06:23→13:03)
[2018-11-24] MEDS: LEVOTHYROXINE 125 MCG, LEVOTHYROXINE 100 MCG PO SCH (06:23)
[2018-11-24] MEDS: GABAPENTIN 300 MG CAPSULE (FP) PO SCH ×2 (06:24→13:04)
[2018-11-24] MEDS: HEPARIN NA (PORCINE) 5,000 UNITS/ML 1ML VIAL SQ SCH ×2 (06:24→15:41)
[2018-11-24] MEDS: CARBIDOPA/LEVODOPA 25/100 TABLET (FP) PO SCH ×2 (06:24→13:03)
[2018-11-24] MEDS: METHADONE HCL 5 MG TABLET PO SCH ×2 (06:26→15:40)
[2018-11-24] MEDS: PENTOXIFYLLINE 400 MG TABLET.ER PO SCH ×2 (06:28→15:41)
[2018-11-24] MEDS: ALBUTEROL SO4 2.5/IPRATROPIUM 0.5 INH SOL 3 ML VIAL.NEB. NEB SCH ×2 (07:27→19:30)
[2018-11-24] MEDS: ASPIRIN 81 MG CHEWABLE TABLETS PO SCH (09:12)
[2018-11-24] MEDS: MULTIVITAMINS (DAILY MVI) TABLET (FP) PO SCH (09:12)
--- NOTE | 2018-11-24 09:13 | PN ---
Progress Note (short form) - Note Progress Note: Lower Extremity MRI reviewed. Negative evidience of OM. Cont daily dressing changes as previously ordered. Wash LE with warm soapy water daily. Patient to f/u with Dr. [facility]antar [facility] Cont care per medical team. No further Vascular Surgery input needed. Reconsult PRN Problem List - Problems (1) Ulcers of both lower extremities Code(s): L97.919 - NON-PRS CHRONIC ULC UNSP PRT OF R LOW LEG W UNSP SEVERITY; L97.929 - NON-PRS CHRONIC ULC UNSP PRT OF L LOW LEG W UNSP SEVERITY Qualifiers: Non-pressure ulcer stage: unspecified non-pressure ulcer stage Qualified Code(s): L97.919 - Non-pressure chronic ulcer of unspecified part of right lower leg with unspecified severity; L97.929 - Non-pressure chronic ulcer of unspecified part of left lower leg with unspecified severity (2) Chronic venous stasis Code(s): I87.8 - OTHER SPECIFIED DISORDERS OF VEINS (3) Chronic pain Code(s): G89.29 - OTHER CHRONIC PAIN (4) HTN (hypertension) Code(s): I10 - ESSENTIAL (PRIMARY) HYPERTENSION (5) Hypothyroidism Code(s): E03.9 - HYPOTHYROIDISM, UNSPECIFIED (6) Parkinsons disease Code(s): G20 - PARKINSON'S DISEASE
[2018-11-24] MEDS: FERROUS SO4 325 MG TABLET (FP) PO SCH (09:14)
[2018-11-24] MEDS: PANTOPRAZOLE 40 MG TABLET (FP) PO SCH (09:14)
[2018-11-24] MEDS: NYSTATIN 100,000 UNIT/GM TOPICAL CREAM 15 GM TUBE TP SCH (09:15)
[2018-11-24] MEDS: LACTULOSE 20 GM/30 ML UDC (FOR ORAL USE ONLY) PO PRN (09:15)
[2018-11-24] MEDS: FLUTICASONE PROP 0.05% 16 GM NASAL SPRAY NS SCH (09:15)
[2018-11-24] MEDS: COLLAGENASE CLOSTRIDIUM HIST. 30 GRAMS TUBE TP SCH (09:16)
[2018-11-24] MEDS: buPROPion HCL 75 MG TABLET PO SCH (09:25)
[2018-11-24] MEDS ORDERED: MINERAL OIL/PET HY-PHL TOPICAL OINTMENT 454 GM JAR TP SCH (11:45)
--- NOTE | 2018-11-24 12:08 | PN ---
Progress Note, Physician History of Present Illness: doing well no issues wound looked at - Current Medication List Current Medications: Active Medications Acetaminophen (Tylenol -) 650 mg PO Q6H PRN PRN Reason: PAIN LEVEL 1-5 Last Admin: 11/23/18 06:15 Dose: 650 mg Al Hydroxide/Mg Hydroxide (Mylanta Oral Suspension -) 30 ml PO PRN BRENDA Albuterol/Ipratropium (Duoneb -) 1 amp NEB RBID BRENDA Last Admin: 11/24/18 07:27 Dose: 1 amp Aspirin (Asa -) 81 mg PO DAILY BRENDA Last Admin: 11/24/18 09:12 Dose: 81 mg Bupropion HCl (Wellbutrin -) 150 mg PO BID BRENDA Last Admin: 11/24/18 09:25 Dose: 150 mg Carbidopa/Levodopa (Sinemet 25/100 -) 1 each PO TID BRENDA Last Admin: 11/24/18 06:24 Dose: 1 each Clonazepam (Klonopin -) 1.5 mg PO HS [facility] Last Admin: 11/23/18 21:50 Dose: 1.5 mg Collagenase (Santyl -) 1 applic TP DAILY BRENDA; Protocol Last Admin: 11/24/18 09:16 Dose: 1 applic Cyclobenzaprine HCl (Cyclobenzaprine Hcl) 5 mg PO TID [facility] Last Admin: 11/24/18 06:23 Dose: 5 mg Emollient Ointment (Aquaphor -) 1 applic TP DAILY BRENDA Ferrous Sulfate (Feosol -) 325 mg PO DAILY [facility] Last Admin: 11/24/18 09:14 Dose: 325 mg Fluticasone Propionate (Flonase -) 2 spray NS DAILY [facility] Last Admin: 11/24/18 09:15 Dose: 2 sprays Gabapentin (Neurontin -) 600 mg PO TID BRENDA Last Admin: 11/24/18 06:24 Dose: 600 mg Heparin Sodium (Porcine) (Heparin -) 5,000 unit SQ TID BRENDA Last Admin: 11/24/18 06:24 Dose: 5,000 unit Piperacillin Sod/Tazobactam (Sod 3.375 gm/ Dextrose) 50 mls @ 100 mls/hr IVPB Q8H-IV BRENDA; Protocol Last Admin: 11/24/18 09:14 Dose: 100 mls/hr Lactulose (Cephulac (Oral Use)) 20 gm PO Q8H PRN PRN Reason: CONSTIPATION Last Admin: 11/24/18 09:15 Dose: 20 gm Levothyroxine Sodium 125 mcg/ (Levothyroxine Sodium 100 mcg) 225 mcg PO DAILY@ 0700 [facility] Last Admin: 11/24/18 06:23 Dose: 225 mcg Methadone HCl (Dolophine -) 7.5 mg PO Q8H [facility] Last Admin: 11/24/18 06:26 Dose: 7.5 mg Morphine Sulfate (Msir -) 15 mg PO Q6H PRN PRN Reason: PAIN LEVEL 6-10 Last Admin: 11/24/18 04:51 Dose: 15 mg Multivitamins/Minerals/Vitamin C (Tab-A-Vit -) 1 tab PO DAILY [facility] Last Admin: 11/24/18 09:12 Dose: 1 tab Nitroglycerin (Nitrostat -) 0.4 mg SL PRN PRN PRN Reason: Chest pain Nystatin (Mycostatin Cream -) 1 applic TP BID [facility] Last Admin: 11/24/18 09:15 Dose: 1 applic Pantoprazole Sodium (Protonix -) 40 mg PO DAILY [facility] Last Admin: 11/24/18 09:14 Dose: 40 mg Pentoxifylline (Trental -) 400 mg PO TID [facility] Last Admin: 11/24/18 06:28 Dose: 400 mg Senna (Senna -) 2 tab PO HS PRN PRN Reason: CONSTIPATION Simethicone (Mylicon -) 80 mg PO QID PRN PRN Reason: GAS Zolpidem Tartrate (Ambien -) 10 mg PO HS PRN PRN Reason: INSOMNIA Last Admin: 11/23/18 21:51 Dose: 10 mg - Objective Vital Signs: Vital Signs Temperature 97.8 F 11/24/18 06:30 Pulse Rate 81 11/24/18 06:30 Respiratory Rate 20 11/24/18 09:00 Blood Pressure 130/80 11/24/18 06:30 O2 Sat by Pulse Oximetry (%) 100 11/21/18 08:02 Constitutional: Yes: No Distress, Calm Cardiovascular: Yes: S1, S2 Respiratory: Yes: Regular, CTA Bilaterally Gastrointestinal: Yes: Normal Bowel Sounds, Soft Musculoskeletal: Yes: WNL Extremities: Yes: Other Wound/Incision: Yes: Dressing Dry and Intact, Other Neurological: Yes: Alert, Oriented Psychiatric: Yes: Alert, Oriented Labs: CBC, BMP 11/23/18 07:35 11/23/18 07:35 INR, PTT INR 1.06 (0.83-1.09) 11/17/18 17:30 Assessment/Plan Problem List - Problems (1) Chronic venous stasis Code(s): I87.8 - OTHER SPECIFIED DISORDERS OF VEINS (2) Ulcers of both lower extremities Code(s): L97.919 - NON-PRS CHRONIC ULC UNSP PRT OF R LOW LEG W UNSP SEVERITY; L97.929 - NON-PRS CHRONIC ULC UNSP PRT OF L LOW LEG W UNSP SEVERITY Qualifiers: Non-pressure ulcer stage: unspecified non-pressure ulcer stage Qualified Code(s): L97.919 - Non-pressure chronic ulcer of unspecified part of right lower leg with unspecified severity; L97.929 - Non-pressure chronic ulcer of unspecified part of left lower leg with unspecified severity (3) Cellulitis Code(s): L03.90 - CELLULITIS, UNSPECIFIED Qualifiers: Site of cellulitis: extremity Site of cellulitis of extremity: lower extremity Laterality: left Qualified Code(s): L03.116 - Cellulitis of left lower limb (4) HTN (hypertension) Code(s): I10 - ESSENTIAL (PRIMARY) HYPERTENSION (5) Idiopathic chronic venous hypertension of both lower extremities with ulcer and inflammation Code(s): I87.333 - CHRONIC VENOUS HTN W ULCER AND INFLAM OF BILATERAL LOW EXTRM ; L97.919 - NON-PRS CHRONIC ULC UNSP PRT OF R LOW LEG W UNSP SEVERITY; L97.929 - NON-PRS CHRONIC ULC UNSP PRT OF L LOW LEG W UNSP SEVERITY (6) Parkinsons disease Code(s): G20 - PARKINSON'S DISEASE Assessment/Plan LE cellulitis Chronic venous stasis 4 onchomycosis plan continue abx patient needs abx for another week can go to the senior living where they can give abx wound care
--- NOTE | 2018-11-24 12:33 | PN ---
Teaching Attending Note Name of Resident: José Luis Michaud ATTENDING PHYSICIAN STATEMENT I saw and evaluated the patient. I reviewed the resident's note and discussed the case with the resident. I agree with the resident's findings and plan as documented with exceptions below. SUBJECTIVE: Patient seen and examined, some improvement in leg symptoms, no complaints otherwise. OBJECTIVE: Vital Signs Period Temp Pulse Resp BP Sys/Freitas Pulse Ox Last 24 Hr 97.5 F-98 F 73-81 18-20 130-146/79-91 Intake & Output 11/21/18 11/22/18 11/23/18 11/24/18 23:59 23:59 23:59 23:59 Intake Total 820 2135 1470 800 Output Total 212 133 9806 Balance 520 1535 -130 800 Weight 250 lb 250 lb 250 lb 9.6 oz 251 lb 8 oz General: sitting in bed no acute distress neck: soft, supple HEENT; PERRL CVS:S1S2 regular Chest: no rales or wheezing Abdomen:Soft, NT, ND Extremities: bilateral 1+ pitting edema, some improvement in blanching erythema , Superficial ulceration with denuded skin, wound bed with fibrogranular tissue and scant serous drainage, skin scarring, hypertrophy noted, onychomycosis Home Medications Medication Instructions Recorded Aspirin [ASA -] 81 mg PO DAILY 02/27/18 Bupropion HCl [Bupropion HCl Sr] 150 mg PO BID 02/27/18 Clonazepam [Klonopin] 1.5 mg PO HS 02/27/18 Ferrous Sulfate 1 tab PO DAILY 02/27/18 Ipratropium/Albuterol Sulfate 3 ml IH BID 02/27/18 [Iprat-Albut 0.5-3(2.5) mg/3 ml] Levothyroxine [Synthroid -] 225 mcg PO DAILY 02/27/18 Sennosides [Senna] 17.2 mg PO HS PRN 02/27/18 Simethicone 125 mg PO QID PRN 02/27/18 Zolpidem Tartrate 10 mg PO HS 02/27/18 Morphine *Immediate Release* [Msir 15 mg PO Q6H PRN #10 tab MDD 3 08/04/18 -] Nitroglycerin 0.4 mg SL PRN PRN MDD 3 09/04/18 Nystatin Cream [Mycostatin Cream -] 1 applic TP BID 10/27/18 Cyclobenzaprine HCl 5 mg PO TID tablet 11/03/18 Ibuprofen [Motrin -] 600 mg PO Q8H PRN tablet 11/03/18 Acetaminophen [Tylenol -] 650 mg PO Q6H 11/17/18 Carbidopa/Levodopa 1 tab PO TID 11/17/18 [Carbidopa-Levodopa 25-100 Tab] Collagenase Clostridium Hist. 1 applic TP DAILY 11/17/18 [Santyl] Fluticasone Prop 0.05% Nasal 1 spray NS DAILY 11/17/18 [Flonase -] Gabapentin 600 mg PO TID 11/17/18 Mag Hydrox/Al Hydrox/Simeth 30 ml PO PRN 11/17/18 [Mylanta Oral Suspension -] Methadone [Dolophine -] 7.5 mg PO Q8H 11/17/18 Multivitamins [Tab-A-Vit -] 1 tab PO DAILY 11/17/18 Pantoprazole Sodium 40 mg PO DAILY 11/17/18 Pentoxifylline [Trental -] 300 mg PO TID 11/17/18 Active Medications Acetaminophen (Tylenol -) 650 mg PO Q6H PRN PRN Reason: PAIN LEVEL 1-5 Last Admin: 11/23/18 06:15 Dose: 650 mg Al Hydroxide/Mg Hydroxide (Mylanta Oral Suspension -) 30 ml PO PRN BRENDA Albuterol/Ipratropium (Duoneb -) 1 amp NEB RBID [facility] Last Admin: 11/24/18 07:27 Dose: 1 amp Aspirin (Asa -) 81 mg PO DAILY [facility] Last Admin: 11/24/18 09:12 Dose: 81 mg Bupropion HCl (Wellbutrin -) 150 mg PO BID [facility] Last Admin: 11/24/18 09:25 Dose: 150 mg Carbidopa/Levodopa (Sinemet 25/100 -) 1 each PO TID [facility] Last Admin: 11/24/18 06:24 Dose: 1 each Clonazepam (Klonopin -) 1.5 mg PO HS [facility] Last Admin: 11/23/18 21:50 Dose: 1.5 mg Collagenase (Santyl -) 1 applic TP DAILY [facility]; Protocol Last Admin: 11/24/18 09:16 Dose: 1 applic Cyclobenzaprine HCl (Cyclobenzaprine Hcl) 5 mg PO TID [facility] Last Admin: 11/24/18 06:23 Dose: 5 mg Emollient Ointment (Aquaphor -) 1 applic TP DAILY [facility] Last Admin: 11/24/18 12:32 Dose: 1 applic Ferrous Sulfate (Feosol -) 325 mg PO DAILY [facility] Last Admin: 11/24/18 09:14 Dose: 325 mg Fluticasone Propionate (Flonase -) 2 spray NS DAILY [facility] Last Admin: 11/24/18 09:15 Dose: 2 sprays Gabapentin (Neurontin -) 600 mg PO TID [facility] Last Admin: 11/24/18 06:24 Dose: 600 mg Heparin Sodium (Porcine) (Heparin -) 5,000 unit SQ TID [facility] Last Admin: 11/24/18 06:24 Dose: 5,000 unit Piperacillin Sod/Tazobactam (Sod 3.375 gm/ Dextrose) 50 mls @ 100 mls/hr IVPB Q8H-IV BRENDA; Protocol Last Admin: 11/24/18 09:14 Dose: 100 mls/hr Lactulose (Cephulac (Oral Use)) 20 gm PO Q8H PRN PRN Reason: CONSTIPATION Last Admin: 11/24/18 09:15 Dose: 20 gm Levothyroxine Sodium 125 mcg/ (Levothyroxine Sodium 100 mcg) 225 mcg PO DAILY@ 0700 [facility] Last Admin: 11/24/18 06:23 Dose: 225 mcg Methadone HCl (Dolophine -) 7.5 mg PO Q8H [facility] Last Admin: 11/24/18 06:26 Dose: 7.5 mg Morphine Sulfate (Msir -) 15 mg PO Q6H PRN PRN Reason: PAIN LEVEL 6-10 Last Admin: 11/24/18 04:51 Dose: 15 mg Multivitamins/Minerals/Vitamin C (Tab-A-Vit -) 1 tab PO DAILY [facility] Last Admin: 11/24/18 09:12 Dose: 1 tab Nitroglycerin (Nitrostat -) 0.4 mg SL PRN PRN PRN Reason: Chest pain Nystatin (Mycostatin Cream -) 1 applic TP BID [facility] Last Admin: 11/24/18 09:15 Dose: 1 applic Pantoprazole Sodium (Protonix -) 40 mg PO DAILY [facility] Last Admin: 11/24/18 09:14 Dose: 40 mg Pentoxifylline (Trental -) 400 mg PO TID [facility] Last Admin: 11/24/18 06:28 Dose: 400 mg Senna (Senna -) 2 tab PO HS PRN PRN Reason: CONSTIPATION Simethicone (Mylicon -) 80 mg PO QID PRN PRN Reason: GAS Zolpidem Tartrate (Ambien -) 10 mg PO HS PRN PRN Reason: INSOMNIA Last Admin: 11/23/18 21:51 Dose: 10 mg ASSESSMENT AND PLAN: 63 yom with HTN, chronic b/l LE ulcers, chronic venous stasis, venous HTN, 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 Discussed with lexus Marroquin for additional 7 days Wound care as instructed Follow up wound care clinic with Dr. Alcantar. MRI bilateral Lower extremity neg for osteomyelitis, pos cellulitis. Resume home pain regimen. DVTPPX heparin Dispo dc back to [place] today with additional 1 week of zosyn and ongoing wound care clinic follow up. Discussed with patient and nursing.
[2018-11-24 13:43] VITALS: BP 128/86; TEMP 98
--- NOTE | 2018-11-24 16:13 | PN ---
Physical Exam: SUBJECTIVE: Patient seen and examined. MARCOS. Endorses worsening Left foot pain. Ambulated with PT for 25ft OBJECTIVE: Vital Signs Period Temp Pulse Resp BP Sys/Freitas Pulse Ox Last 24 Hr 97.8 F-98.0 F 73-81 19-20 128-146/80-91 GENERAL: In NAD. HEENT: NC/AT. No scleral icterus. LUNGS: CTABL, no accessory muscle use, no crackles. Mild expiratory wheezes HEART: Regular rate and rhythm, normal S1 and S2 without murmurs ABDOMEN: Obese, soft, nontender, normoactive bowel sounds, no guarding. MSK: LE decreased ROM b/l. Good ROM UE. UPPER EXTREMITIES: 2+ pulses palpated. LOWER EXTREMITIES: B/l LE erythema present, serous ulcerations surrounding LE below knee. Blanching erythema. No warmth to touch. Onychomycotic changes of toenails. Yellow/ brown drainage present interdigitally b/l, greater on LLE. Medial malleolar wounds w/ thin serous drainage, no foul smell NEUROLOGICAL: Sensory intact b/l UE. Decreased sensation of BLE, intact dull sensation with decreased discrimination of fine touch PSYCHIATRIC: Appropriate mood and affect. SKIN: dry pale skin, little hair on BLE Active Medications Generic Name Dose Route Start Last Admin Trade Name Freq PRN Reason Stop Dose Admin Acetaminophen 650 mg 11/19/18 08:17 11/23/18 06:15 Tylenol - PO 650 mg Q6H PRN Administration PAIN LEVEL 1-5 Al Hydroxide/Mg Hydroxide 30 ml 11/17/18 22:30 Mylanta Oral Suspension - PO PRN BRENDA Albuterol/Ipratropium 1 amp 11/18/18 08:00 11/24/18 07:27 Duoneb - NEB 1 amp RBID BRENDA Administration Aspirin 81 mg 11/18/18 10:00 11/24/18 09:12 Asa - PO 81 mg DAILY BRENDA Administration Bupropion HCl 150 mg 11/18/18 10:00 11/24/18 09:25 Wellbutrin - PO 150 mg BID BRENDA Administration Carbidopa/Levodopa 1 each 11/18/18 06:00 11/24/18 13:03 Sinemet 25/100 - PO 1 each TID BRENDA Administration Clonazepam 1.5 mg 11/18/18 22:00 11/23/18 21:50 Klonopin - PO 1.5 mg HS BRENDA Administration Collagenase 1 applic 11/19/18 10:00 11/24/18 09:16 Santyl - TP 1 applic DAILY BRENDA Administration Protocol Cyclobenzaprine HCl 5 mg 11/18/18 06:00 11/24/18 13:03 Cyclobenzaprine Hcl PO 5 mg TID BRENDA Administration Emollient Ointment 1 applic 11/24/18 11:45 11/24/18 12:32 Aquaphor - TP 1 applic DAILY BRENDA Administration Ferrous Sulfate 325 mg 11/18/18 10:00 11/24/18 09:14 Feosol - PO 325 mg DAILY BRENDA Administration Fluticasone Propionate 2 spray 11/18/18 10:00 11/24/18 09:15 Flonase - NS 2 sprays DAILY BRENDA Administration Gabapentin 600 mg 11/18/18 06:00 11/24/18 13:04 Neurontin - PO 600 mg TID BRENDA Administration Heparin Sodium (Porcine) 5,000 unit 11/18/18 06:00 11/24/18 15:41 Heparin - SQ 5,000 unit TID BRENDA Administration Piperacillin Sod/Tazobactam 50 mls @ 100 mls/hr 11/22/18 18:00 11/24/18 09:14 Sod 3.375 gm/ Dextrose IVPB 100 mls/hr Q8H-IV BRENDA Administration Protocol Lactulose 20 gm 11/22/18 15:02 11/24/18 09:15 Cephulac (Oral Use) PO 20 gm Q8H PRN Administration CONSTIPATION Levothyroxine Sodium 125 mcg/ 225 mcg 11/18/18 07:00 11/24/18 06:23 Levothyroxine Sodium 100 mcg PO 225 mcg DAILY@0700 BRENDA Administration Methadone HCl 7.5 mg 11/20/18 07:06 11/24/18 15:40 Dolophine - PO 7.5 mg Q8H BRENDA Administration Morphine Sulfate 15 mg 11/21/18 13:18 11/24/18 12:33 Msir - PO 15 mg Q6H PRN Administration PAIN LEVEL 6-10 Multivitamins/Minerals/Vitamin C 1 tab 11/18/18 10:00 11/24/18 09:12 Tab-A-Vit - PO 1 tab DAILY BRENDA Administration Nitroglycerin 0.4 mg 11/17/18 22:16 Nitrostat - SL PRN PRN Chest pain Nystatin 1 applic 11/20/18 22:00 11/24/18 09:15 Mycostatin Cream - TP 1 applic BID BRENDA Administration Pantoprazole Sodium 40 mg 11/18/18 10:00 11/24/18 09:14 Protonix - PO 40 mg DAILY BRENDA Administration Pentoxifylline 400 mg 11/18/18 14:00 11/24/18 15:41 Trental - PO 400 mg TID BRENDA Administration Senna 2 tab 11/17/18 22:16 Senna - PO HS PRN CONSTIPATION Simethicone 80 mg 11/17/18 23:34 Mylicon - PO QID PRN GAS Zolpidem Tartrate 10 mg 11/17/18 23:34 11/23/18 21:51 Ambien - PO 10 mg HS PRN Administration INSOMNIA Vital Signs Temp 98.0 F 11/24/18 13:41 Pulse 81 11/24/18 13:41 Resp 20 11/24/18 13:41 BP 128/86 11/24/18 13:41 Pulse Ox 100 11/21/18 08:02 Intake & Output 11/23/18 11/24/18 11/24/18 23:59 11:59 23:59 Intake Total 300 800 Output Total 1200 Balance -900 800 Weight 114.078 kg Intake: IVPB 100 50 Oral 200 750 Output: Urine 1200 Void 1200 Other: Voiding Method Urinal Urinal Bowel Movement No No Weight Measurement Method Built in [facility] ASSESSMENT/PLAN: 63 y.o. 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 #B/l LE cellulitis r/o osteomyelitis -- vs acute excerbation of chronic venous disease >MRI(11/19/18): --RLE: mild cellulitis, NO soft tissue abscess, NO osteomyelitis --LLE: mild cellulitis, NO soft tissue abscess, NO osteomyelitis. 2.8cm possible ?enchondroma >foot/ankle XR(11/17/18) --Right: soft tissue ulceration/air concerning for OM --Left: chronic wound, possible OM >blood cultures --NGTD x5d -Cx's from previous wound cx: poly microbial (pseudomonas, klebsiella, enterobacter, proteus, staph) s/p recent zosyn/ vanc course >ESR 32 --> 60 >CRP 5.4 --> 5.1 -s/p 1 dose vanc 1.5g in ED - Meropenem + vancomycin -- dc'd -Dr. Daniels (ID) following --zosyn, for 7d after discharge -Dr. Alcantar (wound care) consulted --Recommend washing b/l le's daily with NS and 4x4s to remove heaped up skin --Keep gauze between toes, change daily --Xeroform to superficial ulcers --Apply santyl to venous stasis ulcers and cover with damp to dry and kerlix --LE elevation at all times while at rest --Offloading to areas of pressure at all times while at rest -Dr. Graham Plaza pain med consulted #fungal toenails -ID: --nystatin local application #Chronic pain -C/w home meds: methadone 7.5mg PO q8h, flexeril 5mg PO TID -ketorlac PRN if severe pain #Parkinsons disease -C/w carbidopa/ levodopa 25-100mg PO TID #GERD -C/w protonix 40mg PO daily #Asthma -C/w duonebs prn #Depression -C/w home meds: bupropion, klonopin, zolpidem #Hypothyroidism -TSH -- 0.65 -C/w home dose synthroid 225mcg PO daily #FEN -Sodium controlled diet #DVT PPX -Heparin SQ Visit type - Emergency Visit Emergency Visit: No - New Patient This patient is new to me today: No - Critical Care Critical Care patient: No ATTENDING PHYSICIAN STATEMENT I saw and evaluated the patient. I reviewed the resident's note and discussed the case with the resident. I agree with the resident's findings and plan as documented. SUBJECTIVE: OBJECTIVE: ASSESSMENT AND PLAN:
--- NOTE | 2018-12-16 22:30 | DS ---
Physical Exam: SUBJECTIVE: Patient seen and examined OBJECTIVE: PHYSICAL EXAM GENERAL: In NAD. HEENT: NC/AT. No scleral icterus. LUNGS: CTABL, no accessory muscle use, no crackles. Mild expiratory wheezes HEART: Regular rate and rhythm, normal S1 and S2 without murmurs ABDOMEN: Obese, soft, nontender, normoactive bowel sounds, no guarding. MSK: LE decreased ROM b/l. Good ROM UE. UPPER EXTREMITIES: 2+ pulses palpated. LOWER EXTREMITIES: B/l LE erythema present, serous ulcerations surrounding LE below knee. Blanching erythema. No warmth to touch. Onychomycotic changes of toenails. Yellow/ brown drainage present interdigitally b/l, greater on LLE. Medial malleolar wounds w/ thin serous drainage, no foul smell NEUROLOGICAL: Sensory intact b/l UE. Decreased sensation of BLE, intact dull sensation with decreased discrimination of fine touch PSYCHIATRIC: Appropriate mood and affect. SKIN: dry pale skin, little hair on BLE LABS HOSPITAL COURSE: 63 y.o. 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 XR bl foot ankle showing soft tissue ulceration concerning for OM. ESR 32->60, CRP 5.4 -> 5.1. MRI(11/19/18) showing mild cellulitis w/o OM. Received meropenem + vanc during admission. Wound care recommending washings, santyl, BLE elevation. Received nystatin for fungal toenails. BCX NGTD x5d. Discharged to SNF with zosyn x7d after PICC placement. Date of Admission:11/19/18 Date of Discharge: 12/16/18 Minutes to complete discharge: 20 Discharge Summary Problems reviewed: Yes Reason For Visit: ULCERS OF LOWER EXTREMETIES,IDIOPATHIC CHRONIC Condition: Stable - Instructions Diet, Activity, Other Instructions: You were evaluated in the hospital due to concern of worsening pain in the legs with associated swelling and drainage. Imaging results were suggestive of cellulitis, but no infection of the bone. You received intravenous antibiotics to treat the cellulitis. Antifungal cream was started for your fungal toe nails. FOLLOW UP: - PCP: to follow-up after your hospitalization - Dr Tra Alcantar: for continued management of your leg wounds at the wound care clinic (5th floor of [facility]) in 1 week. -Dr. Daniels Blood work CBC, BMP, LFTs in 1 week MEDICATIONS: - NEW medications: --piperacillin-tazobactam[ZOSYN] 3.375g intravenous, every 8 hours for 7 more days --aquaphor cream, applied to your feet, once daily - CHANGE medications: -- nystatin cream[MYOSTATIN], applied to your toenails, twice a day Continue other medications as before WOUND CARE INSTRUCTIONS: - daily wound cleansing: -- feet: soapy water daily -- legs: washing daily with Normal Saline and 4x4s to remove heaped up skin -- Keep gauze between toes, change daily -- Xeroform to superficial ulcers -- Apply santyl to venous stasis ulcers and cover with damp to dry and kerlix - Lower Extremity elevation at all times while at rest - Offloading to areas of pressure at all times while at rest Please seek immediate medical evaluation or go the Emergency Department if you experience: -fever, chills -foul-smelling pus-like discharge from your wounds or any new concerns. Referrals: Edita Daniels MD [Staff Physician] - Renan Paris [Primary Care Provider] - Tra Alcantar DO [Staff Physician] - Disposition: [facility] - Home Medications Comprehensive Discharge Medication List: Ambulatory Orders Aspirin [ASA -] 81 mg PO DAILY 02/27/18 Bupropion HCl [Bupropion HCl Sr] 150 mg PO BID 02/27/18 Clonazepam [Klonopin] 1.5 mg PO HS 02/27/18 Ferrous Sulfate 1 tab PO DAILY 02/27/18 Levothyroxine [Synthroid -] 200 mcg PO DAILY 02/27/18 Sennosides [Senna] 17.2 mg PO HS PRN 02/27/18 Simethicone 125 mg PO PRN PRN 02/27/18 Zolpidem Tartrate 10 mg PO HS 02/27/18 Nitroglycerin 0.4 mg SL PRN PRN MDD 3 09/04/18 Cyclobenzaprine HCl 5 mg PO TID tablet 11/03/18 Acetaminophen [Tylenol .Regular Strength -] 650 mg PO Q6H 11/17/18 Carbidopa/Levodopa [Carbidopa-Levodopa 25-100 Tab] 1 tab PO TID 11/17/18 Collagenase Clostridium Hist. [Santyl -] 1 applic TP DAILY 11/17/18 Fluticasone Prop 0.05% Nasal [Flonase -] 1 spray NS DAILY 11/17/18 Mag Hydrox/Al Hydrox/Simeth [Mylanta Oral Suspension -] 30 ml PO PRN 11/17/18 Methadone [Dolophine -] 7.5 mg PO Q8H 11/17/18 Multivitamins [Multivit ([facility] Formulary)] 1 tab PO DAILY 11/17/18 Pantoprazole Sodium 40 mg PO DAILY 11/17/18 Pentoxifylline [Trental -] 400 mg PO TID 11/17/18 Nystatin Cream [Mycostatin Cream -] 1 applic TP BID 30 Days #1 tube 11/24/18 Hydrocortisone 1% Cream [Hytone 1% Cream -] 1 applic TP DAILY 11/27/18 Ketorolac Injection [Toradol -] 15 mg IM Q6HIV 11/27/18 Lactulose 20 gm PO DAILY 11/27/18 Levothyroxine [Synthroid -] 25 mcg PO DAILY 11/27/18 Piperacillin/Tazob 2.25 gm [Zosyn 2.25GM Ivpb (Pre-Docked)] 2.25 gm IVPB TID This patient is new to me today: No Emergency Visit: No Critical Care patient: No - Discharge Referral Referred to [facility] Med P.C[facility] No ATTENDING PHYSICIAN STATEMENT I saw and evaluated the patient. I reviewed the resident's note and discussed the case with the resident. I agree with the resident's findings and plan as documented. SUBJECTIVE: OBJECTIVE: ASSESSMENT AND PLAN:
== END 2018-11-24 20:16 | DRG 383 ==
LOC: JER 14:15 → J4W 11-19 01:00 → J6S 11-19 22:10
PROVIDERS: ADMIT Internal Medicine; ATTEND Hospitalist
DX: L03.115 Cellulitis of right lower limb (principal); L03.116 Cellulitis of left lower limb; K21.9 Gastro-esophageal reflux disease without esophagitis; G89.29 Other chronic pain; F41.9 Anxiety disorder, unspecified; G20 Parkinson's disease; E03.9 Hypothyroidism, unspecified; F32.9 Major depressive disorder, single episode, unspecified; I10 Essential (primary) hypertension; J45.909 Unspecified asthma, uncomplicated; B35.1 Tinea unguium; L97.919 Non-pressure chronic ulcer of unspecified part of right lower leg with unspecified severity; L97.828 Non-pressure chronic ulcer of other part of left lower leg with other specified severity; I87.8 Other specified disorders of veins; I73.9 Peripheral vascular disease, unspecified; F70 Mild intellectual disabilities; E88.09 Other disorders of plasma-protein metabolism, not elsewhere classified; I34.0 Nonrheumatic mitral (valve) insufficiency; Z87.820 Personal history of traumatic brain injury
CPT/HCPCS: 36415; 73610-TC-LT-FY; 73610-TC-RT-FY; 73630-TC-LT; 73630-TC-RT-FY; 73718-TC-LT; 73718-TC-RT; 80048; 80053; 83605; 83735; 84100; 84443; 85025; 85610; 85651; 85730; 86140; 86850; 86900; 86901; 87040; 93005; 93010; 93970-TC; 94640; 97116-GP; 97161-GP; 99285-25; G0480; J1644; J7030

== ENCOUNTER 2018-11-27 16:32 | Inpatient (IN) | payer OTHER ==
--- NOTE | 2018-11-27 16:53 | PDOC ---
Rapid Medical Evaluation Time Seen by Provider: 11/27/18 16:50 Medical Evaluation: Allergies Allergy/AdvReac Type Severity Reaction Status Date / Time No Known Allergies Allergy Verified 07/27/18 12:32 11/27/18 16:50 I have performed a brief in-person evaluation of this patient. The patient presents with a chief complaint of: Evaluation of worsening venous stasis ulcers and cellulitis bilateral LEs. Please consult Dr. Plaza and Dr. Daniels Pertinent physical exam findings: Bilateral LE venous stasis I have ordered the following: Labs The patient will proceed to the ED for further evaluation. Discharge Disposition - Diagnosis Ulcers of both lower extremities - Referrals - Patient Instructions - Post Discharge Activity
[2018-11-27 17:17] LABS: BASO % 0.5 % (0-2.0); EOS % 1.7 % (0-4.5); HEMOGLOBIN 14.4 GM/dL (11.7-16.9); LYMPH % 37.8 % (8-40); MCH 30.8 pg (25.7-33.7); MCHC 33.5 g/dl (32.0-35.9); MEAN CELL VOLUME 91.8 fl (80-96); MEAN PLT VOLUME 7.7 fl (7.5-11.1); MONO % 10.8 % (3.8-10.2); NEUT % 49.2 % (42.8-82.8); PLATELET COUNT 236 K/MM3 (134-434); RBC 4.69 M/mm3 (4.00-5.60); RDW 13.8 % (11.9-15.9); WHITE BLOOD COUNT 11.5 K/mm3 (4.0-10.0)
[2018-11-27 18:06] LABS: ALBUMIN 3.1 g/dl (3.4-5.0); BILIRUBIN,TOTAL 0.5 mg/dL (0.2-1); BLOOD UREA NITROGEN 16.6 mg/dL (7-18); CALCIUM 9.7 mg/dL (8.5-10.1); CREATININE 1.2 mg/dL (0.55-1.3); POTASSIUM 4.4 mmol/L (3.5-5.1)
[2018-11-27] MEDS ORDERED: morphine CARPU-JECT 4 MG/1 ML DISP.SYRIN IVPUSH ONE (18:49)
[2018-11-27] MEDS ORDERED: morphine SULFATE 4 MG/ML VIAL ONE (19:04)
--- NOTE | 2018-11-27 19:11 | PDOC ---
History of Present Illness - General Chief Complaint: Wound Stated Complaint: WOUND CARE Time Seen by Provider: 11/27/18 16:50 History Source: Patient Exam Limitations: No Limitations - History of Present Illness Initial Comments: 11/27/18 19:00 HPI: 63yo M recently admitted 11/17-11/24 sent in from clinic by Dr. Alcantar and Dr. Daniels for admission for worsening chronic LE wounds. H/o chronic venous stasis and venous HTN, chronic intermittently infected BLE ankle ulcers (sees Dr. Alcantar for wound care clinic), distant TBI with resultant mild MR, HTN, Parkinsons disease, GERD, bipolar disorder, and chronic pain (on methadone and morphine). Admitted previously for worsening pain and infection to the bilateral ankles, discharged on zosyn, patient reports he was not able to receive his Abx because the pharmacy was unable to deliver them until 11/26. Now s/p 5 doses. Patient presented to Dr. Alcantar's clinic this afternoon, was seen and evaluated by staff and Dr. Daniels via video chat. Ulcers are worsening despite ABX, patient sent to the ED for admission for further evaluation and ABX. Denies n/v/d/c, abdominal pain, chest pain, SOB, VALENCIA, dizziness, lightheadedness , or other symptoms. NKDA Meds per chart PMH: as above PSH: numerous Past History - Travel Traveled outside of the country in the last 30 days: No Close contact w/someone who was outside of country & ill: No - Past Medical History Allergies/Adverse Reactions: Allergies Allergy/AdvReac Type Severity Reaction Status Date / Time No Known Allergies Allergy Verified 11/27/18 16:53 Home Medications: Ambulatory Orders Aspirin [ASA -] 81 mg PO DAILY 02/27/18 Bupropion HCl [Bupropion HCl Sr] 150 mg PO BID 02/27/18 Clonazepam [Klonopin] 1.5 mg PO HS 02/27/18 Ferrous Sulfate 1 tab PO DAILY 02/27/18 Ipratropium/Albuterol Sulfate [Iprat-Albut 0.5-3(2.5) mg/3 ml] 3 ml IH BID 02/27 Levothyroxine [Synthroid -] 200 mcg PO DAILY 02/27/18 Sennosides [Senna] 17.2 mg PO HS PRN 02/27/18 Simethicone 125 mg PO PRN PRN 02/27/18 Zolpidem Tartrate 10 mg PO HS 02/27/18 Nitroglycerin 0.4 mg SL PRN PRN MDD 3 09/04/18 Cyclobenzaprine HCl 5 mg PO TID tablet 11/03/18 Acetaminophen [Tylenol .Regular Strength -] 650 mg PO Q6H 11/17/18 Carbidopa/Levodopa [Carbidopa-Levodopa 25-100 Tab] 1 tab PO TID 11/17/18 Collagenase Clostridium Hist. [Santyl -] 1 applic TP DAILY 11/17/18 Fluticasone Prop 0.05% Nasal [Flonase -] 1 spray NS DAILY 11/17/18 Gabapentin 600 mg PO TID 11/17/18 Mag Hydrox/Al Hydrox/Simeth [Mylanta Oral Suspension -] 30 ml PO PRN 11/17/18 Methadone [Dolophine -] 7.5 mg PO Q8H 11/17/18 Multivitamins [Multivit ([facility] Formul[facility])] 1 tab PO DAILY 11/17/18 Pantoprazole Sodium 40 mg PO DAILY 11/17/18 Pentoxifylline [Trental -] 400 mg PO TID 11/17/18 Nystatin Cream [Mycostatin Cream -] 1 applic TP BID 30 Days #1 tube 11/24/18 Hydrocortisone 1% Cream [Hytone 1% Cream -] 1 applic TP DAILY 11/27/18 Ketorolac Injection [Toradol -] 15 mg IM Q6HIV 11/27/18 Lactulose 20 gm PO DAILY 11/27/18 Levothyroxine [Synthroid -] 25 mcg PO DAILY 11/27/18 Piperacillin/Tazob 2.25 gm [Zosyn 2.25GM Ivpb (Pre-Docked)] 2.25 gm IVPB TID Anemia: No Asthma: No Cancer: No Cardiac Disorders: Yes (Chest pain) CVA: Yes (TBI) COPD: Yes CHF: No Dementia: No Diabetes: No GI Disorders: Yes (GERD) Disorders: No HTN: Yes Hypercholesterolemia: No Liver Disease: No Psychiatric Problems: Yes (anxiety) Seizures: No Thyroid Disease: Yes - Surgical History Abdominal Surgery: Yes (Hernia repair x2) Appendectomy: No Cardiac Surgery: No Cholecystectomy: No Lung Surgery: No Neurologic Surgery: No Orthopedic Surgery: Yes (back and neck surgery) - Immunization History Immunization Up to Date: Yes - Psycho Social/Smoking Cessation Hx Smoking History: Never smoked Have you smoked in the past 12 months: No If you are a former smoker, when did you quit?: 3 years ago Hx Alcohol Use: No Drug/Substance Use Hx: No Substance Use Type: None Hx Substance Use Treatment: No Review of Systems - Review of Systems Able to Perform ROS?: Yes Is the patient limited Ghanaian proficient: Yes Constitutional: No: Chills, Diaphoresis, Fever HEENTM: No: Blurred Vision, Recent change in vision, Nose Congestion, Throat Swelling Respiratory: No: Cough, Shortness of Breath, Wheezing Cardiac (ROS): No: Chest Pain, Edema, Irregular Heart Rate, Palpitations, Syncope, Chest Tightness ABD/GI: No: Constipated, Diarrhea, Nausea, Poor Appetite, Poor Fluid Intake, Vomiting : No: Burning, Dysuria Musculoskeletal: Yes: See HPI, Back Pain (chronic), Joint Pain, Muscle Pain Integumentary: No: Bruising, Pruritus, Rash Neurological: No: Headache, Numbness, Tingling, Weakness Psychiatric: Yes: Other (h/o bipolar d/o). No: Stressors, Change in Appetite Endocrine: No: Excessive Sweating, Flushing, Increased Thirst, Increased Urine Hematologic/Lymphatic: No: Anemia, Blood Clots, Easy Bleeding All Other Systems: Reviewed and Negative *Physical Exam - Vital Signs Last Vital Signs Temp Pulse Resp BP Pulse Ox 97.5 F L 96 H 20 132/95 99 11/27/18 16:50 11/27/18 18:25 11/27/18 18:25 11/27/18 18:25 11/27/18 18:25 - Physical Exam Comments: 11/27/18 19:30 GENERAL: pleasant, very talkative adult male, A/Ox4, no distress, answers questions appropriately, bizarre affect, slightly pressured speech and speaking rapidly HEENT: PERRLA, EOMI, moist mucous membranes NECK/BACK: no midline ttp, no spinal stepoff or deformity, no hematoma, full ROM , neck supple CARDIOVASCULAR: regular rate/rhythm, normal S1S2, no MGR, strong peripheral pulses, capillary refill <2 seconds, extremities wwp, no edema LUNGS/RESPIRATORY: no respiratory distress, CTAB GI/ABDOMEN: protuberant but not tight, symmetric vivz-yv-tobe, normoactive BS, soft, no ttp, no midline pulsatile masses : no CVA tenderness EXTREMITIES: BLE ankles with painful ROM and swelling, and redness to skin circumstantially along calves - ankles down are nicely dressed per wound care this afternoon - reportedly green / worsening tissue around wound edges SKIN: Chronic venous stasis changes to bilateral LE, wounds with dressings clean / dry / intact NEUROLOGICAL: GCS 15, CN II-XII grossly intact, 5/5 strength proximally and distally, no facial droop ED Treatment Course - LABORATORY CBC & Chemistry Diagram: 11/27/18 17:06 11/27/18 16:54 - ADDITIONAL ORDERS Additional order review: Laboratory Results 11/27/18 16:54 Sodium 138 Potassium 4.4 Chloride 103 Carbon Dioxide 29 Anion Gap 6 L BUN 16.6 Creatinine 1.2 Est GFR (CKD-EPI)AfAm 75.19 Est GFR (CKD-EPI)NonAf 64.87 Random Glucose 110 H Calcium 9.7 Total Bilirubin 0.5 AST 28 ALT 19 Alkaline Phosphatase 116 Total Protein 8.0 Albumin 3.1 L 11/27/18 17:06 RBC 4.69 MCV 91.8 MCHC 33.5 RDW 13.8 MPV 7.7 Neutrophils % 49.2 Lymphocytes % 37.8 Monocytes % 10.8 H Eosinophils % 1.7 Basophils % 0.5 Medical Decision Making - Medical Decision Making 11/27/18 19:27 63yo M recently admitted 11/17-11/24 sent in from clinic by Dr. Alcantar and Dr. Daniels for admission for worsening chronic LE wounds. History reassuring for absence of constitutional symptoms, concerning for intractable pain, worsening LE venous stasis ulcers per wound care team and patient. -Consults placed for Dr. Alcantar, Dr. Daniels, and Dr. Plaza -CBC, CMP -4mg IV Morphine for pain (no morphine recently, pressures 140s systolic) -B/L LE Xrays to evaluate for osteo, will require further imaging following admission Dispo: Med/Surg inpatient 11/27/18 19:34 -Mild leukocytosis to 11.8, no anemia, normal plts -Normal electrolytes / LFTs / kidney function 11/27/18 19:59 -Patient endorsed to Dr. Michaud -EKG ordered -Patient admitted to Med/Surg under Dr. Strange Discharge - Discharge Information Problems reviewed: Yes Clinical Impression/Diagnosis: Chronic venous stasis Ulcers of both lower extremities Qualifiers: Non-pressure ulcer stage: unspecified non-pressure ulcer stage Qualified Code(s ): L97.919 - Non-pressure chronic ulcer of unspecified part of right lower leg with unspecified severity Condition: Guarded - Admission Yes - Follow up/Referral Referrals: Benigno Sadler [Primary Care Provider] - - Patient Discharge Instructions - Post Discharge Activity
--- NOTE | 2018-11-27 20:53 | PN ---
Teaching Attending Note Name of Resident: José Luis Michaud ATTENDING PHYSICIAN STATEMENT I saw and evaluated the patient. I reviewed the resident's note and discussed the case with the resident. I agree with the resident's findings and plan as documented. SUBJECTIVE: 63 yo man w/ HTN, chronic b/l LE ulcers, PVD, chronic venous stasis, , chronic lower extremity pain s/p skin debridment , hyperbaric oxygen therapy, follows with Dr Alcantar, Parkinsons disease, GERD who was jsut discharged from inpatient for lower extremity cellulitis/ worsening ulcers from underlying PAD. Was admitted 11/17 and discharged on 11/24 with wound care instructions. Seen by Frances Austin was to complete one week of IV zosyn upon discharge for lower extremity cellulitis. Blood cultures from that admission were negative. B/l lower extremity MRIs were performed and did not show any OM on either lower extremity. Patient reports he was seen at the wound clinic earlier today, from where he was sent to the ER by Dr. Alcantar and Dr. Daniels for admission. Denies fever or chills. OBJECTIVE: Last Vital Signs Temp Pulse Resp BP Pulse Ox 97.5 F L 96 H 20 132/95 99 11/27/18 16:50 11/27/18 18:25 11/27/18 18:25 11/27/18 18:25 11/27/18 18:25 gen- appears nontoxic heent -atraumatic neck supple cv-s+s2+rrr chest clear abdomen-obese, soft, nt, ns+ ext - b/l lower chronic venous stasis changes right leg more erythematous than left, +serous discharge, dp 2+ b/l, yellow crusty material to dorsum of foot, Abnormal Lab Results 11/27/18 11/27/18 16:54 17:06 WBC 11.5 H Monocytes % 10.8 H Anion Gap 6 L Random Glucose 110 H Albumin 3.1 L imaging appreciated ASSESSMENT AND PLAN: #B/l lower ext ulcers -chronic - on zosyn -Chronic venous insufficiency -Bilateral lower extremity ulcers -Onychomycosis -HTN -TBI with mild MR -Parkinson's disease -GERD -Asthma -Hypothyroidism -Dr. Daniels and Ortiz f/u -c/w zosyn wound care as per Dr. Alcantar -Recommend washing b/l le's daily with NS and 4x4s to remove heaped up skin -Keep gauze between toes, change daily -Xeroform to superficial ulcers -Apply santyl to venous stasis ulcers and cover with damp to dry and kerlix -LE elevation at all times while at rest -Offloading to areas of pressure at all times while at rest -c/w rest of home meds DVT ppx -heparin sc
--- NOTE | 2018-11-27 21:06 | HP ---
CHIEF COMPLAINT: chronic b/l leg pain, worsened; worsening of BLE ulcer wounds PCP: HISTORY OF PRESENT ILLNESS: 63 y.o. 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 Patient was recently discharged on 11/24/18 after a 7d hospital course for treatment BLE cellulitis for which he received zosyn and discharged to his nursing facility with instructions to continue zosyn for 7 more days via PICC. Patient's facility ran out of zosyn, so did not get abx from ~ -17. Patient complaints of acute on chronic worsening of BLE pain, worse on left mid to lower leg. Pain is 10/10, intermittently sharp, burning, crampy; worsened with activity. BLE ulcers have had chronic serous drainage w/o foul smell. Complains that he sees a "green border" around wounds. Denies any new trauma to area. Endorses intermittent chills. Denies fever, thick discharge from wounds. 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, parkinsons disease, GERD, asthma, depression, hypothyroidism, chronic pain(LBP, BLE; on methadone), h/o OM of Left foot, BLE wounds growing pseudomonas, ESBL; PAST SURGICAL HISTORY: C and L-spine surgeries, BLE wound debridements Social History: Smoking: former ppd smoker, quit 5ys prior Alcohol: denies Drugs: denies Allergies No Known Allergies Allergy (Verified 11/27/18 16:53) HOME MEDICATIONS: Home Medications Medication Instructions Recorded Aspirin [ASA -] 81 mg PO DAILY 02/27/18 Bupropion HCl [Bupropion HCl Sr] 150 mg PO BID 02/27/18 Clonazepam [Klonopin] 1.5 mg PO HS 02/27/18 Ferrous Sulfate 1 tab PO DAILY 02/27/18 Ipratropium/Albuterol Sulfate 3 ml IH BID 02/27/18 [Iprat-Albut 0.5-3(2.5) mg/3 ml] Levothyroxine [Synthroid -] 200 mcg PO DAILY 02/27/18 Sennosides [Senna] 17.2 mg PO HS PRN 02/27/18 Simethicone 125 mg PO PRN PRN 02/27/18 Zolpidem Tartrate 10 mg PO HS 02/27/18 Nitroglycerin 0.4 mg SL PRN PRN MDD 3 09/04/18 Cyclobenzaprine HCl 5 mg PO TID tablet 11/03/18 Acetaminophen [Tylenol .Regular 650 mg PO Q6H 11/17/18 Strength -] Carbidopa/Levodopa 1 tab PO TID 11/17/18 [Carbidopa-Levodopa 25-100 Tab] Collagenase Clostridium Hist. 1 applic TP DAILY 11/17/18 [Santyl -] Fluticasone Prop 0.05% Nasal 1 spray NS DAILY 11/17/18 [Flonase -] Gabapentin 600 mg PO TID 11/17/18 Mag Hydrox/Al Hydrox/Simeth 30 ml PO PRN 11/17/18 [Mylanta Oral Suspension -] Methadone [Dolophine -] 7.5 mg PO Q8H 11/17/18 Multivitamins [Multivit ([facility] 1 tab PO DAILY 11/17/18 Formulary)] Pantoprazole Sodium 40 mg PO DAILY 11/17/18 Pentoxifylline [Trental -] 400 mg PO TID 11/17/18 Nystatin Cream [Mycostatin Cream -] 1 applic TP BID 30 Days #1 tube 11/24/18 Hydrocortisone 1% Cream [Hytone 1% 1 applic TP DAILY 11/27/18 Cream -] Ketorolac Injection [Toradol -] 15 mg IM Q6HIV 11/27/18 Lactulose 20 gm PO DAILY 11/27/18 Levothyroxine [Synthroid -] 25 mcg PO DAILY 11/27/18 Piperacillin/Tazob 2.25 gm [Zosyn 2.25 gm IVPB TID 11/27/18 2.25GM Ivpb (Pre-Docked)] REVIEW OF SYSTEMS CONSTITUTIONAL: chills Absent: fever, generalized weakness, malaise, loss of appetite HEENT: Absent: rhinorrhea, nasal congestion, throat swelling, difficulty swallowing, mouth swelling, visual changes CARDIOVASCULAR: Absent: chest pain, syncope, palpitations, irregular heart rate, lightheadedness , peripheral edema RESPIRATORY: Absent: cough, shortness of breath, dyspnea with exertion, wheezing, stridor, hemoptysis GASTROINTESTINAL: Absent: abdominal pain, abdominal distension, nausea, vomiting, diarrhea, constipation, melena, hematochezia GENITOURINARY: Absent: dysuria, frequency, urgency, hesitancy, hematuria, flank pain, genital pain MUSCULOSKELETAL: Absent: myalgia, arthralgia, joint swelling, back pain, neck pain SKIN: scaly rash to b/ dorsal hands Absent: itching, pallor NEUROLOGIC: Absent: headache, focal weakness or paresthesias, dizziness, unsteady gait PHYSICAL EXAMINATION Vital Signs - 24 hr 11/27/18 11/27/18 16:50 18:25 Temperature 97.5 F L Pulse Rate 82 Pulse Rate [ 96 H Left Radial] Respiratory 14 20 Rate Blood Pressure 138/88 Blood Pressure 132/95 [Left Arm] O2 Sat by Pulse 97 99 Oximetry (%) GENERAL: In NAD. HEENT: NC/AT. No scleral icterus, No conjunctival pallor LUNGS: CTABL, no accessory muscle use, no crackles HEART: Regular rate and rhythm, normal S1 and S2 without murmurs ABDOMEN: Obese, soft, nontender, normoactive bowel sounds, no guarding. MSK: BLE decreased ROM b/l. Good ROM UE. UPPER EXTREMITIES: 2+ pulses palpated. Scaly rash to hand dorsums. RUE medial surface with PICC surrounded by ecchymosis and petechial blanching rash. LOWER EXTREMITIES: B/l LE blanching erythema present, serous ulcerations surrounding LE below knee. Not warm to touch. Onychomycotic changes of toenails. Yellow/ brown drainage present interdigitally b/l, greater on LLE. R foot medial malleolar wounds w/ thin serous drainage, no foul smell NEUROLOGICAL: Sensory intact b/l UE. Decreased sensation of BLE, intact dull sensation with decreased discrimination of fine touch PSYCHIATRIC: Appropriate mood and affect. SKIN: dry pale skin, little hair on BLE Laboratory Results - last 24 hr 11/27/18 11/27/18 16:54 17:06 WBC 11.5 H RBC 4.69 Hgb 14.4 Hct 43.0 D MCV 91.8 MCH 30.8 MCHC 33.5 RDW 13.8 Plt Count 236 MPV 7.7 Absolute Neuts (auto) 5.7 Neutrophils % 49.2 Lymphocytes % 37.8 Monocytes % 10.8 H Eosinophils % 1.7 Basophils % 0.5 Nucleated RBC % 0 Sodium 138 Potassium 4.4 Chloride 103 Carbon Dioxide 29 Anion Gap 6 L BUN 16.6 Creatinine 1.2 Est GFR (CKD-EPI)AfAm 75.19 Est GFR (CKD-EPI)NonAf 64.87 Random Glucose 110 H Calcium 9.7 Total Bilirubin 0.5 AST 28 ALT 19 Alkaline Phosphatase 116 Total Protein 8.0 Albumin 3.1 L ASSESSMENT/PLAN: 63 y.o. 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 #B/l LE cellulitis r/o osteomyelitis -- vs acute excerbation of chronic venous disease -Cx's from previous wound cx: poly microbial (pseudomonas, klebsiella, enterobacter, proteus, staph) s/p recent zosyn >MRI(11/19/18): --RLE: mild cellulitis, NO soft tissue abscess, NO osteomyelitis --LLE: mild cellulitis, NO soft tissue abscess, NO osteomyelitis. 2.8cm possible ?enchondroma - fu foot/ankle XR(11/28/18) -- pending read - Consult ID(Dr. Daniels) - Consult Wound Care(Dr. Alcantar) --Recommend washing b/l le's daily with NS and 4x4s to remove heaped up skin --Keep gauze between toes, change daily --Xeroform to superficial ulcers --Apply santyl to venous stasis ulcers and cover with damp to dry and kerlix --LE elevation at all times while at rest --Offloading to areas of pressure at all times while at rest -Consult Chronic Pain(Dr. Graham Plaza) #fungal toenails - cw nystatin local application #Chronic pain -C/w home meds: methadone 7.5mg PO q8h, flexeril 5mg PO TID -ketorlac PRN if severe pain #Parkinsons disease -C/w carbidopa/ levodopa 25-100mg PO TID #GERD -C/w protonix 40mg PO daily #Asthma -C/w duonebs prn #Depression -C/w home meds: bupropion, - hold klonopin, zolpidem #Hypothyroidism -C/w home dose synthroid 225mcg PO daily #FEN -Sodium controlled diet #DVT PPX -Heparin SQ Visit type - Emergency Visit Emergency Visit: No - New Patient This patient is new to me today: No - Critical Care Critical Care patient: No ATTENDING PHYSICIAN STATEMENT I saw and evaluated the patient. I reviewed the resident's note and discussed the case with the resident. I agree with the resident's findings and plan as documented. SUBJECTIVE: OBJECTIVE: ASSESSMENT AND PLAN:
[2018-11-27] MEDS ORDERED: SENNOSIDES 8.6MG TABLET (FP) PO PRN (22:21)
[2018-11-27] MEDS ORDERED: ACETAMINOPHEN 325 MG TABLET (FP) PO SCH (22:30)
[2018-11-27] MEDS ORDERED: PATIENT'S OWN MEDICATION (NON-FORMULARY) (Gabapentin [Gabapentin] 600 MG) PO SCH (22:30)
[2018-11-27] MEDS ORDERED: CYCLOBENZAPRINE HCL 10 MG TABLET (FP) ONE (22:57)
[2018-11-27] MEDS ORDERED: GABAPENTIN 100 MG CAPSULE (FP) ONE (22:57)
[2018-11-27] MEDS ORDERED: HEPARIN NA (PORCINE) 5,000 UNITS/ML 1ML VIAL ONE (22:58)
[2018-11-27] MEDS: SODIUM CHLORIDE 1,000 ML IV SCH (23:06)
[2018-11-27] MEDS: HEPARIN NA (PORCINE) 5,000 UNITS/ML 1ML VIAL SQ SCH (23:06)
[2018-11-27] MEDS: CYCLOBENZAPRINE HCL 5 MG TABLET PO SCH (23:07)
[2018-11-27] MEDS ORDERED: ACETAMINOPHEN 325 MG TABLET (FP) ONE (23:26)
[2018-11-28] MEDS ORDERED: morphine CARPU-JECT 2 MG/1 ML DISP.SYRIN IVPUSH ONE (00:05)
--- NOTE | 2018-11-28 00:05 | PDOC ---
Documentation entered by Connie Leslie SCRIBE, acting as scribe for Corbin Sanders MD. Corbin Sanders MD: This documentation has been prepared by the charleneibeAnuj Lincy, SCRIBE, under my direction and personally reviewed by me in its entirety. I confirm that the documentation accurately reflects all work, treatment, procedures, and medical decision making performed by me. Attending Attestation - Resident Resident Name: SaeRaza - ED Attending Attestation I have performed the following: I have examined & evaluated the patient, The case was reviewed & discussed with the resident, I agree w/resident's findings & plan, Exceptions are as noted - HPI HPI: 11/27/18 22:27 The patient is a 63-year-old male with a past medical history significant for HTN, chronic bilateral lower extremity wound, Parkinsons disease, GERD and hypothyroidism was sent to the emergency department by Dr. Alcantar and Dr. Daniels for admission for worsening lower extremity wound despite antibiotic use. The patient was recently admitted to the hospital for wound management and was discharged home with antibiotics. The patient reports due to a pharmacy issue at his facility, he was unable to take the antibiotic until yesterday. The patient reports he was seen at the wound clinic earlier today, from where he was sent to the ER by Dr. Alcantar and Dr. Daniels for admission. Denies fever or chills. Allergies: NKDA - Physicial Exam PE: 11/27/18 21:38 general: no acut distress ext: b/l LE edema/erythma/warmth - Medical Decision Making 11/27/18 21:38 pt admitted for failure of oupatient thereapy of cellulitis
[2018-11-28] MEDS ORDERED: morphine SULFATE 4 MG/ML VIAL ONE (00:07)
[2018-11-28] MEDS: ACETAMINOPHEN 325 MG TABLET (FP) PO SCH ×3 (00:15→11:44)
[2018-11-28] MEDS ORDERED: PIPERACILLIN/TAZOBACTAM 3.375 GM VIAL IVPB ONE ×3 (03:13→16:40)
[2018-11-28] MEDS ORDERED: DEXTROSE 5%-WATER - 50 ML IVPB ONE ×3 (03:13→16:40)
[2018-11-28] MEDS: PIPERACILLIN/TAZOB 3.375 GM 3.375 GM in DEXTROSE 5%-WATER - 50 ML IVPB SCH ×5 (03:34→19:46)
[2018-11-28] MEDS ORDERED: ZOLPIDEM TARTRATE 5 MG TABLET PO ONE (03:43)
[2018-11-28 04:19] VITALS: BMI 30.9
[2018-11-28] MEDS: CYCLOBENZAPRINE HCL 5 MG TABLET PO SCH ×3 (06:48→22:10)
[2018-11-28] MEDS: METHADONE HCL 5 MG TABLET PO SCH ×3 (06:49→22:11)
[2018-11-28] MEDS: HEPARIN NA (PORCINE) 5,000 UNITS/ML 1ML VIAL SQ SCH ×3 (06:49→22:12)
[2018-11-28] MEDS: GABAPENTIN 300 MG CAPSULE (FP) PO SCH ×3 (06:49→22:11)
[2018-11-28] MEDS: PENTOXIFYLLINE 400 MG TABLET.ER PO SCH ×3 (06:50→22:14)
[2018-11-28] MEDS: CARBIDOPA/LEVODOPA 25/100 TABLET (FP) PO SCH ×3 (06:50→22:11)
[2018-11-28 07:29] LABS: BLOOD UREA NITROGEN 17.1 mg/dL (7-18); CALCIUM 9.1 mg/dL (8.5-10.1); MAGNESIUM 1.8 mg/dL (1.8-2.4); PHOSPHOROUS 3.4 mg/dL (2.5-4.9)
[2018-11-28 07:43] LABS: BASO % 0.3 % (0-2.0); EOS % 2.9 % (0-4.5); HEMATOCRIT 37.4 % (35.4-49); LYMPH % 44.8 % (8-40); MCH 31.9 pg (25.7-33.7); MCHC 34.8 g/dl (32.0-35.9); MEAN CELL VOLUME 91.5 fl (80-96); MEAN PLT VOLUME 7.9 fl (7.5-11.1); MONO % 12.2 % (3.8-10.2); NEUT % 39.8 % (42.8-82.8); PLATELET COUNT 193 K/MM3 (134-434); RBC 4.08 M/mm3 (4.00-5.60); RDW 13.5 % (11.9-15.9); WHITE BLOOD COUNT 7.6 K/mm3 (4.0-10.0)
[2018-11-28] MEDS ORDERED: PT OWN MED DRAWER 7, Y5N ONE ×3 (09:25→14:19)
[2018-11-28] MEDS: ASPIRIN 81 MG CHEWABLE TABLETS PO SCH (09:28)
[2018-11-28] MEDS: COLLAGENASE CLOSTRIDIUM HIST. 30 GRAMS TUBE TP SCH (09:29)
[2018-11-28] MEDS: NYSTATIN 100,000 UNIT/GM TOPICAL CREAM 15 GM TUBE TP SCH ×2 (09:29→22:13)
[2018-11-28] MEDS: PANTOPRAZOLE 40 MG TABLET (FP) PO SCH (09:29)
--- NOTE | 2018-11-28 09:43 | CON.ID ---
Consult Consult Specialty:: infectious diseases Referred by:: hospitalist Reason for Consultation:: b/l cellulitis of the legs and non healing leg wounds - History of Present Illness Chief Complaint: non healing wounds History of Present Illness: this patient known to me from previous admission who had come with cellulitis of the legs and was a dmitted and treated and was becoming better was send back to long term with the orders to continue abx according to the patient the long term did not get him the abx for couple of days and his legs detoriated and the patient came back to the wound care center where he was evaluated and then was send to the emergency room as his legs look worse and were having greenish drainage patient was started on abx - History Source History Provided By: Patient Limitations to Obtaining History: No Limitations - Past Medical History CRM ANALYST: Yes: Parkinson's Cardio/Vascular: Yes: HTN Gastrointestinal: Yes: GERD - Alcohol/Substance Use Hx Alcohol Use: No - Smoking History Smoking history: Former smoker Have you smoked in the past 12 months: No If you are a former smoker, when did you quit?: 3 years ago Home Medications - Allergies Allergies/Adverse Reactions: Allergies Allergy/AdvReac Type Severity Reaction Status Date / Time No Known Allergies Allergy Verified 11/27/18 16:53 - Home Medications Home Medications: Ambulatory Orders Aspirin [ASA -] 81 mg PO DAILY 02/27/18 Bupropion HCl [Bupropion HCl Sr] 150 mg PO BID 02/27/18 Clonazepam [Klonopin] 1.5 mg PO HS 02/27/18 Ferrous Sulfate 1 tab PO DAILY 02/27/18 Ipratropium/Albuterol Sulfate [Iprat-Albut 0.5-3(2.5) mg/3 ml] 3 ml IH BID 02/27 Levothyroxine [Synthroid -] 200 mcg PO DAILY 02/27/18 Sennosides [Senna] 17.2 mg PO HS PRN 02/27/18 Simethicone 125 mg PO PRN PRN 02/27/18 Zolpidem Tartrate 10 mg PO HS 02/27/18 Nitroglycerin 0.4 mg SL PRN PRN MDD 3 09/04/18 Cyclobenzaprine HCl 5 mg PO TID tablet 11/03/18 Acetaminophen [Tylenol .Regular Strength -] 650 mg PO Q6H 11/17/18 Carbidopa/Levodopa [Carbidopa-Levodopa 25-100 Tab] 1 tab PO TID 11/17/18 Collagenase Clostridium Hist. [Santyl -] 1 applic TP DAILY 11/17/18 Fluticasone Prop 0.05% Nasal [Flonase -] 1 spray NS DAILY 11/17/18 Gabapentin 600 mg PO TID 11/17/18 Mag Hydrox/Al Hydrox/Simeth [Mylanta Oral Suspension -] 30 ml PO PRN 11/17/18 Methadone [Dolophine -] 7.5 mg PO Q8H 11/17/18 Multivitamins [Multivit ([facility] Formulary)] 1 tab PO DAILY 11/17/18 Pantoprazole Sodium 40 mg PO DAILY 11/17/18 Pentoxifylline [Trental -] 400 mg PO TID 11/17/18 Nystatin Cream [Mycostatin Cream -] 1 applic TP BID 30 Days #1 tube 11/24/18 Hydrocortisone 1% Cream [Hytone 1% Cream -] 1 applic TP DAILY 11/27/18 Ketorolac Injection [Toradol -] 15 mg IM Q6HIV 11/27/18 Lactulose 20 gm PO DAILY 11/27/18 Levothyroxine [Synthroid -] 25 mcg PO DAILY 11/27/18 Piperacillin/Tazob 2.25 gm [Zosyn 2.25GM Ivpb (Pre-Docked)] 2.25 gm IVPB TID Review of Systems - Review of Systems Constitutional: reports: No Symptoms Eyes: reports: No Symptoms HENT: reports: No Symptoms Neck: reports: No Symptoms Cardiovascular: reports: No Symptoms Respiratory: reports: No Symptoms Gastrointestinal: reports: No Symptoms Genitourinary: reports: No Symptoms Musculoskeletal: reports: No Symptoms Integumentary: reports: Change in Color, Erythema, Wound, Other (drainage) Neurological: reports: No Symptoms Endocrine: reports: No Symptoms Hematology/Lymphatic: reports: No Symptoms Psychiatric: reports: No Symptoms Physical Exam Vital Signs: Vital Signs Temperature 98.5 F 11/28/18 02:58 Pulse Rate 70 11/28/18 02:58 Respiratory Rate 20 11/28/18 02:58 Blood Pressure 125/79 11/28/18 02:58 O2 Sat by Pulse Oximetry (%) 99 11/27/18 18:25 Constitutional: Yes: Well Nourished, Calm, Mild Distress Eyes: Yes: Conjunctiva Clear HENT: Yes: Atraumatic, Normocephalic Neck: Yes: Supple, Trachea Midline Cardiovascular: Yes: Regular Rate and Rhythm Respiratory: Yes: Regular, CTA Bilaterally Gastrointestinal: Yes: Normal Bowel Sounds, Soft Musculoskeletal: Yes: WNL Extremities: Yes: Other Wound/Incision: Yes: Dressing Removed Psychiatric: Yes: Alert, Oriented Labs: CBC, BMP 11/28/18 05:30 11/28/18 05:30
[2018-11-28] MEDS: FLUTICASONE PROP 0.05% 16 GM NASAL SPRAY NS SCH (11:44)
[2018-11-28] MEDS: ALBUTEROL SO4 2.5/IPRATROPIUM 0.5 INH SOL 3 ML VIAL.NEB. NEB PRN ×2 (12:07→19:58)
--- NOTE | 2018-11-28 15:32 | PN ---
Progress Note, Physician History of Present Illness: Patient seen and examined at bedside denies nausea vomiting fever chills chest pain or SOB at this time. Endorses lower extremity pain-wants better pain control otherwise offers no complaints denies diarrhea endorses chronic constipation - Current Medication List Current Medications: Active Medications Acetaminophen (Tylenol -) 650 mg PO Q6HPO [facility] Last Admin: 11/28/18 11:44 Dose: 650 mg Albuterol/Ipratropium (Duoneb -) 1 amp NEB BID PRN PRN Reason: ASTHMA Last Admin: 11/28/18 12:07 Dose: 1 amp Aspirin (Asa -) 81 mg PO DAILY [facility] Last Admin: 11/28/18 09:28 Dose: 81 mg Bupropion HCl (Wellbutrin Xl -) 300 mg PO DAILY [facility] Last Admin: 11/28/18 09:30 Dose: 300 mg Carbidopa/Levodopa (Sinemet 25/100 -) 1 each PO TID [facility] Last Admin: 11/28/18 14:20 Dose: 1 each Collagenase (Santyl -) 1 applic TP DAILY [facility]; Protocol Last Admin: 11/28/18 09:29 Dose: 1 applic Cyclobenzaprine HCl (Cyclobenzaprine Hcl) 5 mg PO TID [facility] Last Admin: 11/28/18 14:20 Dose: 5 mg Fluticasone Propionate (Flonase -) 1 spray NS DAILY [facility] Last Admin: 11/28/18 11:44 Dose: 1 inhaler Gabapentin (Neurontin -) 600 mg PO TID [facility] Last Admin: 11/28/18 14:20 Dose: 600 mg Heparin Sodium (Porcine) (Heparin -) 5,000 unit SQ TID [facility] Last Admin: 11/28/18 14:20 Dose: 5,000 unit Sodium Chloride (Normal Saline -) 1,000 mls @ 100 mls/hr IV ASDIR [facility] Last Admin: 11/27/18 23:06 Dose: 100 mls/hr Piperacillin Sod/Tazobactam (Sod 3.375 gm/ Dextrose) 50 mls @ 100 mls/hr IVPB Q8H-IV [facility]; Protocol Lactulose (Cephulac (Oral Use)) 20 gm PO DAILY [facility] Levothyroxine Sodium (Synthroid -) 200 mcg PO DAILY [facility] Levothyroxine Sodium (Synthroid -) 25 mcg PO DAILY [facility] Methadone HCl (Dolophine -) 7.5 mg PO TID [facility] Last Admin: 11/28/18 14:20 Dose: 7.5 mg Nystatin (Mycostatin Cream -) 1 applic TP BID [facility] Last Admin: 11/28/18 09:29 Dose: 1 applic Oxycodone/Acetaminophen (Percocet 5/325 -) 1 combo PO Q6H PRN PRN Reason: PAIN LEVEL 6-10 Pantoprazole Sodium (Protonix -) 40 mg PO DAILY [facility] Last Admin: 11/28/18 09:29 Dose: 40 mg Pentoxifylline (Trental -) 400 mg PO TID [facility] Last Admin: 11/28/18 14:24 Dose: 400 mg Senna (Senna -) 2 tab PO HS PRN PRN Reason: CONSTIPATION - Objective Vital Signs: Vital Signs Temperature 98.5 F 11/28/18 02:58 Pulse Rate 70 11/28/18 02:58 Respiratory Rate 20 11/28/18 09:00 Blood Pressure 125/79 11/28/18 02:58 O2 Sat by Pulse Oximetry (%) 99 11/28/18 09:00 Constitutional: Yes: Well Nourished, No Distress, Calm Eyes: Yes: Conjunctiva Clear, EOM Intact HENT: Yes: Atraumatic, Normocephalic Neck: Yes: Supple, Trachea Midline Cardiovascular: Yes: Regular Rate and Rhythm Respiratory: Yes: Rales, Wheezes Gastrointestinal: Yes: Normal Bowel Sounds, Soft, Abdomen, Obese. No: Tenderness Extremities: Yes: Other (stasis dermatitis. Legs wrapped per wound care. no exudate on dressings. Not taken down. Will defer to wound care) Edema: Yes Labs: CBC, BMP 11/28/18 05:30 11/28/18 05:30 Impression/Plan Impression/Plan: 63M with history of TBI, parkinsons disease, GERD, Asthma, Depression, chronic pain on methadone, hypothyroidism, history of ESBL and pseudomonas growing in wounds presents with worsening drainage from lower extremity wounds sent in by wound care center and ID. 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 history of multidrug resistant organisms constipation Plan: continue zosyn per ID ID consult noted and appreciated f/u wound care wound care as per Dr. Alcantar Recommend washing b/l le's daily with NS and 4x4s to remove heaped up skin Keep gauze between toes, change daily Xeroform to superficial ulcers Apply santyl to venous stasis ulcers and cover with damp to dry and kerlix LE elevation at all times while at rest Offloading to areas of pressure at all times while at rest continue synthroid continue methadone oxycodone for breakthrough pain lactulose for constipation lactulose improving continue sinemet continue wellbutrin DVT ppx -heparin sc Visit type - Emergency Visit Emergency Visit: Yes ED Registration Date: 11/27/18 Care time: The patient presented to the Emergency Department on the above date and was hospitalized for further evaluation of their emergent condition. - New Patient This patient is new to me today: Yes Date on this admission: 11/28/18 - Critical Care Critical Care patient: No
[2018-11-28] MEDS: oxyCODONE HCL 5 MG TABLET PO PRN ×2 (17:42→22:49)
[2018-11-28] MEDS: ACETAMINOPHEN 325 MG TABLET (FP) PO PRN ×2 (17:44→22:50)
--- NOTE | 2018-11-28 20:21 | EKG ---
Test Reason : Blood Pressure : / mmHG Vent. Rate : 083 BPM Atrial Rate : 083 BPM P-R Int : 170 ms QRS Dur : 098 ms QT Int : 366 ms P-R-T Axes : 031 031 029 degrees QTc Int : 430 ms POOR DATA QUALITY, INTERPRETATION MAY BE ADVERSELY AFFECTED NORMAL SINUS RHYTHM NORMAL ECG WHEN COMPARED WITH ECG OF 17-NOV-2018 18:00, NO SIGNIFICANT CHANGE WAS FOUND Confirmed by MD GWENDOLYN, JENNIFER ([id number]) on 11/28/2018 8:20:33 PM Referred By: Confirmed By:JENNIFER SNOW MD
[2018-11-28] MEDS: SODIUM CHLORIDE 1,000 ML IV SCH (22:12)
[2018-11-29] MEDS ORDERED: PIPERACILLIN/TAZOBACTAM 3.375 GM VIAL IVPB ONE ×3 (01:15→17:49)
[2018-11-29] MEDS ORDERED: DEXTROSE 5%-WATER - 50 ML IVPB ONE ×3 (01:16→17:49)
[2018-11-29] MEDS: PIPERACILLIN/TAZOB 3.375 GM 3.375 GM in DEXTROSE 5%-WATER - 50 ML IVPB SCH ×3 (01:55→17:52)
[2018-11-29] MEDS: ACETAMINOPHEN 325 MG TABLET (FP) PO PRN ×4 (04:17→22:58)
[2018-11-29] MEDS: oxyCODONE HCL 5 MG TABLET PO PRN ×4 (04:18→22:59)
[2018-11-29] MEDS ORDERED: LEVOTHYROXINE NA 200 MCG TABLET ONE (05:48)
[2018-11-29] MEDS ORDERED: LEVOTHYROXINE NA 25 MCG TABLET (FP) ONE (05:48)
[2018-11-29 06:21] LABS: BASO % 0.5 % (0-2.0); EOS % 3.1 % (0-4.5); HEMATOCRIT 37.3 % (35.4-49); HEMOGLOBIN 12.8 GM/dL (11.7-16.9); LYMPH % 34.6 % (8-40); MCH 31.7 pg (25.7-33.7); MCHC 34.3 g/dl (32.0-35.9); MEAN CELL VOLUME 92.4 fl (80-96); MEAN PLT VOLUME 7.6 fl (7.5-11.1); MONO % 10.8 % (3.8-10.2); PLATELET COUNT 218 K/MM3 (134-434); RBC 4.04 M/mm3 (4.00-5.60); RDW 14.2 % (11.9-15.9); WHITE BLOOD COUNT 8.4 K/mm3 (4.0-10.0)
[2018-11-29 06:41] LABS: BLOOD UREA NITROGEN 17.2 mg/dL (7-18); CALCIUM 8.9 mg/dL (8.5-10.1); CREATININE 1.2 mg/dL (0.55-1.3); POTASSIUM 4.2 mmol/L (3.5-5.1)
[2018-11-29] MEDS: METHADONE HCL 5 MG TABLET PO SCH ×3 (06:46→22:55)
[2018-11-29] MEDS: GABAPENTIN 300 MG CAPSULE (FP) PO SCH ×3 (06:46→22:54)
[2018-11-29] MEDS: LEVOTHYROXINE 200 MCG, LEVOTHYROXINE 25 MCG PO SCH (06:47)
[2018-11-29] MEDS: PENTOXIFYLLINE 400 MG TABLET.ER PO SCH ×3 (06:48→22:56)
[2018-11-29] MEDS: CARBIDOPA/LEVODOPA 25/100 TABLET (FP) PO SCH ×3 (06:48→22:55)
[2018-11-29] MEDS: CYCLOBENZAPRINE HCL 5 MG TABLET PO SCH ×3 (06:49→22:56)
[2018-11-29] MEDS: HEPARIN NA (PORCINE) 5,000 UNITS/ML 1ML VIAL SQ SCH ×3 (06:50→23:00)
[2018-11-29] MEDS: PANTOPRAZOLE 40 MG TABLET (FP) PO SCH (09:36)
[2018-11-29] MEDS: ASPIRIN 81 MG CHEWABLE TABLETS PO SCH (09:36)
[2018-11-29] MEDS: FLUTICASONE PROP 0.05% 16 GM NASAL SPRAY NS SCH (09:37)
[2018-11-29] MEDS: LACTULOSE 20 GM/30 ML UDC (FOR ORAL USE ONLY) PO SCH (09:37)
[2018-11-29] MEDS: COLLAGENASE CLOSTRIDIUM HIST. 30 GRAMS TUBE TP SCH (09:37)
[2018-11-29] MEDS: NYSTATIN 100,000 UNIT/GM TOPICAL CREAM 15 GM TUBE TP SCH ×2 (09:37→22:59)
--- NOTE | 2018-11-29 09:54 | PN ---
Progress Note, Physician History of Present Illness: patient stable no new issues - Current Medication List Current Medications: Active Medications Acetaminophen (Tylenol -) 325 mg PO Q6H PRN PRN Reason: PAIN LEVEL 6-10 Last Admin: 11/29/18 04:17 Dose: 325 mg Albuterol/Ipratropium (Duoneb -) 1 amp NEB BID PRN PRN Reason: ASTHMA Last Admin: 11/28/18 19:58 Dose: 1 amp Aspirin (Asa -) 81 mg PO DAILY [facility] Last Admin: 11/29/18 09:36 Dose: 81 mg Bupropion HCl (Wellbutrin Xl -) 300 mg PO DAILY [facility] Last Admin: 11/29/18 09:38 Dose: 300 mg Carbidopa/Levodopa (Sinemet 25/100 -) 1 each PO TID [facility] Last Admin: 11/29/18 06:48 Dose: 1 each Collagenase (Santyl -) 1 applic TP DAILY [facility]; Protocol Last Admin: 11/29/18 09:37 Dose: 1 applic Cyclobenzaprine HCl (Cyclobenzaprine Hcl) 5 mg PO TID [facility] Last Admin: 11/29/18 06:49 Dose: 5 mg Fluticasone Propionate (Flonase -) 1 spray NS DAILY [facility] Last Admin: 11/29/18 09:37 Dose: 1 inhaler Gabapentin (Neurontin -) 600 mg PO TID [facility] Last Admin: 11/29/18 06:46 Dose: 600 mg Heparin Sodium (Porcine) (Heparin -) 5,000 unit SQ TID [facility] Last Admin: 11/29/18 06:50 Dose: 5,000 unit Sodium Chloride (Normal Saline -) 1,000 mls @ 100 mls/hr IV ASDIR [facility] Last Admin: 11/28/18 22:12 Dose: 100 mls/hr Piperacillin Sod/Tazobactam (Sod 3.375 gm/ Dextrose) 50 mls @ 100 mls/hr IVPB Q8H-IV [facility]; Protocol Last Admin: 11/29/18 01:55 Dose: 100 mls/hr Lactulose (Cephulac (Oral Use)) 20 gm PO DAILY [facility] Last Admin: 11/29/18 09:37 Dose: 20 gm Levothyroxine Sodium 200 mcg/ (Levothyroxine Sodium 25 mcg) 225 mcg PO DAILY@ 0700 [facility] Last Admin: 11/29/18 06:47 Dose: 225 mcg Methadone HCl (Dolophine -) 7.5 mg PO TID [facility] Last Admin: 11/29/18 06:46 Dose: 7.5 mg Nystatin (Mycostatin Cream -) 1 applic TP BID [facility] Last Admin: 11/29/18 09:37 Dose: 1 applic Oxycodone HCl (Roxicodone -) 5 mg PO Q6H PRN PRN Reason: PAIN LEVEL 6-10 Last Admin: 11/29/18 04:18 Dose: 5 mg Pantoprazole Sodium (Protonix -) 40 mg PO DAILY [facility] Last Admin: 11/29/18 09:36 Dose: 40 mg Pentoxifylline (Trental -) 400 mg PO TID [facility] Last Admin: 11/29/18 06:48 Dose: 400 mg Senna (Senna -) 2 tab PO HS PRN PRN Reason: CONSTIPATION - Objective Vital Signs: Vital Signs Temperature 97.7 F 11/28/18 16:40 Pulse Rate 74 11/29/18 04:00 Respiratory Rate 20 11/29/18 04:00 Blood Pressure 130/74 11/29/18 04:00 O2 Sat by Pulse Oximetry (%) 99 11/28/18 09:00 Constitutional: Yes: No Distress, Calm Cardiovascular: Yes: S1, S2 Respiratory: Yes: Regular, CTA Bilaterally Gastrointestinal: Yes: Normal Bowel Sounds, Soft Musculoskeletal: Yes: WNL Extremities: Yes: Other Neurological: Yes: Alert, Oriented Psychiatric: Yes: Alert, Oriented Labs: CBC, BMP 11/29/18 05:30 11/29/18 05:30 Assessment/Plan b/l cellulitis of the leg wound infection drainage from the wound onchomycosis plan continue abx culture the wound if draining wound care rest as per the team wound care consult for debridement
[2018-11-29] MEDS ORDERED: LEVOTHYROXINE NA 200 MCG TABLET PO SCH (10:00)
[2018-11-29] MEDS ORDERED: LEVOTHYROXINE NA 25 MCG TABLET (FP) PO SCH (10:00)
[2018-11-29] MEDS: ALBUTEROL SO4 2.5/IPRATROPIUM 0.5 INH SOL 3 ML VIAL.NEB. NEB PRN ×2 (11:28→20:05)
--- NOTE | 2018-11-29 11:34 | PN ---
Teaching Attending Note Name of Resident: Toshia Pulido ATTENDING PHYSICIAN STATEMENT I saw and evaluated the patient. I reviewed the resident's note and discussed the case with the resident. I agree with the resident's findings and plan as documented. SUBJECTIVE: Patient seen and examined at bedside he endorses pain which is better controlled with adding oxycodone for PRN breakthrough pain wounds per ID are improving OBJECTIVE: Constitutional: Yes: Well Nourished, No Distress, Calm Eyes: Yes: Conjunctiva Clear, EOM Intact HENT: Yes: Atraumatic, Normocephalic Neck: Yes: Supple, Trachea Midline Cardiovascular: Yes: Regular Rate and Rhythm Respiratory: Yes: Rales, Wheezes Gastrointestinal: Yes: Normal Bowel Sounds, Soft, Abdomen, Obese. No: Tenderness Extremities: Yes: Other (stasis dermatitis. Legs wrapped per wound care. no exudate on dressings. Not taken down. Will defer to wound care) Edema: Yes ASSESSMENT AND PLAN: 63M with history of TBI, parkinsons disease, GERD, Asthma, Depression, chronic pain on methadone, hypothyroidism, history of ESBL and pseudomonas growing in wounds presents with worsening drainage from lower extremity wounds sent in by wound care center and ID. 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 history of multidrug resistant organisms constipation Plan: continue zosyn per ID ID consult noted and appreciated f/u wound care wound care as per Dr. Alcantar Recommend washing b/l le's daily with NS and 4x4s to remove heaped up skin Keep gauze between toes, change daily Xeroform to superficial ulcers Apply santyl to venous stasis ulcers and cover with damp to dry and kerlix LE elevation at all times while at rest Offloading to areas of pressure at all times while at rest continue synthroid continue methadone oxycodone for breakthrough pain lactulose for constipation continue sinemet continue wellbutrin wounds improving DVT ppx -heparin sc
--- NOTE | 2018-11-29 12:52 | PN ---
Physical Exam: SUBJECTIVE: Patient seen and examined this AM. Continues to request pain medications. Otherwise, no new complaints. No acute overnight events. OBJECTIVE: Vital Signs Period Temp Pulse Resp BP Sys/Freitas Pulse Ox Last 24 Hr 97.3 F-97.7 F 70-74 20-20 122-135/67-76 GENERAL: A&Ox3, NAD HEAD: NCAT EYES: PERRL, EOMI ENT: Moist mucous membranes NECK: Supple LUNGS: CTAB, no wheezes, no crackles HEART: Regular rate and rhythm, S1, S2 without murmur ABDOMEN: Obese, Soft, nontender, nondistended, + bowel sounds, no guarding, no rebound EXTREMITIES: Blanching erythema, poorly demarcated and not warm over the b/l LE up to mid-anterior calf, Serous ulcerations without active drainage, Onychomycotic changes of toenails. NEUROLOGICAL: Diminished sensation over the b/l LE Laboratory Results - last 24 hr 11/29/18 11/29/18 05:30 05:30 WBC 8.4 RBC 4.04 Hgb 12.8 Hct 37.3 MCV 92.4 MCH 31.7 MCHC 34.3 RDW 14.2 Plt Count 218 MPV 7.6 Absolute Neuts (auto) 4.3 Neutrophils % 51.0 D Lymphocytes % 34.6 D Monocytes % 10.8 H Eosinophils % 3.1 Basophils % 0.5 Nucleated RBC % 0 Sodium 142 Potassium 4.2 Chloride 105 Carbon Dioxide 29 Anion Gap 7 L BUN 17.2 Creatinine 1.2 Est GFR (CKD-EPI)AfAm 75.19 Est GFR (CKD-EPI)NonAf 64.87 Random Glucose 94 Calcium 8.9 Active Medications Acetaminophen (Tylenol -) 325 mg PO Q6H PRN PRN Reason: PAIN LEVEL 6-10 Last Admin: 11/29/18 11:23 Dose: 325 mg Albuterol/Ipratropium (Duoneb -) 1 amp NEB BID PRN PRN Reason: ASTHMA Last Admin: 11/29/18 11:28 Dose: 1 amp Aspirin (Asa -) 81 mg PO DAILY [facility] Last Admin: 11/29/18 09:36 Dose: 81 mg Bupropion HCl (Wellbutrin Xl -) 300 mg PO DAILY [facility] Last Admin: 11/29/18 09:38 Dose: 300 mg Carbidopa/Levodopa (Sinemet 25/100 -) 1 each PO TID [facility] Last Admin: 11/29/18 06:48 Dose: 1 each Collagenase (Santyl -) 1 applic TP DAILY [facility]; Protocol Last Admin: 11/29/18 09:37 Dose: 1 applic Cyclobenzaprine HCl (Cyclobenzaprine Hcl) 5 mg PO TID [facility] Last Admin: 11/29/18 06:49 Dose: 5 mg Fluticasone Propionate (Flonase -) 1 spray NS DAILY [facility] Last Admin: 11/29/18 09:37 Dose: 1 inhaler Gabapentin (Neurontin -) 600 mg PO TID [facility] Last Admin: 11/29/18 06:46 Dose: 600 mg Heparin Sodium (Porcine) (Heparin -) 5,000 unit SQ TID [facility] Last Admin: 11/29/18 06:50 Dose: 5,000 unit Sodium Chloride (Normal Saline -) 1,000 mls @ 100 mls/hr IV ASDIR [facility] Last Admin: 11/28/18 22:12 Dose: 100 mls/hr Piperacillin Sod/Tazobactam (Sod 3.375 gm/ Dextrose) 50 mls @ 100 mls/hr IVPB Q8H-IV [facility]; Protocol Last Admin: 11/29/18 11:31 Dose: 100 mls/hr Lactulose (Cephulac (Oral Use)) 20 gm PO DAILY [facility] Last Admin: 11/29/18 09:37 Dose: 20 gm Levothyroxine Sodium 200 mcg/ (Levothyroxine Sodium 25 mcg) 225 mcg PO DAILY@ 0700 [facility] Last Admin: 11/29/18 06:47 Dose: 225 mcg Methadone HCl (Dolophine -) 7.5 mg PO TID [facility] Last Admin: 11/29/18 06:46 Dose: 7.5 mg Nystatin (Mycostatin Cream -) 1 applic TP BID [facility] Last Admin: 11/29/18 09:37 Dose: 1 applic Oxycodone HCl (Roxicodone -) 5 mg PO Q6H PRN PRN Reason: PAIN LEVEL 6-10 Last Admin: 11/29/18 11:23 Dose: 5 mg Pantoprazole Sodium (Protonix -) 40 mg PO DAILY [facility] Last Admin: 11/29/18 09:36 Dose: 40 mg Pentoxifylline (Trental -) 400 mg PO TID [facility] Last Admin: 11/29/18 06:48 Dose: 400 mg Senna (Senna -) 2 tab PO HS PRN PRN Reason: CONSTIPATION ASSESSMENT/PLAN: 63 y/o M PMHx chronic BLE venous stasis ulcers, past TBI w/ mild MR, parkinsons disease, GERD, asthma, depression, hypothyroidism, chronic pain(on methadone), OM of Left foot, BLE wounds growing pseudomonas, ESBL presenting with acute on chronic pain and worsening of b/l LE wounds. #B/L LE Ulceration -In the setting of chronic venous insufficency -MRI reveals infection with osteomyelitis -Continue Piperacillin/Tazobactam 3.375 gm Q8H (Abx course started on 11/27) -ID consulted, appreciate rec's -Wound Care consulted, appreciate instructions #Onycomycosis -Local nystatin #Chronic pain -Continue home dose methadone, flexeril -Oxycodone for breakthrough pain -Pain mgmt consulted #Parkinsons disease -Carbidopa/levodopa #GERD -PPI #Asthma -Bronchodilator #Depression -Continue bupropion -Hold home dose klonopin, zolpidem #Hypothyroidism -Synthroid #FEN -No standing fluids -Replete lytes PRN -Na controlled diet #PPx -DVT: Heparin Visit type - Emergency Visit Emergency Visit: Yes ED Registration Date: 11/27/18 Care time: The patient presented to the Emergency Department on the above date and was hospitalized for further evaluation of their emergent condition. - New Patient This patient is new to me today: Yes Date on this admission: 11/29/18 - Critical Care Critical Care patient: No ATTENDING PHYSICIAN STATEMENT I saw and evaluated the patient. I reviewed the resident's note and discussed the case with the resident. I agree with the resident's findings and plan as documented. SUBJECTIVE: OBJECTIVE: ASSESSMENT AND PLAN:
[2018-11-29] MEDS ORDERED: PT OWN MED DRAWER 7, Y5N ONE ×2 (18:39→20:53)
[2018-11-29] MEDS: SODIUM CHLORIDE 1,000 ML IV SCH (22:54)
[2018-11-30] MEDS: PIPERACILLIN/TAZOB 3.375 GM 3.375 GM in DEXTROSE 5%-WATER - 50 ML IVPB SCH ×3 (02:30→18:35)
[2018-11-30] MEDS ORDERED: LEVOTHYROXINE NA 200 MCG TABLET ONE (06:21)
[2018-11-30] MEDS ORDERED: LEVOTHYROXINE NA 25 MCG TABLET (FP) ONE (06:21)
[2018-11-30] MEDS: METHADONE HCL 5 MG TABLET PO SCH ×3 (06:48→21:54)
[2018-11-30] MEDS: HEPARIN NA (PORCINE) 5,000 UNITS/ML 1ML VIAL SQ SCH ×3 (06:48→21:57)
[2018-11-30] MEDS: GABAPENTIN 300 MG CAPSULE (FP) PO SCH ×3 (06:49→21:57)
[2018-11-30] MEDS: CARBIDOPA/LEVODOPA 25/100 TABLET (FP) PO SCH ×3 (06:49→21:56)
[2018-11-30] MEDS: PENTOXIFYLLINE 400 MG TABLET.ER PO SCH ×3 (06:49→21:59)
[2018-11-30] MEDS: LEVOTHYROXINE 200 MCG, LEVOTHYROXINE 25 MCG PO SCH (06:50)
[2018-11-30] MEDS: oxyCODONE HCL 5 MG TABLET PO PRN ×3 (06:51→18:35)
[2018-11-30] MEDS: ACETAMINOPHEN 325 MG TABLET (FP) PO PRN ×3 (06:51→18:36)
[2018-11-30] MEDS: CYCLOBENZAPRINE HCL 5 MG TABLET PO SCH ×3 (06:51→21:57)
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
[2018-11-30] MEDS: ALBUTEROL SO4 2.5/IPRATROPIUM 0.5 INH SOL 3 ML VIAL.NEB. NEB PRN (08:24)
--- NOTE | 2018-11-30 09:02 | PN ---
Progress Note, Physician History of Present Illness: stable no new issues - Current Medication List Current Medications: Active Medications Acetaminophen (Tylenol -) 325 mg PO Q6H PRN PRN Reason: PAIN LEVEL 6-10 Last Admin: 11/30/18 06:51 Dose: 325 mg Albuterol/Ipratropium (Duoneb -) 1 amp NEB BID PRN PRN Reason: ASTHMA Last Admin: 11/30/18 08:24 Dose: 1 amp Aspirin (Asa -) 81 mg PO DAILY [facility] Last Admin: 11/29/18 09:36 Dose: 81 mg Bupropion HCl (Wellbutrin Xl -) 300 mg PO DAILY [facility] Last Admin: 11/29/18 09:38 Dose: 300 mg Carbidopa/Levodopa (Sinemet 25/100 -) 1 each PO TID [facility] Last Admin: 11/30/18 06:49 Dose: 1 each Collagenase (Santyl -) 1 applic TP DAILY [facility]; Protocol Last Admin: 11/29/18 09:37 Dose: 1 applic Cyclobenzaprine HCl (Cyclobenzaprine Hcl) 5 mg PO TID [facility] Last Admin: 11/30/18 06:51 Dose: 5 mg Fluticasone Propionate (Flonase -) 1 spray NS DAILY [facility] Last Admin: 11/29/18 09:37 Dose: 1 inhaler Gabapentin (Neurontin -) 600 mg PO TID [facility] Last Admin: 11/30/18 06:49 Dose: 600 mg Heparin Sodium (Porcine) (Heparin -) 5,000 unit SQ TID [facility] Last Admin: 11/30/18 06:48 Dose: 5,000 unit Sodium Chloride (Normal Saline -) 1,000 mls @ 100 mls/hr IV ASDIR [facility] Last Admin: 11/29/18 22:54 Dose: 100 mls/hr Piperacillin Sod/Tazobactam (Sod 3.375 gm/ Dextrose) 50 mls @ 100 mls/hr IVPB Q8H-IV [facility]; Protocol Last Admin: 11/30/18 02:30 Dose: 100 mls/hr Lactulose (Cephulac (Oral Use)) 20 gm PO DAILY [facility] Last Admin: 11/29/18 09:37 Dose: 20 gm Levothyroxine Sodium 200 mcg/ (Levothyroxine Sodium 25 mcg) 225 mcg PO DAILY@ 0700 [facility] Last Admin: 11/30/18 06:50 Dose: 225 mcg Methadone HCl (Dolophine -) 7.5 mg PO TID [facility] Last Admin: 11/30/18 06:48 Dose: 7.5 mg Nystatin (Mycostatin Cream -) 1 applic TP BID [facility] Last Admin: 11/29/18 22:59 Dose: 1 applic Oxycodone HCl (Roxicodone -) 5 mg PO Q6H PRN PRN Reason: PAIN LEVEL 6-10 Last Admin: 11/30/18 06:51 Dose: 5 mg Pantoprazole Sodium (Protonix -) 40 mg PO DAILY [facility] Last Admin: 11/29/18 09:36 Dose: 40 mg Pentoxifylline (Trental -) 400 mg PO TID [facility] Last Admin: 11/30/18 06:49 Dose: 400 mg Senna (Senna -) 2 tab PO HS PRN PRN Reason: CONSTIPATION - Objective Vital Signs: Vital Signs Temperature 98 F 11/30/18 04:00 Pulse Rate 67 11/30/18 04:00 Respiratory Rate 20 11/30/18 04:00 Blood Pressure 121/61 11/30/18 04:00 O2 Sat by Pulse Oximetry (%) 99 11/29/18 21:00 Constitutional: Yes: No Distress, Calm Cardiovascular: Yes: S1, S2 Respiratory: Yes: Regular, CTA Bilaterally Musculoskeletal: Yes: WNL Extremities: Yes: Other Wound/Incision: Yes: Dressing Dry and Intact Psychiatric: Yes: Alert, Oriented Labs: CBC, BMP 11/29/18 05:30 11/29/18 05:30 Assessment/Plan b/l cellulitis of the leg wound infection drainage from the wound onchomycosis plan continue abx wound care
[2018-11-30] MEDS ORDERED: PIPERACILLIN/TAZOBACTAM 3.375 GM VIAL IVPB ONE ×2 (09:32→17:54)
[2018-11-30] MEDS ORDERED: DEXTROSE 5%-WATER - 50 ML IVPB ONE ×2 (09:33→17:55)
[2018-11-30] MEDS: ASPIRIN 81 MG CHEWABLE TABLETS PO SCH (09:43)
[2018-11-30] MEDS: PANTOPRAZOLE 40 MG TABLET (FP) PO SCH (09:43)
[2018-11-30] MEDS: LACTULOSE 20 GM/30 ML UDC (FOR ORAL USE ONLY) PO SCH (09:44)
[2018-11-30] MEDS: NYSTATIN 100,000 UNIT/GM TOPICAL CREAM 15 GM TUBE TP SCH ×2 (09:47→21:58)
[2018-11-30] MEDS: FLUTICASONE PROP 0.05% 16 GM NASAL SPRAY NS SCH (09:48)
[2018-11-30] MEDS ORDERED: PT OWN MED DRAWER 7, Y5N ONE ×2 (14:40→17:15)
--- NOTE | 2018-11-30 14:44 | CONSULT ---
Consult Consult Specialty:: Podiatry Reason for Consultation:: Elongated thickened toe nails. Wounds b/l feet being tx by vascular - History of Present Illness Chief Complaint: Painful elongated thcikened toe nails in shoe gear and amulation. - History Source History Provided By: Patient - Past Medical History COLLEGE ADVISOR: Yes: Parkinson's Cardio/Vascular: Yes: HTN Gastrointestinal: Yes: GERD - Alcohol/Substance Use Hx Alcohol Use: No - Smoking History Smoking history: Former smoker Have you smoked in the past 12 months: No If you are a former smoker, when did you quit?: 3 years ago Home Medications - Allergies Allergies/Adverse Reactions: Allergies Allergy/AdvReac Type Severity Reaction Status Date / Time No Known Allergies Allergy Verified 11/27/18 16:53 - Home Medications Home Medications: Ambulatory Orders Aspirin [ASA -] 81 mg PO DAILY 02/27/18 Bupropion HCl [Bupropion HCl Sr] 150 mg PO BID 02/27/18 Clonazepam [Klonopin] 1.5 mg PO HS 02/27/18 Ferrous Sulfate 1 tab PO DAILY 02/27/18 Ipratropium/Albuterol Sulfate [Iprat-Albut 0.5-3(2.5) mg/3 ml] 3 ml IH BID 02/27 Levothyroxine [Synthroid -] 200 mcg PO DAILY 02/27/18 Sennosides [Senna] 17.2 mg PO HS PRN 02/27/18 Simethicone 125 mg PO PRN PRN 02/27/18 Zolpidem Tartrate 10 mg PO HS 02/27/18 Nitroglycerin 0.4 mg SL PRN PRN MDD 3 09/04/18 Cyclobenzaprine HCl 5 mg PO TID tablet 11/03/18 Acetaminophen [Tylenol .Regular Strength -] 650 mg PO Q6H 11/17/18 Carbidopa/Levodopa [Carbidopa-Levodopa 25-100 Tab] 1 tab PO TID 11/17/18 Collagenase Clostridium Hist. [Santyl -] 1 applic TP DAILY 11/17/18 Fluticasone Prop 0.05% Nasal [Flonase -] 1 spray NS DAILY 11/17/18 Gabapentin 600 mg PO TID 11/17/18 Mag Hydrox/Al Hydrox/Simeth [Mylanta Oral Suspension -] 30 ml PO PRN 11/17/18 Methadone [Dolophine -] 7.5 mg PO Q8H 11/17/18 Multivitamins [Multivit ([facility] Formulary)] 1 tab PO DAILY 11/17/18 Pantoprazole Sodium 40 mg PO DAILY 11/17/18 Pentoxifylline [Trental -] 400 mg PO TID 11/17/18 Nystatin Cream [Mycostatin Cream -] 1 applic TP BID 30 Days #1 tube 11/24/18 Hydrocortisone 1% Cream [Hytone 1% Cream -] 1 applic TP DAILY 11/27/18 Ketorolac Injection [Toradol -] 15 mg IM Q6HIV 11/27/18 Lactulose 20 gm PO DAILY 11/27/18 Levothyroxine [Synthroid -] 25 mcg PO DAILY 11/27/18 Piperacillin/Tazob 2.25 gm [Zosyn 2.25GM Ivpb (Pre-Docked)] 2.25 gm IVPB TID Physical Exam Vital Signs: Vital Signs Temperature 98 F 11/30/18 04:00 Pulse Rate 67 11/30/18 04:00 Respiratory Rate 20 11/30/18 04:00 Blood Pressure 121/61 11/30/18 04:00 O2 Sat by Pulse Oximetry (%) 99 11/29/18 21:00 Extremities: Yes: Other (+multiple dressings b/l feet with toes exposed, + hypertrophic mycotic nails x 10 b/l feet,) Labs: CBC, BMP 11/29/18 05:30 11/29/18 05:30 Assessment/Plan multiple wounds b/l feet onychomycosis x 10 Patient requesting nails be debrided. Wounds are being managed by vascular at this time, discussed with Dr. Alcantar. Please consult for wounds if needed. Reviwed xrays. Will return to debride nails with nail clipper.
--- NOTE | 2018-11-30 18:04 | PN ---
Teaching Attending Note Name of Resident: José Luis Michaud ATTENDING PHYSICIAN STATEMENT I saw and evaluated the patient. I reviewed the resident's note and discussed the case with the resident. I agree with the resident's findings and plan as documented. SUBJECTIVE: Patient complains of pain in both legs. OBJECTIVE: Vital Signs Period Temp Pulse Resp BP Sys/Freitas Pulse Ox Last 24 Hr 97.3 F-98.2 F 67-89 18-20 120-137/60-85 98-99 HEART: S1S2, RRR LUNGS: Clear ABDOMEN: Obese, soft, non-tender, non-distended, normal BS EXTREMITIES: Erythema, 1+ edema, and ulcers of both lower legs Current Medications Generic Name Dose Route Start Last Admin Trade Name Freq PRN Reason Stop Dose Admin Acetaminophen 325 mg 11/28/18 15:21 11/30/18 12:44 Tylenol - PO 325 mg Q6H PRN Administration PAIN LEVEL 6-10 Albuterol/Ipratropium 1 amp 11/28/18 04:55 11/30/18 08:24 Duoneb - NEB 1 amp BID PRN Administration ASTHMA Aspirin 81 mg 11/28/18 10:00 11/30/18 09:43 Asa - PO 81 mg DAILY [facility] Administration Bupropion HCl 300 mg 11/28/18 10:00 11/30/18 09:44 Wellbutrin Xl - PO 300 mg DAILY [facility] Administration Carbidopa/Levodopa 1 each 11/28/18 06:00 11/30/18 14:35 Sinemet 25/100 - PO 1 each TID [facility] Administration Collagenase 1 applic 11/28/18 10:00 11/29/18 09:37 Santyl - TP 1 applic DAILY [facility] Administration Protocol Cyclobenzaprine HCl 5 mg 11/27/18 22:30 11/30/18 14:37 Cyclobenzaprine Hcl PO 5 mg TID [facility] Administration Fluticasone Propionate 1 spray 11/28/18 10:00 11/30/18 09:48 Flonase - NS 1 inhaler DAILY [facility] Administration Gabapentin 600 mg 11/27/18 23:15 11/30/18 14:35 Neurontin - PO 600 mg TID [facility] Administration Heparin Sodium (Porcine) 5,000 unit 11/27/18 22:00 11/30/18 14:37 Heparin - SQ 5,000 unit TID [facility] Administration Sodium Chloride 1,000 mls @ 100 mls/hr 11/27/18 21:30 11/29/18 22:54 Normal Saline - IV 100 mls/hr ASDIR [facility] Administration Piperacillin Sod/Tazobactam 50 mls @ 100 mls/hr 11/28/18 18:00 11/30/18 09:44 Sod 3.375 gm/ Dextrose IVPB 100 mls/hr Q8H-IV [facility] Administration Protocol Lactulose 20 gm 11/29/18 10:00 11/30/18 09:44 Cephulac (Oral Use) PO 20 gm DAILY [facility] Administration Levothyroxine Sodium 200 mcg/ 225 mcg 11/29/18 07:00 11/30/18 06:50 Levothyroxine Sodium 25 mcg PO 225 mcg DAILY@0700 [facility] Administration Methadone HCl 7.5 mg 11/28/18 06:00 11/30/18 14:35 Dolophine - PO 7.5 mg TID [facility] Administration Nystatin 1 applic 11/28/18 10:00 11/30/18 09:47 Mycostatin Cream - TP 1 applic BID [facility] Administration Oxycodone HCl 5 mg 11/28/18 15:37 11/30/18 12:42 Roxicodone - PO 5 mg Q6H PRN Administration PAIN LEVEL 6-10 Pantoprazole Sodium 40 mg 11/28/18 10:00 11/30/18 09:43 Protonix - PO 40 mg DAILY [facility] Administration Pentoxifylline 400 mg 11/28/18 06:00 11/30/18 14:40 Trental - PO 400 mg TID [facility] Administration Senna 2 tab 11/27/18 22:21 Senna - PO HS PRN CONSTIPATION ASSESSMENT AND PLAN: This is a 63 year old man with a history of venous ulcers of both legs, TBI, Parkinson disease, GERD, asthma, depression, hypothyroidism, chronic pain, osteomyelitis of left foot, who presented to the ED with worsening leg wounds with worsening pain. 1. Infected venous ulcers with cellulitis of both legs - Continue Zosyn - Continue wound care 2. Onychomycosis of toenails - Plan for debridement by podiatry 3. Chronic venous insufficiency 4. History of traumatic brain injury 5. Parkinson disease - Continue Sinemet 6. Asthma - Stable 7. Depression - Continue Wellbutrin 8. GERD - Continue Protonix 9. Hypothyroidism - Continue Synthroid 10. Chronic pain - Continue Wellbutrin, Neurontin, Methadone, oxycodone as needed
--- NOTE | 2018-11-30 18:13 | PN ---
Physical Exam: SUBJECTIVE: Patient seen and examined NAEON s/p bedside debridement by Wound team. Pt endorses improvement of BLE pain, now 08/19 OBJECTIVE: Vital Signs Period Temp Pulse Resp BP Sys/Freitas Pulse Ox Last 24 Hr 97.3 F-98.2 F 67-89 18-20 120-137/60-85 98-99 GENERAL: In NAD. HEENT: NC/AT. No scleral icterus, No conjunctival pallor LUNGS: CTABL, no accessory muscle use, no crackles HEART: Regular rate and rhythm, normal S1 and S2 without murmurs ABDOMEN: Obese, soft, nontender, normoactive bowel sounds, no guarding. MSK: BLE decreased ROM b/l. Good ROM UE. UPPER EXTREMITIES: 2+ pulses palpated. Scaly rash to hand dorsums. RUE medial surface with PICC surrounded by ecchymosis and petechial blanching rash, small bullae LOWER EXTREMITIES: B/l LE blanching erythema present, serous ulcerations surrounding LE below knee. Not warm to touch. Onychomycotic changes of toenails. Yellow/ brown drainage present interdigitally b/l, greater on LLE. NEUROLOGICAL: Sensory intact b/l UE. Decreased sensation of BLE, intact dull sensation with decreased discrimination of fine touch PSYCHIATRIC: Appropriate mood and affect. SKIN: dry pale skin, little hair on BLE Active Medications Generic Name Dose Route Start Last Admin Trade Name Freq PRN Reason Stop Dose Admin Acetaminophen 325 mg 11/28/18 15:21 11/30/18 12:44 Tylenol - PO 325 mg Q6H PRN Administration PAIN LEVEL 6-10 Albuterol/Ipratropium 1 amp 11/28/18 04:55 11/30/18 08:24 Duoneb - NEB 1 amp BID PRN Administration ASTHMA Aspirin 81 mg 11/28/18 10:00 11/30/18 09:43 Asa - PO 81 mg DAILY BRENDA Administration Bupropion HCl 300 mg 11/28/18 10:00 11/30/18 09:44 Wellbutrin Xl - PO 300 mg DAILY BRENDA Administration Carbidopa/Levodopa 1 each 11/28/18 06:00 11/30/18 14:35 Sinemet 25/100 - PO 1 each TID BRENDA Administration Collagenase 1 applic 11/28/18 10:00 11/29/18 09:37 Santyl - TP 1 applic DAILY BRENDA Administration Protocol Cyclobenzaprine HCl 5 mg 11/27/18 22:30 11/30/18 14:37 Cyclobenzaprine Hcl PO 5 mg TID BRENDA Administration Fluticasone Propionate 1 spray 11/28/18 10:00 11/30/18 09:48 Flonase - NS 1 inhaler DAILY BRENDA Administration Gabapentin 600 mg 11/27/18 23:15 11/30/18 14:35 Neurontin - PO 600 mg TID BRENDA Administration Heparin Sodium (Porcine) 5,000 unit 11/27/18 22:00 11/30/18 14:37 Heparin - SQ 5,000 unit TID BRENDA Administration Sodium Chloride 1,000 mls @ 100 mls/hr 11/27/18 21:30 11/29/18 22:54 Normal Saline - IV 100 mls/hr ASDIR BRENDA Administration Piperacillin Sod/Tazobactam 50 mls @ 100 mls/hr 11/28/18 18:00 11/30/18 09:44 Sod 3.375 gm/ Dextrose IVPB 100 mls/hr Q8H-IV BRENDA Administration Protocol Lactulose 20 gm 11/29/18 10:00 11/30/18 09:44 Cephulac (Oral Use) PO 20 gm DAILY BRENDA Administration Levothyroxine Sodium 200 mcg/ 225 mcg 11/29/18 07:00 11/30/18 06:50 Levothyroxine Sodium 25 mcg PO 225 mcg DAILY@0700 BRENDA Administration Methadone HCl 7.5 mg 11/28/18 06:00 11/30/18 14:35 Dolophine - PO 7.5 mg TID BRENDA Administration Nystatin 1 applic 11/28/18 10:00 11/30/18 09:47 Mycostatin Cream - TP 1 applic BID BRENDA Administration Oxycodone HCl 5 mg 11/28/18 15:37 11/30/18 12:42 Roxicodone - PO 5 mg Q6H PRN Administration PAIN LEVEL 6-10 Pantoprazole Sodium 40 mg 11/28/18 10:00 11/30/18 09:43 Protonix - PO 40 mg DAILY BRENDA Administration Pentoxifylline 400 mg 11/28/18 06:00 11/30/18 14:40 Trental - PO 400 mg TID BRENDA Administration Senna 2 tab 11/27/18 22:21 Senna - PO HS PRN CONSTIPATION ASSESSMENT/PLAN: 63 y.o. 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 #B/l LE cellulitis r/o osteomyelitis -- vs acute excerbation of chronic venous disease -Cx's from previous wound cx: poly microbial (pseudomonas, klebsiella, enterobacter, proteus, staph) s/p recent zosyn >MRI(11/19/18): --RLE: mild cellulitis, NO soft tissue abscess, NO osteomyelitis --LLE: mild cellulitis, NO soft tissue abscess, NO osteomyelitis. 2.8cm possible ?enchondroma - fu foot/ankle XR(11/28/18) -- pending read - Consult ID(Dr. Daniels) --cw IV abx(zosyn day #4) - Consult Wound Care(Dr. Alcantar) --Recommend washing b/l le's daily with NS and 4x4s to remove heaped up skin --Keep gauze between toes, change daily --Xeroform to superficial ulcers --Apply santyl to venous stasis ulcers and cover with damp to dry and kerlix --LE elevation at all times while at rest --Offloading to areas of pressure at all times while at rest -Consult Chronic Pain(Dr. Graham Plaza) #fungal toenails - cw nystatin local application - Podiatry: --will debride nails w/ nail clippers #Chronic pain -C/w home meds: methadone 7.5mg PO q8h, flexeril 5mg PO TID -ketorlac PRN if severe pain #Parkinsons disease -C/w carbidopa/ levodopa 25-100mg PO TID #GERD -C/w protonix 40mg PO daily #Asthma -C/w duonebs prn #Depression -C/w home meds: bupropion, - hold klonopin, zolpidem #Hypothyroidism -C/w home dose synthroid 225mcg PO daily #FEN -Sodium controlled diet #DVT PPX -Heparin SQ Visit type - Emergency Visit Emergency Visit: No - New Patient This patient is new to me today: No - Critical Care Critical Care patient: No ATTENDING PHYSICIAN STATEMENT I saw and evaluated the patient. I reviewed the resident's note and discussed the case with the resident. I agree with the resident's findings and plan as documented. SUBJECTIVE: OBJECTIVE: ASSESSMENT AND PLAN:
[2018-11-30] MEDS: COLLAGENASE CLOSTRIDIUM HIST. 30 GRAMS TUBE TP SCH (18:34)
[2018-11-30] MEDS: SODIUM CHLORIDE 1,000 ML IV SCH (22:03)
[2018-12-01] MEDS ORDERED: PIPERACILLIN/TAZOBACTAM 3.375 GM VIAL IVPB ONE ×3 (00:59→17:11)
[2018-12-01] MEDS ORDERED: DEXTROSE 5%-WATER - 50 ML IVPB ONE ×3 (00:59→17:11)
[2018-12-01] MEDS: oxyCODONE HCL 5 MG TABLET PO PRN ×2 (01:02→09:18)
[2018-12-01] MEDS: PIPERACILLIN/TAZOB 3.375 GM 3.375 GM in DEXTROSE 5%-WATER - 50 ML IVPB SCH ×3 (01:03→17:31)
[2018-12-01] MEDS: METHADONE HCL 5 MG TABLET PO SCH ×3 (05:41→21:44)
[2018-12-01] MEDS: CYCLOBENZAPRINE HCL 5 MG TABLET PO SCH ×3 (05:42→22:56)
[2018-12-01] MEDS: GABAPENTIN 300 MG CAPSULE (FP) PO SCH ×3 (05:42→21:44)
[2018-12-01] MEDS: HEPARIN NA (PORCINE) 5,000 UNITS/ML 1ML VIAL SQ SCH ×3 (05:42→21:45)
[2018-12-01] MEDS: CARBIDOPA/LEVODOPA 25/100 TABLET (FP) PO SCH ×3 (05:42→21:44)
[2018-12-01] MEDS: PENTOXIFYLLINE 400 MG TABLET.ER PO SCH ×3 (05:43→21:45)
[2018-12-01] MEDS ORDERED: LEVOTHYROXINE NA 200 MCG TABLET ONE (06:19)
[2018-12-01] MEDS ORDERED: LEVOTHYROXINE NA 25 MCG TABLET (FP) ONE (06:20)
[2018-12-01] MEDS: LEVOTHYROXINE 200 MCG, LEVOTHYROXINE 25 MCG PO SCH (06:30)
[2018-12-01 09:03] LABS: HEMATOCRIT 38.8 % (35.4-49); HEMOGLOBIN 13.2 GM/dL (11.7-16.9); MCH 31.4 pg (25.7-33.7); MCHC 33.9 g/dl (32.0-35.9); MEAN CELL VOLUME 92.4 fl (80-96); PLATELET COUNT 230 K/MM3 (134-434); RDW 13.8 % (11.9-15.9); WHITE BLOOD COUNT 8.4 K/mm3 (4.0-10.0)
[2018-12-01] MEDS: ASPIRIN 81 MG CHEWABLE TABLETS PO SCH (09:17)
[2018-12-01] MEDS: LACTULOSE 20 GM/30 ML UDC (FOR ORAL USE ONLY) PO SCH (09:17)
[2018-12-01] MEDS: PANTOPRAZOLE 40 MG TABLET (FP) PO SCH (09:17)
[2018-12-01] MEDS: ACETAMINOPHEN 325 MG TABLET (FP) PO PRN ×2 (09:18→20:05)
[2018-12-01] MEDS: FLUTICASONE PROP 0.05% 16 GM NASAL SPRAY NS SCH (09:20)
[2018-12-01] MEDS: NYSTATIN 100,000 UNIT/GM TOPICAL CREAM 15 GM TUBE TP SCH ×2 (09:20→21:45)
[2018-12-01] MEDS: COLLAGENASE CLOSTRIDIUM HIST. 30 GRAMS TUBE TP SCH (09:20)
[2018-12-01 09:33] LABS: BLOOD UREA NITROGEN 17.9 mg/dL (7-18); CALCIUM 9.4 mg/dL (8.5-10.1); MAGNESIUM 1.6 mg/dL (1.8-2.4); POTASSIUM 4.2 mmol/L (3.5-5.1)
[2018-12-01] MEDS ORDERED: MAGNESIUM SULF 50% (8.12 MEQ/2 ML-1 GM VIAL) IVPB ONE (10:00)
[2018-12-01] MEDS ORDERED: MAGNESIUM OXIDE 400 MG TABLET (FP) PO SCH (10:15)
--- NOTE | 2018-12-01 11:33 | PN ---
Progress Note, Physician History of Present Illness: post debridement stable no complaints - Current Medication List Current Medications: Active Medications Acetaminophen (Tylenol -) 325 mg PO Q6H PRN PRN Reason: PAIN LEVEL 6-10 Last Admin: 12/01/18 09:18 Dose: 325 mg Albuterol/Ipratropium (Duoneb -) 1 amp NEB BID PRN PRN Reason: ASTHMA Last Admin: 11/30/18 08:24 Dose: 1 amp Aspirin (Asa -) 81 mg PO DAILY COUNT INCLUDES THE [facility] Last Admin: 12/01/18 09:17 Dose: 81 mg Bupropion HCl (Wellbutrin Xl -) 300 mg PO DAILY COUNT INCLUDES THE [facility] Last Admin: 12/01/18 09:19 Dose: 300 mg Carbidopa/Levodopa (Sinemet 25/100 -) 1 each PO TID COUNT INCLUDES THE [facility] Last Admin: 12/01/18 05:42 Dose: 1 each Collagenase (Santyl -) 1 applic TP DAILY COUNT INCLUDES THE [facility]; Protocol Last Admin: 12/01/18 09:20 Dose: 1 applic Cyclobenzaprine HCl (Cyclobenzaprine Hcl) 5 mg PO TID COUNT INCLUDES THE [facility] Last Admin: 12/01/18 05:42 Dose: 5 mg Fluticasone Propionate (Flonase -) 1 spray NS DAILY COUNT INCLUDES THE [facility] Last Admin: 12/01/18 09:20 Dose: 1 inhaler Gabapentin (Neurontin -) 600 mg PO TID COUNT INCLUDES THE [facility] Last Admin: 12/01/18 05:42 Dose: 600 mg Heparin Sodium (Porcine) (Heparin -) 5,000 unit SQ TID BRENDA Last Admin: 12/01/18 05:42 Dose: 5,000 unit Sodium Chloride (Normal Saline -) 1,000 mls @ 100 mls/hr IV ASDIR BRENDA Last Admin: 11/30/18 22:03 Dose: 100 mls/hr Piperacillin Sod/Tazobactam (Sod 3.375 gm/ Dextrose) 50 mls @ 100 mls/hr IVPB Q8H-IV BRENDA; Protocol Last Admin: 12/01/18 09:17 Dose: 100 mls/hr Lactulose (Cephulac (Oral Use)) 20 gm PO DAILY BRENDA Last Admin: 12/01/18 09:17 Dose: 20 gm Levothyroxine Sodium 200 mcg/ (Levothyroxine Sodium 25 mcg) 225 mcg PO DAILY@ 0700 BRENDA Last Admin: 12/01/18 06:30 Dose: 225 mcg Methadone HCl (Dolophine -) 7.5 mg PO TID COUNT INCLUDES THE [facility] Last Admin: 12/01/18 05:41 Dose: 7.5 mg Nystatin (Mycostatin Cream -) 1 applic TP BID COUNT INCLUDES THE [facility] Last Admin: 12/01/18 09:20 Dose: 1 applic Oxycodone HCl (Roxicodone -) 5 mg PO Q6H PRN PRN Reason: PAIN LEVEL 6-10 Last Admin: 12/01/18 09:18 Dose: 5 mg Pantoprazole Sodium (Protonix -) 40 mg PO DAILY COUNT INCLUDES THE [facility] Last Admin: 12/01/18 09:17 Dose: 40 mg Pentoxifylline (Trental -) 400 mg PO TID COUNT INCLUDES THE [facility] Last Admin: 12/01/18 05:43 Dose: 400 mg Senna (Senna -) 2 tab PO HS PRN PRN Reason: CONSTIPATION - Objective Vital Signs: Vital Signs Temperature 97.6 F 12/01/18 04:00 Pulse Rate 69 12/01/18 04:00 Respiratory Rate 18 12/01/18 04:00 Blood Pressure 119/69 12/01/18 04:00 O2 Sat by Pulse Oximetry (%) 98 11/30/18 21:00 Constitutional: Yes: No Distress, Calm Cardiovascular: Yes: S1, S2 Respiratory: Yes: Regular, CTA Bilaterally Gastrointestinal: Yes: Normal Bowel Sounds, Soft Musculoskeletal: Yes: WNL Extremities: Yes: Other Wound/Incision: Yes: Dressing Dry and Intact Neurological: Yes: Alert, Oriented Psychiatric: Yes: Alert, Oriented Labs: CBC, BMP 12/01/18 08:10 12/01/18 08:10 Assessment/Plan b/l cellulitis of the leg wound infection drainage from the wound onchomycosis plan continue abx wound care
[2018-12-01] MEDS ORDERED: PT OWN MED DRAWER 7, Y5N ONE ×2 (14:16→21:40)
[2018-12-01] MEDS: BACITRACIN 15 GM TUBE TOPICAL OINTMENT TP SCH (17:31)
--- NOTE | 2018-12-01 18:21 | PN ---
Teaching Attending Note Name of Resident: José Luis Michaud ATTENDING PHYSICIAN STATEMENT I saw and evaluated the patient. I reviewed the resident's note and discussed the case with the resident. I agree with the resident's findings and plan as documented. SUBJECTIVE: LE pain improving. No fever/chills. OBJECTIVE: Afebrile, Hemodynamically Stable. Last Vital Signs Temp Pulse Resp BP Pulse Ox 98.6 F 68 17 132/89 97 12/01/18 14:00 12/01/18 14:00 12/01/18 14:00 12/01/18 14:00 12/01/18 09:00 HEART: S1S2, RRR LUNGS: Clear to auiscultation ABDOMEN: High BMI, soft, non-tender, non-distended, normal BS EXTREMITIES: Erythema, 2+ edema, and scalling, hypertrophic skin changes and superficial ulcers of both lower legs Laboratory Results - last 24 hr 12/01/18 12/01/18 08:10 08:10 WBC 8.4 RBC 4.20 Hgb 13.2 Hct 38.8 MCV 92.4 MCH 31.4 MCHC 33.9 RDW 13.8 Plt Count 230 MPV 8.0 Sodium 140 Potassium 4.2 Chloride 103 Carbon Dioxide 31 Anion Gap 7 L BUN 17.9 Creatinine 1.0 Est GFR (CKD-EPI)AfAm 93.73 Est GFR (CKD-EPI)NonAf 80.87 Random Glucose 80 Calcium 9.4 Phosphorus 3.0 Magnesium 1.6 L Current Medications Generic Name Dose Route Start Last Admin Trade Name Freq PRN Reason Stop Dose Admin Acetaminophen 325 mg 11/28/18 15:21 12/01/18 09:18 Tylenol - PO 325 mg Q6H PRN Administration PAIN LEVEL 6-10 Albuterol/Ipratropium 1 amp 11/28/18 04:55 11/30/18 08:24 Duoneb - NEB 1 amp BID PRN Administration ASTHMA Aspirin 81 mg 11/28/18 10:00 12/01/18 09:17 Asa - PO 81 mg DAILY BRENDA Administration Bacitracin 1 applic 12/01/18 15:15 12/01/18 17:31 Bacitracin - TP 1 applic DAILY BRENDA Administration Bupropion HCl 300 mg 11/28/18 10:00 12/01/18 09:19 Wellbutrin Xl - PO 300 mg DAILY BRENDA Administration Carbidopa/Levodopa 1 each 11/28/18 06:00 12/01/18 14:18 Sinemet 25/100 - PO 1 each TID BRENDA Administration Collagenase 1 applic 11/28/18 10:00 12/01/18 09:20 Santyl - TP 1 applic DAILY BRENDA Administration Protocol Cyclobenzaprine HCl 5 mg 11/27/18 22:30 12/01/18 14:19 Cyclobenzaprine Hcl PO Not Given TID BRENDA Fluticasone Propionate 1 spray 11/28/18 10:00 12/01/18 09:20 Flonase - NS 1 inhaler DAILY BRENDA Administration Gabapentin 600 mg 11/27/18 23:15 12/01/18 14:19 Neurontin - PO 600 mg TID BRENDA Administration Heparin Sodium (Porcine) 5,000 unit 11/27/18 22:00 12/01/18 14:19 Heparin - SQ 5,000 unit TID BRENDA Administration Sodium Chloride 1,000 mls @ 100 mls/hr 11/27/18 21:30 11/30/18 22:03 Normal Saline - IV 100 mls/hr ASDIR BRENDA Administration Piperacillin Sod/Tazobactam 50 mls @ 100 mls/hr 11/28/18 18:00 12/01/18 17:31 Sod 3.375 gm/ Dextrose IVPB 100 mls/hr Q8H-IV BRENDA Administration Protocol Lactulose 20 gm 11/29/18 10:00 12/01/18 09:17 Cephulac (Oral Use) PO 20 gm DAILY BRENDA Administration Levothyroxine Sodium 200 mcg/ 225 mcg 11/29/18 07:00 12/01/18 06:30 Levothyroxine Sodium 25 mcg PO 225 mcg DAILY@0700 BRENDA Administration Methadone HCl 7.5 mg 11/28/18 06:00 12/01/18 14:18 Dolophine - PO 7.5 mg TID BRENDA Administration Nystatin 1 applic 11/28/18 10:00 12/01/18 09:20 Mycostatin Cream - TP 1 applic BID BRENDA Administration Pantoprazole Sodium 40 mg 11/28/18 10:00 12/01/18 09:17 Protonix - PO 40 mg DAILY BRENDA Administration Pentoxifylline 400 mg 11/28/18 06:00 12/01/18 14:18 Trental - PO 400 mg TID BRENDA Administration Senna 2 tab 11/27/18 22:21 Senna - PO HS PRN CONSTIPATION Home Medications Medication Instructions Recorded Aspirin [ASA -] 81 mg PO DAILY 02/27/18 Bupropion HCl [Bupropion HCl Sr] 150 mg PO BID 02/27/18 Clonazepam [Klonopin] 1.5 mg PO HS 02/27/18 Ferrous Sulfate 1 tab PO DAILY 02/27/18 Levothyroxine [Synthroid -] 200 mcg PO DAILY 02/27/18 Sennosides [Senna] 17.2 mg PO HS PRN 02/27/18 Simethicone 125 mg PO PRN PRN 02/27/18 Zolpidem Tartrate 10 mg PO HS 02/27/18 Nitroglycerin 0.4 mg SL PRN PRN MDD 3 09/04/18 Cyclobenzaprine HCl 5 mg PO TID tablet 11/03/18 Acetaminophen [Tylenol .Regular 650 mg PO Q6H 11/17/18 Strength -] Carbidopa/Levodopa 1 tab PO TID 11/17/18 [Carbidopa-Levodopa 25-100 Tab] Collagenase Clostridium Hist. 1 applic TP DAILY 11/17/18 [Santyl -] Fluticasone Prop 0.05% Nasal 1 spray NS DAILY 11/17/18 [Flonase -] Mag Hydrox/Al Hydrox/Simeth 30 ml PO PRN 11/17/18 [Mylanta Oral Suspension -] Methadone [Dolophine -] 7.5 mg PO Q8H 11/17/18 Multivitamins [Multivit ([facility] 1 tab PO DAILY 11/17/18 Formulary)] Pantoprazole Sodium 40 mg PO DAILY 11/17/18 Pentoxifylline [Trental -] 400 mg PO TID 11/17/18 Nystatin Cream [Mycostatin Cream -] 1 applic TP BID 30 Days #1 tube 11/24/18 Hydrocortisone 1% Cream [Hytone 1% 1 applic TP DAILY 11/27/18 Cream -] Ketorolac Injection [Toradol -] 15 mg IM Q6HIV 11/27/18 Lactulose 20 gm PO DAILY 11/27/18 Levothyroxine [Synthroid -] 25 mcg PO DAILY 11/27/18 Piperacillin/Tazob 2.25 gm [Zosyn 2.25 gm IVPB TID 11/27/18 2.25GM Ivpb (Pre-Docked)] ASSESSMENT AND PLAN: 63 year old male with history of venous stasis and bilateral LE venous ulcers, TBI, Parkinson disease, GERD, asthma, depression, hypothyroidism, chronic pain, osteomyelitis of left foot, who presented to the ED with worsening leg wounds with worsening pain. 1. Infected venous ulcers with bilateral Le cellulitis - continue Zosyn Wound Care/Vascular Sx. ID following. 2. Onychomycosis of toenails s/p debridement by podiatry 3. Chronic venous insufficiency - chronic. Leg elevation advised. 4. History of traumatic brain injury - Stable. 5. Parkinson disease - Continue Sinemet 6. Asthma - Stable 7. Depression - Continue Wellbutrin 8. GERD - Continue Protonix 9. Hypothyroidism - Continue Synthroid 10. Chronic pain syndrome - Continue Wellbutrin, Neurontin, Methadone, oxycodone as needed DVT Px - Heparin SQ
--- NOTE | 2018-12-01 19:51 | PN ---
Physical Exam: SUBJECTIVE: Patient seen and examined NAEON. Endorses BLE pain with minor serous drainage of ankles and feet OBJECTIVE: Vital Signs Period Temp Pulse Resp BP Sys/Freitas Pulse Ox Last 24 Hr 97.2 F-98.6 F 68-673 17-18 119-132/69-89 97-98 GENERAL: In NAD. HEENT: NC/AT. No scleral icterus, No conjunctival pallor LUNGS: CTABL, no accessory muscle use, no crackles HEART: Regular rate and rhythm, normal S1 and S2 without murmurs ABDOMEN: Obese, soft, nontender, normoactive bowel sounds, no guarding. MSK: BLE decreased ROM b/l. Good ROM UE. UPPER EXTREMITIES: 2+ pulses palpated. Scaly rash to hand dorsum. LOWER EXTREMITIES: B/l LE blanching erythema/purura, serous ulcerations surrounding LE below knee. Not warm to touch. Onychomycotic changes of toenails. Yellow/ brown drainage present between digits b/l, greater on LLE. NEUROLOGICAL: Sensory intact b/l UE. Decreased sensation of BLE, intact dull sensation with decreased discrimination of fine touch PSYCHIATRIC: Appropriate mood and affect. SKIN: dry pale skin, little hair on BLE Laboratory Results - last 24 hr 12/01/18 12/01/18 08:10 08:10 WBC 8.4 RBC 4.20 Hgb 13.2 Hct 38.8 MCV 92.4 MCH 31.4 MCHC 33.9 RDW 13.8 Plt Count 230 MPV 8.0 Sodium 140 Potassium 4.2 Chloride 103 Carbon Dioxide 31 Anion Gap 7 L BUN 17.9 Creatinine 1.0 Est GFR (CKD-EPI)AfAm 93.73 Est GFR (CKD-EPI)NonAf 80.87 Random Glucose 80 Calcium 9.4 Phosphorus 3.0 Magnesium 1.6 L Active Medications Generic Name Dose Route Start Last Admin Trade Name Freq PRN Reason Stop Dose Admin Acetaminophen 325 mg 11/28/18 15:21 12/01/18 09:18 Tylenol - PO 325 mg Q6H PRN Administration PAIN LEVEL 6-10 Albuterol/Ipratropium 1 amp 11/28/18 04:55 11/30/18 08:24 Duoneb - NEB 1 amp BID PRN Administration ASTHMA Aspirin 81 mg 11/28/18 10:00 12/01/18 09:17 Asa - PO 81 mg DAILY BRENDA Administration Bacitracin 1 applic 12/01/18 15:15 12/01/18 17:31 Bacitracin - TP 1 applic DAILY BRENDA Administration Bupropion HCl 300 mg 11/28/18 10:00 12/01/18 09:19 Wellbutrin Xl - PO 300 mg DAILY BRENDA Administration Carbidopa/Levodopa 1 each 11/28/18 06:00 12/01/18 14:18 Sinemet 25/100 - PO 1 each TID BRENDA Administration Collagenase 1 applic 11/28/18 10:00 12/01/18 09:20 Santyl - TP 1 applic DAILY BRENDA Administration Protocol Cyclobenzaprine HCl 5 mg 11/27/18 22:30 12/01/18 14:19 Cyclobenzaprine Hcl PO Not Given TID BRENDA Fluticasone Propionate 1 spray 11/28/18 10:00 12/01/18 09:20 Flonase - NS 1 inhaler DAILY BRENDA Administration Gabapentin 600 mg 11/27/18 23:15 12/01/18 14:19 Neurontin - PO 600 mg TID BRENDA Administration Heparin Sodium (Porcine) 5,000 unit 11/27/18 22:00 12/01/18 14:19 Heparin - SQ 5,000 unit TID BRENDA Administration Sodium Chloride 1,000 mls @ 100 mls/hr 11/27/18 21:30 11/30/18 22:03 Normal Saline - IV 100 mls/hr ASDIR BRENDA Administration Piperacillin Sod/Tazobactam 50 mls @ 100 mls/hr 11/28/18 18:00 12/01/18 17:31 Sod 3.375 gm/ Dextrose IVPB 100 mls/hr Q8H-IV BRENDA Administration Protocol Lactulose 20 gm 11/29/18 10:00 12/01/18 09:17 Cephulac (Oral Use) PO 20 gm DAILY BRENDA Administration Levothyroxine Sodium 200 mcg/ 225 mcg 11/29/18 07:00 12/01/18 06:30 Levothyroxine Sodium 25 mcg PO 225 mcg DAILY@0700 BRENDA Administration Methadone HCl 7.5 mg 11/28/18 06:00 12/01/18 14:18 Dolophine - PO 7.5 mg TID BRENDA Administration Nystatin 1 applic 11/28/18 10:00 12/01/18 09:20 Mycostatin Cream - TP 1 applic BID BRENDA Administration Pantoprazole Sodium 40 mg 11/28/18 10:00 12/01/18 09:17 Protonix - PO 40 mg DAILY BRENDA Administration Pentoxifylline 400 mg 11/28/18 06:00 12/01/18 14:18 Trental - PO 400 mg TID BRENDA Administration Senna 2 tab 11/27/18 22:21 Senna - PO HS PRN CONSTIPATION Vital Signs Temp 97.2 F L 12/01/18 18:15 Pulse 673 H 12/01/18 18:15 Resp 18 12/01/18 18:15 BP 126/87 12/01/18 18:15 Pulse Ox 97 12/01/18 09:00 Intake & Output 11/30/18 12/01/18 12/01/18 23:59 11:59 23:59 Intake Total 700 1100 1200 Output Total 200 2600 300 Balance 500 -1500 900 Intake: IV 239 354 6359 Normal Saline - 1,000 ml 110 569 2097 @ 100 mls/hr IV ASDIR BRENDA Rx#:[id number] IVPB 200 Oral 300 400 Output: Urine 200 2600 300 Void 200 2600 300 Other: Voiding Method Urinal Urinal # Unmeasured Voids Void 2 3 Bowel Movement No No No ASSESSMENT/PLAN: 63 y.o. 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 #B/l LE cellulitis r/o osteomyelitis -- vs acute excerbation of chronic venous disease -Cx's from previous wound cx: poly microbial (pseudomonas, klebsiella, enterobacter, proteus, staph) s/p recent zosyn >MRI(11/19/18): --RLE: mild cellulitis, NO soft tissue abscess, NO osteomyelitis --LLE: mild cellulitis, NO soft tissue abscess, NO osteomyelitis. 2.8cm possible ?enchondroma - fu foot/ankle XR(11/28/18) -- pending read - Consult ID(Dr. Daniels) --cw IV abx(zosyn day #4) - Consult Wound Care(Dr. Alcantar) --Recommend washing b/l le's daily with NS and 4x4s to remove heaped up skin --Keep gauze between toes, change daily --Xeroform to superficial ulcers --Apply santyl to venous stasis ulcers and cover with damp to dry and kerlix --LE elevation at all times while at rest --Offloading to areas of pressure at all times while at rest -Consult Chronic Pain(Dr. Graham Plaza) #fungal toenails - cw nystatin local application - Podiatry: --will debride nails w/ nail clippers #Chronic pain -C/w home meds: methadone 7.5mg PO q8h, flexeril 5mg PO TID -ketorlac PRN if severe pain #Parkinsons disease -C/w carbidopa/ levodopa 25-100mg PO TID #GERD -C/w protonix 40mg PO daily #Asthma -C/w duonebs prn #Depression -C/w home meds: bupropion, - hold klonopin, zolpidem #Hypothyroidism -C/w home dose synthroid 225mcg PO daily #FEN -fat/cholesterol controlled diet #DVT PPX -Heparin SQ Visit type - Emergency Visit Emergency Visit: No - New Patient This patient is new to me today: No - Critical Care Critical Care patient: No ATTENDING PHYSICIAN STATEMENT I saw and evaluated the patient. I reviewed the resident's note and discussed the case with the resident. I agree with the resident's findings and plan as documented. SUBJECTIVE: OBJECTIVE: ASSESSMENT AND PLAN:
[2018-12-01] MEDS: SODIUM CHLORIDE 1,000 ML IV SCH (21:35)
[2018-12-02] MEDS ORDERED: DEXTROSE 5%-WATER - 50 ML IVPB ONE ×2 (01:26→09:03)
[2018-12-02] MEDS ORDERED: PIPERACILLIN/TAZOBACTAM 3.375 GM VIAL IVPB ONE ×2 (01:26→09:02)
[2018-12-02] MEDS: PIPERACILLIN/TAZOB 3.375 GM 3.375 GM in DEXTROSE 5%-WATER - 50 ML IVPB SCH ×2 (01:33→10:36)
[2018-12-02] MEDS: GABAPENTIN 300 MG CAPSULE (FP) PO SCH ×2 (05:34→13:42)
[2018-12-02] MEDS: PENTOXIFYLLINE 400 MG TABLET.ER PO SCH ×2 (05:34→13:44)
[2018-12-02] MEDS: METHADONE HCL 5 MG TABLET PO SCH ×2 (05:34→13:41)
[2018-12-02] MEDS: HEPARIN NA (PORCINE) 5,000 UNITS/ML 1ML VIAL SQ SCH ×2 (05:34→13:40)
[2018-12-02] MEDS: CARBIDOPA/LEVODOPA 25/100 TABLET (FP) PO SCH ×2 (05:34→13:42)
[2018-12-02] MEDS: CYCLOBENZAPRINE HCL 5 MG TABLET PO SCH ×2 (05:35→13:42)
[2018-12-02] MEDS ORDERED: PT OWN MED DRAWER 7, Y5N ONE (06:46)
[2018-12-02] MEDS ORDERED: LEVOTHYROXINE NA 25 MCG TABLET (FP) ONE (06:47)
[2018-12-02] MEDS ORDERED: LEVOTHYROXINE NA 200 MCG TABLET ONE (06:47)
[2018-12-02] MEDS: LEVOTHYROXINE 200 MCG, LEVOTHYROXINE 25 MCG PO SCH (06:51)
[2018-12-02] MEDS: ASPIRIN 81 MG CHEWABLE TABLETS PO SCH (10:36)
[2018-12-02] MEDS: LACTULOSE 20 GM/30 ML UDC (FOR ORAL USE ONLY) PO SCH (10:36)
[2018-12-02] MEDS: PANTOPRAZOLE 40 MG TABLET (FP) PO SCH (10:36)
[2018-12-02] MEDS: COLLAGENASE CLOSTRIDIUM HIST. 30 GRAMS TUBE TP SCH (10:38)
[2018-12-02] MEDS: BACITRACIN 15 GM TUBE TOPICAL OINTMENT TP SCH (10:39)
[2018-12-02] MEDS: FLUTICASONE PROP 0.05% 16 GM NASAL SPRAY NS SCH (10:39)
[2018-12-02] MEDS: NYSTATIN 100,000 UNIT/GM TOPICAL CREAM 15 GM TUBE TP SCH (10:39)
--- NOTE | 2018-12-02 10:40 | PN ---
Progress Note, Physician History of Present Illness: patient stable no new issues legs look good - Current Medication List Current Medications: Active Medications Acetaminophen (Tylenol -) 325 mg PO Q6H PRN PRN Reason: PAIN LEVEL 6-10 Last Admin: 12/01/18 20:05 Dose: 325 mg Albuterol/Ipratropium (Duoneb -) 1 amp NEB BID PRN PRN Reason: ASTHMA Last Admin: 11/30/18 08:24 Dose: 1 amp Aspirin (Asa -) 81 mg PO DAILY BRENDA Last Admin: 12/01/18 09:17 Dose: 81 mg Bacitracin (Bacitracin -) 1 applic TP DAILY BRENDA Last Admin: 12/01/18 17:31 Dose: 1 applic Bupropion HCl (Wellbutrin Xl -) 300 mg PO DAILY BRENDA Last Admin: 12/01/18 09:19 Dose: 300 mg Carbidopa/Levodopa (Sinemet 25/100 -) 1 each PO TID BRENDA Last Admin: 12/02/18 05:34 Dose: 1 each Collagenase (Santyl -) 1 applic TP DAILY BRENDA; Protocol Last Admin: 12/01/18 09:20 Dose: 1 applic Cyclobenzaprine HCl (Cyclobenzaprine Hcl) 5 mg PO TID BRENDA Last Admin: 12/02/18 05:35 Dose: 5 mg Fluticasone Propionate (Flonase -) 1 spray NS DAILY BRENDA Last Admin: 12/01/18 09:20 Dose: 1 inhaler Gabapentin (Neurontin -) 600 mg PO TID BRENDA Last Admin: 12/02/18 05:34 Dose: 600 mg Heparin Sodium (Porcine) (Heparin -) 5,000 unit SQ TID BRENDA Last Admin: 12/02/18 05:34 Dose: 5,000 unit Sodium Chloride (Normal Saline -) 1,000 mls @ 100 mls/hr IV ASDIR BRENDA Last Admin: 12/01/18 21:35 Dose: 100 mls/hr Piperacillin Sod/Tazobactam (Sod 3.375 gm/ Dextrose) 50 mls @ 100 mls/hr IVPB Q8H-IV BRENDA; Protocol Last Admin: 12/02/18 01:33 Dose: 100 mls/hr Lactulose (Cephulac (Oral Use)) 20 gm PO DAILY BRENDA Last Admin: 12/01/18 09:17 Dose: 20 gm Levothyroxine Sodium 200 mcg/ (Levothyroxine Sodium 25 mcg) 225 mcg PO DAILY@ 0700 [facility] Last Admin: 12/02/18 06:51 Dose: 225 mcg Methadone HCl (Dolophine -) 7.5 mg PO TID [facility] Last Admin: 12/02/18 05:34 Dose: 7.5 mg Nystatin (Mycostatin Cream -) 1 applic TP BID [facility] Last Admin: 12/01/18 21:45 Dose: 1 applic Oxycodone/Acetaminophen (Percocet 5/325 -) 1 combo PO ONCE PRN PRN Reason: PAIN LEVEL 7 - 10 Stop: 12/03/18 10:09 Pantoprazole Sodium (Protonix -) 40 mg PO DAILY [facility] Last Admin: 12/01/18 09:17 Dose: 40 mg Pentoxifylline (Trental -) 400 mg PO TID [facility] Last Admin: 12/02/18 05:34 Dose: 400 mg Senna (Senna -) 2 tab PO HS PRN PRN Reason: CONSTIPATION - Objective Vital Signs: Vital Signs Temperature 97.4 F L 12/02/18 06:00 Pulse Rate 69 12/02/18 06:00 Respiratory Rate 18 12/02/18 06:00 Blood Pressure 142/84 12/02/18 06:00 O2 Sat by Pulse Oximetry (%) 97 12/01/18 21:00 Constitutional: Yes: No Distress, Calm Cardiovascular: Yes: S1, S2 Respiratory: Yes: Regular, CTA Bilaterally Gastrointestinal: Yes: Normal Bowel Sounds, Soft Musculoskeletal: Yes: WNL Extremities: Yes: Other Wound/Incision: Yes: Dressing Removed, Other Neurological: Yes: Alert, Oriented Psychiatric: Yes: Alert, Oriented Labs: CBC, BMP 12/01/18 08:10 12/01/18 08:10 Assessment/Plan b/l cellulitis of the leg wound infection drainage from the wound onchomycosis plan patient needs to continue abx zosyn for 7 more days wound care then can change to augmentin depending on wound condition wound care on regular basis cannot miss abx
[2018-12-02] MEDS ORDERED: ACETAMINOPHEN 325 MG TABLET (FP) PO PRN (11:01)
[2018-12-02] MEDS ORDERED: oxyCODONE HCL 5 MG TABLET PO PRN (11:01)
--- NOTE | 2018-12-02 14:36 | PN ---
Progress Note (short form) - Note Progress Note: fuv for fungus nails. Patient also complains of painful 5th toes. +onychomcyosis x 10, +tender, +xerosis b/l soles of feet, +ht 5 b/l, +tender Onychomysosis HT 5 b/l xerosis Debride nails x 10. 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 Ammonium lactate BID to soles of feet. Wounds being managed by vascular o his legs.
[2018-12-02 16:06] VITALS: BP 121/82; PULSE 88; TEMP 97.6
--- NOTE | 2018-12-02 17:31 | DS ---
Physical Exam: SUBJECTIVE: Patient seen and examined OBJECTIVE: Vital Signs Period Temp Pulse Resp BP Sys/Freitas Pulse Ox Last 24 Hr 97.2 F-97.6 F 69-673 18-18 121-154/82-104 97 PHYSICAL EXAM GENERAL: The patient is awake, alert, and fully oriented, in no acute distress. HEAD: Normal with no signs of trauma. EYES: PERRL, extraocular movements intact, sclera anicteric, conjunctiva clear. ENT: Ears normal, nares patent, oropharynx clear without exudates, moist mucous membranes. NECK: Trachea midline, full range of motion, supple. LUNGS: Breath sounds equal, clear to auscultation bilaterally, no wheezes, no crackles, no accessory muscle use. HEART: Regular rate and rhythm, S1, S2 without murmur, rub or gallop. ABDOMEN: Soft, nontender, nondistended, normoactive bowel sounds, no guarding, no rebound, no hepatosplenomegaly, no masses. EXTREMITIES: 2+ pulses, warm, well-perfused, no edema. NEUROLOGICAL: Cranial nerves II through XII grossly intact. Normal speech, gait not observed. PSYCH: Normal mood, normal affect. SKIN: Warm, dry, normal turgor, no rashes or lesions noted. LABS HOSPITAL COURSE: Date of Admission:11/27/18 Date of Discharge: 12/02/18 Discharge Summary Problems reviewed: Yes Reason For Visit: IDIOPATHIC CHRONIC VENOUS HYPERTENSION OF BOTH Condition: Stable - Instructions Diet, Activity, Other Instructions: Your visit You were admitted to the hospital because you have an infection of both of your legs. You were treated with IV antibiotics. You will be sent back to the half-way with an IV line to continue with the antibiotics. Medications Please continue the following antibiotics as prescribed: 1. IV Zosyn 3.375 every 8 hours for 7 days. 2. Then Augmentin 1 tab twice a day for the next 7 days. Please continue your other home medications. Follow ups Please follow up with your primary care doctor (Dr. Sadler) within 1 week. Please follow up with Dr. Alcantar at the wound care clinic within 1 week. Please call to schedule an appointment. Please follow up with ID (Dr. Daniels). Additional medications Please call 911 or go to the ED if with any worsening fever, chills, headache, dizziness, chest pain, shortness of breath, abdominal pain, diarrhea, or any new concerns noted. Referrals: Edita Daniels MD [Staff Physician] - Benigno Sadler [Primary Care Provider] - Tra Alcantar DO [Staff Physician] - Disposition: [facility] - Home Medications Comprehensive Discharge Medication List: Ambulatory Orders Aspirin [ASA -] 81 mg PO DAILY 02/27/18 Bupropion HCl [Bupropion HCl Sr] 150 mg PO BID 02/27/18 Clonazepam [Klonopin] 1.5 mg PO HS 02/27/18 Ferrous Sulfate 1 tab PO DAILY 02/27/18 Levothyroxine [Synthroid -] 200 mcg PO DAILY 02/27/18 Sennosides [Senna] 17.2 mg PO HS PRN 02/27/18 Simethicone 125 mg PO PRN PRN 02/27/18 Zolpidem Tartrate 10 mg PO HS 02/27/18 Nitroglycerin 0.4 mg SL PRN PRN MDD 3 09/04/18 Cyclobenzaprine HCl 5 mg PO TID tablet 11/03/18 Acetaminophen [Tylenol .Regular Strength -] 650 mg PO Q6H 11/17/18 Carbidopa/Levodopa [Carbidopa-Levodopa 25-100 Tab] 1 tab PO TID 11/17/18 Collagenase Clostridium Hist. [Santyl -] 1 applic TP DAILY 11/17/18 Fluticasone Prop 0.05% Nasal [Flonase -] 1 spray NS DAILY 11/17/18 Mag Hydrox/Al Hydrox/Simeth [Mylanta Oral Suspension -] 30 ml PO PRN 11/17/18 Methadone [Dolophine -] 7.5 mg PO Q8H 11/17/18 Multivitamins [Multivit ([facility] Formulary)] 1 tab PO DAILY 11/17/18 Pantoprazole Sodium 40 mg PO DAILY 11/17/18 Pentoxifylline [Trental -] 400 mg PO TID 11/17/18 Nystatin Cream [Mycostatin Cream -] 1 applic TP BID 30 Days #1 tube 11/24/18 Hydrocortisone 1% Cream [Hytone 1% Cream -] 1 applic TP DAILY 11/27/18 Ketorolac Injection [Toradol -] 15 mg IM Q6HIV 11/27/18 Lactulose 20 gm PO DAILY 11/27/18 Levothyroxine [Synthroid -] 25 mcg PO DAILY 11/27/18 Piperacillin/Tazob 2.25 gm [Zosyn 2.25GM Ivpb (Pre-Docked)] 2.25 gm IVPB TID ATTENDING PHYSICIAN STATEMENT I saw and evaluated the patient. I reviewed the resident's note and discussed the case with the resident. I agree with the resident's findings and plan as documented. SUBJECTIVE: OBJECTIVE: ASSESSMENT AND PLAN:
--- NOTE | 2018-12-02 18:15 | PN ---
Teaching Attending Note Name of Resident: José Luis Michaud ATTENDING PHYSICIAN STATEMENT I saw and evaluated the patient. I reviewed the resident's note and discussed the case with the resident. I agree with the resident's findings and plan as documented. SUBJECTIVE: LE pain improving. No fever/chills. OBJECTIVE: Afebrile, Hemodynamically Stable. Last Vital Signs Temp Pulse Resp BP Pulse Ox 97.6 F 88 18 121/82 97 12/02/18 15:05 12/02/18 15:05 12/02/18 15:05 12/02/18 15:05 12/01/18 21:00 HEART: S1S2, RRR LUNGS: Clear to auiscultation ABDOMEN: High BMI, soft, non-tender, non-distended, normal BS EXTREMITIES: Erythema, 2+ edema, and scalling, hypertrophic skin changes and superficial ulcers of both lower legs NEURO: AAO x 3. Tone/Power normal. Laboratory Tests 11/27/18 11/27/18 11/28/18 16:54 17:06 05:30 WBC 11.5 H 7.6 RBC 4.69 4.08 Hgb 14.4 13.0 Hct 43.0 D 37.4 MCV 91.8 91.5 MCH 30.8 31.9 MCHC 33.5 34.8 RDW 13.8 13.5 Plt Count 236 193 MPV 7.7 7.9 Absolute Neuts (auto) 5.7 3.0 Neutrophils % 49.2 39.8 L Lymphocytes % 37.8 44.8 H Monocytes % 10.8 H 12.2 H Eosinophils % 1.7 2.9 Basophils % 0.5 0.3 Nucleated RBC % 0 0 Sodium 138 Potassium 4.4 Chloride 103 Carbon Dioxide 29 Anion Gap 6 L BUN 16.6 Creatinine 1.2 Est GFR (CKD-EPI)AfAm 75.19 Est GFR (CKD-EPI)NonAf 64.87 Random Glucose 110 H Hemoglobin A1c % Calcium 9.7 Phosphorus Magnesium Total Bilirubin 0.5 AST 28 ALT 19 Alkaline Phosphatase 116 Total Protein 8.0 Albumin 3.1 L 11/28/18 11/28/18 11/29/18 05:30 05:30 05:30 WBC 8.4 RBC 4.04 Hgb 12.8 Hct 37.3 MCV 92.4 MCH 31.7 MCHC 34.3 RDW 14.2 Plt Count 218 MPV 7.6 Absolute Neuts (auto) 4.3 Neutrophils % 51.0 D Lymphocytes % 34.6 D Monocytes % 10.8 H Eosinophils % 3.1 Basophils % 0.5 Nucleated RBC % 0 Sodium 141 Potassium 4.0 Chloride 104 Carbon Dioxide 29 Anion Gap 8 BUN 17.1 Creatinine 1.0 Est GFR (CKD-EPI)AfAm 93.73 Est GFR (CKD-EPI)NonAf 80.87 Random Glucose 90 Hemoglobin A1c % 5.0 Calcium 9.1 Phosphorus 3.4 Magnesium 1.8 Total Bilirubin AST ALT Alkaline Phosphatase Total Protein Albumin 11/29/18 12/01/18 12/01/18 05:30 08:10 08:10 WBC 8.4 RBC 4.20 Hgb 13.2 Hct 38.8 MCV 92.4 MCH 31.4 MCHC 33.9 RDW 13.8 Plt Count 230 MPV 8.0 Absolute Neuts (auto) Neutrophils % Lymphocytes % Monocytes % Eosinophils % Basophils % Nucleated RBC % Sodium 142 140 Potassium 4.2 4.2 Chloride 105 103 Carbon Dioxide 29 31 Anion Gap 7 L 7 L BUN 17.2 17.9 Creatinine 1.2 1.0 Est GFR (CKD-EPI)AfAm 75.19 93.73 Est GFR (CKD-EPI)NonAf 64.87 80.87 Random Glucose 94 80 Hemoglobin A1c % Calcium 8.9 9.4 Phosphorus 3.0 Magnesium 1.6 L Total Bilirubin AST ALT Alkaline Phosphatase Total Protein Albumin Discharge Medications Medication Instructions Recorded Aspirin [ASA -] 81 mg PO DAILY 02/27/18 Bupropion HCl [Bupropion HCl Sr] 150 mg PO BID 02/27/18 Clonazepam [Klonopin] 1.5 mg PO HS 02/27/18 Ferrous Sulfate 1 tab PO DAILY 02/27/18 Levothyroxine [Synthroid -] 200 mcg PO DAILY 02/27/18 Sennosides [Senna] 17.2 mg PO HS PRN 02/27/18 Simethicone 125 mg PO PRN PRN 02/27/18 Zolpidem Tartrate 10 mg PO HS 02/27/18 Nitroglycerin 0.4 mg SL PRN PRN MDD 3 09/04/18 Cyclobenzaprine HCl 5 mg PO TID tablet 11/03/18 Acetaminophen [Tylenol .Regular 650 mg PO Q6H 11/17/18 Strength -] Carbidopa/Levodopa 1 tab PO TID 11/17/18 [Carbidopa-Levodopa 25-100 Tab] Collagenase Clostridium Hist. 1 applic TP DAILY 11/17/18 [Santyl -] Fluticasone Prop 0.05% Nasal 1 spray NS DAILY 11/17/18 [Flonase -] Mag Hydrox/Al Hydrox/Simeth 30 ml PO PRN 11/17/18 [Mylanta Oral Suspension -] Methadone [Dolophine -] 7.5 mg PO Q8H 11/17/18 Multivitamins [Multivit ([facility] 1 tab PO DAILY 11/17/18 Formulary)] Pantoprazole Sodium 40 mg PO DAILY 11/17/18 Pentoxifylline [Trental -] 400 mg PO TID 11/17/18 Nystatin Cream [Mycostatin Cream -] 1 applic TP BID 30 Days #1 tube 11/24/18 Hydrocortisone 1% Cream [Hytone 1% 1 applic TP DAILY 11/27/18 Cream -] Ketorolac Injection [Toradol -] 15 mg IM Q6HIV 11/27/18 Lactulose 20 gm PO DAILY 11/27/18 Levothyroxine [Synthroid -] 25 mcg PO DAILY 11/27/18 Piperacillin/Tazob 2.25 gm [Zosyn 2.25 gm IVPB TID 11/27/18 2.25GM Ivpb (Pre-Docked)] ASSESSMENT AND PLAN: 63 year old male with history of venous stasis and bilateral LE venous ulcers, TBI, Parkinson disease, GERD, asthma, depression, hypothyroidism, chronic pain ( on Methadone), osteomyelitis of left foot, who presented to the ED with worsening leg wounds with worsening pain. 1. Infected venous ulcers with bilateral LE cellulitis - continue Zosyn for 7 days with transition to Augmentin with regular wound care treatment/evaluation. Wound Care/Vascular Sx/Podiatry/ID follow up. 2. Onychomycosis of toenails s/p debridement by podiatry - recommend ammonium lactate BID to soles of feet and ongoing wound care. 3. Chronic venous insufficiency - chronic. Leg elevation advised. 4. History of traumatic brain injury - Stable. 5. Parkinson disease - Continue Sinemet 6. Asthma - Stable 7. Depression - Continue Wellbutrin 8. GERD - Continue Protonix 9. Hypothyroidism - Continue Synthroid 10. Chronic pain syndrome - Continue Wellbutrin, Neurontin, Methadone. Medically optimized for transfer to SNF with regular Wound Care follow up and Vascular Surgery/Podiatry/ID follow up.
== END 2018-12-02 17:17 | DRG 361 ==
LOC: JER 16:32 → JERBED 18:58 → J8W 11-28 01:50
PROVIDERS: ADMIT Internal Medicine
PROC: 0HBKXZZ Excision of Right Lower Leg Skin, External Approach (ICD-10-PCS; principal; 2018-11-30)
PROC: 0HBJXZZ Excision of Left Upper Leg Skin, External Approach (ICD-10-PCS; 2018-11-30)
PROC: 0HBRXZZ Excision of Toe Nail, External Approach (ICD-10-PCS; 2018-11-30)
PROC: 0HBRXZZ Excision of Toe Nail, External Approach (ICD-10-PCS; 2018-11-30)
PROC: 0HBRXZZ Excision of Toe Nail, External Approach (ICD-10-PCS; 2018-11-30)
PROC: 0HBRXZZ Excision of Toe Nail, External Approach (ICD-10-PCS; 2018-11-30)
PROC: 0HBRXZZ Excision of Toe Nail, External Approach (ICD-10-PCS; 2018-11-30)
PROC: 0HBRXZZ Excision of Toe Nail, External Approach (ICD-10-PCS; 2018-11-30)
PROC: 0HBRXZZ Excision of Toe Nail, External Approach (ICD-10-PCS; 2018-11-30)
PROC: 0HBRXZZ Excision of Toe Nail, External Approach (ICD-10-PCS; 2018-11-30)
PROC: 0HBRXZZ Excision of Toe Nail, External Approach (ICD-10-PCS; 2018-11-30)
PROC: 0HBRXZZ Excision of Toe Nail, External Approach (ICD-10-PCS; 2018-11-30)
PROC: 02HV33Z Insertion of Infusion Device into Superior Vena Cava, Percutaneous Approach (ICD-10-PCS; 2018-12-01)
PROC: B518ZZA Fluoroscopy of Superior Vena Cava, Guidance (ICD-10-PCS; 2018-12-01)
DX: L97.818 Non-pressure chronic ulcer of other part of right lower leg with other specified severity (principal); I87.333 Chronic venous hypertension (idiopathic) with ulcer and inflammation of bilateral lower extremity; I87.2 Venous insufficiency (chronic) (peripheral); L03.116 Cellulitis of left lower limb; L03.115 Cellulitis of right lower limb; B35.1 Tinea unguium; I10 Essential (primary) hypertension; G20 Parkinson's disease; K21.9 Gastro-esophageal reflux disease without esophagitis; J45.909 Unspecified asthma, uncomplicated; E03.9 Hypothyroidism, unspecified; I87.8 Other specified disorders of veins; L97.828 Non-pressure chronic ulcer of other part of left lower leg with other specified severity; F32.9 Major depressive disorder, single episode, unspecified; I34.0 Nonrheumatic mitral (valve) insufficiency; F11.20 Opioid dependence, uncomplicated; M54.5 Low back pain; K59.09 Other constipation; S06.9X9A Unspecified intracranial injury with loss of consciousness of unspecified duration, initial encounter; G89.29 Other chronic pain; B96.1 Klebsiella pneumoniae [K. pneumoniae] as the cause of diseases classified elsewhere; B96.5 Pseudomonas (aeruginosa) (mallei) (pseudomallei) as the cause of diseases classified elsewhere; B96.89 Other specified bacterial agents as the cause of diseases classified elsewhere; B95.8 Unspecified staphylococcus as the cause of diseases classified elsewhere
CPT/HCPCS: 36415; 36569; 73610-TC-LT-FY; 73610-TC-RT-FY; 73630-TC-LT; 73630-TC-RT-FY; 77001-TC-FY; 80048; 80053; 83036; 83735; 84100; 85025; 85027; 93005; 93010; 94640; 99283-25; C1751; G0463-25; J1644; J7030